=== PATIENT | male | born 1945 | race Caucasian/White ===

== ENCOUNTER 2017-08-05 08:56 | Inpatient (IN) | payer OTHER, MEDICARE ==
[2017-08-05] MEDS ORDERED: HYDROcodone/APAP 5-325MG 1 EACH TAB PO STA (09:44)
[2017-08-05] MEDS ORDERED: SODIUM CHLORIDE 0.9% 1,000 ML IV STA ×2 (09:44)
[2017-08-05] MEDS ORDERED: DIPH,PERTUS(ACELL)TETVAC-LF 0.5 ML VIAL IM ONE (09:44)
[2017-08-05] MEDS ORDERED: VANCOMYCIN IV PER PHARMACY 1 EACH MISC MISCELLANE PRN (09:46)
[2017-08-05] MEDS ORDERED: AMPICILLIN-SULBACTAM 3 GM in SODIUM CHLORIDE 0.9% 100 ML IVPB STA (09:49)
[2017-08-05] MEDS ORDERED: VANCOMYCIN 1,500 MG in SODIUM CHLORIDE 0.9% 250 ML IVPB STA (10:01)
[2017-08-05 10:26] LABS: Basophils % (A) 0 %; Eosinophils # (A) 0.1 k/uL (0-0.7); Eosinophils % (A) 1 %; HGB 12.8 gm/dL (13.0-17.5); Lymphocytes # (A) 0.6 k/uL (1.0-4.8); Lymphocytes % (A) 9 %; MCH 30.4 pg (25.0-35.0); MCHC 33.6 g/dL (31.0-37.0); MCV 90.4 fL (80.0-100.0); Mean Platelet Volume 7.4; Monocytes # (A) 0.4 k/uL (0-1.0); Monocytes % (A) 6 %; Neutrophils # (A) 5.8 k/uL (1.3-7.7); Neutrophils % (A) 83 %; Platelet Count 239 k/uL (150-450); RBC 4.21 m/uL (4.30-5.90); RDW 12.7 % (11.5-15.5)
--- NOTE | 2017-08-05 10:31 | ED ---
Animal Bite HPI - General Chief Complaint: Animal Bite Stated Complaint: CAT BITE RT ARM Time Seen by Provider: 08/05/17 09:38 Source: patient, RN notes reviewed, old records reviewed Mode of arrival: ambulatory Limitations: no limitations - History of Present Illness Initial Comments: This is a 71-year-old male presents emergency Department chief complaint of a cat scratch over Thursday evening. He reports that the cat scratches right hand and wrist. He reports that over the past few days had increased swelling. He initially told his family reports that he fell. They followed up with orthopedic yesterday and orthopedic started the Patient on azithromycin yesterday. Patient's family states that the swelling and pain and redness have gotten worse over the right hand and wrist today. He states that he is diabetic. - Related Data Home Medications Medication Instructions Recorded Confirmed Alendronate Sodium [Fosamax] 70 mg PO PORTILLO 11/19/15 11/24/15 Dextrose Chew [Glucose Chew Tab] 12 gm PO DAILY PRN 11/19/15 11/24/15 Donepezil [Aricept] 5 mg PO DAILY 11/19/15 11/24/15 Donepezil [Aricept] 10 mg PO DAILY 11/19/15 11/24/15 Fluticasone Nasal [place] [Flonase 2 sprays EA NOSTRIL DAILY PRN 11/19/15 11/24/15 Nasal [place]] Gabapentin [Neurontin] 300 mg PO TID 11/19/15 11/24/15 Insulin Aspart [NovoLOG Flexpen] 4 units SQ AC-TID 11/19/15 11/24/15 Insulin Aspart [NovoLOG Flexpen] See Protocol SQ PC-TID 11/19/15 11/24/15 Insulin Glargine,Hum.rec.anlog 20 units SQ QAM 11/19/15 11/24/15 [Lantus Solostar] Lisinopril-Hctz 10-12.5 mg 1 tab PO DAILY 11/19/15 11/24/15 [Zestoretic 10-12.5] Loratadine [Claritin] 10 mg PO DAILY PRN 11/19/15 11/24/15 Memantine HCl [Namenda] 5 mg PO BID 11/19/15 11/24/15 Simvastatin [Zocor] 20 mg PO HS 11/24/15 11/24/15 Previous Rx's Medication Instructions Recorded Omeprazole 20 mg PO BID #30 11/25/15 Allergies Allergy/AdvReac Type Severity Reaction Status Date / Time No Known Allergies Allergy Verified 08/05/17 09:21 Review of Systems ROS Statement: Those systems with pertinent positive or pertinent negative responses have been documented in the HPI. ROS Other: All systems not noted in ROS Statement are negative. Past Medical History Past Medical History: Dementia, Diabetes Mellitus, Hyperlipidemia, Hypertension Additional Past Medical History / Comment(s): Agent [place] exposure in [place] History of Any Multi-Drug Resistant Organisms: None Reported, Unobtainable Past Surgical History: Unable to Obtain Past Anesthesia/Blood Transfusion Reactions: No Reported Reaction Past Psychological History: Unable to Obtain Smoking Status: Former smoker Past Alcohol Use History: Occasional Past Drug Use History: None Reported General Exam - General Exam Comments Initial Comments: 71-year-old male. Alert and oriented. No significant distress. Limitations: no limitations General appearance: alert, in no apparent distress Head exam: Present: atraumatic, normocephalic, normal inspection Eye exam: Present: normal appearance, PERRL, EOMI. Absent: scleral icterus, conjunctival injection, periorbital swelling ENT exam: Present: normal exam, mucous membranes moist Neck exam: Present: normal inspection. Absent: tenderness, meningismus, lymphadenopathy Respiratory exam: Present: normal lung sounds bilaterally. Absent: respiratory distress, wheezes, rales, rhonchi, stridor Cardiovascular Exam: Present: regular rate, normal rhythm, normal heart sounds. Absent: systolic murmur, diastolic murmur, rubs, gallop, clicks GI/Abdominal exam: Present: soft, normal bowel sounds. Absent: distended, tenderness, guarding, rebound, rigid Extremities exam: Present: normal inspection, full ROM, normal capillary refill. Absent: tenderness, pedal edema, joint swelling, calf tenderness Back exam: Present: normal inspection Neurological exam: Present: alert, oriented X3, CN II-XII intact Psychiatric exam: Present: normal affect, normal mood Skin exam: Present: warm, dry, intact, normal color. Absent: rash Course Vital Signs 08/05/17 09:17 Temperature 97.8 F Pulse Rate 85 Respiratory 16 Rate Blood Pressure 149/63 O2 Sat by Pulse 97 Oximetry Medical Decision Making - Medical Decision Making 8-year-old male with history of diabetes presents with right arm and wrist and hand cellulitis after possibility of cat scratch versus bite. Started the Patient on Unasyn and vancomycin. Patient has extending cellulitis from the wrist to the proximal forearm. Patient's x-ray of the hand and wrist reviewed and show soft tissue swelling noted discharge changes. Patient's also started on insulin drip for the elevated blood sugar. Currently pending acetone and urinalysis. Patient admitted to Dr. Mora has not this time. - Lab Data Result diagrams: 08/05/17 10:00 08/05/17 10:00 Lab Results 08/05/17 08/05/17 08/05/17 Range/Units 10:00 10:00 10:00 WBC 7.0 (3.8-10.6) k/uL RBC 4.21 L (4.30-5.90) m/uL Hgb 12.8 L (13.0-17.5) gm/dL Hct 38.0 L (39.0-53.0) % MCV 90.4 (80.0-100.0) fL MCH 30.4 (25.0-35.0) pg MCHC 33.6 (31.0-37.0) g/dL RDW 12.7 (11.5-15.5) % Plt Count 239 (150-450) k/uL Neutrophils % 83 % Lymphocytes % 9 % Monocytes % 6 % Eosinophils % 1 % Basophils % 0 % Neutrophils # 5.8 (1.3-7.7) k/uL Lymphocytes # 0.6 L (1.0-4.8) k/uL Monocytes # 0.4 (0-1.0) k/uL Eosinophils # 0.1 (0-0.7) k/uL Basophils # 0.0 (0-0.2) k/uL Sodium 131 L (137-145) mmol/L Potassium 5.5 H (3.5-5.1) mmol/L Chloride 91 L (98-107) mmol/L Carbon Dioxide 26 (22-30) mmol/L Anion Gap 14 mmol/L BUN 22 H (9-20) mg/dL Creatinine 1.10 (0.66-1.25) mg/dL Est GFR (CKD-EPI)AfAm 78 (>60 ml/min/1.73 sqM) Est GFR (CKD-EPI)NonAf 68 (>60 ml/min/1.73 sqM) Glucose 452 H* (74-99) mg/dL Plasma Lactic Acid Clifford 1.3 (0.7-2.0) mmol/L Calcium 9.3 (8.4-10.2) mg/dL - Radiology Data Radiology results: report reviewed Wrist x-ray shows suggestion of mild soft tissue prominence which may be greater in the thumb. No acute osseous and around. No foreign bodies noted. No acute osseous normality, advanced and or changes in distal and phalangeal joint space. No foreign bodies noted in the hand noted. Disposition Clinical Impression: Cat bite, Right arm cellulitis, Hyperglycemia due to type 2 diabetes mellitus Disposition: ADMITTED IP TO THIS HOSP Condition: Stable Instructions: Animal Bite (ED) Is patient prescribed a controlled substance at d/c from ED?: No When asked, does pt state using other controlled substances?: No If prescribed controlled substance>3 days was MAPS reviewed?: No If opioid is for acute pain is fill amount 7 days or less?: No If Rx opioid, was Start Talking consent form obtained?: No Referrals: [facility],Clinic [Primary Care Provider] - 1-2 days Time of Disposition: 11:26
[2017-08-05 10:46] LABS: Calcium 9.3 mg/dL (8.4-10.2); Potassium 5.5 mmol/L (3.5-5.1)
--- NOTE | 2017-08-05 10:52 | XR ---
EXAMINATION TYPE: XR hand complete RT DATE OF EXAM: 08/05/2017 COMPARISON: NONE HISTORY: Pain I TECHNIQUE: Three-view right hand FINDINGS: There is some degenerative joint change in the distal interphalangeal joint spaces. This is especially noted at the index finger. Soft tissues appear normal. No radiopaque foreign bodies are evident. IMPRESSION: 1. No acute osseous abnormality. 2. Advanced degenerative changes at the distal interphalangeal joint spaces. 3. No radiopaque foreign bodies.
--- NOTE | 2017-08-05 11:13 | XR ---
EXAMINATION TYPE: XR wrist complete RT DATE OF EXAM: 08/05/2017 COMPARISON: NONE HISTORY: Pain A TECHNIQUE: 4 view right wrist FINDINGS: No acute fractures are evident. Some mild degenerative changes at the first carpal metacarp al junction. Soft tissues appear minimally prominent diffusely. IMPRESSION: 1. Suggestion of mild soft tissue prominence which may be greater at the thumb. 2. No acute osseous abnormality. 3. No radiopaque foreign bodies.
[2017-08-05] MEDS ORDERED: INSULIN REGULAR 100 UNIT in SODIUM CHLORIDE 0.9% 100 ML IV ONE (11:15)
[2017-08-05] MEDS ORDERED: IBUPROFEN 400 MG TAB PO PRN (11:28)
[2017-08-05] MEDS ORDERED: HYDROcodone/APAP 5-325MG 1 EACH TAB PO PRN (11:28)
[2017-08-05] MEDS ORDERED: MORPHINE SULFATE 2 MG/ML SYRINGE IV PRN (11:28)
[2017-08-05] MEDS ORDERED: NALOXONE 0.4 MG/ML 1 ML VIAL IV PRN (11:28)
[2017-08-05] MEDS ORDERED: ONDANSETRON 4 MG/2 ML VIAL IVP PRN (11:28)
[2017-08-05] MEDS ORDERED: ACETAMINOPHEN TAB 325 MG TAB PO PRN (11:28)
[2017-08-05] MEDS: SODIUM CHLORIDE 0.9% 1,000 ML IV SCH ×2 (12:00→21:14)
[2017-08-05 12:08] LABS: Appearance,Urine Clear (Clear); Bacteria,Urine Rare /hpf; Bilirubin,Urine Negative (Negative); Blood,Urine Small (Negative); Color,Urine Light Yellow; Glucose,Urine (UA) 4+ (Negative); Ketones,Urine 1+ (Negative); Leukocyte Esterase,Urine Negative (Negative); Nitrite,Urine Negative (Negative); Protein,Urine Negative (Negative); RBC,Urine 10 /hpf (0-5); Specific Gravity,Urine 1.021 (1.001-1.035); Squamous Epithelial Cell,Urine <1 /hpf (0-4); Urobilinogen,Urine <2.0 mg/dL (<2.0); WBC,Urine 1 /hpf (0-5)
[2017-08-05 12:14] LABS: Glucose,Whole Blood 357 mg/dL (75-99)
[2017-08-05 13:29] LABS: Glucose,Whole Blood 306 mg/dL (75-99)
--- NOTE | 2017-08-05 14:05 | P.HPIM ---
History of Present Illness 71-year-old pleasant gentleman with a history of possible thousand was dementia has phases of lucidity came in presently alert oriented 3 came in after a cat bite patient was seen in the orthopedic surgery clinic. Patient cat bite his left hand initially to start the patient has a fracture for, no fracture was evident and patient was given Augmentin only take 2 doses of Augmentin since his symptoms has worsened patient came to ER patient denied any fever chills patient redness and swelling has worsened there is no obvious abscess and clinical exam patient was started given Unasyn and vancomycin, vancomycin will be discontinued patient will be started back on Unasyn patient has a highly elevated blood sugars patient lives it to water large apparently takes his insulin on regular basis. Patient is found to highly elevated blood sugars with that acitretin negative and patient is not in diabetic ketoacidosis does have mild anion gap patient is presently on IV insulin which will be transitioned to subcutaneous insulin. Patient will be can you done IV fluids. If patient has symptomatically improvement probably can be discharged on Augmentin tomorrow or as patient may need orthopedic surgery evaluation if it gets worse or patient has an induration or abscess tomorrow. Review of Systems REVIEW OF SYSTEMS: CONSTITUTIONAL: No fever, no malaise, no fatigue. HEENT: No recent visual problems or hearing problems. Denied any sore throat. CARDIOVASCULAR: No chest pain, orthopnea, PND, no palpitations, no syncope. PULMONARY: No shortness of breath, no cough, no hemoptysis. GASTROINTESTINAL: No diarrhea, no nausea, no vomiting, no abdominal pain. Normoactive bowel sounds. NEUROLOGICAL: No headaches, no weakness, no numbness. HEMATOLOGICAL: Denies any bleeding or petechiae. GENITOURINARY: Denies any burning micturition, frequency, or urgency. MUSCULOSKELETAL/RHEUMATOLOGICAL: Denies any joint pain, swelling, or any muscle pain. ENDOCRINE: Denies any polyuria or polydipsia. The rest of the 14-point review of systems is negative. Past Medical History Past Medical History: Dementia, Diabetes Mellitus, GERD/Reflux, Hyperlipidemia, Hypertension Additional Past Medical History / Comment(s): Agent [place] exposure in [place], IDDM type II, DKA with metabolic encephalopathy, neuropathy bilateral feet, osteoporosis, sinus problems, arthritis bilateral hands/feet History of Any Multi-Drug Resistant Organisms: None Reported Past Surgical History: Appendectomy Additional Past Surgical History / Comment(s): Pt thinks he may have had an appendectomy, colonoscopy-normal Past Anesthesia/Blood Transfusion Reactions: No Reported Reaction Past Psychological History: No Psychological Hx Reported Additional Psychological History / Comment(s): [facility]. He has dementia. He is a [place] . He uses no assistive device. He no longer drives, family takes him to appts. He has a pet cat. Staff manages his medications. He has a glucometer. Smoking Status: Former smoker Past Alcohol Use History: Occasional Additional Past Alcohol Use History / Comment(s): Pt started smoking in 1964 and quit in 1974. Past Drug Use History: None Reported - Past Family History Father Family Medical History: No Reported History Additional Family Medical History / Comment(s): Father was healthy and lived into his 80s. Mother Family Medical History: Cancer Additional Family Medical History / Comment(s): Mother had some form of cancer ( family do not know kind) which she of in her 50s Medications and Allergies Home Medications Medication Instructions Recorded Confirmed Type Alendronate Sodium [Fosamax] 70 mg PO PORTILLO 11/19/15 11/24/15 History Dextrose Chew [Glucose Chew Tab] 12 gm PO DAILY PRN 11/19/15 11/24/15 History Donepezil [Aricept] 5 mg PO DAILY 11/19/15 11/24/15 History Donepezil [Aricept] 10 mg PO DAILY 11/19/15 11/24/15 History Fluticasone Nasal [place] [Flonase 2 sprays EA NOSTRIL DAILY PRN 11/19/15 History Nasal [place]] Gabapentin [Neurontin] 300 mg PO TID 11/19/15 11/24/15 History Insulin Aspart [NovoLOG Flexpen] 4 units SQ AC-TID 11/19/15 11/24/15 History Insulin Aspart [NovoLOG Flexpen] See Protocol SQ PC-TID 11/19/15 11/24/15 History Insulin Glargine,Hum.rec.anlog 20 units SQ QAM 11/19/15 11/24/15 History [Lantus Solostar] Lisinopril-Hctz 10-12.5 mg 1 tab PO DAILY 11/19/15 11/24/15 History [Zestoretic 10-12.5] Loratadine [Claritin] 10 mg PO DAILY PRN 11/19/15 11/24/15 History Memantine HCl [Namenda] 5 mg PO BID 11/19/15 11/24/15 History Simvastatin [Zocor] 20 mg PO HS 11/24/15 11/24/15 History Omeprazole 20 mg PO BID #30 11/25/15 11/24/15 Rx Allergies Allergy/AdvReac Type Severity Reaction Status Date / Time No Known Allergies Allergy Verified 08/05/17 12:08 Physical Exam Vitals: Vital Signs Temp Pulse Pulse Resp BP BP Pulse Ox 08/05/17 12:40 96.8 F L 75 18 157/65 99 08/05/17 12:25 98.4 F 73 18 134/62 99 08/05/17 11:29 71 18 142/65 99 08/05/17 09:17 97.8 F 85 16 149/63 97 Intake and Output 08/04/17 08/05/17 08/05/17 22:59 06:59 14:59 Intake Total 3.939 Balance 3.939 Intake: Intake, IV Titration 3.939 Amount Insulin Regular 100 unit 3.939 In Sodium Chloride 0.9% 100 ml @ 3 UNIT/HR 3.03 mls/hr IV .Q24H ONE Rx#: [id number] Other: Weight 79.379 kg PHYSICAL EXAMINATION: GENERAL: The patient is alert and oriented x3, not in any acute distress. Well developed, well nourished. HEENT: Pupils are round and equally reacting to light. EOMI. No scleral icterus. No conjunctival pallor. Normocephalic, atraumatic. No pharyngeal erythema. No thyromegaly. CARDIOVASCULAR: S1 and S2 present. No murmurs, rubs, or gallops. PULMONARY: Chest is clear to auscultation, no wheezing or crackles. ABDOMEN: Soft, nontender, nondistended, normoactive bowel sounds. No palpable organomegaly. MUSCULOSKELETAL: No joint swelling or deformity. EXTREMITIES: No cyanosis, clubbing, or pedal edema. NEUROLOGICAL: Gross neurological examination did not reveal any focal deficits. SKIN: Patient will left hand has significant swelling extending the whole hand and up to mid forearm and patient has 2 puncture patel consistent with animal bite Results CBC & Chem 7: 08/05/17 10:00 08/05/17 10:00 Labs: Abnormal Lab Results - Last 24 Hours (Table) 08/05/17 08/05/17 08/05/17 Range/Units 10:00 10:00 11:30 RBC 4.21 L (4.30-5.90) m/uL Hgb 12.8 L (13.0-17.5) gm/dL Hct 38.0 L (39.0-53.0) % Lymphocytes # 0.6 L (1.0-4.8) k/uL Sodium 131 L (137-145) mmol/L Potassium 5.5 H (3.5-5.1) mmol/L Chloride 91 L (98-107) mmol/L BUN 22 H (9-20) mg/dL Glucose 452 H* (74-99) mg/dL POC Glucose (mg/dL) (75-99) mg/dL Urine Glucose (UA) 4+ H (Negative) Urine Ketones 1+ H (Negative) Urine Blood Small H (Negative) Urine RBC 10 H (0-5) /hpf Urine Bacteria Rare H (None) /hpf 08/05/17 08/05/17 Range/Units 12:11 13:12 RBC (4.30-5.90) m/uL Hgb (13.0-17.5) gm/dL Hct (39.0-53.0) % Lymphocytes # (1.0-4.8) k/uL Sodium (137-145) mmol/L Potassium (3.5-5.1) mmol/L Chloride (98-107) mmol/L BUN (9-20) mg/dL Glucose (74-99) mg/dL POC Glucose (mg/dL) 357 H 306 H (75-99) mg/dL Urine Glucose (UA) (Negative) Urine Ketones (Negative) Urine Blood (Negative) Urine RBC (0-5) /hpf Urine Bacteria (None) /hpf Thrombosis Risk Factor Assmnt - Choose All That Apply Any of the Below Risk Factors Present?: Yes Other Risk Factors: Yes Each Risk Factor Represents 2 Points: Age 61-74 years Other congenital or acquired thrombophilia - If yes, enter type in comment: No Thrombosis Risk Factor Assessment Total Risk Factor Score: 2 Thrombosis Risk Factor Assessment Level: Low Risk Assessment and Plan Plan: -Left hand cellulitis failed outpatient therapy secondary to cat bite patient will be continued on Unasyn and vancomycin will be discontinued and monitor clinically awaiting blood cultures -Type 2 diabetes mellitus uncontrolled blood sugars believe on IV insulin until blood sugars come down to 250 after which patient will be transitioned to subcutaneous insulin along with the meal insulin and sliding scale. Patient is not in diabetic it is doses -Hypertension -Dementia appears to be dementia of falls and was type appears to be moderate -Gastroesophageal reflux disease -Hyperlipidemia Once his home medications are verified patient will be started and continued on appropriate home medications.
[2017-08-05 14:11] LABS: Glucose,Whole Blood 262 mg/dL (75-99)
[2017-08-05 15:13] LABS: Glucose,Whole Blood 135 mg/dL (75-99)
[2017-08-05 16:21] LABS: Glucose,Whole Blood 122 mg/dL (75-99)
[2017-08-05 17:15] LABS: Glucose,Whole Blood 152 mg/dL (75-99)
[2017-08-05] MEDS: metFORMIN 500 MG TAB PO SCH (18:32)
[2017-08-05] MEDS: AMPICILLIN-SULBACTAM 3 GM in SODIUM CHLORIDE 0.9% 100 ML IVPB SCH ×2 (18:33→23:47)
[2017-08-05] MEDS: INSULIN ASPART 100 UNIT/ML 1 ML 10 ML VIAL SQ SCH ×3 (18:33→21:13)
[2017-08-05] MEDS: INSULIN DETEMIR 100 UNIT/ML 10 ML VIAL SQ SCH (21:13)
[2017-08-05] MEDS: GABAPENTIN 300 MG CAP PO SCH (21:14)
[2017-08-05] MEDS: MEMANTINE 5 MG TAB PO SCH (21:14)
[2017-08-05] MEDS: ATORVASTATIN 10 MG TAB PO SCH (21:14)
[2017-08-05 21:19] LABS: Glucose,Whole Blood 264 mg/dL (75-99)
[2017-08-05] MEDS ORDERED: VANCOMYCIN 1,500 MG in SODIUM CHLORIDE 0.9% 250 ML IVPB SCH (23:00)
[2017-08-06] MEDS: SODIUM CHLORIDE 0.9% 1,000 ML IV SCH ×3 (06:22→22:09)
[2017-08-06] MEDS: AMPICILLIN-SULBACTAM 3 GM in SODIUM CHLORIDE 0.9% 100 ML IVPB SCH ×4 (06:22→23:26)
[2017-08-06 07:14] LABS: Glucose,Whole Blood 161 mg/dL (75-99)
[2017-08-06 07:57] LABS: Basophils % (A) 1 %; Eosinophils # (A) 0.1 k/uL (0-0.7); Eosinophils % (A) 1 %; HCT 35.8 % (39.0-53.0); HGB 12.1 gm/dL (13.0-17.5); Lymphocytes # (A) 0.9 k/uL (1.0-4.8); Lymphocytes % (A) 14 %; MCH 30.2 pg (25.0-35.0); MCHC 33.8 g/dL (31.0-37.0); MCV 89.4 fL (80.0-100.0); Mean Platelet Volume 7.3; Monocytes # (A) 0.6 k/uL (0-1.0); Monocytes % (A) 10 %; Neutrophils # (A) 4.7 k/uL (1.3-7.7); Neutrophils % (A) 73 %; Platelet Count 243 k/uL (150-450); RDW 12.7 % (11.5-15.5); WBC 6.5 k/uL (3.8-10.6)
[2017-08-06] MEDS: GABAPENTIN 300 MG CAP PO SCH ×3 (08:04→21:57)
[2017-08-06] MEDS: metFORMIN 500 MG TAB PO SCH ×2 (08:04→17:04)
[2017-08-06] MEDS: FLUTICASONE 50MCG/SPRAY NASAL 16GM EA NOSTRIL SCH (08:04)
[2017-08-06] MEDS: INSULIN ASPART 100 UNIT/ML 1 ML 10 ML VIAL SQ SCH ×7 (08:05→21:56)
[2017-08-06] MEDS: ASPIRIN 81 MG PO SCH (08:05)
[2017-08-06] MEDS: DONEPEZIL 10 MG TAB PO SCH (08:05)
[2017-08-06] MEDS: MEMANTINE 5 MG TAB PO SCH ×2 (08:05→21:58)
[2017-08-06 08:25] LABS: Anion Gap 12 mmol/L; Blood Urea Nitrogen 11 mg/dL (9-20); Calcium 8.8 mg/dL (8.4-10.2); Carbon Dioxide 27 mmol/L (22-30); Chloride 96 mmol/L (98-107); Glucose 148 mg/dL (74-99); Potassium 4.1 mmol/L (3.5-5.1); Sodium 135 mmol/L (137-145)
[2017-08-06] MEDS ORDERED: PANTOPRAZOLE 40 MG/10 ML VIAL IV SCH (09:00)
[2017-08-06] MEDS ORDERED: NON-FORMULARY DRUG (Omeprazole [Omeprazole] 20 MG) PO SCH (09:00)
[2017-08-06 11:45] LABS: Glucose,Whole Blood 182 mg/dL (75-99)
[2017-08-06 12:31] VITALS: BMI 25.1
[2017-08-06 17:44] LABS: Glucose,Whole Blood 87 mg/dL (75-99)
[2017-08-06 17:44] LABS: Glucose,Whole Blood 54 mg/dL (75-99)
[2017-08-06 19:05] LABS: Hemoglobin A1C 8.5 % (4.0-6.0)
[2017-08-06 20:42] LABS: Glucose,Whole Blood 242 mg/dL (75-99)
[2017-08-06] MEDS: INSULIN DETEMIR 100 UNIT/ML 10 ML VIAL SQ SCH (21:57)
[2017-08-06] MEDS: ATORVASTATIN 10 MG TAB PO SCH (22:48)
[2017-08-07 03:05] LABS: Glucose,Whole Blood 182 mg/dL (75-99)
[2017-08-07] MEDS: SODIUM CHLORIDE 0.9% 1,000 ML IV SCH ×3 (05:26→23:45)
[2017-08-07] MEDS: AMPICILLIN-SULBACTAM 3 GM in SODIUM CHLORIDE 0.9% 100 ML IVPB SCH ×4 (05:26→23:45)
--- NOTE | 2017-08-07 06:52 | CONS ---
CONSULTATION DATE OF SERVICE: 08/06/2017. REASON FOR CONSULTATION: Right hand and arm cat bite cellulitis. HISTORY OF PRESENT ILLNESS: The patient is a 71-year-old male who has been brought into the ER at [facility] 12/05/2017 with right hand, wrist, forearm swelling and redness after an apparent cat scratch, but the patient not specific. Denies having been bitten by the cat. It happened on Thursday and that is , subsequently developed swelling and redness of the right arm. Patient been complaining of some pain to the right arm, more of a dull aching, 3 to 4 out of 10 and no radiation with subsequently significant swelling and redness. The patient has been brought to the [facility] ER. On arrival to the ER, the patient did have a low-grade fever of 99. His white count was not elevated. The patient did have significant swelling and redness of the arm for which the patient has been started on Unasyn and admitted to the hospital. Infectious Disease was consulted for further recommendation regarding antibiotic therapy. Apparently the patient has been seen in the outpatient setting by Orthopedics and was started on oral Zithromax without any improvement. However, when asked specifically this information from the patient, he denied. Overall the patient is to be a very good historian. REVIEW OF SYSTEMS: CONSTITUTIONAL: Positive for weakness. No fever. EYES: No complaint. ENT: No complaint. RESPIRATORY: No complaint. CARDIOVASCULAR: No complaint. GENITOURINARY: No complaint. GASTROINTESTINAL: No complaint. MUSCULOSKELETAL: As per HPI. INTEGUMENTARY: As per HPI. PSYCHOLOGICAL: No complaint. ENDOCRINE: No complaint. NEUROLOGIC: No complaint. PAST MEDICAL HISTORY: Diabetes mellitus, gastroesophageal reflux disease. hypertension, hyperlipidemia, dementia, bilateral feet neuropathy, metabolic encephalopathy, osteoporosis. PAST SURGICAL HISTORY: Appendectomy, colonoscopy. SOCIAL HISTORY: The patient smoked for about 10 years from 1965 to 1974. The patient drinks. No drug use. FAMILY HISTORY: Father was healthy and lived to be in 80s . Mother history of cancer. ALLERGIES: No known drug allergies. MEDICATIONS: Medications include the patient is currently on Protonix, Zofran, Narcan, morphine sulfate, Glucophage, Levemir, Namenda NovoLog, Motrin, Neurontin, Flonase, Aricept, Lipitor, aspirin, Unasyn 3 grams q.6, [place] and Tylenol. PHYSICAL EXAMINATION: On examination, blood pressure is 159/79 with the pulse of 91, temperature 99.1. He is 98% on room air. General description is an elderly male lying in bed in no distress. No tachypnea or accessory muscle of respiration use. HEENT examination shows pallor. No scleral icterus. Oral mucous membrane is dry. No pharyngeal erythema or thrush. NECK: Trachea central. No thyromegaly. LUNGS: Unlabored breathing, clear to auscultation anteriorly. HEART: S1, S2. Regular rate and rhythm. ABDOMEN: Soft, no tenderness. No guarding or rigidity. EXTREMITIES: No edema of feet. Examination of right hand to be swollen and red, slightly tender to touch. No skin breakdown. No drainage. NEUROLOGICAL: Patient is awake, alert, oriented x2. Mood and affect normal. LABS: Hemoglobin is 12.1, white count 6.5 with a BUN of 11, creatinine 0.85. Blood culture obtained currently pending. DIAGNOSTIC IMPRESSION AND PLAN: Patient acute right forearm cat bite/scratch cellulitis failing outpatient Zithromax therapy. Culture likely from a gram-negative or for this episode of cellulitis. PLAN: 1. Recommend Unasyn 3 grams q.6 hours for at least another 24 to 48 hours in view of extensive cellulitis. 2. Alex the area of redness. 3. We will follow up on clinical condition and culture to further adjust medication if needed. Thank you for this consultation. Will follow this patient along with you. MMODL / IJN: [id number] /
[2017-08-07 07:17] LABS: Glucose,Whole Blood 89 mg/dL (75-99)
[2017-08-07] MEDS: INSULIN ASPART 100 UNIT/ML 1 ML 10 ML VIAL SQ SCH ×7 (07:33→22:18)
[2017-08-07] MEDS: ASPIRIN 81 MG PO SCH (07:45)
[2017-08-07] MEDS: DONEPEZIL 10 MG TAB PO SCH (08:10)
[2017-08-07] MEDS: PANTOPRAZOLE 40 MG TABLET PO SCH (08:10)
[2017-08-07] MEDS: metFORMIN 500 MG TAB PO SCH ×2 (08:10→17:37)
[2017-08-07] MEDS: FLUTICASONE 50MCG/SPRAY NASAL 16GM EA NOSTRIL SCH (08:10)
[2017-08-07] MEDS: MEMANTINE 5 MG TAB PO SCH ×2 (08:11→22:20)
[2017-08-07] MEDS: GABAPENTIN 300 MG CAP PO SCH ×3 (08:11→22:19)
[2017-08-07 09:48] LABS: Basophils % (A) 0 %; Eosinophils # (A) 0.1 k/uL (0-0.7); Eosinophils % (A) 1 %; HCT 38.1 % (39.0-53.0); HGB 13.1 gm/dL (13.0-17.5); Lymphocytes # (A) 0.8 k/uL (1.0-4.8); Lymphocytes % (A) 13 %; MCHC 34.4 g/dL (31.0-37.0); MCV 90.1 fL (80.0-100.0); Mean Platelet Volume 6.9; Monocytes # (A) 0.5 k/uL (0-1.0); Monocytes % (A) 8 %; Neutrophils # (A) 4.7 k/uL (1.3-7.7); Neutrophils % (A) 76 %; Platelet Count 268 k/uL (150-450); RBC 4.23 m/uL (4.30-5.90); RDW 12.8 % (11.5-15.5); WBC 6.2 k/uL (3.8-10.6)
[2017-08-07 09:58] LABS: Anion Gap 12 mmol/L; Blood Urea Nitrogen 10 mg/dL (9-20); Calcium 9.5 mg/dL (8.4-10.2); Carbon Dioxide 24 mmol/L (22-30); Chloride 99 mmol/L (98-107); Glucose 100 mg/dL (74-99); Potassium 4.5 mmol/L (3.5-5.1); Sodium 135 mmol/L (137-145)
--- NOTE | 2017-08-07 11:36 | P.CNOR ---
History of Present Illness - [facility] Consult date: 08/07/17 Consult reason: other History of present illness: Patient is a 71 year old male who was admitted to [facility] on 08/05/2017 with regards to pain, swelling, redness and cellulitis involving the right wrist. Patient was scratched/bitten by his cat last Thursday, he then developed current symptoms a few days after the incident. He was initially evaluated in the outpatient setting by Dr. Bowen, he was started on oral Augmentin on 08/04/2017. He then presented to hospital due to worsening symptoms. He was admitted under internal medicine with consults later placed for infectious disease and our orthopedic service. I was contacted about the patient yesterday afternoon and he was made NPO in case surgical intervention would be needed. He was evaluated at bedside this morning, he is resting comfortably. He notes pain over the first dorsal compartment with direct palpation. His range of motion with regard to fingers and wrist are intact, no worsening pain. He denies elbow or shoulder pain. He denies any active fever or chills. He denies any previous orthopedic surgery to the wrist or hand. Review of Systems Constitutional: Reports as per HPI Past Medical History Past Medical History: Dementia, Diabetes Mellitus, GERD/Reflux, Hyperlipidemia, Hypertension Additional Past Medical History / Comment(s): Agent S[place] exposure in [place], IDDM type II, DKA with metabolic encephalopathy, neuropathy bilateral feet, osteoporosis, sinus problems, arthritis bilateral hands/feet History of Any Multi-Drug Resistant Organisms: None Reported Past Surgical History: Appendectomy Additional Past Surgical History / Comment(s): Pt thinks he may have had an appendectomy, colonoscopy-normal Past Anesthesia/Blood Transfusion Reactions: No Reported Reaction Past Psychological History: No Psychological Hx Reported Additional Psychological History / Comment(s): Pt resides at [facility] assistive living. He has dementia. He is a [place] . He uses no assistive device. He no longer drives, family takes him to [employer]. He has a pet cat. Staff manages his medications. He has a glucometer. Smoking Status: Former smoker Past Alcohol Use History: Occasional Additional Past Alcohol Use History / Comment(s): Pt started smoking in 1964 and quit in 1974. Past Drug Use History: None Reported - Past Family History Father Family Medical History: No Reported History Additional Family Medical History / Comment(s): Father was healthy and lived into his 80s. Mother Family Medical History: Cancer Additional Family Medical History / Comment(s): Mother had some form of cancer ( family do not know kind) which she of in her 50s Medications and Allergies Home Medications Medication Instructions Recorded Confirmed Type Donepezil [Aricept] 10 mg PO DAILY 11/19/15 08/05/17 History Fluticasone Nasal [place] [Flonase 1 sprays EA NOSTRIL DAILY 11/19/15 08/05/17 History Nasal [place]] Gabapentin [Neurontin] 600 mg PO QAM 11/19/15 08/05/17 History Insulin Aspart [NovoLOG Flexpen] 6 units SQ AC-TID 11/19/15 08/05/17 History Insulin Aspart [NovoLOG Flexpen] See Protocol SQ PC-TID 11/19/15 08/05/17 History Insulin Glargine,Hum.rec.anlog 30 units SQ HS 11/19/15 08/05/17 History [Lantus Solostar] Lisinopril-Hctz 10-12.5 mg 1 tab PO DAILY 11/19/15 08/05/17 History [Zestoretic 10-12.5] Memantine HCl [Namenda] 5 mg PO BID 11/19/15 08/05/17 History Aspirin EC [Ecotrin Low Dose] 81 mg PO DAILY 08/05/17 08/05/17 History Gabapentin [Neurontin] 300 mg PO BID@1200,2100 08/05/17 08/05/17 History Omeprazole 20 mg PO DAILY 08/05/17 08/05/17 History Simvastatin [Zocor] 20 mg PO HS 08/05/17 08/05/17 History metFORMIN HCL ER [Glucophage Xr] 250 mg PO AC-BID 08/05/17 08/05/17 History Allergies Allergy/AdvReac Type Severity Reaction Status Date / Time No Known Allergies Allergy Verified 08/05/17 14:03 Physical Examination Right hand/wrist: Obvious erythema and swelling present over the first dorsal compartment with minor extension to extensor aspect of distal radius. Multiple scabs over the dorsal hand and wrist present, no active drainage visualized. [place] with palpation over the area of erythema and scab on first dorsal compartment, hard to appreciated localized area of fluctuance He is able to extend and flex all fingers and wrist, passive motions reproduces no pain along flexor side of hand or wrist Sensation to lite touch intact throughout extremity Radial pulse is 2+ Results - Labs Labs: Abnormal Lab Results - Last 24 Hours (Table) 08/06/17 08/06/17 08/06/17 Range/Units 07:20 11:43 17:24 RBC (4.30-5.90) m/uL Hct (39.0-53.0) % Lymphocytes # (1.0-4.8) k/uL Sodium (137-145) mmol/L Glucose (74-99) mg/dL POC Glucose (mg/dL) 182 H 54 L (75-99) mg/dL Hemoglobin A1c 8.5 H (4.0-6.0) % 08/06/17 08/07/17 08/07/17 Range/Units 20:36 03:02 09:23 RBC 4.23 L (4.30-5.90) m/uL Hct 38.1 L (39.0-53.0) % Lymphocytes # 0.8 L (1.0-4.8) k/uL Sodium (137-145) mmol/L Glucose (74-99) mg/dL POC Glucose (mg/dL) 242 H 182 H (75-99) mg/dL Hemoglobin A1c (4.0-6.0) % 08/07/17 Range/Units 09:23 RBC (4.30-5.90) m/uL Hct (39.0-53.0) % Lymphocytes # (1.0-4.8) k/uL Sodium 135 L (137-145) mmol/L Glucose 100 H (74-99) mg/dL POC Glucose (mg/dL) (75-99) mg/dL Hemoglobin A1c (4.0-6.0) % Microbiology - Last 24 Hours (Table) 08/06/17 16:09 Gram Stain - Preliminary Wrist - Right Wound Culture - Preliminary 08/06/17 16:09 Anaerobic Culture - Preliminary Wrist - Right 08/05/17 10:00 Blood Culture - Preliminary Blood No Growth after 24 hours H & H 08/05/17 08/06/17 08/07/17 Range/Units 10:00 07:20 09:23 Hgb 12.8 L 12.1 L 13.1 (13.0-17.5) gm/dL Hct 38.0 L 35.8 L 38.1 L (39.0-53.0) % Result Diagrams: 08/07/17 09:23 08/07/17 09:23 - Diagnostic results Wrist/Hand x-ray: report reviewed, image reviewed Assessment and Plan Plan: Imaging: AP and lateral views of hand and wrist were reviewed along with reports. No acute fractures or dislocations, no obvious foreign body Assessment: Right wrist cellulitis Right wrist abscess s/p cat bite/scratch Plan: Dr. Bowen was available this morning to examine patient and discuss treatment. We advised a incision and drainage procedure in the operating room this afternoon. Risk and benefits of procedure were discussed with patient. Obtain consent Continue NPO Pain control Medical and infectious disease recommendations Further recommendations to follow Time with Patient: Less than 30
[2017-08-07 12:18] LABS: Glucose,Whole Blood 104 mg/dL (75-99)
[2017-08-07] MEDS: LISINOPRIL 10 MG TAB PO SCH (13:52)
--- NOTE | 2017-08-07 14:46 | P.PN ---
Subjective Progress Note Date: 08/06/17 Progress Note being dictated for Dr. Norris. Interval history: This is a 71-year-old pleasant gentleman with a history of possible thousand was dementia has phases of lucidity came in presently alert oriented 3 came in after a cat bite patient was seen in the orthopedic surgery clinic. Patient cat bite his left hand initially to start the patient has a fracture for, no fracture was evident and patient was given Augmentin only take 2 doses of Augmentin since his symptoms has worsened patient came to ER patient denied any fever chills patient redness and swelling has worsened there is no obvious abscess and clinical exam patient was started given Unasyn and vancomycin, vancomycin will be discontinued patient will be started back on Unasyn patient has a highly elevated blood sugars patient lives it to water large apparently takes his insulin on regular basis. Patient is found to highly elevated blood sugars with that acitretin negative and patient is not in diabetic ketoacidosis does have mild anion gap patient is presently on IV insulin which will be transitioned to subcutaneous insulin. Patient will be can you done IV fluids. If patient has symptomatically improvement probably can be discharged on Augmentin tomorrow or as patient may need orthopedic surgery evaluation if it gets worse or patient has an induration or abscess tomorrow. 08/06/2017 maintained on IV antibiotics of Unasyn. Affected site improving slowly with possible abscess area on wrist. Afebrile, normal WBC. States pain improving. Denies chest pain, palpitations or shortness of breath. Objective - Vital Signs Vital signs: Vital Signs Temp 98.2 F 08/06/17 15:00 Pulse 82 08/06/17 15:00 Resp 20 08/06/17 15:00 BP 164/81 08/06/17 15:00 Pulse Ox 100 08/06/17 15:00 Intake & Output 08/06/17 08/06/17 08/07/17 06:59 18:59 06:59 Intake Total 400 480 Balance 400 480 Weight 79.379 kg Intake: Oral 400 480 Other: Voiding Method Toilet Toilet Urinal Urinal Incontinent # Voids 2 1 # Bowel Movements 0 - Exam GENERAL: The patient is alert and oriented x3, not in any acute distress. Well developed, well nourished. HEENT: Pupils are round and equally reacting to light. EOMI. No scleral icterus. No conjunctival pallor. Normocephalic, atraumatic. No pharyngeal erythema. No thyromegaly. CARDIOVASCULAR: S1 and S2 present. No murmurs, rubs, or gallops. PULMONARY: Chest is clear to auscultation, no wheezing or crackles. ABDOMEN: Soft, nontender, nondistended, normoactive bowel sounds. No palpable organomegaly. MUSCULOSKELETAL: No joint swelling or deformity. EXTREMITIES: No cyanosis, clubbing, or pedal edema. NEUROLOGICAL: Gross neurological examination did not reveal any focal deficits. SKIN: Patient will right hand/wrist with significant redness, swelling, tenderness, scab proximal to thumb on wrist; improving as initially had extended up the forearm. Able to flex and extend wrist, moves all 5 digits - Labs CBC & Chem 7: 08/07/17 09:23 08/07/17 09:23 Labs: Abnormal Lab Results - Last 24 Hours (Table) 08/06/17 08/06/17 08/06/17 Range/Units 07:07 07:20 07:20 RBC 4.00 L (4.30-5.90) m/uL Hgb 12.1 L (13.0-17.5) gm/dL Hct 35.8 L (39.0-53.0) % Lymphocytes # 0.9 L (1.0-4.8) k/uL Sodium 135 L (137-145) mmol/L Chloride 96 L (98-107) mmol/L Glucose 148 H (74-99) mg/dL POC Glucose (mg/dL) 161 H (75-99) mg/dL 08/06/17 08/06/17 08/06/17 Range/Units 11:43 17:24 20:36 RBC (4.30-5.90) m/uL Hgb (13.0-17.5) gm/dL Hct (39.0-53.0) % Lymphocytes # (1.0-4.8) k/uL Sodium (137-145) mmol/L Chloride (98-107) mmol/L Glucose (74-99) mg/dL POC Glucose (mg/dL) 182 H 54 L 242 H (75-99) mg/dL Microbiology - Last 24 Hours (Table) 08/05/17 10:00 Blood Culture - Preliminary Blood No Growth after 24 hours Assessment and Plan Assessment: -Left hand cellulitis failed outpatient therapy secondary to cat bite patient will be continued on Unasyn and vancomycin will be discontinued and monitor clinically awaiting blood cultures -Type 2 diabetes mellitus uncontrolled blood sugars believe on IV insulin until blood sugars come down to 250 after which patient will be transitioned to subcutaneous insulin along with the meal insulin and sliding scale. Patient is not in diabetic it is doses -Hypertension -Dementia appears to be dementia of falls and was type appears to be moderate -Gastroesophageal reflux disease -Hyperlipidemia Plan: Continue current medication regime ,monitoring and symptomatic treatment. Maintain IV antibiotics of Unasyn. Infectious disease and orthopedics consulted, as affected extremity and falls right hand, right wrist. Wound cultures ordered. The impression and plan of care has been dictated as directed. : I performed a history and examination of this patient, discussed the same with the dictator. I agree with the dictator's note ,documented as a scribe. Any additional findings or plans will be noted.
[2017-08-07] MEDS ORDERED: IV FLUID CONTINUATION 125 ML IV ONE (14:50)
--- NOTE | 2017-08-07 14:52 | P.PN ---
Subjective Progress Note Date: 08/07/17 Progress Note being dictated for Dr. Norris. Interval history: This is a 71-year-old pleasant gentleman with a history of possible thousand was dementia has phases of lucidity came in presently alert oriented 3 came in after a cat bite patient was seen in the orthopedic surgery clinic. Patient cat bite his left hand initially to start the patient has a fracture for, no fracture was evident and patient was given Augmentin only take 2 doses of Augmentin since his symptoms has worsened patient came to ER patient denied any fever chills patient redness and swelling has worsened there is no obvious abscess and clinical exam patient was started given Unasyn and vancomycin, vancomycin will be discontinued patient will be started back on Unasyn patient has a highly elevated blood sugars patient lives it to water large apparently takes his insulin on regular basis. Patient is found to highly elevated blood sugars with that acitretin negative and patient is not in diabetic ketoacidosis does have mild anion gap patient is presently on IV insulin which will be transitioned to subcutaneous insulin. Patient will be can you done IV fluids. If patient has symptomatically improvement probably can be discharged on Augmentin tomorrow or as patient may need orthopedic surgery evaluation if it gets worse or patient has an induration or abscess tomorrow. 08/06/2017 maintained on IV antibiotics of Unasyn. Affected site improving slowly with possible abscess area on wrist. Afebrile, normal WBC. States pain improving. Denies chest pain, palpitations or shortness of breath. 08/07/2017 maintained on IV antibiotics as per infectious disease. Evaluated by infectious disease and orthopedics with recommendations noted. Scheduled for I&D of wrist this afternoon. Objective - Vital Signs Vital signs: Vital Signs Temp 98.1 F 08/07/17 05:45 Pulse 73 08/07/17 13:50 Resp 20 08/07/17 05:45 BP 164/73 08/07/17 13:50 Pulse Ox 99 08/07/17 05:45 Intake & Output 08/06/17 08/07/17 08/07/17 18:59 06:59 18:59 Intake Total 480 500 Output Total 200 Balance 480 500 -200 Weight 79.379 kg Intake: Oral 480 500 Output: Urine 200 Other: Voiding Method Toilet Toilet Urinal Incontinent # Voids 1 2 1 # Bowel Movements 0 - Exam GENERAL: The patient is alert and oriented x3, not in any acute distress. Well developed, well nourished. HEENT: Pupils are round and equally reacting to light. EOMI. No scleral icterus. No conjunctival pallor. Normocephalic, atraumatic. No pharyngeal erythema. No thyromegaly. CARDIOVASCULAR: S1 and S2 present. No murmurs, rubs, or gallops. PULMONARY: Chest is clear to auscultation, no wheezing or crackles. ABDOMEN: Soft, nontender, nondistended, normoactive bowel sounds. No palpable organomegaly. MUSCULOSKELETAL: No joint swelling or deformity. EXTREMITIES: No cyanosis, clubbing, or pedal edema. NEUROLOGICAL: Gross neurological examination did not reveal any focal deficits. SKIN: right hand/wrist with significant redness, swelling, tenderness, scab proximal to thumb on wrist-no drainage; improving as initially had extended up the forearm. Able to flex and extend wrist, moves all 5 digits Microbiology 08/05/17 10:00 Blood Blood Culture - Preliminary No Growth after 48 hours 08/06/17 16:09 Wrist - Right Gram Stain - Preliminary 08/06/17 16:09 Wrist - Right Wound Culture - Preliminary 08/06/17 16:09 Wrist - Right Anaerobic Culture - Preliminary - Labs CBC & Chem 7: 08/07/17 09:23 08/07/17 09:23 Labs: Abnormal Lab Results - Last 24 Hours (Table) 08/06/17 08/06/17 08/06/17 Range/Units 07:20 17:24 20:36 RBC (4.30-5.90) m/uL Hct (39.0-53.0) % Lymphocytes # (1.0-4.8) k/uL Sodium (137-145) mmol/L Glucose (74-99) mg/dL POC Glucose (mg/dL) 54 L 242 H (75-99) mg/dL Hemoglobin A1c 8.5 H (4.0-6.0) % 08/07/17 08/07/17 08/07/17 Range/Units 03:02 09:23 09:23 RBC 4.23 L (4.30-5.90) m/uL Hct 38.1 L (39.0-53.0) % Lymphocytes # 0.8 L (1.0-4.8) k/uL Sodium 135 L (137-145) mmol/L Glucose 100 H (74-99) mg/dL POC Glucose (mg/dL) 182 H (75-99) mg/dL Hemoglobin A1c (4.0-6.0) % 08/07/17 Range/Units 12:11 RBC (4.30-5.90) m/uL Hct (39.0-53.0) % Lymphocytes # (1.0-4.8) k/uL Sodium (137-145) mmol/L Glucose (74-99) mg/dL POC Glucose (mg/dL) 104 H (75-99) mg/dL Hemoglobin A1c (4.0-6.0) % Microbiology - Last 24 Hours (Table) 08/05/17 10:00 Blood Culture - Preliminary Blood No Growth after 48 hours 08/06/17 16:09 Gram Stain - Preliminary Wrist - Right Wound Culture - Preliminary 08/06/17 16:09 Anaerobic Culture - Preliminary Wrist - Right Assessment and Plan Assessment: -Right hand cellulitis failed outpatient therapy secondary to cat bite patient will be continued on Unasyn and vancomycin will be discontinued and monitor clinically awaiting blood cultures -Type 2 diabetes mellitus -Hypertension -Dementia appears to be dementia of falls , appears to be moderate -Gastroesophageal reflux disease -Hyperlipidemia Plan: Continue current medication regime ,monitoring and symptomatic treatment. Maintain IV antibiotics of Unasyn. I&D this afternoon with orthopedics. Cultures pending The impression and plan of care has been dictated as directed. : I performed a history and examination of this patient, discussed the same with the dictator. I agree with the dictator's note ,documented as a scribe. Any additional findings or plans will be noted.
[2017-08-07 15:08] LABS: Glucose,Whole Blood 99 mg/dL (75-99)
[2017-08-07] MEDS ORDERED: MIDAZOLAM 2 MG/2 ML VIAL ONE (15:15)
[2017-08-07] MEDS ORDERED: PROPOFOL 10 MG/ML 20 ML VIAL IV ONE (15:15)
[2017-08-07] MEDS ORDERED: PHENYLEPHRINE-0.9% NACL SYG 1 MG/10 ML SYRINGE ONE (15:15)
[2017-08-07] MEDS ORDERED: LIDOCAINE 1% INJ 10MG/ML (20 ML MDV) ONE (15:15)
[2017-08-07] MEDS ORDERED: fentaNYL (PF) 50 MCG/ML 2 ML AMP ONE (15:15)
[2017-08-07] MEDS ORDERED: LIDOCAINE 2% (PF) 20 MG/ML 2 ML VIAL SQ ONE ×2 (15:20→15:35)
[2017-08-07] MEDS ORDERED: LACTATED RINGERS 1,000 ML IV ONE (15:35)
[2017-08-07] MEDS ORDERED: HYDROcodone/APAP 5-325MG 1 EACH TAB PO PRN ×2 (15:56)
[2017-08-07] MEDS ORDERED: ONDANSETRON 4 MG/2 ML VIAL IVP PRN (15:56)
[2017-08-07] MEDS ORDERED: HYDROmorphone 0.5 MG/0.5 ML SYRINGE IVP PRN ×3 (15:56)
--- NOTE | 2017-08-07 15:56 | P.OP ---
Date of Procedure: 08/07/17 Preoperative Diagnosis: Right wrist cellulitis Postoperative Diagnosis: Right wrist abscess with cellulitis Procedure(s) Performed: Incision with irrigation and debridement right wrist abscess Anesthesia: EMILY, local Surgeon: Edmar Bowen Estimated Blood Loss (ml): 5 Pathology: none sent Condition: stable Disposition: PACU Indications for Procedure: 71-year-old patient seen with right wrist cellulitis and possible abscess. I recommended incision with irrigation debridement. Patient was agreeable and consent was obtained. Operative Findings: see description of procedure Description of Procedure: Patient was taken to the operative suite. Patient underwent a general anesthetic by the department of anesthesia. The right upper extremity was prepped and draped in the normal sterile orthopedic fashion. An incision was now made over the area of the possible abscess. Incision measured approximately 4-5 cm. I am immediately encountered purulent material. Cultures were obtained. I irrigated the wound out copiously with normal saline. I performed an excisional debridement of some devitalized appearing tissue subcutaneously with a 15 blade. The tendons appeared to be unremarkable. The remaining tissue appeared healthy and viable. I again irrigated the wound out copiously with normal saline. I loosely approximated the incision with 3 simple interrupted nylon sutures. We applied sterile dressings followed by webril and Ron bandage. Patient was awakened, transferred to recovery stable condition.
[2017-08-07] MEDS: HYDROmorphone 1 MG/ML 1 ML SYRINGE IVP ONE ×2 (16:21→16:32)
[2017-08-07 16:34] LABS: Glucose,Whole Blood 80 mg/dL (75-99)
[2017-08-07 17:16] LABS: Glucose,Whole Blood 89 mg/dL (75-99)
[2017-08-07] MEDS: LACTATED RINGERS 1,000 ML IV SCH (17:44)
[2017-08-07 20:59] LABS: Glucose,Whole Blood 250 mg/dL (75-99)
[2017-08-07] MEDS: ATORVASTATIN 10 MG TAB PO SCH (22:18)
[2017-08-07] MEDS: INSULIN DETEMIR 100 UNIT/ML 10 ML VIAL SQ SCH (22:19)
--- NOTE | 2017-08-07 23:11 | PN ---
PROGRESS NOTE DATE OF SERVICE: 08/07/2017. REASON FOR FOLLOWUP: Right forearm cat bite cellulitis. INTERVAL HISTORY: The patient is currently afebrile. He is breathing comfortably. Denies having any chest pain or shortness of breath. No abdominal pain. Still complaining of pain to the right forearm area; site of swelling, redness, though no worsening. EXAMINATION: Blood pressure is 167/81 with a pulse of 74, temperature 98.5. He is 99% on room air. General description is an elderly male lying in bed in no distress. RESPIRATORY SYSTEM: Unlabored breathing. Clear to auscultation anteriorly. HEART: S1, S2. Regular rate and rhythm. ABDOMEN: Soft. No tenderness. Right forearm swelling and redness was mildly decreased. No drainage. LABS: White count of 6.2. He did have cultures obtained from the drainage area which are currently pending. DIAGNOSTIC IMPRESSION AND PLAN: Patient with right forearm cat bite cellulitis. The patient at this time to continue with Unasyn while waiting for the culture to finalize. Continue supportive care. MMODL / IJN: [id number] /
[2017-08-08] MEDS: LACTATED RINGERS 1,000 ML IV SCH ×2 (04:46→17:27)
[2017-08-08] MEDS: AMPICILLIN-SULBACTAM 3 GM in SODIUM CHLORIDE 0.9% 100 ML IVPB SCH ×4 (06:08→23:51)
[2017-08-08] MEDS: SODIUM CHLORIDE 0.9% 1,000 ML IV SCH ×3 (06:10→23:51)
[2017-08-08 07:04] LABS: Bartonella henselae Ab, IgG <1:64; Bartonella henselae Ab, IgM < 1:16
[2017-08-08 07:33] LABS: Glucose,Whole Blood 124 mg/dL (75-99)
[2017-08-08 08:13] LABS: Basophils % (A) 0 %; Eosinophils # (A) 0.1 k/uL (0-0.7); Eosinophils % (A) 1 %; HCT 35.4 % (39.0-53.0); HGB 12.5 gm/dL (13.0-17.5); Lymphocytes # (A) 0.8 k/uL (1.0-4.8); Lymphocytes % (A) 16 %; MCH 31.6 pg (25.0-35.0); MCHC 35.3 g/dL (31.0-37.0); MCV 89.6 fL (80.0-100.0); Mean Platelet Volume 7.1; Monocytes # (A) 0.4 k/uL (0-1.0); Monocytes % (A) 8 %; Neutrophils # (A) 3.7 k/uL (1.3-7.7); Neutrophils % (A) 71 %; Platelet Count 263 k/uL (150-450); RBC 3.95 m/uL (4.30-5.90); RDW 12.6 % (11.5-15.5); WBC 5.2 k/uL (3.8-10.6)
[2017-08-08 08:25] LABS: Anion Gap 11 mmol/L; Blood Urea Nitrogen 9 mg/dL (9-20); Carbon Dioxide 25 mmol/L (22-30); Chloride 99 mmol/L (98-107); Glucose 113 mg/dL (74-99); Potassium 4.6 mmol/L (3.5-5.1); Sodium 135 mmol/L (137-145)
[2017-08-08] MEDS: INSULIN ASPART 100 UNIT/ML 1 ML 10 ML VIAL SQ SCH ×7 (10:00→22:23)
[2017-08-08] MEDS: PANTOPRAZOLE 40 MG TABLET PO SCH (10:02)
[2017-08-08] MEDS: metFORMIN 500 MG TAB PO SCH ×2 (10:03→18:42)
[2017-08-08] MEDS: ASPIRIN 81 MG PO SCH (10:03)
[2017-08-08] MEDS: LISINOPRIL 10 MG TAB PO SCH (10:03)
[2017-08-08] MEDS: MEMANTINE 5 MG TAB PO SCH ×2 (10:03→22:24)
[2017-08-08] MEDS: GABAPENTIN 300 MG CAP PO SCH ×3 (10:03→22:23)
[2017-08-08] MEDS: DONEPEZIL 10 MG TAB PO SCH (10:03)
[2017-08-08] MEDS: FLUTICASONE 50MCG/SPRAY NASAL 16GM EA NOSTRIL SCH (10:03)
[2017-08-08 11:42] LABS: Glucose,Whole Blood 245 mg/dL (75-99)
--- NOTE | 2017-08-08 12:42 | P.PN ---
Progress Note - Text Progress Note Date: 08/08/17 Patient seen status post incision with irrigation debridement right wrist abscess. He reports he is doing well. He reports he is not having any significant pain. He denies any other current orthopedic complaints. Cultures are pending. The dressing is changed. His incision appears stable. There is some mild serosanguineous type drainage. There is some persistent erythema around the abscess site and it does appear to be slightly improved from yesterday at the time of surgery. He is able to move his fingers with no pain. His distal neurovascular exam is intact. Impression: Status post incision with irrigation debridement right wrist abscess Right wrist cellulitis Plan: Await cultures Continue with appropriate IV antibiotics as per medicine Medical management Daily dressing changes
[2017-08-08 17:04] LABS: Glucose,Whole Blood 36 mg/dL (75-99)
[2017-08-08 17:04] LABS: Glucose,Whole Blood 36 mg/dL (75-99)
[2017-08-08 17:27] LABS: Glucose,Whole Blood 51 mg/dL (75-99)
[2017-08-08 17:50] LABS: Glucose,Whole Blood 73 mg/dL (75-99)
[2017-08-08 21:09] LABS: Glucose,Whole Blood 227 mg/dL (75-99)
--- NOTE | 2017-08-08 21:54 | PN ---
PROGRESS NOTE DATE OF SERVICE: 08/08/2017. INTERVAL HISTORY: This 71-year-old gentleman who was admitted with right hand cellulitis and failed outpatient treatment, had a cat bite. Patient had incision and drainage by Dr. Bowen. The cultures are pending at this time. No chest pain. No palpitations. No fever. PHYSICAL EXAM: Alert and oriented times three. Pulse 68, blood pressure 153/68, respirations 16, temperature 97.8, pulse ox 100% on room air. HEENT is conjunctivae normal. Oral mucosa moist. NECK: Is no jugular venous distention. No carotid bruit. No lymph node enlargement. CARDIOVASCULAR: S1, S2 muffled. RESPIRATIONS: Breath sounds diminished in the bases. No rhonchi and no crackles. ABDOMEN: Soft, nontender. LEGS: Are no edema. No swelling. Examination of the right wrist status post incision and drainage. ASSESSMENT: 1. Right hand cellulitis and abscess with failed outpatient treatment, status post incision and drainage secondary to cat bite on broad-spectrum IV antibiotics. 2. Diabetes type 2. 3. Hypertension. 4. Dementia. 5. Gastroesophageal reflux disease. 6. Hyperlipidemia. RECOMMENDATIONS AND DISCUSSION: Recommend to continue current medications, management and symptomatic treatment. Continue broad-spectrum IV antibiotics. Otherwise, closely monitor with Orthopedic surgery and infectious Disease. Guarded prognosis because of multiple complex medical issues. Further recommendations to follow. MMODL / IJN: [id number] /
[2017-08-08] MEDS: ATORVASTATIN 10 MG TAB PO SCH (22:23)
[2017-08-08] MEDS: INSULIN DETEMIR 100 UNIT/ML 10 ML VIAL SQ SCH (22:24)
--- NOTE | 2017-08-08 23:15 | PN ---
PROGRESS NOTE DATE OF SERVICE: 08/08/2017. REASON FOR FOLLOWUP: Right arm cat bite cellulitis and abscess. INTERVAL HISTORY: The patient is afebrile. The patient did have drainage of the right forearm abscess by Ortho. The patient denies having any chest pain, shortness of breath or cough. No abdominal pain or any diarrhea. EXAMINATION: His vital signs are stable. General description is an elderly male lying in bed in no distress. Respiratory system: Unlabored breathing. Clear to auscultation anteriorly. Heart S1, S2. Regular rate and rhythm. Abdomen is soft, no tenderness. Right forearm wound is currently dressed up. No obvious drainage on the dressing. LABS: Wound cultures are currently pending. DIAGNOSTIC IMPRESSION AND PLAN: Patient with right forearm cat bite cellulitis with an abscess status post drainage. Culture is currently pending. Continue with Unasyn, adjusting it further based on the culture report and clinical response. Continue supportive care. MMODL / IJN: [id number] /
[2017-08-09] MEDS: AMPICILLIN-SULBACTAM 3 GM in SODIUM CHLORIDE 0.9% 100 ML IVPB SCH ×3 (05:40→17:42)
[2017-08-09] MEDS: LACTATED RINGERS 1,000 ML IV SCH ×2 (05:40→17:33)
[2017-08-09 07:13] LABS: Glucose,Whole Blood 62 mg/dL (75-99)
[2017-08-09 07:27] LABS: Glucose,Whole Blood 82 mg/dL (75-99)
[2017-08-09] MEDS: INSULIN ASPART 100 UNIT/ML 1 ML 10 ML VIAL SQ SCH ×7 (09:47→21:48)
[2017-08-09] MEDS: GABAPENTIN 300 MG CAP PO SCH ×3 (09:51→21:47)
[2017-08-09] MEDS: PANTOPRAZOLE 40 MG TABLET PO SCH (09:52)
[2017-08-09] MEDS: FLUTICASONE 50MCG/SPRAY NASAL 16GM EA NOSTRIL SCH (09:52)
[2017-08-09] MEDS: MEMANTINE 5 MG TAB PO SCH ×2 (09:52→21:47)
[2017-08-09] MEDS: LISINOPRIL 10 MG TAB PO SCH (09:52)
[2017-08-09] MEDS: metFORMIN 500 MG TAB PO SCH ×2 (09:52→17:41)
[2017-08-09] MEDS: ASPIRIN 81 MG PO SCH (09:52)
[2017-08-09] MEDS: DONEPEZIL 10 MG TAB PO SCH (09:52)
[2017-08-09] MEDS: SODIUM CHLORIDE 0.9% 1,000 ML IV SCH ×2 (09:55→17:42)
[2017-08-09 12:02] LABS: Glucose,Whole Blood 168 mg/dL (75-99)
[2017-08-09 15:54] VITALS: RESP 16
[2017-08-09 17:16] LABS: Glucose,Whole Blood 109 mg/dL (75-99)
[2017-08-09 21:20] LABS: Glucose,Whole Blood 195 mg/dL (75-99)
[2017-08-09] MEDS: ATORVASTATIN 10 MG TAB PO SCH (21:47)
[2017-08-09] MEDS: INSULIN DETEMIR 100 UNIT/ML 10 ML VIAL SQ SCH (21:47)
--- NOTE | 2017-08-09 22:34 | PN ---
PROGRESS NOTE DATE OF SERVICE: 08/09/2017. INTERVAL HISTORY: This 71-year-old gentleman who was admitted with right hand cellulitis and abscess with failure of outpatient treatment, had incision, drainage by orthopedic surgery. The cultures, the final cultures are pending at this time. Patient is on IV antibiotics. No chest pain. No palpitations. No fever. PHYSICAL EXAM: Alert and oriented times three. Pulse 73. Blood pressure 161/82, respirations 16, temperature 97.2, pulse ox 98% on room air. HEENT: Conjunctivae normal. NECK: No jugular venous distention. CARDIOVASCULAR: S1, S2 muffled. RESPIRATORY: Breath sounds diminished in the bases. A few scattered rhonchi and crackles. ABDOMEN: Soft, nontender. LEGS: No edema. No swelling. Right wrist status post incision and drainage. LABS: WBC 5.2, hemoglobin 12.5, Accu-Cheks are noted. ASSESSMENT: 1. Right hand cellulitis and abscess with failed outpatient treatment, status post incision and drainage secondary to cat bite on broad-spectrum IV antibiotics. 2. Diabetes type 2. 3. Hypertension. 4. Dementia. 5. Gastroesophageal reflux disease. 6. Hyperlipidemia. RECOMMENDATIONS AND DISCUSSION: Recommend to continue current medications, management and symptomatic treatment. Continue the broad-spectrum IV antibiotics. 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 Otherwise continue to monitor. Continue the antibiotics. Closely follow with infectious disease and orthopedic surgery. Guarded prognosis because of multiple complex medical issues. Further recommendations to follow. MMODL / IJN: [id number] /
[2017-08-09 22:59] VITALS: PULSE 74
[2017-08-10] MEDS: SODIUM CHLORIDE 0.9% 1,000 ML IV SCH ×2 (00:19→08:15)
[2017-08-10] MEDS: AMPICILLIN-SULBACTAM 3 GM in SODIUM CHLORIDE 0.9% 100 ML IVPB SCH ×3 (00:19→11:22)
--- NOTE | 2017-08-10 00:21 | PN ---
PROGRESS NOTE DATE OF SERVICE: 08/09/2017. REASON FOR FOLLOWUP: Right forearm cat bite abscess and cellulitis. INTERVAL HISTORY: The patient is afebrile. He is breathing comfortably. Denies any chest pain or shortness of breath or cough. Pain to the right forearm is currently controlled. No diarrhea. EXAMINATION: Blood pressure 159/84 with a pulse of 74. Temperature is 97.4. General description is an elderly male lying in bed in no distress. Respiratory system: Unlabored breathing. Clear to auscultation anteriorly. Heart S1, S2. Regular rate and rhythm. Abdomen soft. Right forearm is currently dressed up. No obvious drainage on the dressing. LABS: White count 5.2. Wound cultures currently pending. DIAGNOSTIC IMPRESSION AND PLAN: Patient with right forearm cat bite abscess and cellulitis. The patient at this time on Unasyn. If cultures remain negative plan to finish therapy with oral antibiotics in the form of Augmentin. Continue supportive care. MMODL / IJN: [id number] /
[2017-08-10 06:47] VITALS: BP 154/72; TEMP 97.2
[2017-08-10 07:57] LABS: Glucose,Whole Blood 75 mg/dL (75-99)
[2017-08-10] MEDS: INSULIN ASPART 100 UNIT/ML 1 ML 10 ML VIAL SQ SCH ×4 (08:11→12:43)
[2017-08-10] MEDS: FLUTICASONE 50MCG/SPRAY NASAL 16GM EA NOSTRIL SCH (08:14)
[2017-08-10] MEDS: DONEPEZIL 10 MG TAB PO SCH (08:15)
[2017-08-10] MEDS: PANTOPRAZOLE 40 MG TABLET PO SCH (08:15)
[2017-08-10] MEDS: ASPIRIN 81 MG PO SCH (08:15)
[2017-08-10] MEDS: metFORMIN 500 MG TAB PO SCH (08:15)
[2017-08-10] MEDS: GABAPENTIN 300 MG CAP PO SCH ×2 (08:16→11:22)
[2017-08-10] MEDS: MEMANTINE 5 MG TAB PO SCH (08:16)
[2017-08-10] MEDS: LISINOPRIL 10 MG TAB PO SCH (08:16)
[2017-08-10 12:08] LABS: Glucose,Whole Blood 219 mg/dL (75-99)
--- NOTE | 2017-08-10 14:20 | PN ---
PROGRESS NOTE DATE OF SERVICE: 08/10/2017 REASON FOR FOLLOWUP: Right forearm cat bite abscess and cellulitis. INTERVAL HISTORY: The patient is currently afebrile. He is breathing comfortably. Denies having any chest pain or shortness of breath. No cough. Right forearm pain and swelling has improved. PHYSICAL EXAMINATION: Blood pressure 154/72 with a pulse of 74, temperature 97.2, he is 99% on room air. General description is a elderly male, lying in bed in no distress. RESPIRATORY SYSTEM: Unlabored breathing, clear to auscultation anteriorly. HEART: S1, S2. Regular rate and rhythm. ABDOMEN: Soft, no tenderness. Right forearm redness has improved, no drainage. DIAGNOSTIC IMPRESSION/PLAN: Patient with a right forearm abscess and cellulitis, cat bite. Patient has shown overall clinical improvement. Plan to finish therapy with oral Augmentin 875 b.i.d. with a prescription sent to the pharmacy. Continue supportive care. MMODL / GERSONN: [id number] /
--- NOTE | 2017-08-10 15:19 | P.PN ---
Subjective Progress Note Date: 08/10/17 Principal diagnosis: s/p I&D right wrist Patient seen today resting in hospital bed, he appears comfortable. No increase in pain in the wrist. No fevers or chills at this time. Objective - Vital Signs Vital signs: Vital Signs Temp 97.2 F L 08/10/17 06:47 Pulse 74 08/10/17 06:47 Resp 16 08/10/17 06:47 BP 154/72 08/10/17 06:47 Pulse Ox 99 08/10/17 06:47 Intake & Output 08/09/17 08/10/17 08/10/17 18:59 06:59 18:59 Intake Total 2300 Output Total 1025 950 Balance 2300 -1025 -950 Intake: Intake, IV Titration 1100 Amount Ampicillin-Sulbactam 3 gm 100 In Sodium Chloride 0.9% 100 ml @ 100 mls/hr IVPB Q6HR [facility] Rx#:[id number] IV Fluid Continuation 125 1000 ml As IV .STK-MED ONE Rx #:[id number] Lactated Ringers 1,000 ml 0 @ 80 mls/hr IV .[id number] [facility] Rx#:[id number] Lactated Ringers 1,000 ml 0 As IV .STK-MED ONE Rx#: [id number] Oral 1200 Output: Urine 1025 950 Other: Voiding Method Toilet Toilet # Voids 1 1 1 # Bowel Movements 1 - Exam Right wrist,: Incision is clean, dry and intact. Very minimal serosanguineous drainage noted. Erythema has continued to improve. No areas of fluctuance appreciated. Sensory exam light touch is intact, radial pulses 2+. No pain with range of motion of the fingers or wrist. - Labs CBC & Chem 7: 08/08/17 07:34 08/08/17 07:34 Labs: Abnormal Lab Results - Last 24 Hours (Table) 08/09/17 08/09/17 08/10/17 Range/Units 17:14 21:15 12:05 POC Glucose (mg/dL) 109 H 195 H 219 H (75-99) mg/dL Microbiology - Last 24 Hours (Table) 08/05/17 10:00 Blood Culture - Preliminary Blood No Growth after 120 hours 08/07/17 15:43 Gram Stain - Final Wrist - Right Wound Culture - Final 08/07/17 15:43 Anaerobic Culture - Preliminary Wrist - Right Assessment and Plan Plan: Assessment: Postoperative day #3 status post I&D right wrist Plan: Orthopedic standpoint, patient remained stable. The wrist continues to improve. Wound care management was discussed the patient today at bedside Infectious disease recommendation for outpatient antibiotics Activity levels were discussed with patient regarding the right wrist Scheduled outpatient follow-up pending Time with Patient: Less than 30
--- NOTE | 2017-08-10 17:38 | DS ---
DISCHARGE SUMMARY DATE OF SERVICE: 08/10/2017 FINAL DIAGNOSES: 1. Right hand cellulitis and abscess with failed outpatient treatment, status post incision and drainage secondary to cat bite. 2. Diabetes mellitus, type 2. 3. Hypertension. 4. Dementia. 5. Gastroesophageal reflux disease. 6. Hyperlipidemia. DISCHARGE DISPOSITION: The patient will be discharged in stable condition with guarded prognosis. HISTORY OF PRESENT ILLNESS: This 71-year-old gentleman with a past medical history of multiple medical problems was admitted with right hand cellulitis and abscess secondary to cat bite. Patient was treated with IV antibiotics. Dr. Bowen saw the patient and performed incision and drainage. Dr. Estrada saw the patient from Infectious Disease. Patient improved significantly. On exam, vitals are stable. CARDIOVASCULAR SYSTEM: S1, S2 muffled. ABDOMEN: Soft. NERVOUS SYSTEM: No focal deficit. DISCHARGE ADVICE AND MEDICATIONS: 1. Discharge diet is cardiac. 2. Activity limited until followup.. 3. Follow up with Dr. Bhakta in 2 to 3 days. 4. Follow up with Infectious Disease as recommended. 5. Follow up with Orthopedic Surgery as recommended. 6. Augmentin 875 mg p.o. b.i.d. for 10 days. 7. Ecotrin 81 mg p.o. daily. 8. Aricept 10 mg p.o. daily. 9. Flonase 1 spray daily. 10.Neurontin 600 mg each morning. 11.Neurontin 300 mg p.o. b.i.d. 12.NovoLog scale as before. 13.FlexPen 6 units t.i.d. 14.Insulin Lantus 30 units subcutaneously at bedtime. 15.Lisinopril/hydrochlorothiazide 10/12.5 mg p.o. daily. 16.Namenda 5 mg p.o. b.i.d. 17.Glucophage XR 250 mg p.o. daily. 18.Omeprazole 20 mg p.o. daily. 19.Zocor 20 mg at bedtime. Once again, the patient will be discharged in stable condition with guarded prognosis. MMODL / IJN: [id number] /
== END 2017-08-10 17:16 | disposition home health service (06) | DRG 572 ==
LOC: EC 08:56 → 4MS4W 11:58
PROVIDERS: ADMIT Internal Medicine; ATTEND Internal Medicine
PROC: 0JBG0ZZ Excision of Right Lower Arm Subcutaneous Tissue and Fascia, Open Approach (ICD-10-PCS; principal; 2017-08-07 08:40)
DX: L03.113 Cellulitis of right upper limb (principal); E11.65 Type 2 diabetes mellitus with hyperglycemia; E78.5 Hyperlipidemia, unspecified; F03.90 Unspecified dementia, unspecified severity, without behavioral disturbance, psychotic disturbance, mood disturbance, and anxiety; I10 Essential (primary) hypertension; K21.9 Gastro-esophageal reflux disease without esophagitis; L02.413 Cutaneous abscess of right upper limb; M19.041 Primary osteoarthritis, right hand; M19.042 Primary osteoarthritis, left hand; M19.072 Primary osteoarthritis, left ankle and foot; M19.071 Primary osteoarthritis, right ankle and foot; M81.0 Age-related osteoporosis without current pathological fracture; S41.151A Open bite of right upper arm, initial encounter; W55.01XA Bitten by cat, initial encounter; Z79.4 Long term (current) use of insulin; Z79.83 Long term (current) use of bisphosphonates; Z79.899 Other long term (current) drug therapy; Z80.9 Family history of malignant neoplasm, unspecified; Z87.891 Personal history of nicotine dependence; E11.40 Type 2 diabetes mellitus with diabetic neuropathy, unspecified; Z79.1 Long term (current) use of non-steroidal anti-inflammatories (NSAID); Z79.891 Long term (current) use of opiate analgesic; Z79.51 Long term (current) use of inhaled steroids; Z57.5 Occupational exposure to toxic agents in other industries
CPT/HCPCS: 36415; 80048; 81001; 82009; 83036; 83605; 85025; 86611; 87040; 87070; 87075; 87205; 90471; 90715; 96365; 96367; 99284

== ENCOUNTER 2018-04-30 13:30 | Emergency (ER) | payer OTHER, MEDICARE ==
[2018-04-30 13:35] LABS: Glucose,Whole Blood 98 mg/dL (75-99)
--- NOTE | 2018-04-30 13:57 | ED ---
General Adult HPI - General Stated complaint: Diabetic Time Seen by Provider: 04/30/18 13:30 Source: RN notes reviewed - History of Present Illness Initial comments: This is a 72-year-old male who presents emergency Department with EMS for low blood sugar. Patient states he took his insulin went down to eat and according to the staff there he became unresponsive when EMS arrived he was at a blood sugar of 52. They gave him a half an amp of glucose and he came around and back to his baseline. Patient states he has no complaints. Patient states he had no complete prior to the episode. Patient denies any recent fever chills or cough per patient denies any headache patient denies numbness weakness. Patient denies any lightheadedness dizziness or near syncopal episode per patient denies any chest pain palpitations difficulty breathing shortness of breath per patient denies abdominal pain patient denies nausea vomiting diarrhea. - Related Data Home Medications Medication Instructions Recorded Confirmed Donepezil [Aricept] 10 mg PO DAILY 11/19/15 08/05/17 Fluticasone Nasal [place] [Flonase 1 sprays EA NOSTRIL DAILY 11/19/15 08/05/17 Nasal [place]] Gabapentin [Neurontin] 600 mg PO QAM 11/19/15 08/05/17 Insulin Aspart [NovoLOG Flexpen] 6 units SQ AC-TID 11/19/15 08/05/17 Insulin Aspart [NovoLOG Flexpen] See Protocol SQ PC-TID 11/19/15 08/05/17 Insulin Glargine,Hum.rec.anlog 30 units SQ HS 11/19/15 08/05/17 [Lantus Solostar] Lisinopril-Hctz 10-12.5 mg 1 tab PO DAILY 11/19/15 08/05/17 [Zestoretic 10-12.5] Memantine HCl [Namenda] 5 mg PO BID 11/19/15 08/05/17 Aspirin EC [Ecotrin Low Dose] 81 mg PO DAILY 08/05/17 08/05/17 Gabapentin [Neurontin] 300 mg PO BID@1200,2100 08/05/17 08/05/17 Omeprazole 20 mg PO DAILY 08/05/17 08/05/17 Simvastatin [Zocor] 20 mg PO HS 08/05/17 08/05/17 metFORMIN HCL ER [Glucophage Xr] 250 mg PO AC-BID 08/05/17 08/05/17 Previous Rx's Medication Instructions Recorded Amoxic-Pot Clav 875-125Mg 1 tab PO Q12HR #20 tablet 08/10/17 [Augmentin 875-125] Allergies Allergy/AdvReac Type Severity Reaction Status Date / Time No Known Allergies Allergy Verified 08/05/17 14:03 Review of Systems ROS Statement: Those systems with pertinent positive or pertinent negative responses have been documented in the HPI. ROS Other: All systems not noted in ROS Statement are negative. Past Medical History Past Medical History: Dementia, Diabetes Mellitus, GERD/Reflux, Hyperlipidemia, Hypertension Additional Past Medical History / Comment(s): Agent [place] exposure in [place], IDDM type II, DKA with metabolic encephalopathy, neuropathy bilateral feet, osteoporosis, sinus problems, arthritis bilateral hands/feet History of Any Multi-Drug Resistant Organisms: None Reported Past Surgical History: Appendectomy Additional Past Surgical History / Comment(s): Pt thinks he may have had an appendectomy, colonoscopy-normal Past Anesthesia/Blood Transfusion Reactions: No Reported Reaction Past Psychological History: No Psychological Hx Reported Additional Psychological History / Comment(s): Pt resides at [facility]. He has dementia. He is a [place] . He uses no assistive device. He no longer drives, family takes him to [employer]. He has a pet cat. Staff manages his medications. He has a glucometer. Smoking Status: Former smoker Past Alcohol Use History: Occasional Additional Past Alcohol Use History / Comment(s): Pt started smoking in 1964 and quit in 1974. Past Drug Use History: None Reported - Past Family History Father Family Medical History: No Reported History Additional Family Medical History / Comment(s): Father was healthy and lived i nto his 80s. Mother Family Medical History: Cancer Additional Family Medical History / Comment(s): Mother had some form of cancer (family do not know kind) which she of in her 50s General Exam - General Exam Comments Initial Comments: GENERAL: Patient is well-developed and well-nourished. Patient is nontoxic and well- hydrated and is in no acute distress. ENT: Neck is soft and supple. No significant lymphadenopathy is noted. Oropharynx is clear. Moist mucous membranes. Neck has full range of motion without eliciting any pain. EYES: The sclera were anicteric and conjunctiva were pink and moist. Extraocular movements were intact and pupils were equal round and reactive to light. Eyelids were unremarkable. PULMONARY: Unlabored respirations. Good breath sounds bilaterally. No audible rales rhonchi or wheezing was noted. CARDIOVASCULAR: There is a regular rate and rhythm without any murmurs gallops or rubs. ABDOMEN: Soft and nontender with normal bowel sounds. No palpable organomegaly was noted. There is no palpable pulsatile mass. SKIN: Skin is clear with no lesions or rashes and otherwise unremarkable. NEUROLOGIC: Patient is alert and oriented x3. Cranial nerves II through XII are grossly intact. Motor and sensory are also intact. Normal speech, volume and content. Symmetrical smile. MUSCULOSKELETAL: Normal extremities with adequate strength and full range of motion. LYMPHATICS: No significant lymphadenopathy is noted PSYCHIATRIC: Normal psychiatric evaluation. Course Vital Signs 04/30/18 13:41 Temperature 97.7 F Pulse Rate 64 Respiratory 18 Rate Blood Pressure 162/80 O2 Sat by Pulse 98 Oximetry Medical Decision Making - Medical Decision Making EKG shows sinus rhythm with occasional PVC at 70 bpm UT interval is 190 QRS is 96 QTC is 420 QTC is 453 per patient's EKG shows no ST segment elevation or depression or T wave abnormalities are noted. Patient ate in the emergency department and has no complaints. - Lab Data Result diagrams: 04/30/18 13:49 04/30/18 13:49 Lab Results 04/30/18 04/30/18 04/30/18 Range/Units 13:33 13:49 13:49 WBC 9.5 (3.8-10.6) k/uL RBC 4.32 (4.30-5.90) m/uL Hgb 13.2 (13.0-17.5) gm/dL Hct 39.2 (39.0-53.0) % MCV 90.7 (80.0-100.0) fL MCH 30.4 (25.0-35.0) pg MCHC 33.6 (31.0-37.0) g/dL RDW 12.8 (11.5-15.5) % Plt Count 248 (150-450) k/uL Neutrophils % 79 % Lymphocytes % 13 % Monocytes % 5 % Eosinophils % 2 % Basophils % 0 % Neutrophils # 7.6 (1.3-7.7) k/uL Lymphocytes # 1.2 (1.0-4.8) k/uL Monocytes # 0.4 (0-1.0) k/uL Eosinophils # 0.2 (0-0.7) k/uL Basophils # 0.0 (0-0.2) k/uL Sodium 134 L (137-145) mmol/L Potassium 4.0 (3.5-5.1) mmol/L Chloride 101 (98-107) mmol/L Carbon Dioxide 24 (22-30) mmol/L Anion Gap 9 mmol/L BUN 16 (9-20) mg/dL Creatinine 0.96 (0.66-1.25) mg/dL Est GFR (CKD-EPI)AfAm >90 (>60 ml/min/1.73 sqM) Est GFR (CKD-EPI)NonAf 80 (>60 ml/min/1.73 sqM) Glucose 76 (74-99) mg/dL POC Glucose (mg/dL) 98 (75-99) mg/dL POC Glu Retort Unloader ID Cara Salazar Calcium 9.3 (8.4-10.2) mg/dL Total Bilirubin 0.6 (0.2-1.3) mg/dL AST 23 (17-59) U/L ALT 27 (21-72) U/L Alkaline Phosphatase 49 (38-126) U/L Total Protein 6.9 (6.3-8.2) g/dL Albumin 4.1 (3.5-5.0) g/dL 04/30/18 Range/Units 14:36 WBC (3.8-10.6) k/uL RBC (4.30-5.90) m/uL Hgb (13.0-17.5) gm/dL Hct (39.0-53.0) % MCV (80.0-100.0) fL MCH (25.0-35.0) pg MCHC (31.0-37.0) g/dL RDW (11.5-15.5) % Plt Count (150-450) k/uL Neutrophils % % Lymphocytes % % Monocytes % % Eosinophils % % Basophils % % Neutrophils # (1.3-7.7) k/uL Lymphocytes # (1.0-4.8) k/uL Monocytes # (0-1.0) k/uL Eosinophils # (0-0.7) k/uL Basophils # (0-0.2) k/uL Sodium (137-145) mmol/L Potassium (3.5-5.1) mmol/L Chloride (98-107) mmol/L Carbon Dioxide (22-30) mmol/L Anion Gap mmol/L BUN (9-20) mg/dL Creatinine (0.66-1.25) mg/dL Est GFR (CKD-EPI)AfAm (>60 ml/min/1.73 sqM) Est GFR (CKD-EPI)NonAf (>60 ml/min/1.73 sqM) Glucose (74-99) mg/dL POC Glucose (mg/dL) 367 H (75-99) mg/dL POC Glu Retort Unloader ID LorenzoosmelLori [email or web address] Calcium (8.4-10.2) mg/dL Total Bilirubin (0.2-1.3) mg/dL AST (17-59) U/L ALT (21-72) U/L Alkaline Phosphatase (38-126) U/L Total Protein (6.3-8.2) g/dL Albumin (3.5-5.0) g/dL Disposition Clinical Impression: Hypoglycemia Disposition: HOME SELF-CARE Condition: Good Instructions (If sedation given, give patient instructions): Hypoglycemia in a Person with Diabetes (ED) Is patient prescribed a controlled substance at d/c from ED?: No Referrals: [facility],Clinic [Primary Care Provider] - 1-2 days Time of Disposition: 15:21
[2018-04-30 14:01] LABS: Basophils % (A) 0 %; Eosinophils # (A) 0.2 k/uL (0-0.7); Eosinophils % (A) 2 %; HCT 39.2 % (39.0-53.0); HGB 13.2 gm/dL (13.0-17.5); Lymphocytes # (A) 1.2 k/uL (1.0-4.8); Lymphocytes % (A) 13 %; MCH 30.4 pg (25.0-35.0); MCHC 33.6 g/dL (31.0-37.0); MCV 90.7 fL (80.0-100.0); Mean Platelet Volume 6.8; Monocytes # (A) 0.4 k/uL (0-1.0); Monocytes % (A) 5 %; Neutrophils # (A) 7.6 k/uL (1.3-7.7); Neutrophils % (A) 79 %; Platelet Count 248 k/uL (150-450); RBC 4.32 m/uL (4.30-5.90); RDW 12.8 % (11.5-15.5); WBC 9.5 k/uL (3.8-10.6)
[2018-04-30 14:10] LABS: ALT 27 U/L (21-72); AST 23 U/L (17-59); Albumin 4.1 g/dL (3.5-5.0); Alkaline Phosphatase 49 U/L (38-126); Anion Gap 9 mmol/L; Blood Urea Nitrogen 16 mg/dL (9-20); Calcium 9.3 mg/dL (8.4-10.2); Carbon Dioxide 24 mmol/L (22-30); Chloride 101 mmol/L (98-107); Glucose 76 mg/dL (74-99); Sodium 134 mmol/L (137-145); Total Bilirubin 0.6 mg/dL (0.2-1.3); Total Protein 6.9 g/dL (6.3-8.2)
[2018-04-30 14:38] LABS: Glucose,Whole Blood 367 mg/dL (75-99)
[2018-04-30 15:44] VITALS: BP 175/89; PULSE 79; RESP 16; TEMP 97.9
== END 2018-04-30 15:44 | disposition home or self-care (01) ==
LOC: EC 13:30
DX: E11.649 Type 2 diabetes mellitus with hypoglycemia without coma (principal); E11.40 Type 2 diabetes mellitus with diabetic neuropathy, unspecified; F03.90 Unspecified dementia, unspecified severity, without behavioral disturbance, psychotic disturbance, mood disturbance, and anxiety; K21.9 Gastro-esophageal reflux disease without esophagitis; E78.5 Hyperlipidemia, unspecified; I10 Essential (primary) hypertension; Z79.4 Long term (current) use of insulin; Z79.82 Long term (current) use of aspirin; Z79.899 Other long term (current) drug therapy; Z87.891 Personal history of nicotine dependence
CPT/HCPCS: 36415; 80053; 85025; 93005; 99284

== ENCOUNTER → 2018-10-04 | Outpatient (CLI) | payer MEDICARE ==
--- NOTE | 2018-10-05 08:54 | CT ---
EXAMINATION TYPE: CT angio head neck DATE OF EXAM: 10/04/2018 COMPARISON: None HISTORY: 72-year-old male Memory loss, mild cognitive impairment. TECHNIQUE: Contiguous axial scanning of the head and neck performed without and with IV Contrast, pat ient injected with 50 mL of Isovue 370. Coronal/sagittal MIP reconstructions performed. 3-D reconstru ctions generated on a dedicated independent workstation. CT DLP: 1416.2 mGycm Automated exposure control for dose reduction was used. FINDINGS: NONCONTRAST CT HEAD: There is mild to moderate generalized supratentorial volume loss with sulcal prominence. No hydroceph alus. No effacement of cerebral sulci or basal subarachnoid cisterns. No evidence for acute intracran ial hemorrhage, acute ischemic change, mass, mass effect, or midline shift. No extra-axial fluid kaya ection. Andrea-white matter differentiation is maintained. Atherosclerotic calcifications in the bilateral carotid siphons and V4 segment vertebral arteries. Rightward nasal septal deviation. Mild mucosal thickening left maxillary sinus. Mastoid air cells wel l pneumatized. Orbits and globes appear intact. CTA NECK: Mild biapical pleural-parenchymal scarring. Very direct takeoff of the left vertebral artery directly from the aortic arch. The vertebral arterie s appear codominant and are seen again throughout their course. Prominent atherosclerotic calcifications of the bilateral carotid siphons. The bilateral common carot id arteries are patent. On the right, there is luminal narrowing of the carotid bulb down to 2.2 mm with a calculated stenosi s of approximately 60% by NASCET criteria. On the left, there is luminal narrowing of the carotid bulb down to 2.1 mm with a calculated stenosis of approximately 55% by NASCET criteria. CTA HEAD: The distal aspect of the V4 segment right vertebral artery is not visualized. The vertebral artery ma y terminate as a PICA branch. Moderate atherosclerotic narrowing within the V4 segment left vertebral artery. There appears to be h igh-grade stenosis to subtotal occlusion of the proximal basilar artery. The remainder of the basilar artery is very diminutive. Patent bilateral posterior communicating arteries are demonstrated with opacification of the posterio r cerebral arteries. There is moderate to severe focal irregular atherosclerotic narrowing within the P3 segment right posterior cerebral artery. Mild to moderate atherosclerotic narrowing in the carotid siphons. Mild atherosclerotic narrowing of the M1 segment left anterior cerebral artery. Remainder of the anterior circulation is patent withou t aneurysmal change identified. IMPRESSION: HEAD: 1. MILD TO MODERATE GENERALIZED ATROPHY. NO ACUTE INTRACRANIAL ABNORMALITY SEEN. CTA NECK: 1. ATHEROSCLEROTIC CALCIFICATIONS AT THE BILATERAL CAROTID BIFURCATIONS WITH MODERATE, RIGHT GREATER THAN LEFT PROXIMAL ICA STENOSES (VESSEL NARROWING DOWN TO 2.1 MM) CALCULATED IN THE RANGE OF 55-60% B Y NASCET CRITERIA. 2. VERY DIRECT TAKEOFF OF THE LEFT VERTEBRAL ARTERY DIRECTLY FROM THE AORTIC ARCH. CTA HEAD: 1. DISTAL V4 SEGMENT RIGHT VERTEBRAL ARTERY IS NOT VISUALIZED AND MAY TERMINATE A PICA BRANCH. 2. MODERATE SEGMENTAL ATHEROSCLEROTIC NARROWING OF THE V4 SEGMENT LEFT VERTEBRAL ARTERY. 3. SUBTOTAL OCCLUSION PROXIMAL BASILAR ARTERY WITH THE REMAINDER OF THE BASILAR ARTERY BEING VERY DIM INUTIVE. THERE ARE PATENT BILATERAL POSTERIOR COMMUNICATING ARTERIES. 4. MODERATE TO SEVERE FOCAL IRREGULAR ATHEROSCLEROTIC NARROWING OF THE P3 SEGMENT RIGHT MERCHANDISE DIRECTOR. 5. MILD TO MODERATE ATHEROSCLEROTIC NARROWING IN THE BILATERAL CAROTID SIPHONS AND MILD NARROWING IN THE A1 SEGMENT LEFT COMPA.
== END | disposition home or self-care (01) ==
LOC: RADCTMAIN 16:55
PROVIDERS: ATTEND Psychiatry & Neurology Neurology
DX: G31.9 Degenerative disease of nervous system, unspecified (principal); I65.23 Occlusion and stenosis of bilateral carotid arteries; G31.84 Mild cognitive impairment of uncertain or unknown etiology; R41.3 Other amnesia; Z13.89 Encounter for screening for other disorder
CPT/HCPCS: 82565; 84520; 70496; 70498; 36415; Q9967

== ENCOUNTER 2020-02-08 10:47 | Inpatient (IN) | payer MEDICARE, OTHER ==
[2020-02-08] MEDS ORDERED: SODIUM CHLORIDE 0.9% 500 ML 500 ML IV STA (10:49)
--- NOTE | 2020-02-08 11:14 | ED ---
General Adult HPI - General Chief complaint: Weakness Stated complaint: weakness/fall Time Seen by Provider: 02/08/20 10:48 Source: patient, RN notes reviewed, old records reviewed Mode of arrival: ambulatory Limitations: no limitations - History of Present Illness Initial comments: 74-year-old male with syncopal episode. Patient has history of dementia, unable to give a fairly detailed history of the events. He states he had fallen unsure how long he was unconscious. He was found by staff at the home where he resides. Patient was easily arousable EMS was called for evaluation. Patient self has no complaints. He denies any chest pain or dyspnea. Denies cough or fever. No history of vomiting or diarrhea. Uncertain if he had fallen result ing in head trauma but the patient does not have any signs of trauma and does not report any pain complaints. - Related Data Home Medications Medication Instructions Recorded Confirmed Donepezil [Aricept] 10 mg PO DAILY 11/19/15 02/08/20 Gabapentin [Neurontin] 300 mg PO TID 11/19/15 02/08/20 Lisinopril-Hctz 10-12.5 mg 1 tab PO DAILY 11/19/15 02/08/20 [Zestoretic 10-12.5] Omeprazole 20 mg PO DAILY 08/05/17 02/08/20 Simvastatin [Zocor] 20 mg PO HS 08/05/17 02/08/20 Glucagon Emergency Kit 1 mg IM ONCE PRN 02/08/20 02/08/20 Insulin Aspart [Insulin Aspart 7 unit SQ AC-TID 02/08/20 02/08/20 Flexpen] Insulin Aspart [Insulin Aspart See Protocol SQ AC-TID 02/08/20 02/08/20 Flexpen] Insulin Glargine,Hum.rec.anlog 28 unit SQ DAILY 02/08/20 02/08/20 [Lantus Solostar] Memantine [Namenda] 5 mg PO BID 02/08/20 02/08/20 Tamsulosin HCl [Flomax] 0.4 mg PO DAILY 02/08/20 02/08/20 Allergies Allergy/AdvReac Type Severity Reaction Status Date / Time No Known Allergies Allergy Verified 02/08/20 11:55 Review of Systems ROS Statement: Those systems with pertinent positive or pertinent negative responses have been documented in the HPI. ROS Other: All systems not noted in ROS Statement are negative. Past Medical History Past Medical History: Dementia, Diabetes Mellitus, GERD/Reflux, Hyperlipidemia, Hypertension Additional Past Medical History / Comment(s): Agent [place] exposure in [place], IDDM type II, DKA with metabolic encephalopathy, neuropathy bilateral feet, osteoporosis, sinus problems, arthritis bilateral hands/feet History of Any Multi-Drug Resistant Organisms: None Reported Past Surgical History: Appendectomy Additional Past Surgical History / Comment(s): Pt thinks he may have had an appendectomy, colonoscopy-normal Past Anesthesia/Blood Transfusion Reactions: No Reported Reaction Past Psychological History: No Psychological Hx Reported Smoking Status: Former smoker Past Alcohol Use History: Occasional Past Drug Use History: None Reported - Past Family History Father Family Medical History: No Reported History Additional Family Medical History / Comment(s): Father was healthy and lived into his 80s. Mother Family Medical History: Cancer Additional Family Medical History / Comment(s): Mother had some form of cancer (family do not know kind) which she of in her 50s General Exam Limitations: no limitations General appearance: alert, in no apparent distress Head exam: Present: atraumatic, normocephalic Eye exam: Present: normal appearance, PERRL ENT exam: Present: mucous membranes dry Neck exam: Present: normal inspection. Absent: tenderness Respiratory exam: Present: normal lung sounds bilaterally. Absent: respiratory distress, wheezes Cardiovascular Exam: Present: regular rate, normal rhythm GI/Abdominal exam: Present: soft. Absent: distended, tenderness, guarding, rebound Extremities exam: Present: normal inspection, normal capillary refill. Absent: pedal edema Neurological exam: Present: alert, CN II-XII intact. Absent: motor sensory deficit Psychiatric exam: Present: normal affect, normal mood Skin exam: Present: warm, dry, intact. Absent: cyanosis, diaphoretic Course Vital Signs 02/08/20 02/08/20 02/08/20 10:49 10:57 12:00 Temperature 98.1 F Pulse Rate 69 61 Respiratory 18 18 Rate Blood Pressure 164/78 137/91 Blood Pressure [Sitting] Blood Pressure [Standing] Blood Pressure [Supine] O2 Sat by Pulse 100 99 Oximetry 02/08/20 12:15 Temperature Pulse Rate Respiratory Rate Blood Pressure Blood Pressure 124/100 [Sitting] Blood Pressure 107/90 [Standing] Blood Pressure 177/74 [Supine] O2 Sat by Pulse Oximetry - Reevaluation(s) Reevaluation #1: 02/08/20 14:29 Discussed case at length with the patient's son Elliot. He states that the dementia is baseline. He does have good supervision at the assisted living where he resides as well as his medications are administered by staff. EKG Findings - EKG Comments: EKG Findings:: EKG: Atrial fibrillation, left axis, right bundle branch block rate of 82, NJ interval 116, QRS duration 490, no ST segment elevation. Medical Decision Making - Medical Decision Making 74-year-old male with fall, syncope, some confusion. Head CT performed which is negative for intracranial hemorrhage or mass effect. Chest x-ray is concerning for possible bilateral infiltrate. CBC within normal limits. CMP negative with the exception of elevated blood glucose, no signs of diabetic ketoacidosis. Coronavirus testing is negative. The patient is resting comfortably in the emergency department. Vital signs remained stable. Patient is very unsteady on his feet, there is concern for recurrent fall. Will observe the patient overnight, will continue IV hydration and obtain an echo. Additionally there is a high suspicion for coronavirus, and PCR testing will be obtained. The patient will be kept in isolation precautions. Case discussed with Dr. Todd who will admit. - Lab Data Result diagrams: 02/08/20 10:56 02/08/20 10:56 Lab Results 02/08/20 02/08/20 02/08/20 Range/Units 10:56 10:56 10:56 WBC 4.2 (3.8-10.6) k/uL RBC 4.44 (4.30-5.90) m/uL Hgb 13.9 (13.0-17.5) gm/dL Hct 39.6 (39.0-53.0) % MCV 89.3 (80.0-100.0) fL MCH 31.4 (25.0-35.0) pg MCHC 35.1 (31.0-37.0) g/dL RDW 12.6 (11.5-15.5) % Plt Count 150 (150-450) k/uL MPV 8.7 Neutrophils % 80 % Lymphocytes % 10 % Monocytes % 7 % Eosinophils % 1 % Basophils % 1 % Neutrophils # 3.3 (1.3-7.7) k/uL Lymphocytes # 0.4 L (1.0-4.8) k/uL Monocytes # 0.3 (0-1.0) k/uL Eosinophils # 0.0 (0-0.7) k/uL Basophils # 0.1 (0-0.2) k/uL PT 10.5 (9.0-12.0) sec INR 1.0 (<1.2) APTT 26.7 (22.0-30.0) sec Sodium 131 L (137-145) mmol/L Potassium 4.4 (3.5-5.1) mmol/L Chloride 101 (98-107) mmol/L Carbon Dioxide 21 L (22-30) mmol/L Anion Gap 9 mmol/L BUN 29 H (9-20) mg/dL Creatinine 1.22 (0.66-1.25) mg/dL Est GFR (CKD-EPI)AfAm 68 (>60 ml/min/1.73 sqM) Est GFR (CKD-EPI)NonAf 59 (>60 ml/min/1.73 sqM) Glucose 290 H (74-99) mg/dL Calcium 8.3 L (8.4-10.2) mg/dL Magnesium 1.9 (1.6-2.3) mg/dL Total Bilirubin 0.8 (0.2-1.3) mg/dL AST 123 H (17-59) U/L ALT 42 (4-49) U/L Alkaline Phosphatase 64 (38-126) U/L Troponin I (0.000-0.034) ng/mL Total Protein 6.3 (6.3-8.2) g/dL Albumin 3.6 (3.5-5.0) g/dL Coronavirus (PCR) (Not Detectd) 02/08/20 02/08/20 Range/Units 10:56 13:12 WBC (3.8-10.6) k/uL RBC (4.30-5.90) m/uL Hgb (13.0-17.5) gm/dL Hct (39.0-53.0) % MCV (80.0-100.0) fL MCH (25.0-35.0) pg MCHC (31.0-37.0) g/dL RDW (11.5-15.5) % Plt Count (150-450) k/uL MPV Neutrophils % % Lymphocytes % % Monocytes % % Eosinophils % % Basophils % % Neutrophils # (1.3-7.7) k/uL Lymphocytes # (1.0-4.8) k/uL Monocytes # (0-1.0) k/uL Eosinophils # (0-0.7) k/uL Basophils # (0-0.2) k/uL PT (9.0-12.0) sec INR (<1.2) APTT (22.0-30.0) sec Sodium (137-145) mmol/L Potassium (3.5-5.1) mmol/L Chloride (98-107) mmol/L Carbon Dioxide (22-30) mmol/L Anion Gap mmol/L BUN (9-20) mg/dL Creatinine (0.66-1.25) mg/dL Est GFR (CKD-EPI)AfAm (>60 ml/min/1.73 sqM) Est GFR (CKD-EPI)NonAf (>60 ml/min/1.73 sqM) Glucose (74-99) mg/dL Calcium (8.4-10.2) mg/dL Magnesium (1.6-2.3) mg/dL Total Bilirubin (0.2-1.3) mg/dL AST (17-59) U/L ALT (4-49) U/L Alkaline Phosphatase (38-126) U/L Troponin I 0.020 (0.000-0.034) ng/mL Total Protein (6.3-8.2) g/dL Albumin (3.5-5.0) g/dL Coronavirus (PCR) Not Detected (Not Detectd) Disposition Clinical Impression: Dehydration, Syncope, Pneumonia Disposition: ADMITTED IP TO THIS [facility] Condition: Stable Is patient prescribed a controlled substance at d/c from ED?: No Referrals: Guero Todd MD [Primary Care Provider] - 1-2 days Decision to Admit Reason: Admit from EC Decision Date: 02/08/20 Decision Time: 14:42
[2020-02-08 11:17] LABS: Basophils # (A) 0.1 k/uL (0-0.2); Basophils % (A) 1 %; Eosinophils % (A) 1 %; HCT 39.6 % (39.0-53.0); HGB 13.9 gm/dL (13.0-17.5); Lymphocytes # (A) 0.4 k/uL (1.0-4.8); Lymphocytes % (A) 10 %; MCH 31.4 pg (25.0-35.0); MCHC 35.1 g/dL (31.0-37.0); MCV 89.3 fL (80.0-100.0); Mean Platelet Volume 8.7; Monocytes # (A) 0.3 k/uL (0-1.0); Monocytes % (A) 7 %; Neutrophils # (A) 3.3 k/uL (1.3-7.7); Neutrophils % (A) 80 %; Platelet Count 150 k/uL (150-450); RBC 4.44 m/uL (4.30-5.90); RDW 12.6 % (11.5-15.5); WBC 4.2 k/uL (3.8-10.6)
[2020-02-08 11:26] LABS: Albumin 3.6 g/dL (3.5-5.0); Calcium 8.3 mg/dL (8.4-10.2); Magnesium 1.9 mg/dL (1.6-2.3); Potassium 4.4 mmol/L (3.5-5.1); Total Bilirubin 0.8 mg/dL (0.2-1.3); Total Protein 6.3 g/dL (6.3-8.2)
--- NOTE | 2020-02-08 11:45 | XR ---
EXAMINATION TYPE: XR chest 2V DATE OF EXAM: 02/08/2020 COMPARISON: 11/24/15 HISTORY: Shortness of breath TECHNIQUE: Frontal and lateral views of the chest are obtained. FINDINGS: Scattered senescent parenchymal changes noted. Hyperinflation compatible with COPD. Vague scattered infiltrates seen bilaterally. Heart size is stable. Mediastinal structures are stable and grossly unremarkable. No evidence for hilar prominence. Degenerative changes dorsal spine. IMPRESSION: 1. Vague scattered infiltrates seen bilaterally.
--- NOTE | 2020-02-08 11:47 | CT ---
EXAMINATION TYPE: CT brain lissette page DATE OF EXAM: 02/08/2020 COMPARISON: 11/19/15 HISTORY: Syncope, fall CT DLP: 1566.[address] of the brain was performed. The ventricles, basal cisterns and sulci overlying the cerebral convexities demonstrate mild enlargem ent. There is no evidence for intracranial hemorrhage or sulcal effacement. There is decreased attenuatio n about the periventricular white matter and deep white matter of both cerebral hemispheres, compatib le with chronic small vessel ischemia. No mass effects are seen. If symptoms persist consider MRI. Osseous calvarium is intact. IMPRESSION: 1. Age related atrophic and chronic small vessel ischemic change without acute intracranial process seen at this time. CT Cervical Spine: Unenhanced CT of the cervical spine was performed with bone and soft tissue window settings submitted . Coronal and sagittal reconstruction is obtained. There is normal alignment and prevertebral soft tissues. No evidence for acute cervical fracture. Sc attered degenerative disc disease and spondylosis. Biapical scarring. IMPRESSION: 1. No evidence for acute fracture or subluxation of the cervical spine.
[2020-02-08 11:55] LABS: Partial Thromboplastin Time 26.7 sec (22.0-30.0); Prothrombin Time 10.5 sec (9.0-12.0)
[2020-02-08] MEDS ORDERED: NALOXONE 0.4 MG/ML 1 ML VIAL IV PRN (14:34)
[2020-02-08] MEDS ORDERED: ACETAMINOPHEN TAB 325 MG TAB PO PRN (14:34)
[2020-02-08] MEDS ORDERED: cefTRIAXone IN SWFI 1,000 MG/10 ML SYRINGE IVP STA (14:42)
[2020-02-08] MEDS ORDERED: AZITHROMYCIN 500 MG in SODIUM CHLORIDE 0.9% 250 ML IVPB STA (14:42)
[2020-02-08] MEDS: SODIUM CHLORIDE 0.9% 1,000 ML IV SCH (15:36)
[2020-02-08 16:40] LABS: Glucose,Whole Blood 273 mg/dL (75-99)
[2020-02-08] MEDS: GABAPENTIN 300 MG CAP PO SCH ×2 (17:08→21:28)
[2020-02-08] MEDS: INSULIN ASPART (NovoLOG) 100 UNIT/ML VIAL SQ SCH (17:09)
--- NOTE | 2020-02-08 19:02 | HP ---
HISTORY AND PHYSICAL This is a 74-year-old white male with a syncopal episode, history of dementia. He does not know how long he was unconscious or where he fell. No complaints. No cough. No fever. No vomiting or diarrhea or history of any head trauma. HOME MEDICATIONS: 1. Aricept 10 mg daily. 2. Neurontin 300 t.i.d. 3. Lisinopril HCTZ 11/27.5 one daily. 4. 20 daily. 5. Zocor 20 daily. 6. Regular insulin 7 units t.i.d. 7. Lantus 28 units at night. 8. Namenda 5 mg b.i.d., Flomax 0.4 mg daily. ALLERGIES: NEGATIVE. REVIEW OF SYSTEMS: Fourteen-point review of systems otherwise negative. PAST MEDICAL HISTORY: Dementia, diabetes mellitus, GERD, dyslipidemia, hypertension, metabolic encephalopathy due to DKA, Agent [place] exposure in [place], neuropathy, bilateral feet, osteoporosis, osteoarthritis. SURGERIES: Appendectomy, recent colonoscopy normal. SOCIAL HISTORY: Former smoker. No alcohol. No drugs. FAMILY HISTORY: Negative in his dad. Mother had cancer. PHYSICAL EXAMINATION: VITAL SIGNS: Temperature 98.1, pulse 61-69, respiratory rate 16-18, blood pressure 130s to 160s over 70s to 90s. CARDIOVASCULAR: S1, S2. LUNGS: Transmitted upper airway sounds. GI: Soft, nontender. CONSTITUTIONAL: He is weak, fatigued. HEAD: Normocephalic, atraumatic. diaphoretic. PSYCH: Fair mood and affect. Blood pressure was 120s to 170s over 70s to 100s. EKG shows atrial fibrillation, heart rate 16. He had a fall, syncope, some confusion, possible concussion. Head CT negative for any mass or bleeding. Chest x-ray shows bilateral infiltrate, possibly pneumonia, possibly He has insulin-dependent diabetes mellitus. Fast-acting rapid coronavirus test was negative. We are going to do another coronavirus PCR. Treat for pneumonia possibly do a CT scan of his lungs. He has a high suspicion for coronavirus. PCR testing is done. Rehydrate due to elevated BUN and creatinine with prerenal renal insufficiency secondary to dehydration with hyponatremia, hypochloremia. Prognosis extremely guarded. Start antibiotics. Rehydrate overnight. MMODL / IJN: [id number] /
[2020-02-08 20:09] LABS: Glucose,Whole Blood 291 mg/dL (75-99)
[2020-02-08] MEDS: MEMANTINE 5 MG TAB PO SCH (21:28)
[2020-02-09] MEDS: SODIUM CHLORIDE 0.9% 1,000 ML IV SCH ×2 (06:22→17:56)
[2020-02-09] MEDS: GABAPENTIN 300 MG CAP PO SCH ×3 (08:46→21:36)
[2020-02-09] MEDS: INSULIN DETEMIR (LEVEMIR) 100 UNIT/ML SYR SQ SCH (08:46)
[2020-02-09] MEDS: MEMANTINE 5 MG TAB PO SCH ×2 (08:46→21:36)
[2020-02-09] MEDS: DONEPEZIL 10 MG TAB PO SCH (08:46)
[2020-02-09] MEDS: LISINOPRIL-HCTZ 10-12.5 MG 1 EACH TAB PO SCH (08:46)
[2020-02-09] MEDS: INSULIN ASPART (NovoLOG) 100 UNIT/ML VIAL SQ SCH ×6 (08:47→21:36)
[2020-02-09] MEDS: AZITHROMYCIN 500 MG TAB PO SCH (12:26)
--- NOTE | 2020-02-09 13:44 | P.CNPUL ---
History of Present Illness Consult date: 02/09/20 Reason for consult: dyspnea, cough, pneumonia Chief complaint: Shortness of breath cough History of present illness: is a 74-year-old male with advanced history of dementia and Alzheimer's disease, unfortunately not much data can be obtained but he has been complaining of shortness of breath, patient came into the hospital due to fall and unconsciousness, his past medical history significant for hypertension hyp ertensive cardiovascular disease dyslipidemia, diabetes mellitus, on arrival patient noted to be afebrile with stable oxygen saturation of 100% hemodynamically stable, covert testing is negative, labs are significant for mild hyponatremia and acute kidney injury, , chest x-ray very subtle bilateral infiltrate are present Ammann patient is currently being treated with Rocephin and continuation of his home medications, his covid 19 test is negative Review of Systems All systems: negative Past Medical History Past Medical History: CVA/TIA, Dementia, Diabetes Mellitus, GERD/Reflux, Hyperlipidemia, Hypertension Additional Past Medical History / Comment(s): Agent [place] exposure in [place], IDDM type II, DKA with metabolic encephalopathy, neuropathy bilateral feet, osteoporosis, sinus problems, arthritis bilateral hands/feet. History of Any Multi-Drug Resistant Organisms: None Reported Past Surgical History: Appendectomy Additional Past Surgical History / Comment(s): Pt thinks he may have had an appendectomy, colonoscopy-normal Past Anesthesia/Blood Transfusion Reactions: No Reported Reaction Past Psychological History: No Psychological Hx Reported Additional Psychological History / Comment(s): Pt resides at [facility]. He has dementia. He is a [place] . He uses no assistive device. He no longer drives, family takes him to [employer]. He has a pet cat. Staff manages his medications. He has a glucometer. Smoking Status: Former smoker Past Alcohol Use History: Occasional Additional Past Alcohol Use History / Comment(s): Pt started smoking in 1964 and quit in 1974. Past Drug Use History: None Reported - Past Family History Father Family Medical History: No Reported History Additional Family Medical History / Comment(s): Father was healthy and lived into his 80s. Mother Family Medical History: Cancer Additional Family Medical History / Comment(s): Mother had some form of cancer (family do not know kind) which she of in her 50s Medications and Allergies Home Medications Medication Instructions Recorded Confirmed Type Donepezil [Aricept] 10 mg PO DAILY 11/19/15 02/08/20 History Gabapentin [Neurontin] 300 mg PO TID 11/19/15 02/08/20 History Lisinopril-Hctz 10-12.5 mg 1 tab PO DAILY 11/19/15 02/08/20 History [Zestoretic 10-12.5] Omeprazole 20 mg PO DAILY 08/05/17 02/08/20 History Simvastatin [Zocor] 20 mg PO HS 08/05/17 02/08/20 History Glucagon Emergency Kit 1 mg IM ONCE PRN 02/08/20 02/08/20 History Insulin Aspart [Insulin Aspart 7 unit SQ AC-TID 02/08/20 02/08/20 History Flexpen] Insulin Aspart [Insulin Aspart See Protocol SQ AC-TID 02/08/20 02/08/20 History Flexpen] Insulin Glargine,Hum.rec.anlog 28 unit SQ DAILY 02/08/20 02/08/20 History [Lantus Solostar] Memantine [Namenda] 5 mg PO BID 02/08/20 02/08/20 History Tamsulosin HCl [Flomax] 0.4 mg PO DAILY 02/08/20 02/08/20 History Allergies Allergy/AdvReac Type Severity Reaction Status Date / Time No Known Allergies Allergy Verified 02/08/20 11:55 Physical Exam Vitals: Vital Signs Temp Pulse Resp BP Pulse Ox 02/09/20 10:00 99.0 F 89 16 152/70 95 02/09/20 05:47 98.0 F 77 17 136/78 98 02/09/20 02:00 98.2 F 60 18 150/63 97 02/08/20 21:59 98.0 F 85 18 157/87 96 02/08/20 20:00 85 18 02/08/20 17:36 97.6 F 90 20 123/83 98 02/08/20 17:32 97 F L 67 15 124/79 96 02/08/20 15:56 98.2 F 74 19 176/78 96 Intake and Output 02/08/20 02/09/20 02/09/20 22:59 06:59 14:59 Intake Total 900 Balance 900 Intake: Intake, IV Titration 900 Amount Sodium Chloride 0.9% 1, 900 000 ml @ 75 mls/hr IV . [id number] [facility] Rx#:[id number] Other: Voiding Method Urinal Diaper # Voids 1 2 - Constitutional General appearance: average body habitus, cooperative, disheveled - EENT Eyes: fundus normal Ears: right: bulging - Neck Carotids: bilateral: upstroke normal Thyroid: bilateral: normal size - Respiratory Respiratory: bilateral: CTA - Cardiovascular Heart sounds: normal: S1, S2 - Gastrointestinal General gastrointestinal: normal bowel sounds - Neurologic Neurologic: CNII-XII intact - Musculoskeletal Musculoskeletal: generalized weakness, strength equal bilaterally Results - Laboratory Findings CBC and BMP: 02/08/20 10:56 02/08/20 10:56 PT/INR, D-dimer PT 10.5 sec (9.0-12.0) 02/08/20 10:56 INR 1.0 (<1.2) 02/08/20 10:56 Abnormal lab findings: Abnormal Labs 02/08/20 02/08/20 02/08/20 10:56 10:56 16:38 Lymphocytes # 0.4 L Sodium 131 L Carbon Dioxide 21 L BUN 29 H Glucose 290 H POC Glucose (mg/dL) 273 H Calcium 8.3 L AST 123 H 02/08/20 20:08 Lymphocytes # Sodium Carbon Dioxide BUN Glucose POC Glucose (mg/dL) 291 H Calcium AST - Diagnostic Findings Chest x-ray: report reviewed, image reviewed Assessment and Plan Assessment: Bilateral pneumonia Status post fall due to unclear etiology likely due to dehydration and electrolyte imbalance and generalized weakness Diabetes mellitus Hyponatremia Acute kidney injury Hypertension and hypertensive cardiovascular disease Plan: Agree with gentle rehydration, continue antibiotics, follow clinical course closely Time with Patient: Greater than 30
[2020-02-09] MEDS ORDERED: VANCOMYCIN IV PER PHARMACY 1 EACH MISC MISCELLANE PRN (16:08)
[2020-02-09] MEDS: VANCOMYCIN 1,500 MG in SODIUM CHLORIDE 0.9% 250 ML IVPB SCH (16:33)
--- NOTE | 2020-02-09 17:43 | ECHOF ---
Referral Reason:syncope MEASUREMENTS -------- HEIGHT: 177.8 cm WEIGHT: 81.6 kg BP: 136/78 IVSd: 1.0 cm (0.6 - 1.1) LVIDd: 4.1 cm (3.9 - 5.3) LVPWd: 1.2 cm (0.6 - 1.1) IVSs: 1.9 cm LVIDs: 1.8 cm LVPWs: 1.9 cm LAESV Index (A-L): 19.87 ml/m Ao Diam: 2.7 cm (2.0 - 3.7) AV Cusp: 2.0 cm (1.5 - 2.6) LA Diam: 3.5 cm (2.7 - 3.8) MV EXCURSION: 19.436 mm (> 18.000) MV EF SLOPE: 110 mm/s (70 - 150) EPSS: 0.7 cm MV E Lukas: 0.74 m/s MV DecT: 145 ms MV A Lukas: 0.81 m/s MV E/A Ratio: 0.91 RAP: 5.00 mmHg RVSP: 11.16 mmHg FINDINGS -------- This was a technically adequate study. The left ventricular size is normal. There is borderline concentric left ventricular hypertrophy. Overall left ventricular systolic function is normal with, an EF between 55 - 60 %. The right ventricle is normal in size. The left atrial size is normal. Normal LA size by volume 22+/-6 ml/m2. The right atrial size is normal. Unable to visualize the septum. The aortic valve is trileaflet and appears structurally normal. The mitral valve is normal. Mild mitral regurgitation is present. The tricuspid valve appears structurally normal. Trace tricuspid regurgitation present. Right kayce tricular systolic pressure is normal at < 35 mmHg. There is no pulmonic regurgitation present. The aortic root size is normal. IVC Not well visulized. Echo free space indicative of a pericardial fat pad. CONCLUSIONS -------- 1. The left ventricular size is normal. 2. There is borderline concentric left ventricular hypertrophy. 3. Overall left ventricular systolic function is normal with, an EF between 55 - 60 %. 4. Mild mitral regurgitation is present. 5. Trace tricuspid regurgitation present. 6. Echo free space indicative of a pericardial fat pad. DRESSING ROOM ATTENDANT: Vilma Wagner [facility]
[2020-02-09] MEDS: atenoloL 25 MG TAB PO SCH (18:57)
--- NOTE | 2020-02-09 19:11 | CT ---
EXAM: CT Chest Without Intravenous Contrast CLINICAL HISTORY: ITS.REASON CT Reason: cap TECHNIQUE: Axial computed tomography images of the chest without intravenous contrast. CTDI is 10.1 mGy and DLP is 365.2 mGy-cm. This CT exam was performed using one or more of the following dose reduction techniques: automated exposure control, adjustment of the mA and/or kV according to patient size, and/or use of iterative reconstruction technique. COMPARISON: CT chest on 11/19/2015 FINDINGS: Lungs: Patchy, peripherally predominant ground-glass opacities and densities throughout the lungs, concerning for an infectious/inflammatory process such as Covid 19 infection. Mild scarring at the lung apices. Pleural space: Unremarkable. No pneumothorax. No significant effusion. Heart: Unremarkable. No cardiomegaly. No significant pericardial effusion. Mediastinum: Small hiatal hernia. Bones/joints: Degenerative changes of the spine with stable chronic compression deformities in the mid and lower thoracic spine. No dislocation. Soft tissues: Minimal bilateral gynecomastia. Vasculature: Unremarkable. No thoracic aortic aneurysm. Lymph nodes: Unremarkable. No enlarged lymph nodes. Kidneys and ureters: Nonspecific perinephric fat stranding partially visualized. IMPRESSION: Patchy, peripherally predominant ground-glass opacities and densities throughout the lungs, concerning for an infectious/inflammatory process such as Covid 19 infection.
--- NOTE | 2020-02-09 23:05 | P.CONS ---
History of Present Illness - Reason for Consult Consult date: 02/09/20 bacteremia ?pneumonia Requesting physician: Guero Todd - Chief Complaint fall x 1 day - History of Present Illness Patient is a 74-year-old male presenting to the ER with chief complaints of 4 fall and he was not sure if he was unconscious of not patient was found by staff at home where he resides EMS was called and and the patient was brought into the hospital on arrival to the ER the patient has been afebrile patient was satting 100% on room air patient did have a normal white count but did have mild lymphopenia slightly elevated BUN and creatinine was normal AST mildly elevated patient did have a chest x-ray vague scattered infiltrate seen bilaterally, patient has been admitted to the hospital placed on Rocephin and Zithromax patient also have blood cultures drawn which are coming positive with gram-positive cocci that has prompted infectious disease consultation, patient currently do not have any open sores and denies having any joint swelling no nausea no vomiting no abdominal pain or diarrhea. Review of Systems Positive point has been mentioned in HPI rest of the systems are negative. Past Medical History Past Medical History: CVA/TIA, Dementia, Diabetes Mellitus, GERD/Reflux, Hyperlipidemia, Hypertension Additional Past Medical History / Comment(s): Agent [place] exposure in [place], IDDM type II, DKA with metabolic encephalopathy, neuropathy bilateral feet, osteoporosis, sinus problems, arthritis bilateral hands/feet. History of Any Multi-Drug Resistant Organisms: None Reported Past Surgical History: Appendectomy Additional Past Surgical History / Comment(s): Pt thinks he may have had an appendectomy, colonoscopy-normal Past Anesthesia/Blood Transfusion Reactions: No Reported Reaction Past Psychological History: No Psychological Hx Reported Additional Psychological History / Comment(s): Pt resides at [facility] assistive living. He has dementia. He is a [place] . He uses no assistive device. He no longer drives, family takes him to [employer]. He has a pet cat. Staff manages his medications. He has a glucometer. Smoking Status: Former smoker Past Alcohol Use History: Occasional Additional Past Alcohol Use History / Comment(s): Pt started smoking in 1964 and quit in 1974. Past Drug Use History: None Reported - Past Family History Father Family Medical History: No Reported History Additional Family Medical History / Comment(s): Father was healthy and lived into his 80s. Mother Family Medical History: Cancer Additional Family Medical History / Comment(s): Mother had some form of cancer (family do not know kind) which she of in her 50s Medications and Allergies Home Medications Medication Instructions Recorded Confirmed Type Donepezil [Aricept] 10 mg PO DAILY 11/19/15 02/08/20 History Gabapentin [Neurontin] 300 mg PO TID 11/19/15 02/08/20 History Lisinopril-Hctz 10-12.5 mg 1 tab PO DAILY 11/19/15 02/08/20 History [Zestoretic 10-12.5] Omeprazole 20 mg PO DAILY 08/05/17 02/08/20 History Simvastatin [Zocor] 20 mg PO HS 08/05/17 02/08/20 History Glucagon Emergency Kit 1 mg IM ONCE PRN 02/08/20 02/08/20 History Insulin Aspart [Insulin Aspart 7 unit SQ AC-TID 02/08/20 02/08/20 History Flexpen] Insulin Aspart [Insulin Aspart See Protocol SQ AC-TID 02/08/20 02/08/20 History Flexpen] Insulin Glargine,Hum.rec.anlog 28 unit SQ DAILY 02/08/20 02/08/20 History [Lantus Solostar] Memantine [Namenda] 5 mg PO BID 02/08/20 02/08/20 History Tamsulosin HCl [Flomax] 0.4 mg PO DAILY 02/08/20 02/08/20 History Allergies Allergy/AdvReac Type Severity Reaction Status Date / Time No Known Allergies Allergy Verified 02/08/20 11:55 Physical Exam Vitals: Vital Signs Temp Pulse Resp BP Pulse Ox 02/09/20 14:00 98.4 F 89 18 146/72 96 02/09/20 10:00 99.0 F 89 16 152/70 95 02/09/20 05:47 98.0 F 77 17 136/78 98 02/09/20 02:00 98.2 F 60 18 150/63 97 02/08/20 21:59 98.0 F 85 18 157/87 96 02/08/20 20:00 85 18 02/08/20 17:36 97.6 F 90 20 123/83 98 02/08/20 17:32 97 F L 67 15 124/79 96 Intake and Output 02/09/20 02/09/20 02/09/20 06:59 14:59 22:59 Intake Total 900 Balance 900 Intake: Intake, IV Titration 900 Amount Sodium Chloride 0.9% 1, 900 000 ml @ 75 mls/hr IV . [id number] [facility] Rx#:[id number] Other: # Voids 2 GENERAL DESCRIPTION: Elderly male lying in bed, no distress. No tachypnea or accessory muscle of respiration use. HEENT: Shows Pallor , no scleral icterus. Oral mucous membrane is dry. NECK: Trachea central, no thyromegaly. LUNGS: Unlabored breathing. Clear to auscultation anteriorly. No wheeze or crackle. HEART: S1, S2, regular rate and rhythm. ABDOMEN: Soft, no tenderness , guarding or rigidity EXTREMITIES: No edema of feet. SKIN: No rash, no masses palpable. NEUROLOGICAL: The patient is awake, alert, oriented x3, mood and affect normal. Results CBC & Chem 7: 02/08/20 10:56 02/08/20 10:56 Labs: Abnormal Lab Results - Last 24 Hours (Table) 02/08/20 02/08/20 Range/Units 16:38 20:08 POC Glucose (mg/dL) 273 H 291 H (75-99) mg/dL Microbiology - Last 24 Hours (Table) 02/08/20 15:15 Blood Culture Gram Stain - Preliminary Blood 02/08/20 15:15 Blood Culture - Final Blood Assessment and Plan Assessment: patient has been brought to the hospital after apparently the patient did have a fall and concern for possible syncopal episode in this patient did not have any fever or presentation the hospital did have a normal white count chest x-ray with some infiltrate in this patient who did have a negative Covid test and currently with no other obvious focus of infection with concern for possible skin contamination as for as positive blood cultures are concerned, however will need to wait for the final ID of this pathogen to make a final determination (1) Bacteremia Current Visit: Yes Status: Acute Code(s): R78.81 - BACTEREMIA SNOMED Code(s): 9114871 (2) Pneumonia Current Visit: Yes Status: Acute Code(s): J18.9 - PNEUMONIA, UNSPECIFIED ORGANISM SNOMED Code(s): 246841054 Plan: 1-blood cultures will be repeated to document clearance of his bacteremia 2-vancomycin pharmacy to dose her with a target trough of 15 while watching her kidney function and Vanco trough closely. While waiting for the ID of this path oggarrett 3-we will order CRP procalcitonin with a.m. lab, and may need to repeat his Covid testing if there is evidence of significant groundglass opacity on his chest CT 4-droplet isolation respiratory support We will follow on clinical condition and cultures to further adjust medication if needed Thank you for this consultation we will follow the patient along with you Time with Patient: Greater than 30
[2020-02-10] MEDS: DEXAMETHASONE SOD PHOSPHATE 10 MG/ML 1 ML VIAL IV SCH ×2 (00:05→07:45)
[2020-02-10 02:35] LABS: Appearance,Urine Cloudy (Clear); Bacteria,Urine Rare /hpf; Bilirubin,Urine Negative (Negative); Blood,Urine Moderate (Negative); Color,Urine Yellow; Glucose,Urine (UA) Negative (Negative); Ketones,Urine Negative (Negative); Leukocyte Esterase,Urine Negative (Negative); Mucus,Urine Rare /hpf; Nitrite,Urine Negative (Negative); PH, Urine 5.5 (5.0-8.0); Protein,Urine 2+ (Negative); RBC,Urine 1 /hpf (0-5); Specific Gravity,Urine 1.022 (1.001-1.035); Squamous Epithelial Cell,Urine <1 /hpf (0-4); Urobilinogen,Urine <2.0 mg/dL (<2.0); WBC,Urine 1 /hpf (0-5)
[2020-02-10 06:39] LABS: Basophils % (A) 0 %; Eosinophils % (A) 1 %; HCT 41.7 % (39.0-53.0); HGB 13.9 gm/dL (13.0-17.5); Lymphocytes # (A) 0.3 k/uL (1.0-4.8); Lymphocytes % (A) 9 %; MCH 30.1 pg (25.0-35.0); MCHC 33.4 g/dL (31.0-37.0); Mean Platelet Volume 8.6; Monocytes # (A) 0.1 k/uL (0-1.0); Monocytes % (A) 3 %; Neutrophils # (A) 2.4 k/uL (1.3-7.7); Neutrophils % (A) 84 %; Platelet Count 154 k/uL (150-450); RBC 4.63 m/uL (4.30-5.90); RDW 13.2 % (11.5-15.5); WBC 2.9 k/uL (3.8-10.6)
[2020-02-10] MEDS: INSULIN ASPART (NovoLOG) 100 UNIT/ML VIAL SQ SCH ×7 (07:25→20:56)
[2020-02-10] MEDS: SODIUM CHLORIDE 0.9% 1,000 ML IV SCH ×2 (07:44→16:46)
[2020-02-10] MEDS: INSULIN DETEMIR (LEVEMIR) 100 UNIT/ML SYR SQ SCH (07:45)
[2020-02-10] MEDS: DONEPEZIL 10 MG TAB PO SCH (07:46)
[2020-02-10] MEDS: GABAPENTIN 300 MG CAP PO SCH ×3 (07:46→20:54)
[2020-02-10] MEDS: ASCORBIC ACID 500 MG TAB PO SCH (07:46)
[2020-02-10] MEDS: MEMANTINE 5 MG TAB PO SCH ×2 (07:47→20:55)
[2020-02-10] MEDS: ENOXAPARIN 40 MG/0.4 ML SYRINGE SQ SCH (07:47)
[2020-02-10] MEDS: LISINOPRIL-HCTZ 10-12.5 MG 1 EACH TAB PO SCH (07:47)
[2020-02-10] MEDS: ZINC SULFATE 220 MG CAP PO SCH (07:47)
[2020-02-10] MEDS: AZITHROMYCIN 500 MG TAB PO SCH (07:47)
[2020-02-10] MEDS: VANCOMYCIN 1,500 MG in SODIUM CHLORIDE 0.9% 250 ML IVPB SCH (07:47)
[2020-02-10] MEDS: atenoloL 25 MG TAB PO SCH ×2 (07:59→20:55)
[2020-02-10 11:00] LABS: African American GFR (CKD) 76.8 (60.0-200.0); Albumin 3.9 g/dL (3.80-4.90); Albumin/Globulin Ratio 1.86 (1.60-3.17); Anion Gap 8.9 mmol/L (4.00-12.00); BUN/Creat Ratio 17.27 Ratio (12.00-20.00); C Reactive Protein 5.2 mg/dL (0.0-0.8); Calcium 8.2 mg/dL (8.7-10.3); Carbon Dioxide 25.1 mmol/L (21.6-31.8); Globulin 2.1 g/dL (1.6-3.3); Non-African American GFR(CKD) 66.2 (60.0-200.0); Potassium 4.3 mmol/L (3.5-5.5); Total Bilirubin 0.4 mg/dL (0.3-1.2)
--- NOTE | 2020-02-10 13:14 | P.CRDCN ---
History of Present Illness History of present illness: HISTORY OF PRESENTING ILLNESS This is a pleasant 74-year-old male past medical history significant for dementia, hypertension, hyperlipidemia, diabetes mellitus, BPH, GERD, neuropathy. Patient initially presented on 02/08/2020 secondary to being found on the floor and questionable syncopal episode. Patient is demented which per ER note appears to be his baseline per discussion with his son. A CT head was performed which showed no intracranial hemorrhage or mass effect. Chest x-ray was performed which showed bilateral infiltrates and although coronavirus was negative, there is a high suspicion and is being treated as coronavirus. Patient currently states he feels fine and denies any chest pain, pressure, shortness of breath. He believes he came secondary to his sugars being up and down at times. However currently believes that he is in an apartment and unable to give a reliable history of recent events. Echocardiogram was performed yesterday which showed normal ejection fraction 55-60%, mild mitral regurgitation without other significant valvular disease. EKG on admission was read out as atrial fibrillation however there are clearly P waves with PACs, right bundle branch block and Q waves inferiorly. Telemetry reviewed with frequent PACs, sinus rhythm and no evidence of atrial fibrillation. He was mildly tachycardic 02/09/2020 98 at approximate 6 PM with heart rates in the 100-110 range however appears sinus. Patient was started on atenolol 25 mg twice a day DIAGNOSTICS EKG reveals sinus rhythm, frequent PACs, right bundle branch block, Q waves inferiorly, nonspecific ST-T wave abnormalities. Chest CT: Patchy peripherally predominant groundglass opacities and densities throughout the lungs concerning for an infectious processes such as Covid 19 inf ection Laboratory reviewed, white blood cell 2.9, hemoglobin 13.9, platelets 154, d- dimer 2.96, creatinine 1.1, AST 122, ALT 60, LDH 494, CRP 5.3, pro-calcitonin 0.34, troponin 0.02. Current cardiac medications include atenolol 25 mg twice a day, Lovenox 40 mg subcu daily, lisinopril/hydrochlorothiazide 10/12.5 mg daily. REVIEW OF SYSTEMS At the time of my exam, although patient is a poor historian: CONSTITUTIONAL: Denies fever or chills. CARDIOVASCULAR: Denies chest pain, shortness of breath, orthopnea, PND or palpitations. RESPIRATORY: Denies cough. GASTROINTESTINAL: Denies abdominal pain, diarrhea, constipation, nausea or vomiting. MUSCULOSKELETAL: Denies myalgias. NEUROLOGIC: Denies numbness, tingling or weakness. ENDOCRINE: Denies fatigue, weight change, polydipsia or polyurina. GENITOURINARY: Denies burning, hematuria or urgency with micturation. HEMATOLOGIC: Denies history of anemia or bleeding. PHYSICAL EXAMINATION Blood pressure 145/75 heart rate 68 afebrile and maintaining oxygen saturation on room air. CONSTITUTIONAL: No apparent distress, pleasantly confused. HEENT: Head is normocephalic. Pupils are equal, round. Sclerae anicteric. Mucous membranes of the mouth are moist. No JVD. No carotid bruit. CHEST EXAMINATION: Bilateral rhonchi HEART EXAMINATION: Regular rate and irregular rhythm. S1, S2 heard. No murmurs, gallops or rub. ABDOMEN: Soft, nontender. Positive bowel sounds. EXTREMITIES: 2+ peripheral pulses, no lower extremity edema and no calf tenderne ss. NEUROLOGIC EXAMINATION: Patient is awake, pleasantly demented. ASSESSMENT 1. Sinus rhythm, sinus tachycardia with frequent PACs. Initial EKG read out as atrial fibrillation however clear P waves and no evidence of atrial fibrillation on telemetry. 2. Pneumonia with clinical concern of Covid 19 infection despite negative testing 3. Essential hypertension 4. Dementia 5. Abnormal EKG with right bundle branch block, Q waves inferiorly PLAN Echocardiogram reviewed with normal ejection fraction 55-60%, mild mitral regurgitation. EKG and telemetry showed frequent PACs however appears to be sinus rhythm and sinus tachycardia. Suspect sinus tachycardia is secondary to pneumonia. Patient was placed on atenolol 25 mg twice a day however would not necessarily treat for sinus tachycardia. No evidence of A. fib. Continue with supportive care, treatment of suspected Covid 19 infection. No further workup from a cardiology standpoint. Thank you for this consult. Past Medical History Past Medical History: CVA/TIA, Dementia, Diabetes Mellitus, GERD/Reflux, Hyperlipidemia, Hypertension Additional Past Medical History / Comment(s): Agent [place] exposure in [place], IDDM type II, DKA with metabolic encephalopathy, neuropathy bilateral feet, osteoporosis, sinus problems, arthritis bilateral hands/feet. History of Any Multi-Drug Resistant Organisms: None Reported Past Surgical History: Appendectomy Additional Past Surgical History / Comment(s): Pt thinks he may have had an appendectomy, colonoscopy-normal Past Anesthesia/Blood Transfusion Reactions: No Reported Reaction Past Psychological History: No Psychological Hx Reported Additional Psychological History / Comment(s): Pt resides at [facility] assistive living. He has dementia. He is a [place] . He uses no assistive device. He no longer drives, family takes him to appts. He has a pet cat. Staff manages his medications. He has a glucometer. Smoking Status: Former smoker Past Alcohol Use History: Occasional Additional Past Alcohol Use History / Comment(s): Pt started smoking in 1964 and quit in 1974. Past Drug Use History: None Reported - Past Family History Father Family Medical History: No Reported History Additional Family Medical History / Comment(s): Father was healthy and lived into his 80s. Mother Family Medical History: Cancer Additional Family Medical History / Comment(s): Mother had some form of cancer (family do not know kind) which she of in her 50s Medications and Allergies Home Medications Medication Instructions Recorded Confirmed Type Donepezil [Aricept] 10 mg PO DAILY 11/19/15 02/08/20 History Gabapentin [Neurontin] 300 mg PO TID 11/19/15 02/08/20 History Lisinopril-Hctz 10-12.5 mg 1 tab PO DAILY 11/19/15 02/08/20 History [Zestoretic 10-12.5] Omeprazole 20 mg PO DAILY 08/05/17 02/08/20 History Simvastatin [Zocor] 20 mg PO HS 08/05/17 02/08/20 History Glucagon Emergency Kit 1 mg IM ONCE PRN 02/08/20 02/08/20 History Insulin Aspart [Insulin Aspart 7 unit SQ AC-TID 02/08/20 02/08/20 History Flexpen] Insulin Aspart [Insulin Aspart See Protocol SQ AC-TID 02/08/20 02/08/20 History Flexpen] Insulin Glargine,Hum.rec.anlog 28 unit SQ DAILY 02/08/20 02/08/20 History [Lantus Solostar] Memantine [Namenda] 5 mg PO BID 02/08/20 02/08/20 History Tamsulosin HCl [Flomax] 0.4 mg PO DAILY 02/08/20 02/08/20 History Allergies Allergy/AdvReac Type Severity Reaction Status Date / Time No Known Allergies Allergy Verified 02/08/20 11:55 Physical Exam Vitals: Vital Signs Temp Pulse Resp BP Pulse Ox 02/10/20 07:30 6 L 16 02/10/20 06:02 98.5 F 68 17 145/75 95 02/10/20 02:00 98.8 F 51 L 17 145/69 98 02/09/20 22:44 98.2 F 50 L 17 134/61 96 02/09/20 20:00 50 L 17 02/09/20 18:58 100.1 F H 80 16 185/72 96 02/09/20 14:00 98.4 F 89 18 146/72 96 Intake and Output 02/09/20 02/10/20 02/10/20 22:59 06:59 14:59 Intake Total 600 200 Output Total 475 Balance 125 200 Intake: Intake, IV Titration 600 Amount Sodium Chloride 0.9% 1, 600 000 ml @ 75 mls/hr IV . [id number] [facility] Rx#:[id number] Oral 200 Output: Urine 475 Other: Voiding Method Urinal Urinal Diaper Diaper # Voids 6 2 # Bowel Movements 2 Results 02/10/20 06:14 02/10/20 06:14 Cardiac Enzymes 02/10/20 Range/Units 06:14 AST 122 H (14-35) U/L Lactate Dehydrogenase 494 H (120-246) U/L CBC 02/10/20 Range/Units 06:14 WBC 2.9 L (3.8-10.6) k/uL RBC 4.63 (4.30-5.90) m/uL Hgb 13.9 (13.0-17.5) gm/dL Hct 41.7 (39.0-53.0) % Plt Count 154 (150-450) k/uL Comprehensive Metabolic Panel 02/10/20 Range/Units 06:14 Sodium 136 (135-145) mmol/L Potassium 4.3 (3.5-5.5) mmol/L Chloride 102 (96-109) mmol/L Carbon Dioxide 25.1 (21.6-31.8) mmol/L BUN 19.0 (9.0-27.0) mg/dL Creatinine 1.1 (0.6-1.5) mg/dL Glucose 71 (70-110) mg/dL Calcium 8.2 L (8.7-10.3) mg/dL AST 122 H (14-35) U/L ALT 60 H (10-49) U/L Alkaline Phosphatase 68 (41-126) U/L Total Protein 6.0 L (6.2-8.2) g/dL Albumin 3.90 (3.80-4.90) g/dL Current Medications Generic Name Dose Route Start Last Admin Trade Name Freq PRN Reason Stop Dose Admin Acetaminophen 650 mg 02/08/20 14:34 02/09/20 18:57 Acetaminophen Tab 325 Mg Tab PO 650 mg Q6HR PRN Administration Mild Pain or Fever > 100.5 Ascorbic Acid 1,000 mg 02/10/20 09:00 02/10/20 07:46 Ascorbic Acid 500 Mg Tab PO 1,000 mg DAILY RJ Administration Atenolol 25 mg 02/09/20 21:00 02/10/20 07:59 Atenolol 25 Mg Tab PO 25 mg BID RJ Administration Azithromycin 500 mg 02/09/20 11:30 02/10/20 07:47 Azithromycin 500 Mg Tab PO 500 mg DAILY RJ Administration Dexamethasone Sodium Phosphate 6 mg 02/09/20 23:15 02/10/20 07:45 Dexamethasone Sod Phosphate 10 Mg/Ml 1 Ml Vial IV 6 mg DAILY RJ Administration Donepezil HCl 10 mg 02/09/20 09:00 02/10/20 07:46 Donepezil 10 Mg Tab PO 10 mg DAILY RJ Administration Enoxaparin Sodium 40 mg 02/10/20 09:00 02/10/20 07:47 Enoxaparin 40 Mg/0.4 Ml Syringe SQ 40 mg DAILY RJ Administration Gabapentin 300 mg 02/08/20 16:00 02/10/20 07:46 Gabapentin 300 Mg Cap PO 300 mg TID RJ Administration Lisinopril/HCTZ 1 each 02/09/20 09:00 02/10/20 07:47 Lisinopril-Hctz 10-12.5 Mg 1 Each Tab PO 1 each DAILY RJ Administration Sodium Chloride 1,000 mls @ 75 mls/hr 02/08/20 14:45 02/10/20 07:44 Saline 0.9% IV 75 mls/hr .[id number] RJ Administration Insulin Aspart 7 unit 02/08/20 17:30 02/10/20 07:25 Insulin Aspart (Novolog) 100 Unit/Ml Vial SQ Not Given AC-TID [facility] Insulin Aspart 0 unit 02/09/20 12:30 02/10/20 07:25 Insulin Aspart (Novolog) 100 Unit/Ml Vial SQ Not Given ACHS [facility] Protocol Insulin Detemir 28 unit 02/09/20 07:00 02/10/20 07:45 Insulin Detemir (Levemir) 100 Unit/Ml Syr SQ 28 unit DAILY@0700 RJ Administration Memantine 5 mg 02/08/20 21:00 02/10/20 07:47 Memantine 5 Mg Tab PO 5 mg BID RJ Administration Naloxone HCl 0.2 mg 02/08/20 14:34 Naloxone 0.4 Mg/Ml 1 Ml Vial IV Q2M PRN Opioid Reversal Zinc Sulfate 220 mg 02/10/20 09:00 02/10/20 07:47 Zinc Sulfate 220 Mg Cap PO 220 mg DAILY RJ Administration Intake and Output 02/09/20 02/10/20 02/10/20 22:59 06:59 14:59 Intake Total 600 200 Output Total 475 Balance 125 200 Intake: Intake, IV Titration 600 Amount Sodium Chloride 0.9% 1, 600 000 ml @ 75 mls/hr IV . [id number] [facility] Rx#:[id number] Oral 200 Output: Urine 475 Other: Voiding Method Urinal Urinal Diaper Diaper # Voids 6 2 # Bowel Movements 2 02/10/20 06:14 02/10/20 06:14
--- NOTE | 2020-02-10 22:32 | PN ---
PROGRESS NOTE DATE OF SERVICE: 02/10/2020 REASON FOR FOLLOWUP: Covid 19 pneumonia. INTERVAL HISTORY: Patient is currently afebrile. Patient is breathing comfortably. The patient denies having any chest pain or shortness of breath. Occasional cough. No nausea. No vomiting. No abdominal pain. No diarrhea. PHYSICAL EXAMINATION: Blood pressure 146/77, pulse of 63. Temperature 97.9. He is 92% on room air. General description is an elderly male in the bed in no distress. Respiratory system: Unlabored breathing with decreased breath sounds in the base, with no wheeze. Heart S1, S2. Regular rate and rhythm. ABDOMEN: Soft, no tenderness. LABS: Hemoglobin 13, white count 2.9. D-dimer is 2.96. Procalcitonin is also slightly elevated. DIAGNOSTIC IMPRESSION AND PLAN: Patient admitted to the hospital with weakness and syncopal episode in this patient who does have features of COVID-19 infection, especially with a CT finding even though PCR was negative. Patient is not hypoxic and no need for supplemental oxygen. Continue with the Decadron, Lovenox, zinc and Zithromax and monitor clinical course closely. MMODL / IJN: [id number] /
[2020-02-11] MEDS: INSULIN DETEMIR (LEVEMIR) 100 UNIT/ML SYR SQ SCH (09:07)
[2020-02-11] MEDS: ENOXAPARIN 40 MG/0.4 ML SYRINGE SQ SCH (09:07)
[2020-02-11] MEDS: DEXAMETHASONE SOD PHOSPHATE 10 MG/ML 1 ML VIAL IV SCH (09:07)
[2020-02-11] MEDS: ASCORBIC ACID 500 MG TAB PO SCH (09:08)
[2020-02-11] MEDS: GABAPENTIN 300 MG CAP PO SCH (09:08)
[2020-02-11] MEDS: AZITHROMYCIN 500 MG TAB PO SCH (09:08)
[2020-02-11] MEDS: ZINC SULFATE 220 MG CAP PO SCH (09:08)
[2020-02-11] MEDS: DONEPEZIL 10 MG TAB PO SCH (09:08)
[2020-02-11] MEDS: MEMANTINE 5 MG TAB PO SCH (09:08)
[2020-02-11] MEDS: atenoloL 25 MG TAB PO SCH (09:08)
[2020-02-11] MEDS: LISINOPRIL-HCTZ 10-12.5 MG 1 EACH TAB PO SCH (09:08)
[2020-02-11 09:15] LABS: African American GFR (CKD) 86.2 (60.0-200.0); Non-African American GFR(CKD) 74.3 (60.0-200.0)
--- NOTE | 2020-02-11 10:26 | P.DS ---
Providers Date of admission: 02/08/20 14:34 Attending physician: Guero Todd Consults: 02/08/20 18:04 Consult Physician Routine Consulting Provider: Kojo Adame Consult Reason/Comments: cap Do you want consulting provider notified?: Yes 02/08/20 18:05 Consult Physician Routine Consulting Provider: Marie Estrada Consult Reason/Comments: cap Do you want consulting provider notified?: Yes 02/09/20 18:50 Consult Physician Routine Consulting Provider: Donaldo Dobbins Consult Reason/Comments: tachycardia Do you want consulting provider notified?: Yes Primary care physician: [facility] Course: 74-year-old the female was admitted for pneumonia patient has bilateral infiltrate patient was believed to have either atypical pneumonia or viral pneumonia, there was a high possibility of covid 19, although PCR came back negative considering oral picture patient was treated like Covid patient had an elevated d-dimer PE was ruled out patient was on azithromycin. Patient does have advanced Alzheimer's and patient has an INR because of that and patient is quite a bit confused at this time. Patient is on Decadron. considering that the patient has diabetes, advanced Alzheimer's and no hypoxia I'm not discharging him on Decadron at this time. Patient blood sugars are bit elevated and expected to go higher for next couple days because of Decadron. Patient is imminently stable not hypoxic will be discharged today patient was tachycardic when he came in probably because of dehydration with elevated creatinine up to 1.2 that improved with IV fluids and the patient was started on atenolol 25 twice a day and patient is presently bradycardic because of that. Patient will be switched to atenolol 25 daily. Because of hypernatremia on admission are discontinue diuretics and patient will be discharged on lisinopril along with atenolol as mentioned above. Patient lives at a facility patient will be discharged to that facility PHYSICAL EXAMINATION: GENERAL: The patient is alert and oriented x1 which is his baseline, not in any acute distress. Well developed, well nourished. HEENT: Pupils are round and equally reacting to light. EOMI. No scleral icterus. No conjunctival pallor. Normocephalic, atraumatic. No pharyngeal erythema. No thyromegaly. CARDIOVASCULAR: S1 and S2 present. No murmurs, rubs, or gallops. PULMONARY: Chest is clear to auscultation, no wheezing or crackles. ABDOMEN: Soft, nontender, nondistended, normoactive bowel sounds. No palpable organomegaly. MUSCULOSKELETAL: No joint swelling or deformity. EXTREMITIES: No cyanosis, clubbing, or pedal edema. NEUROLOGICAL: Gross neurological examination did not reveal any focal deficits. SKIN: No rashes. Note: Because of COVID 19 isolation, some of the history and physical exam findings are indirect and obtained from nursing staff, and other physician examinations to avoid unnecessary contact with the patient. -Atypical pneumonia: Continue with azithromycin. Covid 19 cannot be ruled out. -Acute renal failure secondary to diuretics which improved -Type 2 diabetes mellitus uncontrolled elevated blood sugars secondary to steroids -Hyponatremia secondary to diuretics -Hypertension -Alzheimer's dementia Patient Condition at Discharge: Stable Plan - Discharge Summary Discharge Rx Participant: No New Discharge Prescriptions: New Zinc Sulfate [Orazinc] 220 mg PO DAILY #20 cap Azithromycin [Zithromax] 500 mg PO DAILY #5 tab Lisinopril [Prinivil] 10 mg PO DAILY #30 tab Atenolol [Tenormin] 25 mg PO DAILY #30 tab Continue Gabapentin [Neurontin] 300 mg PO TID Donepezil [Aricept] 10 mg PO DAILY Omeprazole 20 mg PO DAILY Simvastatin [Zocor] 20 mg PO HS Insulin Glargine,Hum.rec.anlog [Lantus Solostar] 28 unit SQ DAILY Glucagon Emergency Kit 1 mg IM ONCE PRN PRN Reason: Hypoglycemia Insulin Aspart [Insulin Aspart Flexpen] See Protocol SQ AC-TID Insulin Aspart [Insulin Aspart Flexpen] 7 unit SQ AC-TID Memantine [Namenda] 5 mg PO BID Tamsulosin HCl [Flomax] 0.4 mg PO DAILY Discontinued Lisinopril-Hctz 10-12.5 mg [Zestoretic 10-12.5] 1 tab PO DAILY Discharge Medication List Donepezil [Aricept] 10 mg PO DAILY 11/19/15 [History] Gabapentin [Neurontin] 300 mg PO TID 11/19/15 [History] Omeprazole 20 mg PO DAILY 08/05/17 [History] Simvastatin [Zocor] 20 mg PO HS 08/05/17 [History] Glucagon Emergency Kit 1 mg IM ONCE PRN 02/08/20 [History] Insulin Aspart [Insulin Aspart Flexpen] 7 unit SQ AC-TID 02/08/20 [History] Insulin Aspart [Insulin Aspart Flexpen] See Protocol SQ AC-TID 02/08/20 [History] Insulin Glargine,Hum.rec.anlog [Lantus Solostar] 28 unit SQ DAILY 02/08/20 [History] Memantine [Namenda] 5 mg PO BID 02/08/20 [History] Tamsulosin HCl [Flomax] 0.4 mg PO DAILY 02/08/20 [History] Atenolol [Tenormin] 25 mg PO DAILY #30 tab 02/11/20 [Rx] Azithromycin [Zithromax] 500 mg PO DAILY #5 tab 02/11/20 [Rx] Lisinopril [Prinivil] 10 mg PO DAILY #30 tab 02/11/20 [Rx] Zinc Sulfate [Orazinc] 220 mg PO DAILY #20 cap 02/11/20 [Rx] Follow up Appointment(s)/Referral(s): Guero Todd MD [Primary Care Provider] - 1 Week (office closed at time of discharge. Please call to make appointment ) Kojo Adame MD [STAFF PHYSICIAN] - 4 Weeks (Office closed at time of discharge. Please call to make an appointment.) Patient Instructions/Handouts: Viral Pneumonia (DC) Activity/Diet/Wound Care/Special Instructions: Transitions Home Care has been referred and can be contacted at Discharge Disposition: OTHER INSTITUTION NOT DEFINED
[2020-02-11 10:54] VITALS: BP 189/65; PULSE 82; RESP 20; TEMP 97.9
[2020-02-11] MEDS: INSULIN ASPART (NovoLOG) 100 UNIT/ML VIAL SQ SCH ×4 (12:07→12:45)
--- NOTE | 2020-02-11 17:35 | PN ---
PROGRESS NOTE DATE OF SERVICE: 02/11/2020 REASON FOR FOLLOWUP: Pneumonia. INTERVAL HISTORY: Patient is seen on rounds early this afternoon. The patient has been afebrile. He is breathing comfortably currently on room air. Denies any chest pain, cough, abdominal pain or diarrhea. PHYSICAL EXAMINATION: Blood pressure 109/62 with a pulse of 82. Temperature is 97.9. He is 97% on room air. General description is an elderly male lying in bed in no distress. Respiratory system: Unlabored breathing. Clear to auscultation anteriorly. Heart S1, S2. Regular rate and rhythm. Abdomen soft, no tenderness. LABS: Creatinine is normal. DIAGNOSTIC PATIENT: 1. Patient with positive blood culture. Staph epi, likely contaminant, off vancomycin. Sputum culture negative. 2. Patient with pneumonia with concern for possible Covid, on Dexamethasone, Lovenox, will be going home on a short course of oral Zithromax. Per admitting, continue supportive care. MMODL / IJN: [id number] /
[2020-02-12 09:25] LABS: Glucose,Whole Blood 259 mg/dL (75-99)
[2020-02-12 09:25] LABS: Glucose,Whole Blood 98 mg/dL (75-99)
[2020-02-12 09:25] LABS: Glucose,Whole Blood 273 mg/dL (75-99)
[2020-02-12 09:42] LABS: Glucose,Whole Blood 86 mg/dL (75-99)
[2020-02-12 09:42] LABS: Glucose,Whole Blood 279 mg/dL (75-99)
[2020-02-12 09:42] LABS: Glucose,Whole Blood 94 mg/dL (75-99)
[2020-02-12 09:42] LABS: Glucose,Whole Blood 92 mg/dL (75-99)
[2020-02-12 09:42] LABS: Glucose,Whole Blood 292 mg/dL (75-99)
[2020-02-12 09:42] LABS: Glucose,Whole Blood 307 mg/dL (75-99)
[2020-02-12 09:43] LABS: Glucose,Whole Blood 292 mg/dL (75-99)
[2020-02-12 15:35] LABS: Glucose,Whole Blood 220 mg/dL (75-99)
== END 2020-02-11 14:04 | disposition home health service (06) | DRG 177 ==
LOC: EC 10:47 → 4SSUR 14:34
PROVIDERS: ADMIT Family Medicine; ATTEND Family Medicine
DX: U07.1 COVID-19 (principal); J12.89 Other viral pneumonia; E87.0 Hyperosmolality and hypernatremia; N17.9 Acute kidney failure, unspecified; E87.1 Hypo-osmolality and hyponatremia; E11.40 Type 2 diabetes mellitus with diabetic neuropathy, unspecified; F02.80 Dementia in other diseases classified elsewhere, unspecified severity, without behavioral disturbance, psychotic disturbance, mood disturbance, and anxiety; G30.9 Alzheimer's disease, unspecified; I11.9 Hypertensive heart disease without heart failure; E78.5 Hyperlipidemia, unspecified; I48.91 Unspecified atrial fibrillation; Z79.4 Long term (current) use of insulin; E86.0 Dehydration; E11.65 Type 2 diabetes mellitus with hyperglycemia; T38.0X5A Adverse effect of glucocorticoids and synthetic analogues, initial encounter; I45.10 Unspecified right bundle-branch block; M19.041 Primary osteoarthritis, right hand; M19.042 Primary osteoarthritis, left hand; M19.072 Primary osteoarthritis, left ankle and foot; M19.071 Primary osteoarthritis, right ankle and foot; M81.0 Age-related osteoporosis without current pathological fracture; N40.0 Benign prostatic hyperplasia without lower urinary tract symptoms; K21.9 Gastro-esophageal reflux disease without esophagitis; R55 Syncope and collapse; R29.6 Repeated falls; E87.8 Other disorders of electrolyte and fluid balance, not elsewhere classified; I34.0 Nonrheumatic mitral (valve) insufficiency; Z79.899 Other long term (current) drug therapy; Z87.891 Personal history of nicotine dependence; Z86.73 Personal history of transient ischemic attack (TIA), and cerebral infarction without residual deficits; Z57.4 Occupational exposure to toxic agents in agriculture; Z90.49 Acquired absence of other specified parts of digestive tract; Z98.890 Other specified postprocedural states; Z87.19 Personal history of other diseases of the digestive system; Z80.9 Family history of malignant neoplasm, unspecified; W19.XXXA Unspecified fall, initial encounter
CPT/HCPCS: 36415; 70450; 71046; 71250; 72125; 80053; 81001; 82565; 83615; 83735; 84145; 84484; 85025; 85379; 85610; 85730; 86140; 87040; 87077; 87186; 87324; 87635; 93005; 93306; 96361; 96374; 99285

== ENCOUNTER 2020-02-11 16:20 | Inpatient (IN) | payer OTHER, MEDICARE ==
[2020-02-11] MEDS ORDERED: NALOXONE 0.4 MG/ML 1 ML VIAL IV PRN (16:49)
--- NOTE | 2020-02-11 16:54 | ED ---
General Adult HPI - General Chief complaint: Shortness of Breath Stated complaint: Pneumonia,Confusion Time Seen by Provider: 02/11/20 16:24 Source: patient, family Mode of arrival: wheelchair Limitations: no limitations - History of Present Illness Initial comments: Dictation was produced using [employer] dictation software. please excuse any grammatical, word or spelling errors. This patient was cared for during a federal and state declared state of emergency secondary to Covid 19 Chief Complaint: 74-year-old male recently admitted to the hospital for dementia, altered mental status presents to the emergency Department for readmission to the hospital. History of Present Illness: This 74-year-old male he was just admitted to the hospital. He's been admitted for approximately 3 days. Patient presents emergency Department with son. He was admitted for chlamydia acquired pneumonia tachycardia and altered mental status. Patient had a uncomplicated hospital course. He was discharge accidentally to the wrong facility. He needed facility that had 24-hour care. Dr. Linares called patient's son and told him to bring the patient back to the emergency department for readmission until better disposition could be arranged. The ROS documented in this emergency department record has been reviewed and confirmed by me. Those systems with pertinent positive or negative responses have been documented in the HPI. All other systems are other negative and/or noncontributory. PHYSICAL EXAM: General Impression: Alert and oriented x3/4, not in acute distress HEENT: Normocephalic atraumatic, extra-ocular movements intact, pupils equal and reactive to light bilaterally, mucous membranes moist. Cardiovascular: Heart regular rate and rhythm Chest: Able to complete full sentences, no retractions, no tachypnea Abdomen: abdomen soft, non-tender, non-distended, no organomegaly Musculoskeletal: Pulses present and equal in all extremities, no peripheral edema Motor: no focal deficits noted Neurological: CN II-XII grossly intact, no focal motor or sensory deficits noted Skin: Intact with no visualized rashes Psych: Normal affect and mood ED course: 74-year-old male instructed by hospitalist to bring patient back to the emergency department for readmission to arrange for more appropriate disposition. As upon arrival are within acceptable limits. Case is discussed with Dr. Linares who had no further recommendations. He did not want any testing to be performed for patient to be given any steroids. He request the p atient be readmitted to the hospital. Patient has no complaints at this time. Physical examination is benign. - Related Data Home Medications Medication Instructions Recorded Confirmed Donepezil [Aricept] 10 mg PO DAILY 11/19/15 02/08/20 Gabapentin [Neurontin] 300 mg PO TID 11/19/15 02/08/20 Omeprazole 20 mg PO DAILY 08/05/17 02/08/20 Simvastatin [Zocor] 20 mg PO HS 08/05/17 02/08/20 Glucagon Emergency Kit 1 mg IM ONCE PRN 02/08/20 02/08/20 Insulin Aspart [Insulin Aspart 7 unit SQ AC-TID 02/08/20 02/08/20 Flexpen] Insulin Aspart [Insulin Aspart See Protocol SQ AC-TID 02/08/20 02/08/20 Flexpen] Insulin Glargine,Hum.rec.anlog 28 unit SQ DAILY 02/08/20 02/08/20 [Lantus Solostar] Memantine [Namenda] 5 mg PO BID 02/08/20 02/08/20 Tamsulosin HCl [Flomax] 0.4 mg PO DAILY 02/08/20 02/08/20 Previous Rx's Medication Instructions Recorded Atenolol [Tenormin] 25 mg PO DAILY #30 tab 02/11/20 Azithromycin [Zithromax] 500 mg PO DAILY #5 tab 02/11/20 Lisinopril [Prinivil] 10 mg PO DAILY #30 tab 02/11/20 Zinc Sulfate [Orazinc] 220 mg PO DAILY #20 cap 02/11/20 Allergies Allergy/AdvReac Type Severity Reaction Status Date / Time No Known Allergies Allergy Verified 02/11/20 16:33 Review of Systems ROS Statement: Those systems with pertinent positive or pertinent negative responses have been documented in the HPI. ROS Other: All systems not noted in ROS Statement are negative. Past Medical History Past Medical History: CVA/TIA, Dementia, Diabetes Mellitus, GERD/Reflux, Hyperlipidemia, Hypertension Additional Past Medical History / Comment(s): Agent [place] exposure in [place], IDDM type II, DKA with metabolic encephalopathy, neuropathy bilateral feet, osteoporosis, sinus problems, arthritis bilateral hands/feet. History of Any Multi-Drug Resistant Organisms: None Reported Past Surgical History: Appendectomy Additional Past Surgical History / Comment(s): Pt thinks he may have had an appendectomy, colonoscopy-normal Past Anesthesia/Blood Transfusion Reactions: No Reported Reaction Past Psychological History: No Psychological Hx Reported Smoking Status: Former smoker Past Alcohol Use History: Occasional Past Drug Use History: None Reported - Past Family History Father Family Medical History: No Reported History Additional Family Medical History / Comment(s): Father was healthy and lived into his 80s. Mother Family Medical History: Cancer Additional Family Medical History / Comment(s): Mother had some form of cancer (family do not know kind) which she of in her 50s General Exam Limitations: no limitations Course Vital Signs 02/11/20 16:30 Temperature 100.8 F H Pulse Rate 94 Respiratory 22 Rate Blood Pressure 147/84 O2 Sat by Pulse 93 L Oximetry Disposition Clinical Impression: Altered mental status Disposition: ADMITTED IP TO THIS HOSP Condition: Fair Referrals: Guero Todd MD [Primary Care Provider] - 1-2 days Decision Time: 16:54
[2020-02-11] MEDS ORDERED: NON FORMULARY DRUG (Glucagon Emergency Kit 1 MG Kit) IM PRN (18:21)
[2020-02-11] MEDS: GABAPENTIN 300 MG CAP PO SCH (22:29)
[2020-02-11] MEDS: MEMANTINE 5 MG TAB PO SCH (22:29)
[2020-02-11] MEDS: INSULIN ASPART (NovoLOG) 100 UNIT/ML VIAL SQ SCH (22:44)
[2020-02-12] MEDS ORDERED: INSULIN ASPART (NovoLOG) 100 UNIT/ML VIAL SQ SCH ×2 (07:30→22:21)
[2020-02-12] MEDS: INSULIN DETEMIR (LEVEMIR) 100 UNIT/ML SYR SQ SCH (08:37)
[2020-02-12] MEDS: INSULIN ASPART (NovoLOG) 100 UNIT/ML VIAL SQ SCH ×7 (08:38→22:43)
[2020-02-12] MEDS: AZITHROMYCIN 500 MG TAB PO SCH (08:38)
[2020-02-12] MEDS: GABAPENTIN 300 MG CAP PO SCH ×3 (08:38→22:46)
[2020-02-12] MEDS: ZINC SULFATE 220 MG CAP PO SCH (08:38)
[2020-02-12] MEDS: atenoloL 25 MG TAB PO SCH (08:39)
[2020-02-12] MEDS: MEMANTINE 5 MG TAB PO SCH ×2 (08:39→22:46)
[2020-02-12] MEDS: DONEPEZIL 10 MG TAB PO SCH (08:39)
[2020-02-12] MEDS: lisinopriL 10 MG TAB PO SCH (08:39)
[2020-02-12] MEDS: TAMSULOSIN 0.4 MG CAP.ER.24H PO SCH (08:39)
[2020-02-12 09:41] LABS: Glucose,Whole Blood 172 mg/dL (75-99)
[2020-02-12 09:41] LABS: Glucose,Whole Blood 220 mg/dL (75-99)
[2020-02-12 11:40] LABS: Glucose,Whole Blood 145 mg/dL (75-99)
[2020-02-12] MEDS ORDERED: QUEtiapine 25 MG TAB PO PRN (11:45)
--- NOTE | 2020-02-12 12:59 | P.HPIM ---
History of Present Illness Patient is a pleasant 74-year-old the beta known history of present was dementia was discharged yesterday from the hospital. Patient was admitted for atypical pneumonia, cold 19 was negative patient was not hypoxic. Patient was bit confused but yesterday my understanding was patient has 24 7 care at the assisted living facility. Patient was discharged yesterday because of that reason patient's son took him there and patient was still confused and quite a bit weak because of which he did not believe patient can now stabilized himself because of that he called the nursing staff after which are each O2 the patient and we admitted the patient for placement purposes. She is still alert oriented 1 not agitated. Review of Systems All other review of systems is negative unable to often much of review of systems because of his clinical condition. Past Medical History Past Medical History: CVA/TIA, Dementia, Diabetes Mellitus, GERD/Reflux, Hyperlipidemia, Hypertension Additional Past Medical History / Comment(s): Agent [place] exposure in [place], IDDM type II, DKA with metabolic encephalopathy, neuropathy bilateral feet, osteoporosis, sinus problems, arthritis bilateral hands/feet. History of Any Multi-Drug Resistant Organisms: None Reported Past Surgical History: Appendectomy Additional Past Surgical History / Comment(s): Pt thinks he may have had an appendectomy, colonoscopy-normal Past Anesthesia/Blood Transfusion Reactions: No Reported Reaction Past Psychological History: No Psychological Hx Reported Additional Psychological History / Comment(s): Pt resides at [facility] assistive living. He has dementia. He is a [place] . He uses no assistive device. He no longer drives, family takes him to appts. He has a pet cat. Staff manages his medications. He has a glucometer. Smoking Status: Former smoker Past Alcohol Use History: Occasional Additional Past Alcohol Use History / Comment(s): Pt started smoking in 1964 and quit in 1974. Past Drug Use History: None Reported - Past Family History Father Family Medical History: No Reported History Additional Family Medical History / Comment(s): Father was healthy and lived into his 80s. Mother Family Medical History: Cancer Additional Family Medical History / Comment(s): Mother had some form of cancer (family do not know kind) which she of in her 50s Medications and Allergies Home Medications Medication Instructions Recorded Confirmed Type Donepezil [Aricept] 10 mg PO DAILY 11/19/15 02/11/20 History Gabapentin [Neurontin] 300 mg PO TID 11/19/15 02/11/20 History Omeprazole 20 mg PO DAILY 08/05/17 02/11/20 History Simvastatin [Zocor] 20 mg PO HS 08/05/17 02/11/20 History Glucagon Emergency Kit 1 mg IM ONCE PRN 02/08/20 02/11/20 History Insulin Aspart [Insulin Aspart 7 unit SQ AC-TID 02/08/20 02/11/20 History Flexpen] Insulin Aspart [Insulin Aspart See Protocol SQ AC-TID 02/08/20 02/11/20 History Flexpen] Insulin Glargine,Hum.rec.anlog 28 unit SQ DAILY 02/08/20 02/11/20 History [Lantus Solostar] Memantine [Namenda] 5 mg PO BID 02/08/20 02/11/20 History Tamsulosin HCl [Flomax] 0.4 mg PO DAILY 02/08/20 02/11/20 History Atenolol [Tenormin] 25 mg PO DAILY #30 tab 02/11/20 02/11/20 Rx Azithromycin [Zithromax] 500 mg PO DAILY #5 tab 02/11/20 02/11/20 Rx Lisinopril [Prinivil] 10 mg PO DAILY #30 tab 02/11/20 02/11/20 Rx Zinc Sulfate [Orazinc] 220 mg PO DAILY #20 cap 02/11/20 02/11/20 Rx Allergies Allergy/AdvReac Type Severity Reaction Status Date / Time No Known Allergies Allergy Verified 02/11/20 17:16 Physical Exam Vitals: Vital Signs Temp Pulse Pulse Resp BP BP Pulse Ox 02/12/20 10:00 98.2 F 81 20 180/73 95 02/12/20 08:00 81 20 02/12/20 05:30 99.5 F 90 181/84 92 L 02/12/20 03:40 98.2 F 02/12/20 02:26 100.4 F H 85 157/67 95 02/11/20 21:34 99.1 F 88 161/87 93 L 02/11/20 20:00 20 02/11/20 18:00 98.4 F 59 L 20 175/81 96 02/11/20 16:56 18 02/11/20 16:30 100.8 F H 94 22 147/84 93 L Intake and Output 02/11/20 02/12/20 02/12/20 22:59 06:59 14:59 Intake Total 150 Balance 150 Intake: Oral 150 Other: Voiding Method Urinal Urinal Diaper # Voids 1 Weight 86.183 kg PHYSICAL EXAMINATION: GENERAL: The patient is alert and oriented x1 which is his baseline, not in any acute distress. Well developed, well nourished. HEENT: Pupils are round and equally reacting to light. EOMI. No scleral icterus. No conjunctival pallor. Normocephalic, atraumatic. No pharyngeal erythema. No thyromegaly. CARDIOVASCULAR: S1 and S2 present. No murmurs, rubs, or gallops. PULMONARY: Chest is clear to auscultation, no wheezing or crackles. ABDOMEN: Soft, nontender, nondistended, normoactive bowel sounds. No palpable organomegaly. MUSCULOSKELETAL: No joint swelling or deformity. EXTREMITIES: No cyanosis, clubbing, or pedal edema. NEUROLOGICAL: Gross neurological examination did not reveal any focal deficits. SKIN: No rashes. Results Labs: Abnormal Lab Results - Last 24 Hours (Table) 02/11/20 02/12/20 02/12/20 Range/Units 22:41 06:43 11:37 POC Glucose (mg/dL) 220 H 172 H 145 H (75-99) mg/dL Thrombosis Risk Factor Assmnt - Choose All That Apply Any of the Below Risk Factors Present?: Yes Each Factor Represents 1 point: Obesity (BMI >25) Other Risk Factors: Yes Each Risk Factor Represents 2 Points: Age 61-74 years Thrombosis Risk Factor Assessment Total Risk Factor Score: 3 Thrombosis Risk Factor Assessment Level: Moderate Risk Assessment and Plan Plan: -Confusion, altered mental status secondary to advancing dementia patient can get more confused when he is hospitalized will treat with the either have to as needed Haldol or Seroquel as needed. Patient will need placement may need to 24 7 care because of his advancing dementia. Physical and Pap patient that we will be consulted -Atypical pneumonia: Continue with azithromycin. Covid 19 cannot be ruled out. -Acute renal failure secondary to diuretics which improved -Type 2 diabetes mellitus uncontrolled elevated blood sugars secondary to steroids -Hypertension -Alzheimer's dementia
[2020-02-12 17:14] LABS: Glucose,Whole Blood 126 mg/dL (75-99)
[2020-02-12 22:06] LABS: Glucose,Whole Blood 56 mg/dL (75-99)
[2020-02-12 22:42] LABS: Glucose,Whole Blood 103 mg/dL (75-99)
[2020-02-12] MEDS: SODIUM CHLORIDE 0.9% 1,000 ML IV SCH (22:43)
[2020-02-13] MEDS: SODIUM CHLORIDE 0.9% 1,000 ML IV SCH ×2 (02:23→08:04)
[2020-02-13 02:33] LABS: Glucose,Whole Blood 120 mg/dL (75-99)
[2020-02-13] MEDS ORDERED: ACETAMINOPHEN TAB 325 MG TAB PO PRN (03:49)
[2020-02-13 06:26] LABS: HCT 41.4 % (39.0-53.0); HGB 14.4 gm/dL (13.0-17.5); MCH 30.7 pg (25.0-35.0); MCHC 34.9 g/dL (31.0-37.0); MCV 88.1 fL (80.0-100.0); Mean Platelet Volume 8.4; Platelet Count 206 k/uL (150-450); RBC 4.69 m/uL (4.30-5.90); RDW 12.6 % (11.5-15.5); WBC 6.8 k/uL (3.8-10.6)
[2020-02-13 06:54] LABS: Glucose,Whole Blood 90 mg/dL (75-99)
--- NOTE | 2020-02-13 07:05 | XR ---
EXAMINATION TYPE: XR chest 2V DATE OF EXAM: 02/13/2020 COMPARISON: Chest CT 4 days ago. Chest x-ray 5 days ago. HISTORY: Fever. TECHNIQUE: Frontal and lateral views of the chest are obtained. FINDINGS: Background chronic parenchymal changes with persistent multifocal increased opacities grea test in the periphery of the mid to lower lungs. No pleural effusion or pneumothorax. The cardiac si lhouette size remains within normal limits. The osseous structures are intact. IMPRESSION: Bilateral mid to lower lung multifocal acute infiltrates consistent with covid 19 infect ion progression. Findings worsened from most recent x-ray and CT.
[2020-02-13] MEDS: INSULIN DETEMIR (LEVEMIR) 100 UNIT/ML SYR SQ SCH (07:11)
[2020-02-13] MEDS: INSULIN ASPART (NovoLOG) 100 UNIT/ML VIAL SQ SCH ×7 (07:11→22:12)
[2020-02-13] MEDS: TAMSULOSIN 0.4 MG CAP.ER.24H PO SCH (08:03)
[2020-02-13] MEDS: atenoloL 25 MG TAB PO SCH (08:03)
[2020-02-13] MEDS: AZITHROMYCIN 500 MG TAB PO SCH (08:03)
[2020-02-13] MEDS: lisinopriL 10 MG TAB PO SCH (08:03)
[2020-02-13] MEDS: DONEPEZIL 10 MG TAB PO SCH (08:03)
[2020-02-13] MEDS: GABAPENTIN 300 MG CAP PO SCH ×3 (08:03→21:44)
[2020-02-13] MEDS: ENOXAPARIN 40 MG/0.4 ML SYRINGE SQ SCH (08:03)
[2020-02-13] MEDS: MEMANTINE 5 MG TAB PO SCH ×2 (08:03→21:44)
[2020-02-13] MEDS: ZINC SULFATE 220 MG CAP PO SCH (08:03)
[2020-02-13 09:50] LABS: African American GFR (CKD) 62.7 (60.0-200.0); Anion Gap 9.5 mmol/L (4.00-12.00); BUN/Creat Ratio 20.77 Ratio (12.00-20.00); Calcium 8.1 mg/dL (8.7-10.3); Carbon Dioxide 23.5 mmol/L (21.6-31.8); Non-African American GFR(CKD) 54.1 (60.0-200.0); Potassium 3.5 mmol/L (3.5-5.5)
[2020-02-13] MEDS: dexAMETHasone 2 MG TAB PO SCH (09:56)
--- NOTE | 2020-02-13 10:57 | P.PN ---
Subjective 74-year-old the beta known history of present was dementia was discharged yesterday from the hospital. Patient was admitted for atypical pneumonia, cold 19 was negative patient was not hypoxic. Patient was bit confused but yesterday my understanding was patient has 24 7 care at the assisted living facility. Patient was discharged yesterday because of that reason patient's son took him there and patient was still confused and quite a bit weak because of which he did not believe patient can now stabilized himself because of that he called the nursing staff after which are each O2 the patient and we admitted the patient for placement purposes. She is still alert oriented 1 not agitated. 02/13/2020 Patient started having fevers last night high-grade fevers. Because of which I repeated the chest x-ray which is showing worsening infiltrate, UA and blood cultures were obtained as well. Chest x-ray imaging is highly suspicious for Covid 19 because of which repeat PCR testing will be obtained it was negative in the past. Patient will be started on Decadron, infectious disease was consulted. Review of systems: Unable to obtain due to his clinical condition All inpatient medications were reviewed and appropriate changes in these medications as dictated in the interval history and assessment and plan. Objective - Vital Signs Vital signs: Vital Signs Temp 98.9 F 02/13/20 09:27 Pulse 61 02/13/20 09:27 Resp 22 02/13/20 09:27 BP 137/71 02/13/20 09:27 Pulse Ox 95 02/13/20 09:27 Intake & Output 02/12/20 02/13/20 02/13/20 18:59 06:59 18:59 Other: Voiding Method Urinal Diaper Diaper Diaper # Voids 4 1 # Bowel Movements 1 - Exam PHYSICAL EXAMINATION: GENERAL: The patient is alert and oriented x1 which is his baseline, not in any acute distress. Well developed, well nourished. HEENT: Pupils are round and equally reacting to light. EOMI. No scleral icterus. No conjunctival pallor. Normocephalic, atraumatic. No pharyngeal erythema. No thyromegaly. CARDIOVASCULAR: S1 and S2 present. No murmurs, rubs, or gallops. PULMONARY: Chest is clear to auscultation, no wheezing or crackles. ABDOMEN: Soft, nontender, nondistended, normoactive bowel sounds. No palpable organomegaly. MUSCULOSKELETAL: No joint swelling or deformity. EXTREMITIES: No cyanosis, clubbing, or pedal edema. NEUROLOGICAL: Gross neurological examination did not reveal any focal deficits. SKIN: No rashes. - Labs CBC & Chem 7: 02/13/20 06:11 02/13/20 06:11 Labs: Abnormal Lab Results - Last 24 Hours (Table) 02/12/20 02/12/20 02/12/20 Range/Units 11:37 16:44 22:04 Est GFR (CKD-EPI)NonAf (60.0-200.0) BUN/Creatinine Ratio (12.00-20.00) Ratio POC Glucose (mg/dL) 145 H 126 H 56 L (75-99) mg/dL Calcium (8.7-10.3) mg/dL 02/12/20 02/13/20 02/13/20 Range/Units 22:40 02:31 06:11 Est GFR (CKD-EPI)NonAf 54.1 L (60.0-200.0) BUN/Creatinine Ratio 20.77 H (12.00-20.00) Ratio POC Glucose (mg/dL) 103 H 120 H (75-99) mg/dL Calcium 8.1 L (8.7-10.3) mg/dL Assessment and Plan Plan: -Fever: Workup as mentioned above possibility of Covid 19 pneumonia. For now as there is no evidence of coronavirus will treat him for come in today quite pneumonia with the above-mentioned antibiotics that is Rocephin and azithro mycin. Infectious disease was consulted -Confusion, altered mental status secondary to advancing dementia patient can get more confused when he is hospitalized will treat with the either have to as needed Haldol or Seroquel as needed. Patient will need placement may need to 24 7 care because of his advancing dementia. Physical and Pap patient that we will be consulted -Acute renal failure secondary to diuretics which improved -Type 2 diabetes mellitus uncontrolled blood sugars were low and down the steroids as patient is being started on Decadron now for possible Covid 19 patient may need higher dose of insulin -Hypertension -Alzheimer's dementia
[2020-02-13 11:30] LABS: Glucose,Whole Blood 274 mg/dL (75-99)
[2020-02-13 15:59] LABS: Appearance,Urine Clear (Clear); Bilirubin,Urine Negative (Negative); Blood,Urine Trace (Negative); Color,Urine Yellow; Glucose,Urine (UA) 4+ (Negative); Ketones,Urine Negative (Negative); Leukocyte Esterase,Urine Negative (Negative); Mucus,Urine Few /hpf; Nitrite,Urine Negative (Negative); Protein,Urine 2+ (Negative); RBC,Urine <1 /hpf (0-5); Specific Gravity,Urine 1.028 (1.001-1.035); Squamous Epithelial Cell,Urine <1 /hpf (0-4); Urobilinogen,Urine <2.0 mg/dL (<2.0); WBC,Urine 5 /hpf (0-5)
[2020-02-13 16:54] LABS: Glucose,Whole Blood 412 mg/dL (75-99)
[2020-02-13 20:25] LABS: Glucose,Whole Blood 344 mg/dL (75-99)
[2020-02-13] MEDS ORDERED: REMDESIVIR 200 MG in SODIUM CHLORIDE 0.9% 250 ML IVPB ONE (21:24)
[2020-02-13 21:58] LABS: Glucose,Whole Blood 287 mg/dL (75-99)
--- NOTE | 2020-02-14 00:23 | CONS ---
CONSULTATION DATE OF SERVICE: 02/13/2020. REASON FOR CONSULTATION: Fever. HISTORY OF PRESENT ILLNESS: The patient is a 74 -year-old, male recently admitted to this hospital for a fever with concern for COVID-19 pneumonia. Patient with subsequent discharge to be readmitted within 24 hours because of mental status changes and unable to get care that he needs. The patient, on presentation to the hospital, did have a fever of 100.2. Did spike a fever of 101.5 therefore asking for this infectious disease consultation. Patient was saturating 93/94 percent on room air. The patient denies having any chest pain. He did have a congested cough an doderate intensity but not bringing any sputum. Denies any nausea. No abdominal pain no diarrhea on : Patient has been pain 1 in the chart. The patient also have a chest x-ray which did shows evidence of interstitial infiltrate with progression compared to last exam. REVIEW OF SYSTEMS: Positive points have been mentioned in HPI. Complete review could not be obtained because of underlying mental illness and dementia. PAST MEDICAL HISTORY: CVA TIA, dementia, diabetes mellitus, GERD, hyperlipidemia, hypertension. PAST SURGICAL HISTORY: Appendectomy. SOCIAL HISTORY: Remote history of smoking. Occasionally drinks. No drug use. FAMILY HISTORY: Mother with history of cancer of unknown type. ALLERGIES: No known drug allergies. MEDICATIONS: The patient is currently on: Tylenol, Tenormin, Zithromax, Dexamethasone, Lovenox, Neurontin, NovoLog, Levemir, Zestril, Namenda, Narcan Theragran, Flomax and zinc. PHYSICAL EXAMINATION: Blood pressure 160/73 with a pulse of 59, temperature 97.5. He is 93% on room air. General description is an elderly male lying in bed in no distress. No tachypnea or accessory muscle of respiration use. HEENT: Examination shows no pallor or scleral icterus. Oral mucous membranes dry. Neck: Trachea is in the midline. Lungs unlabored breathing, decreased intensity in BS no wheeze heart S1, S2. Regular rate. ABDOMEN: Soft. No tenderness. No guarding, no no rigidity. EXTREMITIES are feet examination no rash possible. Neurological: The patient is awake, alert, oriented, oriented times one. LABS: Urine is negative. White count was normal. Creatinine is 1.3 chronic. He has a positive chest x-ray with progression of his interstitial disease. DIAGNOSTIC IMPRESSION AND PLAN: Patient hospital with a fever. This patient did have a progression of the pneumonia on the chest x-ray now with evidence of hypoxemia with has been 93/94 percent on room air. High risk of progression into full-blown respiratory failure and the patient to qualify for numbness with the bases of the clinical findings and hypoxemia plan. 1. We will start the patient on Rocephin 1 g IV daptomycin mg daily for 5 days. 2. Patient will continue with; vanc. 3. Doppler consultation respiratory support. 4. We will follow on clinical condition and further adjust medication if needed thank you for this consultation. Will follow this patient along with you. MMODL / IJN: [id number] /
[2020-02-14] MEDS: SODIUM CHLORIDE 0.9% 1,000 ML IV SCH ×2 (05:53→17:09)
[2020-02-14 06:39] LABS: HCT 38.9 % (39.0-53.0); HGB 13.5 gm/dL (13.0-17.5); MCH 31.3 pg (25.0-35.0); MCHC 34.6 g/dL (31.0-37.0); MCV 90.5 fL (80.0-100.0); Mean Platelet Volume 8.8; Platelet Count 198 k/uL (150-450); RDW 12.5 % (11.5-15.5); WBC 6.3 k/uL (3.8-10.6)
[2020-02-14 07:14] LABS: Glucose,Whole Blood 326 mg/dL (75-99)
[2020-02-14] MEDS: INSULIN DETEMIR (LEVEMIR) 100 UNIT/ML SYR SQ SCH (07:25)
[2020-02-14] MEDS: INSULIN ASPART (NovoLOG) 100 UNIT/ML VIAL SQ SCH ×7 (07:25→21:42)
[2020-02-14] MEDS: MEMANTINE 5 MG TAB PO SCH ×2 (07:26→21:37)
[2020-02-14] MEDS: dexAMETHasone 2 MG TAB PO SCH (07:26)
[2020-02-14] MEDS: lisinopriL 5 MG TAB PO SCH (07:26)
[2020-02-14] MEDS: atenoloL 25 MG TAB PO SCH (07:26)
[2020-02-14] MEDS: TAMSULOSIN 0.4 MG CAP.ER.24H PO SCH (07:26)
[2020-02-14] MEDS: ZINC SULFATE 220 MG CAP PO SCH (07:26)
[2020-02-14] MEDS: DONEPEZIL 10 MG TAB PO SCH (07:26)
[2020-02-14] MEDS: GABAPENTIN 300 MG CAP PO SCH ×3 (07:26→21:37)
[2020-02-14] MEDS: AZITHROMYCIN 500 MG TAB PO SCH (07:26)
[2020-02-14] MEDS: ENOXAPARIN 40 MG/0.4 ML SYRINGE SQ SCH (07:27)
[2020-02-14 11:40] LABS: Glucose,Whole Blood 309 mg/dL (75-99)
[2020-02-14] MEDS ORDERED: HYDROcodone/APAP 5-325MG 1 EACH TAB PO PRN (14:11)
[2020-02-14 15:20] LABS: ALT 44 U/L (4-49); AST 45 U/L (17-59); African American GFR (CKD) >90 (>60 ml/min/1.73 sqM); Albumin 2.8 g/dL (3.5-5.0); Alkaline Phosphatase 76 U/L (38-126); Anion Gap 6 mmol/L; Blood Urea Nitrogen 29 mg/dL (9-20); C Reactive Protein 57.9 mg/L (<10.0); Calcium 8.4 mg/dL (8.4-10.2); Carbon Dioxide 21 mmol/L (22-30); Chloride 106 mmol/L (98-107); Globulin 2.9 g/dL; Glucose 325 mg/dL (74-99); LDH 1221 U/L (313-618); Non-African American GFR(CKD) 86 (>60 ml/min/1.73 sqM); Potassium 4.5 mmol/L (3.5-5.1); Sodium 133 mmol/L (137-145); Total Bilirubin 0.5 mg/dL (0.2-1.3); Total Protein 5.7 g/dL (6.3-8.2)
--- NOTE | 2020-02-14 15:50 | PN ---
PROGRESS NOTE I am covering for Dr. Todd. DATE OF SERVICE: 02/14/2020 This 74-year-old gentleman who was admitted with acute bilateral pneumonia, possibly COVID pneumonia, and extensive shortness of breath was being treated with empiric antibiotics and steroids also. The patient was also started on remdesivir. Infectious Disease is following the patient closely. The patient is being closely monitor. The patient's blood sugars are also elevated at this time. Past medical reviewed. REVIEW OF SYSTEMS: CARDIOVASCULAR SYSTEM: No angina, palpitations. RESPIRATORY SYSTEM: As mentioned earlier. GI: As mentioned earlier. : No dysuria or retention. NERVOUS SYSTEM: No numbness, weakness. CURRENT MEDICATIONS: Reviewed and include Tylenol, [place], Xanax, Tenormin, Zithromax, vitamin D3, Lovenox, Neurontin, NovoLog scale, Levemir. Doses are reviewed. PHYSICAL EXAMINATION: Patient is alert, oriented x3. Pulse is 61. Blood pressure 163/79, respiration 20, temperature 97.6, pulse ox 94% on room air. HEENT: Conjunctivae normal. Oral mucosa moist. NECK: No jugular venous distention. No carotid bruit. CARDIOVASCULAR SYSTEM: S1, S2 muffled. NAUSEA RESPIRATORY SYSTEM: Breath sounds diminished at the bases. Bilateral scattered rhonchi and crackles. ABDOMEN: Soft. NERVOUS SYSTEM: No focal deficit. LABS: CBC within normal limits. UA noted. COVID RT PCR Shira system is positive. ASSESSMENT: 1. Bilateral extensive pneumonia with COVID interstitial pneumonia with fever. 2. Change in mental status and confusion, possibly related to sepsis related to COVID pneumonia and acute infection. 3. Diabetes mellitus, type 2, uncontrolled with hyperglycemia. 4. History of cerebrovascular accident, transient ischemic attack. 5. History of dementia. 6. History of gastroesophageal reflux disease. 7. Hypertension. 8. Hyperlipidemia. 9. History of Agent [place] exposure. 10.History of diabetic ketoacidosis. 11.History of appendectomy. RECOMMENDATIONS AND DISCUSSION: In this 74-year-old gentleman who presented with multiple medical issues, we will monitor the patient closely, continue to monitor, continue with remdesivir, continue with empiric antibiotics. Continue with steroids. Monitor the blood sugars closely. If the blood sugars are consistently elevated, I would strongly recommend IV insulin drip because of history of DKA and other multiple complex medical issues. Otherwise, prognosis is guarded because of the multiple complex medical issues. Dr. Todd will follow. MMODL / IJN: [id number] /
[2020-02-14 17:06] LABS: Glucose,Whole Blood 206 mg/dL (75-99)
[2020-02-14] MEDS: CHOLECALCIFEROL 1,000 UNIT TAB PO SCH (17:09)
[2020-02-14 20:45] LABS: Glucose,Whole Blood 90 mg/dL (75-99)
[2020-02-14] MEDS: REMDESIVIR 100 MG in SODIUM CHLORIDE 0.9% 250 ML IVPB SCH (21:37)
--- NOTE | 2020-02-14 22:50 | PN ---
PROGRESS NOTE DATE OF SERVICE: 02/14/2020 REASON FOR FOLLOWUP: COVID-19 pneumonia. INTERVAL HISTORY: The patient is currently afebrile. Overall fever pattern has improved. The patient is currently saturating between 90% and 93% on room air. The patient denies having any chest pain. Did have a cough. No sputum. No abdominal pain or diarrhea. PHYSICAL EXAMINATION: Blood pressure 145/82 with a pulse of 53. Temperature is 97.7. He is 93% on room air. General description is an elderly male lying in bed in no distress. RESPIRATORY SYSTEM: Unlabored breathing with decreased intensity of breath sounds. No wheeze. HEART: S1, S2. Regular rate and rhythm. ABDOMEN: Soft. No tenderness. LABS: BUN of 29, creatinine 0.87. DIAGNOSTIC IMPRESSION AND PLAN: Patient with acute COVID-19 pneumonia in this patient currently covered with remdesivir, dexamethasone, Lovenox; to continue along with respiratory support and monitor clinical course closely. MMODL / IJN: [id number] /
[2020-02-15 06:07] LABS: Basophils % (A) 0 %; Eosinophils % (A) 0 %; HCT 38.9 % (39.0-53.0); HGB 13.4 gm/dL (13.0-17.5); Lymphocytes # (A) 0.6 k/uL (1.0-4.8); Lymphocytes % (A) 8 %; MCH 30.6 pg (25.0-35.0); MCHC 34.5 g/dL (31.0-37.0); MCV 88.8 fL (80.0-100.0); Mean Platelet Volume 8.6; Monocytes # (A) 0.4 k/uL (0-1.0); Monocytes % (A) 5 %; Neutrophils # (A) 6.2 k/uL (1.3-7.7); Neutrophils % (A) 84 %; Platelet Count 245 k/uL (150-450); RBC 4.39 m/uL (4.30-5.90); RDW 12.6 % (11.5-15.5); WBC 7.4 k/uL (3.8-10.6)
[2020-02-15 07:09] LABS: Glucose,Whole Blood 70 mg/dL (75-99)
[2020-02-15] MEDS: INSULIN ASPART (NovoLOG) 100 UNIT/ML VIAL SQ SCH ×7 (09:33→21:05)
[2020-02-15 09:53] LABS: African American GFR (CKD) 97.9 (60.0-200.0); Anion Gap 11.2 mmol/L (4.00-12.00); BUN/Creat Ratio 27.78 Ratio (12.00-20.00); Calcium 8.1 mg/dL (8.7-10.3); Carbon Dioxide 19.8 mmol/L (21.6-31.8); Non-African American GFR(CKD) 84.4 (60.0-200.0); Potassium 3.7 mmol/L (3.5-5.5)
[2020-02-15] MEDS: INSULIN DETEMIR (LEVEMIR) 100 UNIT/ML SYR SQ SCH (09:54)
[2020-02-15] MEDS: lisinopriL 5 MG TAB PO SCH (09:54)
[2020-02-15] MEDS: dexAMETHasone 2 MG TAB PO SCH (09:54)
[2020-02-15] MEDS: GABAPENTIN 300 MG CAP PO SCH ×3 (09:54→21:09)
[2020-02-15] MEDS: TAMSULOSIN 0.4 MG CAP.ER.24H PO SCH (09:55)
[2020-02-15] MEDS: MEMANTINE 5 MG TAB PO SCH ×2 (09:55→21:08)
[2020-02-15] MEDS: CHOLECALCIFEROL 1,000 UNIT TAB PO SCH (09:55)
[2020-02-15] MEDS: ZINC SULFATE 220 MG CAP PO SCH (09:55)
[2020-02-15] MEDS: ENOXAPARIN 40 MG/0.4 ML SYRINGE SQ SCH (09:55)
[2020-02-15] MEDS: atenoloL 25 MG TAB PO SCH (09:55)
[2020-02-15] MEDS: DONEPEZIL 10 MG TAB PO SCH (09:55)
[2020-02-15] MEDS: PANTOPRAZOLE 40 MG TABLET PO SCH (09:55)
[2020-02-15] MEDS: AZITHROMYCIN 500 MG TAB PO SCH (09:55)
[2020-02-15] MEDS: SODIUM CHLORIDE 0.9% 1,000 ML IV SCH ×2 (09:56→21:17)
[2020-02-15 10:12] LABS: Glucose,Whole Blood 237 mg/dL (75-99)
[2020-02-15 11:43] LABS: Glucose,Whole Blood 216 mg/dL (75-99)
--- NOTE | 2020-02-15 15:15 | PN ---
PROGRESS NOTE This is a 74-year-old white male with COVID pneumonia. He still has generalized weakness, fatigue. He is eating and drinking fairly well. He is 94% to 92% on room air. O2 is 90 to 97. Temperature 97, blood pressure 130s to 180s over 60s to 70s. CARDIOVASCULAR: S1, S2. GI: creased bowel sounds. Lungs show decreased breath sounds x4. Scattered rhonchi. HEMATOLOGY: Negative Homans. ASSESSMENT: 1. Insulin-dependent diabetes mellitus. 2. COVID-19 pneumonia. He is currently on remdesivir, dexamethasone, Lovenox. Continue to rehydrate. PT/OT. Check for C difficile colitis. Prognosis guarded, but patient appears to be improved. Mental status appears to be improving with rehydration and medications as mentioned above. 3. History of dementia. 4. Prior cerebrovascular accident. 5. Gastroesophageal reflux disease. 6. Hypertension. 7. Dyslipidemia. 8. Agent [place] exposure. Continue with his current medications. Please see further orders. Sugars are running in the mid 100s, as patient is doing well at this time. Continue current treatment. MMODL / IJN: [id number] /
[2020-02-15 17:09] LABS: Glucose,Whole Blood 44 mg/dL (75-99)
[2020-02-15 17:09] LABS: Glucose,Whole Blood 57 mg/dL (75-99)
[2020-02-15 17:25] LABS: Glucose,Whole Blood 63 mg/dL (75-99)
[2020-02-15 17:42] LABS: Glucose,Whole Blood 96 mg/dL (75-99)
[2020-02-15 20:19] LABS: Glucose,Whole Blood 107 mg/dL (75-99)
[2020-02-15] MEDS: REMDESIVIR 100 MG in SODIUM CHLORIDE 0.9% 250 ML IVPB SCH (21:08)
--- NOTE | 2020-02-15 23:22 | PN ---
PROGRESS NOTE DATE OF SERVICE: 02/15/2020 REASON FOR FOLLOWUP: COVID-19 pneumonia. INTERVAL HISTORY: Patient is currently afebrile. The patient is breathing comfortably. He is more awake and alert. Denies having any chest pain or shortness of breath. Occasional cough. No abdominal pain or diarrhea. PHYSICAL EXAMINATION: Blood pressure is 165/74 with a pulse of 52, temperature 97.9. He is 93% on room air. General description: The patient is an elderly male lying in bed in no distress. Respiratory system: Unlabored breathing, decreased breath sounds in the base, with no wheeze. Heart S1, S2. Regular rate and rhythm. Abdomen soft. No tenderness. LABS: Hemoglobin is 13.2, white count 7.4, BUN of 25, creatinine 0.9. Blood culture has been negative. IMPRESSION/PLAN: Patient with acute COVID-19 pneumonia in this patient who has significant overall clinical improvement. He is currently on Remdesivir, Dexamethasone and Lanoxin to continue and monitor clinical course closely. Continue supportive care. MMODL / IJN: [id number] /
[2020-02-16 06:33] LABS: Basophils % (A) 0 %; Eosinophils % (A) 0 %; HCT 40.5 % (39.0-53.0); Lymphocytes # (A) 0.8 k/uL (1.0-4.8); Lymphocytes % (A) 11 %; MCH 30.9 pg (25.0-35.0); MCHC 34.7 g/dL (31.0-37.0); MCV 89.1 fL (80.0-100.0); Mean Platelet Volume 8.6; Monocytes # (A) 0.4 k/uL (0-1.0); Monocytes % (A) 5 %; Neutrophils # (A) 5.9 k/uL (1.3-7.7); Neutrophils % (A) 82 %; Platelet Count 276 k/uL (150-450); RBC 4.55 m/uL (4.30-5.90); RDW 12.7 % (11.5-15.5); WBC 7.2 k/uL (3.8-10.6)
[2020-02-16 06:48] LABS: Glucose,Whole Blood 110 mg/dL (75-99)
[2020-02-16] MEDS: INSULIN ASPART (NovoLOG) 100 UNIT/ML VIAL SQ SCH ×7 (08:34→21:11)
[2020-02-16] MEDS: TAMSULOSIN 0.4 MG CAP.ER.24H PO SCH (08:43)
[2020-02-16] MEDS: ENOXAPARIN 40 MG/0.4 ML SYRINGE SQ SCH (08:43)
[2020-02-16] MEDS: GABAPENTIN 300 MG CAP PO SCH ×3 (08:43→21:26)
[2020-02-16] MEDS: DONEPEZIL 10 MG TAB PO SCH (08:43)
[2020-02-16] MEDS: ZINC SULFATE 220 MG CAP PO SCH (08:43)
[2020-02-16] MEDS: atenoloL 25 MG TAB PO SCH (08:43)
[2020-02-16] MEDS: lisinopriL 5 MG TAB PO SCH (08:44)
[2020-02-16] MEDS: AZITHROMYCIN 500 MG TAB PO SCH (08:44)
[2020-02-16] MEDS: INSULIN DETEMIR (LEVEMIR) 100 UNIT/ML SYR SQ SCH (08:44)
[2020-02-16] MEDS: MEMANTINE 5 MG TAB PO SCH ×2 (08:44→20:49)
[2020-02-16] MEDS: dexAMETHasone 2 MG TAB PO SCH (08:44)
[2020-02-16] MEDS: PANTOPRAZOLE 40 MG TABLET PO SCH (08:44)
[2020-02-16] MEDS: CHOLECALCIFEROL 1,000 UNIT TAB PO SCH (08:44)
[2020-02-16] MEDS: SODIUM CHLORIDE 0.9% 1,000 ML IV SCH (08:47)
--- NOTE | 2020-02-16 10:04 | PN ---
PROGRESS NOTE A 74-year-old, on day of 3 of remdesivir out of day 5. Acute COVID pneumonia. He is slowly improving. He is on remdesivir, dexamethasone, zinc. His breathing is slowly improving. His mental status is slowly improving. He does have some diarrhea apparently. Blood pressure is 160s over 70s, pulse is 50s, temp 97, and O2 is 93 on room air. Lungs are scattered rhonchi and wheeze x4. Cardiovascular S1, S2. GI soft. Extremities: Edema. Hemoglobin 13.2, white count 7.4, BUN is 25, creatinine 0.9. Blood cultures negative. ASSESSMENT: 1. COVID-19 pneumonia. 2. Acute hypoxemic respiratory distress. Continue with remdesivir, dexamethasone, Lanoxin. Continue supportive care. Prognosis is guarded. The patient is slowly improving. MMPHOEBEL / GERSONN: [id number] /
[2020-02-16 10:51] LABS: African American GFR (CKD) 97.9 (60.0-200.0); Anion Gap 9.8 mmol/L (4.00-12.00); BUN/Creat Ratio 22.22 Ratio (12.00-20.00); Calcium 8.2 mg/dL (8.7-10.3); Carbon Dioxide 23.2 mmol/L (21.6-31.8); Non-African American GFR(CKD) 84.4 (60.0-200.0); Potassium 3.7 mmol/L (3.5-5.5)
[2020-02-16 11:29] VITALS: BMI 28.0
[2020-02-16 11:40] LABS: Glucose,Whole Blood 125 mg/dL (75-99)
[2020-02-16 16:55] LABS: Glucose,Whole Blood 64 mg/dL (75-99)
[2020-02-16 17:33] LABS: Glucose,Whole Blood 103 mg/dL (75-99)
[2020-02-16] MEDS: REMDESIVIR 100 MG in SODIUM CHLORIDE 0.9% 250 ML IVPB SCH (20:49)
[2020-02-16 20:55] LABS: Glucose,Whole Blood 124 mg/dL (75-99)
--- NOTE | 2020-02-16 22:31 | PN ---
PROGRESS NOTE DATE OF SERVICE: 02/16/2020 REASON FOR FOLLOWUP: COVID-19 pneumonia. INTERVAL HISTORY: The patient is currently afebrile. The patient is breathing comfortably, currently on room air. Denies having any chest pain, shortness of breath. Occasional cough. No abdominal pain or diarrhea. PHYSICAL EXAMINATION: Blood pressure 142/72 with a pulse of 62, temperature 97.5. He is 94% on room air. General description is an elderly male lying in bed in no distress. RESPIRATORY SYSTEM: Unlabored breathing with decreased intensity of breath sounds. No wheeze. HEART: S1, S2. Regular rate and rhythm. ABDOMEN: Soft. No tenderness. LABS: No new labs have been obtained today. DIAGNOSTIC IMPRESSION AND PLAN: Patient with acute COVID-19 pneumonia in this patient who seems to have shown overall clinical improvement. He is currently covered with remdesivir, dexamethasone, Lovenox and zinc; to continue while monitoring his clinical course closely. Continue supportive care. MMODL / IJN: [id number] /
[2020-02-17] MEDS: SODIUM CHLORIDE 0.9% 1,000 ML IV SCH ×2 (00:27→12:58)
[2020-02-17 06:42] LABS: Basophils # (A) 0.1 k/uL (0-0.2); Basophils % (A) 1 %; Eosinophils % (A) 1 %; HGB 14.1 gm/dL (13.0-17.5); Lymphocytes # (A) 0.8 k/uL (1.0-4.8); Lymphocytes % (A) 13 %; MCHC 34.4 g/dL (31.0-37.0); MCV 90.1 fL (80.0-100.0); Mean Platelet Volume 8.3; Monocytes # (A) 0.3 k/uL (0-1.0); Monocytes % (A) 4 %; Neutrophils % (A) 79 %; Platelet Count 287 k/uL (150-450); RBC 4.55 m/uL (4.30-5.90); RDW 12.7 % (11.5-15.5); WBC 6.3 k/uL (3.8-10.6)
[2020-02-17] MEDS: INSULIN ASPART (NovoLOG) 100 UNIT/ML VIAL SQ SCH ×7 (07:24→20:53)
[2020-02-17 07:25] LABS: Glucose,Whole Blood 102 mg/dL (75-99)
[2020-02-17] MEDS: ZINC SULFATE 220 MG CAP PO SCH (08:28)
[2020-02-17] MEDS: ENOXAPARIN 40 MG/0.4 ML SYRINGE SQ SCH (08:28)
[2020-02-17] MEDS: INSULIN DETEMIR (LEVEMIR) 100 UNIT/ML SYR SQ SCH (08:28)
[2020-02-17] MEDS: dexAMETHasone 2 MG TAB PO SCH (08:28)
[2020-02-17] MEDS: TAMSULOSIN 0.4 MG CAP.ER.24H PO SCH (08:29)
[2020-02-17] MEDS: CHOLECALCIFEROL 1,000 UNIT TAB PO SCH (08:29)
[2020-02-17] MEDS: atenoloL 25 MG TAB PO SCH ×2 (08:29→08:32)
[2020-02-17] MEDS: lisinopriL 5 MG TAB PO SCH (08:30)
[2020-02-17] MEDS: AZITHROMYCIN 500 MG TAB PO SCH (08:30)
[2020-02-17] MEDS: PANTOPRAZOLE 40 MG TABLET PO SCH (08:30)
[2020-02-17] MEDS: MEMANTINE 5 MG TAB PO SCH ×2 (08:31→20:53)
[2020-02-17] MEDS: DONEPEZIL 10 MG TAB PO SCH (08:31)
[2020-02-17] MEDS: GABAPENTIN 300 MG CAP PO SCH ×3 (08:31→20:53)
[2020-02-17 09:38] LABS: African American GFR (CKD) 97.9 (60.0-200.0); Albumin 3.3 g/dL (3.80-4.90); Albumin/Globulin Ratio 1.5 (1.60-3.17); Anion Gap 8.3 mmol/L (4.00-12.00); Calcium 8.2 mg/dL (8.7-10.3); Carbon Dioxide 23.7 mmol/L (21.6-31.8); Globulin 2.2 g/dL (1.6-3.3); Non-African American GFR(CKD) 84.4 (60.0-200.0); Potassium 3.8 mmol/L (3.5-5.5); Total Bilirubin 0.7 mg/dL (0.3-1.2); Total Protein 5.5 g/dL (6.2-8.2)
[2020-02-17 12:12] LABS: Glucose,Whole Blood 108 mg/dL (75-99)
--- NOTE | 2020-02-17 12:39 | PN ---
PROGRESS NOTE Patient is on Remdesivir day 4 for Covid pneumonia. He is breathing comfortably. He is feeling a little bit stronger. He is extremely weak though. No abdominal pain, diarrhea has improved. He is 94% on room air. Blood pressure 140s over 70s, pulse 60s. He has given appropriate answers. Respiratory mild wheeze, otherwise decreased breath sounds. Heart S1, S2. Abdomen is soft. ASSESSMENT: Covid 19 improvement. Continue with Remdesivir, Dexamethasone, Lovenox, zinc. Continue to monitor. PT/OT involved and possibly a rehab placement for him versus going home. We will continue with current treatments until 5 days Remdesivir done. Continue to ambulate him and see how he does. MMODL / IJN: [id number] /
--- NOTE | 2020-02-17 17:15 | PN ---
PROGRESS NOTE DATE OF SERVICE: 02/17/2020 REASON FOR FOLLOWUP: COVID-19 pneumonia. INTERVAL HISTORY: The patient is currently afebrile. Patient is breathing comfortably. The patient denies having any chest pain or shortness of breath. Occasional cough. No abdominal pain. No diarrhea. PHYSICAL EXAMINATION: Blood pressure 187/80 with a pulse of 69, temperature 98.3, he is 94% on room air. General description is an elderly male up in the chair in no distress. Respiratory system: Unlabored breathing, decreased intensity of breath sounds, no wheeze. Heart S1, S2. Regular rate and rhythm. Abdomen is soft, no tenderness. LABS: Hemoglobin 14.8, white count 6.3, BUN of 18, creatinine 0.9. IMPRESSION/PLAN: Patient with acute COVID-19 pneumonia with clinical response to remdesivir and dexamethasone and Lovenox. To continue along with respiratory support and monitor clinical course closely. MMODL / IJN: [id number] /
[2020-02-17 17:33] LABS: Glucose,Whole Blood 141 mg/dL (75-99)
[2020-02-17 20:31] LABS: Glucose,Whole Blood 92 mg/dL (75-99)
[2020-02-17] MEDS: REMDESIVIR 100 MG in SODIUM CHLORIDE 0.9% 250 ML IVPB SCH (20:53)
[2020-02-18] MEDS: SODIUM CHLORIDE 0.9% 1,000 ML IV SCH ×2 (04:13→16:22)
[2020-02-18 06:58] LABS: Glucose,Whole Blood 110 mg/dL (75-99)
[2020-02-18] MEDS: INSULIN ASPART (NovoLOG) 100 UNIT/ML VIAL SQ SCH ×7 (07:12→21:31)
[2020-02-18] MEDS: INSULIN DETEMIR (LEVEMIR) 100 UNIT/ML SYR SQ SCH (07:50)
[2020-02-18] MEDS: ENOXAPARIN 40 MG/0.4 ML SYRINGE SQ SCH (07:51)
[2020-02-18] MEDS: TAMSULOSIN 0.4 MG CAP.ER.24H PO SCH (07:51)
[2020-02-18] MEDS: lisinopriL 5 MG TAB PO SCH (07:51)
[2020-02-18] MEDS: dexAMETHasone 2 MG TAB PO SCH (07:52)
[2020-02-18] MEDS: CHOLECALCIFEROL 1,000 UNIT TAB PO SCH (07:52)
[2020-02-18] MEDS: PANTOPRAZOLE 40 MG TABLET PO SCH (07:52)
[2020-02-18] MEDS: AZITHROMYCIN 500 MG TAB PO SCH (07:52)
[2020-02-18] MEDS: ZINC SULFATE 220 MG CAP PO SCH (07:53)
[2020-02-18] MEDS: MEMANTINE 5 MG TAB PO SCH ×2 (07:53→21:30)
[2020-02-18] MEDS: DONEPEZIL 10 MG TAB PO SCH (07:53)
[2020-02-18] MEDS: GABAPENTIN 300 MG CAP PO SCH ×3 (07:53→21:30)
[2020-02-18] MEDS: atenoloL 25 MG TAB PO SCH (07:53)
[2020-02-18] MEDS ORDERED: RX INFO: IV CONTRAST WAS GIVEN 1 EACH MISC MISCELLANE PRN (10:04)
--- NOTE | 2020-02-18 10:37 | PN ---
PROGRESS NOTE 74-year-old white male with Covid 19 pneumonia. No abdominal pain. No diarrhea. He had no chest pain, shortness of breath. His confusion is still persistent, possibly delirium secondary to COVID pneumonia. Blood pressure is still high at 180s over 80, pulse 60s, temp 98.3, O2 94% on room air. He is on day five of Remdesivir. Lungs are fairly clear. Cardiovascular S1, S2. HEMATOLOGY: Negative Homans. Hemoglobin 14.8, white count 6.3, BUN 18, creatinine 0.9. ASSESSMENT: 1. Covid 19 pneumonia, atypical response for Remdesivir, dexamethasone, Lovenox, possibly discharged back to [facility] soon if insurance approves it for physical therapy. 2. Delirium secondary to Covid pneumonia. We will rule out other sources including electrolyte abnormalities. Please see further orders. MMODL / IJN: [id number] /
[2020-02-18 11:29] LABS: Glucose,Whole Blood 309 mg/dL (75-99)
--- NOTE | 2020-02-18 14:03 | CT ---
EXAMINATION TYPE: CT chest wo con DATE OF EXAM: 02/18/2020 COMPARISON: Chest CT February 09, 2020 HISTORY: SOB, Positive COVID. CT DLP: 380.1 mGycm. Automated Exposure Control for Dose Reduction was Utilized. TECHNIQUE: CT scan of the thorax is performed without IV contrast. FINDINGS: LUNGS: Multifocal bilateral peripheral opacities are redemonstrated. Worsening findings noted from pr ior CT with areas of organizing consolidation now present. Findings worse in the lower lungs with inc reased upper lung involvement. No pleural effusion or pneumothorax seen bilaterally. MEDIASTINUM: Lack of IV contrast is noted to limit evaluation for mediastinal and especially hilar ad enopathy. There are no definitive greater than 1 cm hilar or mediastinal lymph nodes. No cardiomega ly or pericardial effusion is seen. Moderate to severe three-vessel coronary artery calcification OTHER: Underlying scoliosis. Few calcifications scattered throughout the spleen IMPRESSION: Worsening bilateral multifocal acute groundglass opacities and organizing consolidation c onsistent with covid 19 infection progression.
[2020-02-18 16:18] LABS: Glucose,Whole Blood 189 mg/dL (75-99)
[2020-02-18] MEDS: CLOTRIMAZOLE/BETAMETH 1-0.05% CREAM 45 GM TUBE TOPICAL SCH ×2 (16:22→21:31)
[2020-02-18 20:09] LABS: Glucose,Whole Blood 109 mg/dL (75-99)
--- NOTE | 2020-02-18 23:20 | PN ---
PROGRESS NOTE DATE OF SERVICE: 02/18/2020 REASON FOR FOLLOWUP: COVID-19 pneumonia. INTERVAL HISTORY: Patient is currently afebrile. The patient is currently breathing comfortably. The patient denies having any chest pain. No shortness of breath or cough. No nausea or abdominal pain. No diarrhea and wants to go home. PHYSICAL EXAMINATION: Blood pressure 142/70 with a pulse of 61, temperature 97.6. He is 93% on room air. The patient is an elderly male lying in bed in no distress. Respiratory system: Unlabored breathing, decreased intensity of breath sounds. No wheeze. Heart S1, S2. Regular rate and rhythm. Abdomen soft, no tenderness. LABS: No new labs have been obtained today. DIAGNOSTIC IMPRESSION/PLAN: Patient with acute COVID-19 pneumonia in this patient who has completed his 5-day course of Remdesivir. Patient is currently covered with Dexamethasone, Lanoxin and zinc to continue along with respiratory support. Monitor clinical course closely. MMODL / IJN: [id number] /
[2020-02-19] MEDS: SODIUM CHLORIDE 0.9% 1,000 ML IV SCH ×2 (05:15→22:06)
[2020-02-19 06:08] LABS: Basophils # (A) 0.1 k/uL (0-0.2); Basophils % (A) 1 %; Eosinophils % (A) 1 %; HCT 39.8 % (39.0-53.0); HGB 13.5 gm/dL (13.0-17.5); Lymphocytes # (A) 1.1 k/uL (1.0-4.8); Lymphocytes % (A) 13 %; MCH 30.3 pg (25.0-35.0); MCHC 33.9 g/dL (31.0-37.0); MCV 89.5 fL (80.0-100.0); Monocytes # (A) 0.4 k/uL (0-1.0); Monocytes % (A) 5 %; Neutrophils # (A) 6.5 k/uL (1.3-7.7); Neutrophils % (A) 79 %; Platelet Count 308 k/uL (150-450); RBC 4.45 m/uL (4.30-5.90); RDW 12.7 % (11.5-15.5); WBC 8.3 k/uL (3.8-10.6)
[2020-02-19 07:16] LABS: Glucose,Whole Blood 102 mg/dL (75-99)
[2020-02-19] MEDS: INSULIN DETEMIR (LEVEMIR) 100 UNIT/ML SYR SQ SCH (07:50)
[2020-02-19] MEDS: ENOXAPARIN 40 MG/0.4 ML SYRINGE SQ SCH (07:50)
[2020-02-19] MEDS: INSULIN ASPART (NovoLOG) 100 UNIT/ML VIAL SQ SCH ×7 (07:50→21:20)
[2020-02-19] MEDS: DONEPEZIL 10 MG TAB PO SCH (07:51)
[2020-02-19] MEDS: TAMSULOSIN 0.4 MG CAP.ER.24H PO SCH (07:51)
[2020-02-19] MEDS: ZINC SULFATE 220 MG CAP PO SCH (07:51)
[2020-02-19] MEDS: AZITHROMYCIN 500 MG TAB PO SCH (07:51)
[2020-02-19] MEDS: atenoloL 25 MG TAB PO SCH (07:51)
[2020-02-19] MEDS: lisinopriL 5 MG TAB PO SCH (07:52)
[2020-02-19] MEDS: MEMANTINE 5 MG TAB PO SCH ×2 (07:52→21:20)
[2020-02-19] MEDS: dexAMETHasone 2 MG TAB PO SCH (07:52)
[2020-02-19] MEDS: GABAPENTIN 300 MG CAP PO SCH ×3 (07:52→21:20)
[2020-02-19] MEDS: CLOTRIMAZOLE/BETAMETH 1-0.05% CREAM 45 GM TUBE TOPICAL SCH ×2 (07:53→21:29)
[2020-02-19] MEDS: PANTOPRAZOLE 40 MG TABLET PO SCH (07:53)
[2020-02-19] MEDS: CHOLECALCIFEROL 1,000 UNIT TAB PO SCH (07:53)
[2020-02-19 10:04] LABS: African American GFR (CKD) 86.2 (60.0-200.0); Albumin 3.1 g/dL (3.80-4.90); Albumin/Globulin Ratio 1.41 (1.60-3.17); Anion Gap 7.7 mmol/L (4.00-12.00); Calcium 8.3 mg/dL (8.7-10.3); Carbon Dioxide 23.3 mmol/L (21.6-31.8); Globulin 2.2 g/dL (1.6-3.3); Non-African American GFR(CKD) 74.3 (60.0-200.0); Potassium 3.9 mmol/L (3.5-5.5); Total Bilirubin 0.7 mg/dL (0.3-1.2); Total Protein 5.3 g/dL (6.2-8.2)
[2020-02-19 11:41] LABS: Glucose,Whole Blood 261 mg/dL (75-99)
--- NOTE | 2020-02-19 12:29 | PN ---
PROGRESS NOTE A 74-year-old white male who remains hypoxic in the low 90s on 2 L. He has worsening bilateral ground-glass opacities and consolidation due to COVID-[address] Carters was consulted as well as Dr. Adame for pulmonology. He finished his 5 day course for remdesivir. He is on dexamethasone, Lanoxin and zinc. Blood pressure 142/70, temp 97.6, he is 93 on room air. Heart S1, S2. Abdomen is soft, nontender. EXTREMITIES: No cyanosis, clubbing, edema. He has some delirium secondary to COVID-19 pneumonia. Awaiting consult from repossessor, Dr. Adame. He remains on current treatments including zinc, Flomax, Seroquel, Protonix, Narcan, Namenda, Lovenox, Aricept. May start him on broad-spectrum antibiotics anyway for secondary bacterial infection possibly. Otherwise appears to be fairly stable at this time. MMODL / IJN: [id number] /
--- NOTE | 2020-02-19 15:33 | P.CNPUL ---
History of Present Illness Consult date: 02/18/20 Reason for consult: dyspnea, cough, hypoxemia, pneumonia Chief complaint: Shortness of breath History of present illness: Patient is a pleasant 74-year-old demented male data predominantly haven't been obtained from the chart, patient was recently discharged from the hospital after atypical pneumonia was clinically doing well, patient is readmitted for placement issues, oriented 1, chest x-ray shows bilateral interstitial infiltrate, computed tomography scan of the chest continue show that with groundglass attenuation consistent with covert 19 pneumonia, however is being treated accordingly with IV REMdesivir currently on Decadron Review of Systems ROS unobtainable: due to mental status All systems: negative Past Medical History Past Medical History: CVA/TIA, Dementia, Diabetes Mellitus, GERD/Reflux, Hy perlipidemia, Hypertension Additional Past Medical History / Comment(s): Agent [place] exposure in [place], IDDM type II, DKA with metabolic encephalopathy, neuropathy bilateral feet, osteoporosis, sinus problems, arthritis bilateral hands/feet. History of Any Multi-Drug Resistant Organisms: None Reported Past Surgical History: Appendectomy Additional Past Surgical History / Comment(s): Pt thinks he may have had an appendectomy, colonoscopy-normal Past Anesthesia/Blood Transfusion Reactions: No Reported Reaction Past Psychological History: No Psychological Hx Reported Additional Psychological History / Comment(s): Pt resides at [facility] assistive living. He has dementia. He is a [place] . He uses no assistive device. He no longer drives, family takes him to appts. He has a pet cat. Staff manages his medications. He has a glucometer. Smoking Status: Former smoker Past Alcohol Use History: Occasional Additional Past Alcohol Use History / Comment(s): Pt started smoking in 1964 and quit in 1974. Past Drug Use History: None Reported - Past Family History Father Family Medical History: No Reported History Additional Family Medical History / Comment(s): Father was healthy and lived into his 80s. Mother Family Medical History: Cancer Additional Family Medical History / Comment(s): Mother had some form of cancer (family do not know kind) which she of in her 50s Medications and Allergies Home Medications Medication Instructions Recorded Confirmed Type Donepezil [Aricept] 10 mg PO DAILY 11/19/15 02/11/20 History Gabapentin [Neurontin] 300 mg PO TID 11/19/15 02/11/20 History Omeprazole 20 mg PO DAILY 08/05/17 02/11/20 History Simvastatin [Zocor] 20 mg PO HS 08/05/17 02/11/20 History Glucagon Emergency Kit 1 mg IM ONCE PRN 02/08/20 02/11/20 History Insulin Aspart [Insulin Aspart 7 unit SQ AC-TID 02/08/20 02/11/20 History Flexpen] Insulin Aspart [Insulin Aspart See Protocol SQ AC-TID 02/08/20 02/11/20 History Flexpen] Insulin Glargine,Hum.rec.anlog 28 unit SQ DAILY 02/08/20 02/11/20 History [Lantus Solostar] Memantine [Namenda] 5 mg PO BID 02/08/20 02/11/20 History Tamsulosin HCl [Flomax] 0.4 mg PO DAILY 02/08/20 02/11/20 History Atenolol [Tenormin] 25 mg PO DAILY #30 tab 02/11/20 02/11/20 Rx Azithromycin [Zithromax] 500 mg PO DAILY #5 tab 02/11/20 02/11/20 Rx Lisinopril [Prinivil] 10 mg PO DAILY #30 tab 02/11/20 02/11/20 Rx Zinc Sulfate [Orazinc] 220 mg PO DAILY #20 cap 02/11/20 02/11/20 Rx Allergies Allergy/AdvReac Type Severity Reaction Status Date / Time No Known Allergies Allergy Verified 02/11/20 17:16 Physical Exam Vitals: Vital Signs Temp Pulse Resp BP BP Pulse Ox 02/18/20 10:00 97.4 F L 71 18 125/68 93 L 02/18/20 07:00 97.5 F L 59 L 16 160/85 91 L 02/18/20 06:00 98 F 55 L 20 143/72 92 L 02/18/20 01:53 98 F 58 L 20 161/66 91 L 02/17/20 22:00 97.6 F 56 L 20 138/61 93 L 02/17/20 17:10 97.5 F L 60 16 125/71 92 L Intake and Output 02/17/20 02/18/20 02/18/20 22:59 06:59 14:59 Intake Total 100 100 Output Total 500 Balance -400 100 Intake: Oral 100 100 Output: Urine 500 Other: Voiding Method Incontinent # Voids 1 3 # Bowel Movements 1 - Constitutional General appearance: disheveled, mild distress - EENT Eyes: PERRLA Ears: bilateral: normal - Neck Carotids: bilateral: upstroke normal, upstroke delayed, upstroke diminished, upstroke bounding, bruit absent, bruit present - Respiratory Respiratory: bilateral: diminished - Cardiovascular Heart sounds: normal: S1, S2 - Gastrointestinal General gastrointestinal: hyperactive bowel sounds, soft - Neurologic Neurologic: CNII-XII intact Results - Laboratory Findings CBC and BMP: 02/19/20 05:27 02/19/20 05:27 PT/INR, D-dimer D-Dimer 2.54 mg/L FEU (<0.60) H 02/14/20 14:42 Abnormal lab findings: Abnormal Labs 02/11/20 02/12/20 02/12/20 22:41 06:43 11:37 Hct Lymphocytes # D-Dimer Sodium Carbon Dioxide BUN Est GFR (CKD-EPI)NonAf BUN/Creatinine Ratio Glucose POC Glucose (mg/dL) 220 H 172 H 145 H Calcium AST Lactate Dehydrogenase C-Reactive Protein Total Protein Albumin Albumin/Globulin Ratio Urine Protein Urine Glucose (UA) Urine Blood Urine Mucus Coronavirus (PCR) 02/12/20 02/12/20 02/12/20 16:44 22:04 22:40 Hct Lymphocytes # D-Dimer Sodium Carbon Dioxide BUN Est GFR (CKD-EPI)NonAf BUN/Creatinine Ratio Glucose POC Glucose (mg/dL) 126 H 56 L 103 H Calcium AST Lactate Dehydrogenase C-Reactive Protein Total Protein Albumin Albumin/Globulin Ratio Urine Protein Urine Glucose (UA) Urine Blood Urine Mucus Coronavirus (PCR) 02/13/20 02/13/20 02/13/20 02:31 06:11 09:30 Hct Lymphocytes # D-Dimer Sodium Carbon Dioxide BUN Est GFR (CKD-EPI)NonAf 54.1 L BUN/Creatinine Ratio 20.77 H Glucose POC Glucose (mg/dL) 120 H Calcium 8.1 L AST Lactate Dehydrogenase C-Reactive Protein Total Protein Albumin Albumin/Globulin Ratio Urine Protein Urine Glucose (UA) Urine Blood Urine Mucus Coronavirus (PCR) Detected A 02/13/20 02/13/20 02/13/20 11:28 15:35 16:51 Hct Lymphocytes # D-Dimer Sodium Carbon Dioxide BUN Est GFR (CKD-EPI)NonAf BUN/Creatinine Ratio Glucose POC Glucose (mg/dL) 274 H 412 H Calcium AST Lactate Dehydrogenase C-Reactive Protein Total Protein Albumin Albumin/Globulin Ratio Urine Protein 2+ H Urine Glucose (UA) 4+ H Urine Blood Trace H Urine Mucus Few H Coronavirus (PCR) 02/13/20 02/13/20 02/14/20 20:24 21:57 06:00 Hct 38.9 L Lymphocytes # D-Dimer Sodium Carbon Dioxide BUN Est GFR (CKD-EPI)NonAf BUN/Creatinine Ratio Glucose POC Glucose (mg/dL) 344 H 287 H Calcium AST Lactate Dehydrogenase C-Reactive Protein Total Protein Albumin Albumin/Globulin Ratio Urine Protein Urine Glucose (UA) Urine Blood Urine Mucus Coronavirus (PCR) 02/14/20 02/14/20 02/14/20 07:11 11:36 14:42 Hct Lymphocytes # D-Dimer 2.54 H Sodium Carbon Dioxide BUN Est GFR (CKD-EPI)NonAf BUN/Creatinine Ratio Glucose POC Glucose (mg/dL) 326 H 309 H Calcium AST Lactate Dehydrogenase C-Reactive Protein Total Protein Albumin Albumin/Globulin Ratio Urine Protein Urine Glucose (UA) Urine Blood Urine Mucus Coronavirus (PCR) 02/14/20 02/14/20 02/15/20 14:42 16:57 05:35 Hct 38.9 L Lymphocytes # 0.6 L D-Dimer Sodium 133 L Carbon Dioxide 21 L BUN 29 H Est GFR (CKD-EPI)NonAf BUN/Creatinine Ratio Glucose 325 H POC Glucose (mg/dL) 206 H Calcium AST Lactate Dehydrogenase 1221 H C-Reactive Protein 57.9 H Total Protein 5.7 L Albumin 2.8 L Albumin/Globulin Ratio Urine Protein Urine Glucose (UA) Urine Blood Urine Mucus Coronavirus (PCR) 02/15/20 02/15/20 02/15/20 05:35 07:08 10:10 Hct Lymphocytes # D-Dimer Sodium Carbon Dioxide 19.8 L BUN Est GFR (CKD-EPI)NonAf BUN/Creatinine Ratio 27.78 H Glucose 56 L POC Glucose (mg/dL) 70 L 237 H Calcium 8.1 L AST Lactate Dehydrogenase C-Reactive Protein Total Protein Albumin Albumin/Globulin Ratio Urine Protein Urine Glucose (UA) Urine Blood Urine Mucus Coronavirus (PCR) 02/15/20 02/15/20 02/15/20 11:40 17:06 17:07 Hct Lymphocytes # D-Dimer Sodium Carbon Dioxide BUN Est GFR (CKD-EPI)NonAf BUN/Creatinine Ratio Glucose POC Glucose (mg/dL) 216 H 44 L 57 L Calcium AST Lactate Dehydrogenase C-Reactive Protein Total Protein Albumin Albumin/Globulin Ratio Urine Protein Urine Glucose (UA) Urine Blood Urine Mucus Coronavirus (PCR) 02/15/20 02/15/20 02/16/20 17:22 20:17 05:57 Hct Lymphocytes # 0.8 L D-Dimer Sodium Carbon Dioxide BUN Est GFR (CKD-EPI)NonAf BUN/Creatinine Ratio Glucose POC Glucose (mg/dL) 63 L 107 H Calcium AST Lactate Dehydrogenase C-Reactive Protein Total Protein Albumin Albumin/Globulin Ratio Urine Protein Urine Glucose (UA) Urine Blood Urine Mucus Coronavirus (PCR) 02/16/20 02/16/20 02/16/20 05:57 06:45 11:39 Hct Lymphocytes # D-Dimer Sodium Carbon Dioxide BUN Est GFR (CKD-EPI)NonAf BUN/Creatinine Ratio 22.22 H Glucose POC Glucose (mg/dL) 110 H 125 H Calcium 8.2 L AST Lactate Dehydrogenase C-Reactive Protein Total Protein Albumin Albumin/Globulin Ratio Urine Protein Urine Glucose (UA) Urine Blood Urine Mucus Coronavirus (PCR) 02/16/20 02/16/20 02/16/20 16:52 17:31 20:39 Hct Lymphocytes # D-Dimer Sodium Carbon Dioxide BUN Est GFR (CKD-EPI)NonAf BUN/Creatinine Ratio Glucose POC Glucose (mg/dL) 64 L 103 H 124 H Calcium AST Lactate Dehydrogenase C-Reactive Protein Total Protein Albumin Albumin/Globulin Ratio Urine Protein Urine Glucose (UA) Urine Blood Urine Mucus Coronavirus (PCR) 02/17/20 02/17/20 02/17/20 06:09 06:09 07:23 Hct Lymphocytes # 0.8 L D-Dimer Sodium Carbon Dioxide BUN Est GFR (CKD-EPI)NonAf BUN/Creatinine Ratio Glucose 112 H POC Glucose (mg/dL) 102 H Calcium 8.2 L AST 38 H Lactate Dehydrogenase C-Reactive Protein Total Protein 5.5 L Albumin 3.30 L Albumin/Globulin Ratio 1.50 L Urine Protein Urine Glucose (UA) Urine Blood Urine Mucus Coronavirus (PCR) 02/17/20 02/17/20 02/18/20 12:11 17:31 06:57 Hct Lymphocytes # D-Dimer Sodium Carbon Dioxide BUN Est GFR (CKD-EPI)NonAf BUN/Creatinine Ratio Glucose POC Glucose (mg/dL) 108 H 141 H 110 H Calcium AST Lactate Dehydrogenase C-Reactive Protein Total Protein Albumin Albumin/Globulin Ratio Urine Protein Urine Glucose (UA) Urine Blood Urine Mucus Coronavirus (PCR) 02/18/20 11:27 Hct Lymphocytes # D-Dimer Sodium Carbon Dioxide BUN Est GFR (CKD-EPI)NonAf BUN/Creatinine Ratio Glucose POC Glucose (mg/dL) 309 H Calcium AST Lactate Dehydrogenase C-Reactive Protein Total Protein Albumin Albumin/Globulin Ratio Urine Protein Urine Glucose (UA) Urine Blood Urine Mucus Coronavirus (PCR) - Diagnostic Findings Chest x-ray: report reviewed, image reviewed CT scan - chest: report reviewed, image reviewed Assessment and Plan Assessment: Covid19 pneumonia Acute hypoxic respiratory failure Advanced dementia Alzheimer's disease Dyslipidemia Hypertension hypertensive cardiovascular disease Plan: Continue Decadron Supplemental oxygen Anticoagulants Deep breathing exercise incentive spirometry Prone positioning as possible Further recommendations pending plan of care as per clinical response of the patient Time with Patient: Greater than 30
--- NOTE | 2020-02-19 15:36 | P.PN ---
Subjective Progress Note Date: 02/19/20 Principal diagnosis: Covid19 pneumonia Acute hypoxic respiratory failure Advanced dementia Alzheimer's disease Dyslipidemia Hypertension hypertensive cardiovascular disease 02/19/2020, patient seen eval reexamined during the rounds remains confused, oxygen saturation is 95% room air, Patient is a pleasant 74-year-old demented male data predominantly haven't been obtained from the chart, patient was recently discharged from the hospital after atypical pneumonia was clinically doing well, patient is readmitted for placement issues, oriented 1, chest x-ray shows bilateral interstitial infiltrate, computed tomography scan of the chest continue show that with groundglass attenuation consistent with covert 19 pneumonia, however is being treated accordingly with IV REMdesivir currently on Decadron Objective - Vital Signs Vital signs: Vital Signs Temp 97.9 F 02/19/20 14:00 Pulse 61 02/19/20 14:00 Resp 18 02/19/20 14:00 BP 100/62 02/19/20 14:00 Pulse Ox 95 02/19/20 14:00 Intake & Output 02/18/20 02/19/20 02/19/20 18:59 06:59 18:59 Intake Total 750 540 Output Total 1 Balance 749 540 Intake: Intake, IV Titration 750 Amount Sodium Chloride 0.9% 1, 750 000 ml @ 75 mls/hr IV . [id number] RJ Rx#:[id number] Oral 540 Output: Stool 1 Other: # Voids 2 2 - Exam - Constitutional General appearance: disheveled, mild distress - EENT Eyes: PERRLA Ears: bilateral: normal - Neck Carotids: bilateral: upstroke normal, upstroke delayed, upstroke diminished, upstroke bounding, bruit absent, bruit present - Respiratory Respiratory: bilateral: diminished - Cardiovascular Heart sounds: normal: S1, S2 - Gastrointestinal General gastrointestinal: hyperactive bowel sounds, soft - Neurologic Neurologic: CNII-XII intact - Labs CBC & Chem 7: 02/19/20 05:27 02/19/20 05:27 Labs: Abnormal Lab Results - Last 24 Hours (Table) 02/18/20 02/18/20 02/18/20 Range/Units 10:20 16:17 20:08 BUN/Creatinine Ratio (12.00-20.00) Ratio POC Glucose (mg/dL) 189 H 109 H (75-99) mg/dL Hemoglobin A1c 9.7 H (4.0-6.0) % Calcium (8.7-10.3) mg/dL Total Protein (6.2-8.2) g/dL Albumin (3.80-4.90) g/dL Albumin/Globulin Ratio (1.60-3.17) g/dL 02/19/20 02/19/20 02/19/20 Range/Units 05:27 07:15 11:39 BUN/Creatinine Ratio 22.00 H (12.00-20.00) Ratio POC Glucose (mg/dL) 102 H 261 H (75-99) mg/dL Hemoglobin A1c (4.0-6.0) % Calcium 8.3 L (8.7-10.3) mg/dL Total Protein 5.3 L (6.2-8.2) g/dL Albumin 3.10 L (3.80-4.90) g/dL Albumin/Globulin Ratio 1.41 L (1.60-3.17) g/dL Microbiology - Last 24 Hours (Table) 02/13/20 06:11 Blood Culture - Final Blood No Growth after 144 hours Assessment and Plan Assessment: Covid19 pneumonia Acute hypoxic respiratory failure Advanced dementia Alzheimer's disease Dyslipidemia Hypertension hypertensive cardiovascular disease Plan: Continue Decadron Supplemental oxygen Anticoagulants Deep breathing exercise incentive spirometry Prone positioning as possible Further recommendations pending plan of care as per clinical response of the patient Time with Patient: Greater than 30
[2020-02-19 16:27] LABS: Glucose,Whole Blood 360 mg/dL (75-99)
[2020-02-19 20:51] LABS: Glucose,Whole Blood 238 mg/dL (75-99)
[2020-02-19] MEDS: ALPRAZolam 0.25 MG TAB PO PRN (21:29)
--- NOTE | 2020-02-19 22:35 | PN ---
PROGRESS NOTE DATE OF SERVICE: 02/19/2020 REASON FOR FOLLOWUP: COVID-19 pneumonia. INTERVAL HISTORY: The patient is currently afebrile. The patient is breathing comfortably. Currently waiting for placement. Denies having any chest pain or shortness of breath or cough. No abdominal pain. No diarrhea. PHYSICAL EXAMINATION: Blood pressure 122/67 with a pulse of 54, temperature 98.1. He is 94% on room air. General description: The patient is an elderly male lying in bed in no distress. Respiratory system: Unlabored breathing, clear to auscultation anteriorly. Heart S1, S2. Regular rate and rhythm. ABDOMEN: Soft, no tenderness. LABS: Hemoglobin 17.5, white count 8.3, creatinine 1.0, procalcitonin 0.04. DIAGNOSTIC IMPRESSION AND PLAN: Patient with acute COVID-19 pneumonia in this patient who has completed his Remdesivir therapy. Currently on dexamethasone, Lovenox and zinc to continue along with respiratory support. Monitor clinical course closely. MMODL / IJN: [id number] /
[2020-02-20 06:43] LABS: Basophils % (A) 1 %; Eosinophils % (A) 0 %; HCT 39.3 % (39.0-53.0); HGB 13.4 gm/dL (13.0-17.5); Lymphocytes # (A) 1.1 k/uL (1.0-4.8); Lymphocytes % (A) 13 %; MCH 31.1 pg (25.0-35.0); MCV 91.5 fL (80.0-100.0); Mean Platelet Volume 8.4; Monocytes # (A) 0.4 k/uL (0-1.0); Monocytes % (A) 5 %; Neutrophils # (A) 6.9 k/uL (1.3-7.7); Neutrophils % (A) 80 %; Platelet Count 292 k/uL (150-450); RBC 4.29 m/uL (4.30-5.90); WBC 8.7 k/uL (3.8-10.6)
[2020-02-20 07:09] LABS: Glucose,Whole Blood 217 mg/dL (75-99)
[2020-02-20] MEDS: INSULIN ASPART (NovoLOG) 100 UNIT/ML VIAL SQ SCH ×7 (08:09→20:34)
[2020-02-20] MEDS: INSULIN DETEMIR (LEVEMIR) 100 UNIT/ML SYR SQ SCH (08:10)
[2020-02-20] MEDS: lisinopriL 5 MG TAB PO SCH (08:11)
[2020-02-20] MEDS: TAMSULOSIN 0.4 MG CAP.ER.24H PO SCH (08:11)
[2020-02-20] MEDS: MEMANTINE 5 MG TAB PO SCH ×2 (08:11→20:33)
[2020-02-20] MEDS: ENOXAPARIN 40 MG/0.4 ML SYRINGE SQ SCH (08:11)
[2020-02-20] MEDS: CHOLECALCIFEROL 1,000 UNIT TAB PO SCH (08:11)
[2020-02-20] MEDS: DONEPEZIL 10 MG TAB PO SCH (08:11)
[2020-02-20] MEDS: ZINC SULFATE 220 MG CAP PO SCH (08:11)
[2020-02-20] MEDS: dexAMETHasone 2 MG TAB PO SCH (08:11)
[2020-02-20] MEDS: PANTOPRAZOLE 40 MG TABLET PO SCH (08:11)
[2020-02-20] MEDS: CLOTRIMAZOLE/BETAMETH 1-0.05% CREAM 45 GM TUBE TOPICAL SCH ×2 (08:12→20:35)
[2020-02-20] MEDS: SODIUM CHLORIDE 0.9% 1,000 ML IV SCH ×2 (08:12→20:35)
[2020-02-20] MEDS: GABAPENTIN 300 MG CAP PO SCH ×3 (08:12→20:33)
[2020-02-20 10:07] LABS: African American GFR (CKD) 69.1 (60.0-200.0); Albumin 3.1 g/dL (3.80-4.90); Albumin/Globulin Ratio 1.41 (1.60-3.17); BUN/Creat Ratio 21.67 Ratio (12.00-20.00); Calcium 8.3 mg/dL (8.7-10.3); Globulin 2.2 g/dL (1.6-3.3); Non-African American GFR(CKD) 59.6 (60.0-200.0); Potassium 4.7 mmol/L (3.5-5.5); Total Bilirubin 0.6 mg/dL (0.3-1.2); Total Protein 5.3 g/dL (6.2-8.2)
[2020-02-20 11:10] LABS: Glucose,Whole Blood 302 mg/dL (75-99)
[2020-02-20] MEDS: ALPRAZolam 0.25 MG TAB PO PRN (11:39)
--- NOTE | 2020-02-20 13:07 | PN ---
PROGRESS NOTE DATE OF SERVICE: 02/20/2020 REASON FOR FOLLOWUP: COVID-19 pneumonia. INTERVAL HISTORY: The patient is currently afebrile. The patient is breathing comfortably, currently on room air. Denies having any chest pain or cough. No abdominal pain. No diarrhea. PHYSICAL EXAMINATION: Blood pressure 131/72 with a pulse of 62, temperature 97.3. He is 96% on room air. General description is an elderly male lying in bed in no distress. RESPIRATORY SYSTEM: Unlabored breathing, clear to auscultation anteriorly. HEART: S1, S2. Regular rate and rhythm. ABDOMEN: Soft, no tenderness. LABS: Hemoglobin 13.4, white count 8.7, BUN of 26, creatinine 1.2. DIAGNOSTIC IMPRESSION AND PLAN: Patient with acute COVID-19 pneumonia adequately treated has completed his remdesivir therapy, currently on Decadron, Lovenox. With patient being on room air, those can be discontinued on discharge. Continue supportive care. MMODL / IJN: [id number] /
--- NOTE | 2020-02-20 16:21 | P.PN ---
Subjective Progress Note Date: 02/20/20 Principal diagnosis: Covid19 pneumonia Acute hypoxic respiratory failure Advanced dementia Alzheimer's disease Dyslipidemia Hypertension hypertensive cardiovascular disease 02/20/2020, patient seen eval reexamined breathing comfortably denies any chest pain, remains confused, patient remains on the usual therapy for covert 19 pneumonia tolerating well 02/19/2020, patient seen eval reexamined during the rounds remains confused, oxygen saturation is 95% room air, Patient is a pleasant 74-year-old demented male data predominantly haven't been obtained from the chart, patient was recently discharged from the hospital after atypical pneumonia was clinically doing well, patient is readmitted for placement issues, oriented 1, chest x-ray shows bilateral interstitial inf iltrate, computed tomography scan of the chest continue show that with groundglass attenuation consistent with covert 19 pneumonia, however is being treated accordingly with IV REMdesivir currently on Decadron Objective - Vital Signs Vital signs: Vital Signs Temp 97.3 F L 02/20/20 13:44 Pulse 64 02/20/20 13:44 Resp 20 02/20/20 13:44 BP 137/68 02/20/20 13:44 Pulse Ox 94 L 02/20/20 13:44 Intake & Output 02/19/20 02/20/20 02/20/20 18:59 06:59 18:59 Other: Voiding Method Incontinent # Voids 3 4 2 # Bowel Movements 2 - Exam - Constitutional General appearance: disheveled, mild distress - EENT Eyes: PERRLA Ears: bilateral: normal - Neck Carotids: bilateral: upstroke normal, upstroke delayed, upstroke diminished, upstroke bounding, bruit absent, bruit present - Respiratory Respiratory: bilateral: diminished - Cardiovascular Heart sounds: normal: S1, S2 - Gastrointestinal General gastrointestinal: hyperactive bowel sounds, soft - Neurologic Neurologic: CNII-XII intact - Labs CBC & Chem 7: 02/20/20 05:28 02/20/20 05:28 Labs: Abnormal Lab Results - Last 24 Hours (Table) 02/19/20 02/19/20 02/20/20 Range/Units 16:26 20:49 05:28 RBC 4.29 L (4.30-5.90) m/uL Sodium (135-145) mmol/L Est GFR (CKD-EPI)NonAf (60.0-200.0) BUN/Creatinine Ratio (12.00-20.00) Ratio Glucose (70-110) mg/dL POC Glucose (mg/dL) 360 H 238 H (75-99) mg/dL Calcium (8.7-10.3) mg/dL Total Protein (6.2-8.2) g/dL Albumin (3.80-4.90) g/dL Albumin/Globulin Ratio (1.60-3.17) g/dL 02/20/20 02/20/20 02/20/20 Range/Units 05:28 07:07 11:09 RBC (4.30-5.90) m/uL Sodium 134 L (135-145) mmol/L Est GFR (CKD-EPI)NonAf 59.6 L (60.0-200.0) BUN/Creatinine Ratio 21.67 H (12.00-20.00) Ratio Glucose 204 H (70-110) mg/dL POC Glucose (mg/dL) 217 H 302 H (75-99) mg/dL Calcium 8.3 L (8.7-10.3) mg/dL Total Protein 5.3 L (6.2-8.2) g/dL Albumin 3.10 L (3.80-4.90) g/dL Albumin/Globulin Ratio 1.41 L (1.60-3.17) g/dL Assessment and Plan Assessment: Covid19 pneumonia Acute hypoxic respiratory failure Advanced dementia Alzheimer's disease Dyslipidemia Hypertension hypertensive cardiovascular disease Plan: Continue Decadron Supplemental oxygen Anticoagulants Deep breathing exercise incentive spirometry Prone positioning as possible Further recommendations pending plan of care as per clinical response of the patient Time with Patient: Greater than 30
[2020-02-20 16:45] LABS: Glucose,Whole Blood 323 mg/dL (75-99)
[2020-02-20 20:24] LABS: Glucose,Whole Blood 290 mg/dL (75-99)
--- NOTE | 2020-02-20 22:02 | PN ---
PROGRESS NOTE 74-year-old white male with Covid 19 pneumonia, delirium secondary to encephalopathy. He is going to be admitted for rehab over to [facility] tomorrow. He does have protein calorie malnutrition, diabetes mellitus, hyponatremia secondary to dehydration, some delirium. His oxygen levels are 97 on room air, temp 97.4 to 98, respiratory 20-29, pulse 67, blood pressure 130s over 60s-70s. CARDIOVASCULAR: S1, S2. Lungs clear. GI soft. Neurologic alert orient x3. ASSESSMENT: 1. Covid 19 pneumonia. 2. Covid encephalopathy. 3. Insulin-dependent diabetes mellitus. Continue current treatments. Possibly discharged over to [facility] in the morning. MMODL / IJN: [id number] /
[2020-02-21 05:30] VITALS: PULSE 66
[2020-02-21 07:08] LABS: Glucose,Whole Blood 155 mg/dL (75-99)
[2020-02-21] MEDS: INSULIN ASPART (NovoLOG) 100 UNIT/ML VIAL SQ SCH ×6 (07:53→17:25)
[2020-02-21] MEDS: INSULIN DETEMIR (LEVEMIR) 100 UNIT/ML SYR SQ SCH (08:07)
[2020-02-21] MEDS: ENOXAPARIN 40 MG/0.4 ML SYRINGE SQ SCH (08:07)
[2020-02-21] MEDS: DONEPEZIL 10 MG TAB PO SCH (08:08)
[2020-02-21] MEDS: GABAPENTIN 300 MG CAP PO SCH ×2 (08:08→15:56)
[2020-02-21] MEDS: CLOTRIMAZOLE/BETAMETH 1-0.05% CREAM 45 GM TUBE TOPICAL SCH (08:08)
[2020-02-21] MEDS: TAMSULOSIN 0.4 MG CAP.ER.24H PO SCH (08:08)
[2020-02-21] MEDS: MEMANTINE 5 MG TAB PO SCH (08:08)
[2020-02-21] MEDS: dexAMETHasone 2 MG TAB PO SCH (08:08)
[2020-02-21] MEDS: PANTOPRAZOLE 40 MG TABLET PO SCH (08:08)
[2020-02-21] MEDS: ZINC SULFATE 220 MG CAP PO SCH (08:08)
[2020-02-21] MEDS: CHOLECALCIFEROL 1,000 UNIT TAB PO SCH (08:08)
[2020-02-21] MEDS: lisinopriL 5 MG TAB PO SCH (08:08)
[2020-02-21] MEDS: atenoloL 25 MG TAB PO SCH (08:08)
[2020-02-21] MEDS: SODIUM CHLORIDE 0.9% 1,000 ML IV SCH (08:13)
[2020-02-21 10:17] VITALS: RESP 20
--- NOTE | 2020-02-21 11:50 | P.PN ---
Subjective Progress Note Date: 02/21/20 Principal diagnosis: Covid19 pneumonia Acute hypoxic respiratory failure Advanced dementia Alzheimer's disease Dyslipidemia Hypertension hypertensive cardiovascular disease 02/21/2020, patient seen eval examined awake and alert on 4 L oxygen denies any chest pain is still short of breath, bilateral infiltrate on the computed tomography scan has been very demonstrated, patient being treated for covert 19 pneumonia and covert encephalopathy, patient will be transferred to [facility] on [address], in the past patient has completed IV and usual therapy for covert 19 pneumonia 02/20/2020, patient seen eval reexamined breathing comfortably denies any chest pain, remains confused, patient remains on the usual therapy for covert 19 pneumonia tolerating well 02/19/2020, patient seen eval reexamined during the rounds remains confused, oxygen saturation is 95% room air, Patient is a pleasant 74-year-old demented male data predominantly haven't been obtained from the chart, patient was recently discharged from the hospital after atypical pneumonia was clinically doing well, patient is readmitted for placement issues, oriented 1, chest x-ray shows bilateral interstitial infi ltrate, computed tomography scan of the chest continue show that with groundglass attenuation consistent with covert 19 pneumonia, however is being treated accordingly with IV REMdesivir currently on Decadron Objective - Vital Signs Vital signs: Vital Signs Temp 98.8 F 02/21/20 10:00 Pulse 66 02/21/20 10:00 Resp 20 02/21/20 10:00 BP 131/69 02/21/20 10:00 Pulse Ox 98 02/21/20 10:00 Intake & Output 02/20/20 02/21/20 02/21/20 18:59 06:59 18:59 Intake Total 480 Output Total 950 Balance -470 Weight 86.183 kg Intake: Oral 480 Output: Urine 950 Other: Voiding Method Diaper Diaper # Voids 1 1 - Exam - Constitutional General appearance: disheveled, mild distress - EENT Eyes: PERRLA Ears: bilateral: normal - Neck Carotids: bilateral: upstroke normal, upstroke delayed, upstroke diminished, upstroke bounding, bruit absent, bruit present - Respiratory Respiratory: bilateral: diminished - Cardiovascular Heart sounds: normal: S1, S2 - Gastrointestinal General gastrointestinal: hyperactive bowel sounds, soft - Neurologic Neurologic: CNII-XII intact - Labs CBC & Chem 7: 02/20/20 05:28 02/20/20 05:28 Labs: Abnormal Lab Results - Last 24 Hours (Table) 02/20/20 02/20/20 02/21/20 Range/Units 16:38 20:22 07:06 POC Glucose (mg/dL) 323 H 290 H 155 H (75-99) mg/dL Assessment and Plan Assessment: Covid19 pneumonia Metabolic encephalopathy with contribution significant from Covid 19 pneumonia Acute hypoxic respiratory failure Advanced dementia Alzheimer's disease Dyslipidemia Hypertension hypertensive cardiovascular disease Plan: Agree with transfer to ECF Continue Decadron to finish 10 day of therapy Supplemental oxygen Anticoagulants Deep breathing exercise incentive spirometry Prone positioning as possible Further recommendations pending plan of care as per clinical response of the patient Time with Patient: Greater than 30
[2020-02-21 11:52] LABS: Glucose,Whole Blood 290 mg/dL (75-99)
--- NOTE | 2020-02-21 13:03 | DS ---
DISCHARGE SUMMARY DISCHARGE MEDICINES: 1. Hexadrol 6 mg p.o. daily for another 7 days. 2. Levemir 20 units subcu daily. 3. Lotrisone cream topically b.i.d. to scrotum. 4. Lovenox 40 mg subcu daily for 2 more weeks. 5. [place] 5/325 every 6 hours p.r.n. for pain. 6. Protonix 40 mg daily. 7. Seroquel 25 at bedtime for agitation. 8. Tylenol 650 q.6 hours p.r.n. for fever. 9. Vitamin D3 1000 international units daily. 10.Xanax 0.25 mg p.o. t.i.d. p.r.n. for anxiety. 11.Zestril 5 mg daily. 12.Gabapentin 300 mg t.i.d. 13.Aricept 10 mg daily. 14.Zocor 20 mg daily. 15.Glucagon emergency kit daily. 16.Insulin 70 units a.c. t.i.d. plus protocol. 17.Namenda 5 mg b.i.d. 18.Flomax 0.4 mg daily. 19.Orazinc 220 mg p.o. daily for 20 days. 20.Tenormin 25 mg daily. CONDITION: Stable. PROGNOSIS: Guarded. DIET: Will be diabetic diet Admitted for physical therapy for generalized weakness secondary to COVID, encephalopathy secondary to COVID. COVID Encephalopathy. COVID pneumonia. Bacteremia. Dehydration. Insulin-dependent diabetes mellitus. Chronic neuropathy. Dementia. Dyslipidemia. Benign prostatic hypertrophy. The patient was admitted with COVID pneumonia, COVID encephalopathy was treated with 5 days of remdesivir, Orazinc, steroids, and breathing treatments. Patient slowly improved. Sugars were under better control. His mental status improved slowly over time. were given for agitation as he became very agitated and disoriented at times. The patient greatly improved, but is generally weak, needs physical therapy to get moving better. He can get up and walk with a walker with assistance, but he needs more help for physical therapy for couple weeks. Follow up with Dr. Guero Todd at [facility] on the [address]. MMODL / IJN: [id number] /
[2020-02-21 15:35] VITALS: BP 123/69; TEMP 97.4
--- NOTE | 2020-02-21 16:21 | PN ---
PROGRESS NOTE DATE OF SERVICE: 02/21/2020 REASON FOR FOLLOWUP: COVID-19 pneumonia. INTERVAL HISTORY: The patient was seen on rounds earlier this afternoon. The patient has been feeling better, breathing comfortably. Denies having any chest pain or cough. No nausea, no vomiting, no abdominal pain or diarrhea. Currently on room air. PHYSICAL EXAMINATION: Blood pressure 131/69, pulse of 63, temperature 98.8, 98% on room air. General description is an elderly male up in the bed in no distress. RESPIRATORY SYSTEM: Unlabored breathing with decreased breath sounds at the base. HEART: S1, S2 irregular. ABDOMEN: Soft. No tenderness. LABS: No new labs have been obtained today. DIAGNOSTIC IMPRESSION AND PLAN: Patient with acute COVID-19 pneumonia that has been adequately treated. Patient has completed his treatment, both with remdesivir and steroids. Supportive care and careful monitoring of clinical condition as outpatient. Continue with supportive care. MMODL / IJN: [id number] /
[2020-02-21] MEDS: ALPRAZolam 0.25 MG TAB PO PRN (16:22)
--- NOTE | 2020-02-21 17:06 | CDI ---
Documentation Clarification Form Date: 02/21/2020 04:44:58 PM From: Jessica Kirkland RN, CCDS Admit Date: 02/11/2020 04:49:00 PM Patient Name: Alfa Ortiz Visit Number: [id number] Discharge Date: ATTENTION: The Clinical Documentation Specialists (CDI) and [facility] Coding Staff appreciate your assistance in clarifying documentation. Please respond to the clarification below the line at the bottom and electronically sign. The CDI & [facility] Coding staff will review the response and follow-up if needed. Please note: Queries are made part of the Legal Health Record. If you have any questions, please contact the author of this message via ITS. Dr. Guero Todd Protein calorie malnutrition has been documented in the discharge summary and further specificity is requested for the degree of malnutrition. History/Risk Factors: Diabetes mellitus, Covid 19, Pneumonia, Alzheimer's Dementia, Hypertension, Clinical Indicators: 74-year old male present to ED on 02/10 shortness of breath, altered mental status. H/P on02/20 has protein calorie malnutrition. Nutrition assessment 02/15 nutrition intake is fair at 25-50 % 02/12 Labs: Calcium 8.1 Current BMI: 28/1 Insufficient energy intake: Yes, per nutrition assessment Treatment: Dietary Consult: Yes Supplements: Glucerna Once Daily Increased PO intake from 50%-75 % Monitor PO/supplement intake In your professional opinion, can you please clarify if these findings signify one of the following conditions? Mild Protein-Calorie Malnutrition Moderate Protein-Calorie Malnutrition Severe Protein-Calorie Malnutrition Malnutrition, unspecified Malnutrition following GI surgery Other condition, please specify Unable to determine (Last Revision: August 2018) MTDD
[2020-02-21 17:18] LABS: Glucose,Whole Blood 257 mg/dL (75-99)
--- NOTE | 2020-02-25 11:34 | PN ---
PROGRESS NOTE ADDENDUM: Please add his mild protein calorie malnutrition. MMPHOEBEL / GERSONN: [id number] /
== END 2020-02-21 22:33 | DRG 177 ==
LOC: EC 16:20 → 4SSUR 16:49
PROVIDERS: ADMIT Family Medicine; ATTEND Family Medicine
PROC: XW033E5 Introduction of Remdesivir Anti-infective into Peripheral Vein, Percutaneous Approach, New Technology Group 5 (ICD-10-PCS; principal; 2020-02-13)
DX: U07.1 COVID-19 (principal); G93.41 Metabolic encephalopathy; J96.01 Acute respiratory failure with hypoxia; J12.82 Pneumonia due to coronavirus disease 2019; E44.1 Mild protein-calorie malnutrition; R78.81 Bacteremia; N17.9 Acute kidney failure, unspecified; E87.1 Hypo-osmolality and hyponatremia; E11.40 Type 2 diabetes mellitus with diabetic neuropathy, unspecified; G30.9 Alzheimer's disease, unspecified; F02.80 Dementia in other diseases classified elsewhere, unspecified severity, without behavioral disturbance, psychotic disturbance, mood disturbance, and anxiety; I11.9 Hypertensive heart disease without heart failure; E11.65 Type 2 diabetes mellitus with hyperglycemia; Z79.4 Long term (current) use of insulin; Z68.28 Body mass index [BMI] 28.0-28.9, adult; E86.0 Dehydration; T38.0X5A Adverse effect of glucocorticoids and synthetic analogues, initial encounter; E78.5 Hyperlipidemia, unspecified; K21.9 Gastro-esophageal reflux disease without esophagitis; M81.0 Age-related osteoporosis without current pathological fracture; G62.9 Polyneuropathy, unspecified; M19.041 Primary osteoarthritis, right hand; M19.042 Primary osteoarthritis, left hand; M19.072 Primary osteoarthritis, left ankle and foot; M19.071 Primary osteoarthritis, right ankle and foot; N40.1 Benign prostatic hyperplasia with lower urinary tract symptoms; N39.498 Other specified urinary incontinence; T50.2X5A Adverse effect of carbonic-anhydrase inhibitors, benzothiadiazides and other diuretics, initial encounter; Z79.899 Other long term (current) drug therapy; Z71.3 Dietary counseling and surveillance; Z87.891 Personal history of nicotine dependence; Z77.098 Contact with and (suspected) exposure to other hazardous, chiefly nonmedicinal, chemicals; Z86.73 Personal history of transient ischemic attack (TIA), and cerebral infarction without residual deficits; Z90.49 Acquired absence of other specified parts of digestive tract; Z87.19 Personal history of other diseases of the digestive system; Z98.890 Other specified postprocedural states; Z80.9 Family history of malignant neoplasm, unspecified
CPT/HCPCS: 71046; 71250; 80048; 80053; 81001; 83036; 83615; 83880; 84145; 85025; 85027; 85379; 86140; 87040; 87324; 99285

== ENCOUNTER 2020-06-03 19:22 | Inpatient (IN) | payer MEDICARE ==
[2020-06-03 19:40] LABS: Glucose,Whole Blood >600 mg/dL (75-99)
[2020-06-03 19:56] LABS: Basophils # (A) 0.1 k/uL (0-0.2); Basophils % (A) 0 %; Eosinophils % (A) 0 %; HCT 45.6 % (39.0-53.0); HGB 14.2 gm/dL (13.0-17.5); Lymphocytes # (A) 0.6 k/uL (1.0-4.8); Lymphocytes % (A) 4 %; MCH 30.6 pg (25.0-35.0); MCHC 31.1 g/dL (31.0-37.0); MCV 98.3 fL (80.0-100.0); Mean Platelet Volume 8.2; Monocytes # (A) 0.4 k/uL (0-1.0); Monocytes % (A) 3 %; Neutrophils # (A) 12.8 k/uL (1.3-7.7); Neutrophils % (A) 92 %; Platelet Count 249 k/uL (150-450); RBC 4.64 m/uL (4.30-5.90); RDW 12.9 % (11.5-15.5); WBC 13.9 k/uL (3.8-10.6)
[2020-06-03] MEDS ORDERED: SODIUM CHLORIDE 0.9% 1,000 ML IV ONE ×2 (20:02→20:29)
[2020-06-03 20:09] LABS: Appearance,Urine Clear (Clear); Bilirubin,Urine Negative (Negative); Blood,Urine Negative (Negative); Color,Urine Colorless; Glucose,Urine (UA) 4+ (Negative); Leukocyte Esterase,Urine Negative (Negative); Nitrite,Urine Negative (Negative); Protein,Urine Negative (Negative); Specific Gravity,Urine 1.018 (1.001-1.035); Urobilinogen,Urine <2.0 mg/dL (<2.0)
[2020-06-03 20:09] LABS: Albumin 4.7 g/dL (3.5-5.0); Calcium 10.3 mg/dL (8.4-10.2); Magnesium 2.5 mg/dL (1.6-2.3); Potassium 5.4 mmol/L (3.5-5.1); Total Bilirubin 0.8 mg/dL (0.2-1.3); Total Protein 7.4 g/dL (6.3-8.2)
[2020-06-03 20:15] LABS: Prothrombin Time 10.3 sec (9.0-12.0)
[2020-06-03 20:27] LABS: Ketones,Urine 3+ (Negative)
[2020-06-03 20:29] LABS: Partial Thromboplastin Time 20.2 sec (22.0-30.0)
[2020-06-03] MEDS: INSULIN REGULAR 100 UNIT in SODIUM CHLORIDE 0.9% 100 ML IV SCH (20:42)
--- NOTE | 2020-06-03 21:24 | XR ---
EXAMINATION TYPE: XR chest 2V DATE OF EXAM: 06/03/2020 COMPARISON: 02/13/2020 HISTORY: Cough and pain TECHNIQUE: 2 views FINDINGS: Heart and mediastinum are normal. Lungs are clear. Diaphragm is normal. Bony thorax is inta ct. IMPRESSION: No active cardiopulmonary disease. There is clearing of the interstitial infiltrates and atelectasis in both lungs compared to old exam.
[2020-06-03 21:57] LABS: Glucose,Whole Blood 481 mg/dL (75-99)
[2020-06-03] MEDS ORDERED: HEPARIN SODIUM 1,000 UN/ML (10ML VL) IV PRN (21:58)
[2020-06-03] MEDS ORDERED: HEPARIN SODIUM 1,000 UN/ML (10ML VL) IV ONE (21:58)
--- NOTE | 2020-06-03 22:29 | ED ---
Weakness HPI - General Chief complaint: Weakness Stated complaint: Diabetic issues Time Seen by Provider: 06/03/20 19:25 Source: patient, EMS Mode of arrival: EMS Limitations: no limitations - History of Present Illness Initial comments: 74-year-old male with past medical history of CVA, dementia, diabetes who presents to the emergency department for hyperglycemia. Patient report that he lives independently at [facility] however the staff does check on him 3 times a day. They administer his medications and check his blood glucose. It was reported that the patient glucose was high. He was complaining of some generalized weakness. He states he has been taking his insulin as directed. Denies any recent illnesses. No nausea, vomiting or diarrhea. Denies any chest pain or shortness of breath. No recent fevers or chills. Denies any abdominal pain. No previous history of cardiac disease per the patient. No other alleviating, precipitating or modifying factors - Related Data Home Medications Medication Instructions Recorded Confirmed Donepezil [Aricept] 10 mg PO DAILY 11/19/15 06/12/20 Gabapentin [Neurontin] 300 mg PO TID 11/19/15 06/12/20 Simvastatin [Zocor] 40 mg PO HS 08/05/17 06/12/20 Glucagon Emergency Kit 1 mg IM ONCE PRN 02/08/20 06/12/20 Insulin Aspart [Insulin Aspart 7 unit SQ AC-TID 02/08/20 06/12/20 Flexpen] Memantine [Namenda] 5 mg PO BID 02/08/20 06/12/20 Tamsulosin HCl [Flomax] 0.4 mg PO DAILY 02/08/20 06/12/20 Insulin Glargine [Lantus] 28 unit SQ DAILY 06/03/20 06/12/20 Omeprazole 20 mg PO DAILY 06/03/20 06/12/20 Propranolol [Inderal] 20 mg PO BID 06/03/20 06/12/20 traZODone HCL [Desyrel] 50 mg PO HS 06/03/20 06/12/20 Previous Rx's Medication Instructions Recorded Zinc Sulfate [Orazinc] 220 mg PO DAILY #20 cap 02/11/20 ALPRAZolam [Xanax] 0.25 mg PO TID PRN tab 02/21/20 Acetaminophen Tab [Tylenol] 650 mg PO Q6HR PRN tab 02/21/20 Cholecalciferol [Vitamin D3 (25 1,000 unit PO DAILY tab 02/21/20 Mcg = 1000 Iu)] Aspirin 81 mg PO DAILY #30 chew 06/08/20 Folic Acid 1 mg PO DAILY #30 tab 06/08/20 lisinopriL [Zestril] 10 mg PO DAILY #30 tab 06/08/20 Allergies Allergy/AdvReac Type Severity Reaction Status Date / Time No Known Allergies Allergy Verified 06/12/20 16:14 Review of Systems ROS Statement: Those systems with pertinent positive or pertinent negative responses have been documented in the HPI. ROS Other: All systems not noted in ROS Statement are negative. Past Medical History Past Medical History: CVA/TIA, Dementia, Diabetes Mellitus, GERD/Reflux, Hyperlipidemia, Hypertension Additional Past Medical History / Comment(s): Agent [place] exposure in [place], IDDM type II, DKA with metabolic encephalopathy, neuropathy bilateral feet, osteoporosis, sinus problems, arthritis bilateral hands/feet. History of Any Multi-Drug Resistant Organisms: None Reported Past Surgical History: Appendectomy Additional Past Surgical History / Comment(s): Pt thinks he may have had an appendectomy, colonoscopy-normal Past Anesthesia/Blood Transfusion Reactions: No Reported Reaction Past Psychological History: No Psychological Hx Reported Smoking Status: Former smoker Past Alcohol Use History: Occasional Past Drug Use History: None Reported - Past Family History Father Family Medical History: No Reported History Additional Family Medical History / Comment(s): Father was healthy and lived into his 80s. Mother Family Medical History: Cancer Additional Family Medical History / Comment(s): Mother had some form of cancer (family do not know kind) which she of in her 50s General Exam Limitations: altered mental status (poor historian) General appearance: alert, in no apparent distress Head exam: Present: atraumatic, normocephalic, normal inspection Eye exam: Present: normal appearance, PERRL, EOMI. Absent: scleral icterus, conjunctival injection, periorbital swelling ENT exam: Present: normal exam, mucous membranes moist Neck exam: Present: normal inspection. Absent: tenderness, meningismus, lympha denopathy Respiratory exam: Present: normal lung sounds bilaterally. Absent: respiratory distress, wheezes, rales, rhonchi, stridor Cardiovascular Exam: Present: regular rate, normal rhythm, normal heart sounds. Absent: systolic murmur, diastolic murmur, rubs, gallop, clicks GI/Abdominal exam: Present: soft, normal bowel sounds. Absent: distended, tenderness, guarding, rebound, rigid Extremities exam: Present: normal inspection, full ROM, normal capillary refill. Absent: tenderness, pedal edema, joint swelling, calf tenderness Back exam: Present: normal inspection Neurological exam: Present: alert, oriented X3, CN II-XII intact Psychiatric exam: Present: normal affect, normal mood Skin exam: Present: warm, dry, intact, normal color. Absent: rash Course Vital Signs 06/03/20 06/03/20 06/03/20 19:24 20:34 23:50 Temperature 97.7 F 98.0 F Pulse Rate 94 85 96 Respiratory 18 18 16 Rate Blood Pressure 178/76 162/66 114/51 O2 Sat by Pulse 97 98 96 Oximetry 06/04/20 06/04/20 06/04/20 02:00 03:30 06:58 Temperature 97.9 F Pulse Rate 80 72 Respiratory 18 16 Rate Blood Pressure 111/52 118/67 O2 Sat by Pulse 97 96 98 Oximetry 06/04/20 06/04/20 06/04/20 07:20 09:08 11:01 Temperature 97.5 F L Pulse Rate 68 80 Respiratory 18 18 Rate Blood Pressure 114/58 119/64 127/59 O2 Sat by Pulse 100 98 Oximetry 06/04/20 06/04/20 06/04/20 12:39 14:16 16:00 Temperature Pulse Rate 70 68 72 Respiratory 18 18 18 Rate Blood Pressure 136/62 135/66 129/65 O2 Sat by Pulse 96 99 99 Oximetry EKG Findings - EKG Comments: EKG Findings:: EKG demonstrates a sinus rhythm with a ventricular rate of 96.. Hold to 20. QRS 1:30. QTC of 475. Right bundle branch block. Left anterior fascicular block. EKG is compared to previous and has similar morphology Medical Decision Making - Medical Decision Making Upon arrival patient is placed into room 8. History and physical exam was performed. Accu-Chek is performed and it does read high. IV is established and the patient was given a 2 L bolus of normal saline. She does smell of acetone. Laboratory studies were conducted and reviewed. The pulse the count 13.9. Sodium 1:30. Potassium 5.4. Creatinine 1.7 which is elevated from baseline. Glucose is 733. Lactic acid 2.9. Troponin elevated at 0.464. Acetone is positive. 3+ ketones in the urine. Covid is detected. Patient previously had Covid back in January. Due to the CO2 of 10 and anion gap of 24 the patient was placed on an insulin drip at 12 units per hour. Repeat glucose check demonstrates a glucose of 481. Because of this the patient is scheduled at 6 units per hour. 12-lead EKG demonstrates no acute ST segment elevation. Patient denies any contraindications to anticoagulant coagulations therefore started on a heparin drip. CT of the patient's chest demonstrates clearing of the interstitial infiltrates and atelectasis previously seen. This is discussed the patient and he does agree to the treatment plan. Patient is admitted to Dr. Zafar. Q1 accuchecks ordered. Patient remained in stable condition awaiting a bed on the floor - Lab Data Result diagrams: 06/06/20 08:35 06/06/20 08:35 Lab Results 06/03/20 06/03/20 06/03/20 Range/Units 19:29 19:43 19:43 WBC 13.9 H (3.8-10.6) k/uL RBC 4.64 (4.30-5.90) m/uL Hgb 14.2 (13.0-17.5) gm/dL Hct 45.6 (39.0-53.0) % MCV 98.3 (80.0-100.0) fL MCH 30.6 (25.0-35.0) pg MCHC 31.1 (31.0-37.0) g/dL RDW 12.9 (11.5-15.5) % Plt Count 249 (150-450) k/uL MPV 8.2 Neutrophils % 92 % Lymphocytes % 4 % Monocytes % 3 % Eosinophils % 0 % Basophils % 0 % Neutrophils # 12.8 H (1.3-7.7) k/uL Lymphocytes # 0.6 L (1.0-4.8) k/uL Monocytes # 0.4 (0-1.0) k/uL Eosinophils # 0.0 (0-0.7) k/uL Basophils # 0.1 (0-0.2) k/uL PT 10.3 (9.0-12.0) sec INR 1.0 (<1.2) APTT 20.2 L (22.0-30.0) sec Sodium (137-145) mmol/L Potassium (3.5-5.1) mmol/L Chloride (98-107) mmol/L Carbon Dioxide (22-30) mmol/L Anion Gap mmol/L BUN (9-20) mg/dL Creatinine (0.66-1.25) mg/dL Est GFR (CKD-EPI)AfAm (>60 ml/min/1.73 sqM) Est GFR (CKD-EPI)NonAf (>60 ml/min/1.73 sqM) Glucose (74-99) mg/dL POC Glucose (mg/dL) >600 H (75-99) mg/dL POC Glu Commercial Project Manager ID Shantelle Brown Lactic Ac Sepsis Rflx Plasma Lactic Acid Clifford (0.7-2.0) mmol/L Calcium (8.4-10.2) mg/dL Magnesium (1.6-2.3) mg/dL Total Bilirubin (0.2-1.3) mg/dL AST (17-59) U/L ALT (4-49) U/L Alkaline Phosphatase (38-126) U/L Creatine Kinase (55-170) U/L Troponin I (0.000-0.034) ng/mL Total Protein (6.3-8.2) g/dL Albumin (3.5-5.0) g/dL TSH (0.465-4.680) mIU/L Urine Color Urine Appearance (Clear) Urine pH (5.0-8.0) Ur Specific [place] (1.001-1.035) Urine Protein (Negative) Urine Glucose (UA) (Negative) Urine Ketones (Negative) Urine Blood (Negative) Urine Nitrite (Negative) Urine Bilirubin (Negative) Urine Urobilinogen (<2.0) mg/dL Ur Leukocyte Esterase (Negative) Acetone, Qual (Negative) Coronavirus (PCR) (Not Detectd) 06/03/20 06/03/20 06/03/20 Range/Units 19:43 19:43 19:43 WBC (3.8-10.6) k/uL RBC (4.30-5.90) m/uL Hgb (13.0-17.5) gm/dL Hct (39.0-53.0) % MCV (80.0-100.0) fL MCH (25.0-35.0) pg MCHC (31.0-37.0) g/dL RDW (11.5-15.5) % Plt Count (150-450) k/uL MPV Neutrophils % % Lymphocytes % % Monocytes % % Eosinophils % % Basophils % % Neutrophils # (1.3-7.7) k/uL Lymphocytes # (1.0-4.8) k/uL Monocytes # (0-1.0) k/uL Eosinophils # (0-0.7) k/uL Basophils # (0-0.2) k/uL PT (9.0-12.0) sec INR (<1.2) APTT (22.0-30.0) sec Sodium 130 L (137-145) mmol/L Potassium 5.4 H (3.5-5.1) mmol/L Chloride 96 L (98-107) mmol/L Carbon Dioxide 10 L (22-30) mmol/L Anion Gap 24 mmol/L BUN 34 H (9-20) mg/dL Creatinine 1.76 H (0.66-1.25) mg/dL Est GFR (CKD-EPI)AfAm 44 (>60 ml/min/1.73 sqM) Est GFR (CKD-EPI)NonAf 38 (>60 ml/min/1.73 sqM) Glucose 733 H* (74-99) mg/dL POC Glucose (mg/dL) (75-99) mg/dL POC Glu Commercial Project Manager ID Lactic Ac Sepsis Rflx Plasma Lactic Acid Clifford 2.9 H* (0.7-2.0) mmol/L Calcium 10.3 H (8.4-10.2) mg/dL Magnesium 2.5 H (1.6-2.3) mg/dL Total Bilirubin 0.8 (0.2-1.3) mg/dL AST 29 (17-59) U/L ALT 22 (4-49) U/L Alkaline Phosphatase 140 H (38-126) U/L Creatine Kinase 106 (55-170) U/L Troponin I 0.464 H* (0.000-0.034) ng/mL Total Protein 7.4 (6.3-8.2) g/dL Albumin 4.7 (3.5-5.0) g/dL TSH 1.440 (0.465-4.680) mIU/L Urine Color Urine Appearance (Clear) Urine pH (5.0-8.0) Ur Specific [place] (1.001-1.035) Urine Protein (Negative) Urine Glucose (UA) (Negative) Urine Ketones (Negative) Urine Blood (Negative) Urine Nitrite (Negative) Urine Bilirubin (Negative) Urine Urobilinogen (<2.0) mg/dL Ur Leukocyte Esterase (Negative) Acetone, Qual (Negative) Coronavirus (PCR) (Not Detectd) 06/03/20 06/03/20 06/03/20 Range/Units 19:48 19:48 19:55 WBC (3.8-10.6) k/uL RBC (4.30-5.90) m/uL Hgb (13.0-17.5) gm/dL Hct (39.0-53.0) % MCV (80.0-100.0) fL MCH (25.0-35.0) pg MCHC (31.0-37.0) g/dL RDW (11.5-15.5) % Plt Count (150-450) k/uL MPV Neutrophils % % Lymphocytes % % Monocytes % % Eosinophils % % Basophils % % Neutrophils # (1.3-7.7) k/uL Lymphocytes # (1.0-4.8) k/uL Monocytes # (0-1.0) k/uL Eosinophils # (0-0.7) k/uL Basophils # (0-0.2) k/uL PT (9.0-12.0) sec INR (<1.2) APTT (22.0-30.0) sec Sodium (137-145) mmol/L Potassium (3.5-5.1) mmol/L Chloride (98-107) mmol/L Carbon Dioxide (22-30) mmol/L Anion Gap mmol/L BUN (9-20) mg/dL Creatinine (0.66-1.25) mg/dL Est GFR (CKD-EPI)AfAm (>60 ml/min/1.73 sqM) Est GFR (CKD-EPI)NonAf (>60 ml/min/1.73 sqM) Glucose (74-99) mg/dL POC Glucose (mg/dL) (75-99) mg/dL POC Glu Commercial Project Manager ID Lactic Ac Sepsis Rflx Plasma Lactic Acid Clifford (0.7-2.0) mmol/L Calcium (8.4-10.2) mg/dL Magnesium (1.6-2.3) mg/dL Total Bilirubin (0.2-1.3) mg/dL AST (17-59) U/L ALT (4-49) U/L Alkaline Phosphatase (38-126) U/L Creatine Kinase (55-170) U/L Troponin I (0.000-0.034) ng/mL Total Protein (6.3-8.2) g/dL Albumin (3.5-5.0) g/dL TSH (0.465-4.680) mIU/L Urine Color Colorless Urine Appearance Clear (Clear) Urine pH 5.0 (5.0-8.0) Ur Specific [place] 1.018 (1.001-1.035) Urine Protein Negative (Negative) Urine Glucose (UA) 4+ H (Negative) Urine Ketones 3+ H (Negative) Urine Blood Negative (Negative) Urine Nitrite Negative (Negative) Urine Bilirubin Negative (Negative) Urine Urobilinogen <2.0 (<2.0) mg/dL Ur Leukocyte Esterase Negative (Negative) Acetone, Qual Positive (Negative) Coronavirus (PCR) Detected A (Not Detectd) 06/03/20 06/03/20 Range/Units 20:25 21:45 WBC (3.8-10.6) k/uL RBC (4.30-5.90) m/uL Hgb (13.0-17.5) gm/dL Hct (39.0-53.0) % MCV (80.0-100.0) fL MCH (25.0-35.0) pg MCHC (31.0-37.0) g/dL RDW (11.5-15.5) % Plt Count (150-450) k/uL MPV Neutrophils % % Lymphocytes % % Monocytes % % Eosinophils % % Basophils % % Neutrophils # (1.3-7.7) k/uL Lymphocytes # (1.0-4.8) k/uL Monocytes # (0-1.0) k/uL Eosinophils # (0-0.7) k/uL Basophils # (0-0.2) k/uL PT (9.0-12.0) sec INR (<1.2) APTT (22.0-30.0) sec Sodium (137-145) mmol/L Potassium (3.5-5.1) mmol/L Chloride (98-107) mmol/L Carbon Dioxide (22-30) mmol/L Anion Gap mmol/L BUN (9-20) mg/dL Creatinine (0.66-1.25) mg/dL Est GFR (CKD-EPI)AfAm (>60 ml/min/1.73 sqM) Est GFR (CKD-EPI)NonAf (>60 ml/min/1.73 sqM) Glucose (74-99) mg/dL POC Glucose (mg/dL) 481 H (75-99) mg/dL POC Glu Commercial Project Manager ID Shantelle Brown Lactic Ac Sepsis Rflx Y Plasma Lactic Acid Clifford (0.7-2.0) mmol/L Calcium (8.4-10.2) mg/dL Magnesium (1.6-2.3) mg/dL Total Bilirubin (0.2-1.3) mg/dL AST (17-59) U/L ALT (4-49) U/L Alkaline Phosphatase (38-126) U/L Creatine Kinase (55-170) U/L Troponin I (0.000-0.034) ng/mL Total Protein (6.3-8.2) g/dL Albumin (3.5-5.0) g/dL TSH (0.465-4.680) mIU/L Urine Color Urine Appearance (Clear) Urine pH (5.0-8.0) Ur Specific [place] (1.001-1.035) Urine Protein (Negative) Urine Glucose (UA) (Negative) Urine Ketones (Negative) Urine Blood (Negative) Urine Nitrite (Negative) Urine Bilirubin (Negative) Urine Urobilinogen (<2.0) mg/dL Ur Leukocyte Esterase (Negative) Acetone, Qual (Negative) Coronavirus (PCR) (Not Detectd) Critical Care Time Critical Care Time: Yes Critical Care Time: 38 mins due to management of iinsulin gtt and heparin gtt Disposition Clinical Impression: DKA (diabetic ketoacidoses), COVID-19, SRINATH (acute kidney injury), NSTEMI (non- ST elevated myocardial infarction) Disposition: ADMITTED IP TO THIS HOSP Condition: Serious Is patient prescribed a controlled substance at d/c from ED?: No Decision to Admit Reason: Admit from EC Decision Date: 06/03/20 Decision Time: 22:31
[2020-06-03] MEDS ORDERED: NALOXONE 0.4 MG/ML 1 ML VIAL IV PRN (22:31)
[2020-06-03] MEDS: HEPARIN SOD,PORK IN 0.45% NACL 25,000 UNIT in 0.45% NACL 1 250ML.BAG IV SCH (22:46)
[2020-06-03 23:02] LABS: Glucose,Whole Blood 420 mg/dL (75-99)
[2020-06-03 23:54] LABS: Glucose,Whole Blood 348 mg/dL (75-99)
[2020-06-04] MEDS: traZODone HCL 50 MG TAB PO SCH ×2 (00:10→20:40)
[2020-06-04 00:44] LABS: Glucose,Whole Blood 284 mg/dL (75-99)
[2020-06-04] MEDS ORDERED: ASPIRIN 325 MG TAB PO STA (00:51)
[2020-06-04 01:09] LABS: Phosphorus 3.4 mg/dL (2.5-4.5); Potassium 4.5 mmol/L (3.5-5.1)
[2020-06-04 02:13] LABS: Glucose,Whole Blood 263 mg/dL (75-99)
[2020-06-04 04:12] LABS: Glucose,Whole Blood 243 mg/dL (75-99)
[2020-06-04] MEDS: INSULIN REGULAR 100 UNIT in SODIUM CHLORIDE 0.9% 100 ML IV SCH ×3 (04:23→20:15)
[2020-06-04 04:55] LABS: Glucose,Whole Blood 187 mg/dL (75-99)
[2020-06-04 05:25] LABS: Calcium 9.4 mg/dL (8.4-10.2); Phosphorus 3.7 mg/dL (2.5-4.5)
[2020-06-04 06:11] LABS: Glucose,Whole Blood 160 mg/dL (75-99)
[2020-06-04 06:27] LABS: Basophils # (A) 0.1 k/uL (0-0.2); Basophils % (A) 1 %; Eosinophils # (A) 0.2 k/uL (0-0.7); Eosinophils % (A) 2 %; HCT 35.6 % (39.0-53.0); HGB 12.6 gm/dL (13.0-17.5); Lymphocytes # (A) 2.1 k/uL (1.0-4.8); Lymphocytes % (A) 20 %; MCH 32.1 pg (25.0-35.0); MCHC 35.3 g/dL (31.0-37.0); Mean Platelet Volume 8.4; Monocytes # (A) 0.8 k/uL (0-1.0); Monocytes % (A) 7 %; Neutrophils # (A) 7.3 k/uL (1.3-7.7); Neutrophils % (A) 69 %; Platelet Count 222 k/uL (150-450); RBC 3.91 m/uL (4.30-5.90); RDW 12.3 % (11.5-15.5); WBC 10.5 k/uL (3.8-10.6)
[2020-06-04 07:05] LABS: Glucose,Whole Blood 128 mg/dL (75-99)
[2020-06-04 08:17] LABS: Glucose,Whole Blood 140 mg/dL (75-99)
[2020-06-04] MEDS: CHOLECALCIFEROL 25 MCG (1000 IU) TABLET PO SCH (08:25)
[2020-06-04] MEDS: PROPRANOLOL 20 MG TAB PO SCH ×3 (08:26→20:41)
[2020-06-04] MEDS: PANTOPRAZOLE 40 MG TABLET PO SCH (08:26)
[2020-06-04] MEDS: DONEPEZIL 10 MG TAB PO SCH (08:27)
[2020-06-04] MEDS ORDERED: MEMANTINE 10 MG TAB PO SCH (09:00)
[2020-06-04 09:01] LABS: Glucose,Whole Blood 146 mg/dL (75-99)
[2020-06-04 09:08] LABS: Glucose,Whole Blood 152 mg/dL (75-99)
[2020-06-04] MEDS: D5-0.45% NACL WITH KCL 20MEQ/L 1,000 ML IV SCH ×3 (09:09→22:35)
[2020-06-04 09:49] LABS: Glucose,Whole Blood 187 mg/dL (75-99)
[2020-06-04] MEDS: HEPARIN SOD,PORK IN 0.45% NACL 25,000 UNIT in 0.45% NACL 1 250ML.BAG IV SCH ×2 (10:05→20:15)
--- NOTE | 2020-06-04 11:00 | ECHOF ---
Referral Reason:elevated troponins MEASUREMENTS -------- HEIGHT: 180.3 cm WEIGHT: 127.0 kg BP: 114/58 RVIDd: 2.2 cm (< 3.3) IVSd: 1.3 cm (0.6 - 1.1) LVIDd: 3.6 cm (3.9 - 5.3) LVPWd: 1.3 cm (0.6 - 1.1) IVSs: 1.8 cm LVIDs: 1.7 cm LVPWs: 1.5 cm LAESV Index (A-L): 15.51 ml/m Ao Diam: 3.2 cm (2.0 - 3.7) AV Cusp: 1.6 cm (1.5 - 2.6) LA Diam: 3.7 cm (2.7 - 3.8) MV EXCURSION: 15.618 mm (> 18.000) MV EF SLOPE: 61 mm/s (70 - 150) EPSS: 0.6 cm MV E Lukas: 0.78 m/s MV DecT: 198 ms MV A Lukas: 0.69 m/s MV E/A Ratio: 1.13 RAP: 5.00 mmHg RVSP: 32.14 mmHg FINDINGS -------- This was a technically good study. The left ventricular size is normal. There is mild concentric left ventricular hypertrophy. Overa ll left ventricular systolic function is normal with, an EF between 55 - 60 %. Normal LAP Grade 1 D iastolic Dysfunction. The right ventricle is normal in size. The left atrial size is normal. Normal LA size by volume 22+/-6 ml/m2. The right atrial size is normal. Aortic valve is trileaflet and is mildly thickened. The mitral valve is normal. Mild mitral annular calcification present. There is trace mitral regu rgitation. The tricuspid valve appears structurally normal. Mild tricuspid regurgitation present. Right vent ricular systolic pressure is normal at < 35 mmHg. There is no pulmonic regurgitation present. The aortic root size is normal. Normal inferior vena cava with normal inspiratory collapse consistent with estimated right atrial pre ssure of 5 mmHg. There is no pericardial effusion. CONCLUSIONS -------- 1. The left ventricular size is normal. 2. There is mild concentric left ventricular hypertrophy. 3. Overall left ventricular systolic function is normal with, an EF between 55 - 60 %. 4. Normal LAP Grade 1 Diastolic Dysfunction. 5. Aortic valve is trileaflet and is mildly thickened. 6. Mild mitral annular calcification present. 7. There is trace mitral regurgitation. 8. Mild tricuspid regurgitation present. 9. There is no pericardial effusion. SOLAR SALES ASSESSOR: Vilma Wagner RDCS
[2020-06-04 11:04] LABS: Glucose,Whole Blood 246 mg/dL (75-99)
--- NOTE | 2020-06-04 11:46 | P.CRDCN ---
History of Present Illness Consult date: 06/04/20 History of present illness: HISTORY OF PRESENT ILLNESS: This is a 74-year-old male with a past medical history significant for hypertension, hyperlipidemia, GERD, and diabetes mellitus. Patient does not follow with a accounts payable bookkeeper, however he was evaluated by Dr. Dobbins during a previous hospitalization in January 2020. We have been asked to see the patient in consultation for elevated troponins. Patient examined at the bedside in the emergency room by Dr. Dobbins. Patient resides at [facility]. He states he was out for a walk when he began to feel short of breath. He reports he was nausea and sweating. He denied any chest pain or pressure. Denied fever or chills. The patient is currently resting comfortably on a stretcher in the ER. His vital signs are stable. EKG reveals sinus mechanism with 1st degree AV block with no signs of acute ischemia. Right bundle branch block. Left anterior fascicular block. Chest xray no active cardiopulmonary disease. Laboratory data: WBC 10.5. Hemoglobin 12.6. Platelet count 222. Sodium 133. Potassium 4.0. BUN 34. Creatinine 1.43. Lactic acid 2.3. Repeat 0.8. Troponin 0.464. 0.601. 0.569. Current home cardiac medications include simvastatin 40 mg daily, propanolol 20mg twice a day, and lisinopril-hydrochlorothiazide 10-12.5 daily Echocardiogram completed reveals ejection fraction 55-60%, trace mitral regurgitation, and mild tricuspid regurgitation REVIEW OF SYSTEMS: Thorough review of systems not completed secondary to limited evaluation/examin ation due to Covid19 PHYSICAL EXAM: VITAL SIGNS: Reviewed. GENERAL: Well-developed in no acute distress. HEENT: Head is normocephalic. Pupils are equal, round. Sclerae anicteric. Mucous membranes of the mouth are moist. Neck supple. No JVD or thyromegaly LUNGS: Respirations even and unlabored. Lungs diminished bilaterally. HEART: Regular rate and rhythm. S1 and S2 heard. ABDOMEN: Soft. Nondistended. Nontender. EXTREMITIES: Normal range of motion. No clubbing or cyanosis. Peripheral pulses intact. No lower extremity edema NEUROLOGIC: Awake and alert. Oriented x 3. ASSESSMENT: Shortness of breath Covid 19 DKA Abnormal troponins, possible NSTEMI Hypertension Hyperlipidemia Diabetes mellitus GERD Acute kidney injury, creatinine 1.7 on admission, improving PLAN: 2D echo obtained and reviewed Continue IV heparin Add aspirin 81 mg daily Resume home dose of beta nohemi: propranolol 20mg BID Continue atorvastatin. Obtain lipid panel. Continue to hold NICANOR due to SRINATH. Monitor kidney function Further recommendations pending patient course Nurse practitioner note has been reviewed by physician. Signing provider agrees with the documented findings, assessment, and plan of care. Past Medical History Past Medical History: CVA/TIA, Dementia, Diabetes Mellitus, GERD/Reflux, Hyperlipidemia, Hypertension Additional Past Medical History / Comment(s): Agent [place] exposure in [place], IDDM type II, DKA with metabolic encephalopathy, neuropathy bilateral feet, osteoporosis, sinus problems, arthritis bilateral hands/feet. History of Any Multi-Drug Resistant Organisms: None Reported Past Surgical History: Appendectomy Additional Past Surgical History / Comment(s): Pt thinks he may have had an appendectomy, colonoscopy-normal Past Anesthesia/Blood Transfusion Reactions: No Reported Reaction Past Psychological History: No Psychological Hx Reported Smoking Status: Former smoker Past Alcohol Use History: Occasional Past Drug Use History: None Reported - Past Family History Father Family Medical History: No Reported History Additional Family Medical History / Comment(s): Father was healthy and lived into his 80s. Mother Family Medical History: Cancer Additional Family Medical History / Comment(s): Mother had some form of cancer (family do not know kind) which she of in her 50s Medications and Allergies Home Medications Medication Instructions Recorded Confirmed Type Donepezil [Aricept] 10 mg PO DAILY 11/19/15 06/03/20 History Gabapentin [Neurontin] 300 mg PO TID 11/19/15 06/03/20 History Simvastatin [Zocor] 40 mg PO HS 08/05/17 06/03/20 History Glucagon Emergency Kit 1 mg IM ONCE PRN 02/08/20 06/03/20 History Insulin Aspart [Insulin Aspart 7 unit SQ AC-TID 02/08/20 06/03/20 History Flexpen] Memantine [Namenda] 5 mg PO BID 02/08/20 06/03/20 History Tamsulosin HCl [Flomax] 0.4 mg PO DAILY 02/08/20 06/03/20 History Zinc Sulfate [Orazinc] 220 mg PO DAILY #20 cap 02/11/20 06/03/20 Rx ALPRAZolam [Xanax] 0.25 mg PO TID PRN tab 02/21/20 06/03/20 Rx Acetaminophen Tab [Tylenol] 650 mg PO Q6HR PRN tab 02/21/20 06/03/20 Rx Cholecalciferol [Vitamin D3 (25 1,000 unit PO DAILY tab 02/21/20 06/03/20 Rx Mcg = 1000 Iu)] Insulin Glargine [Lantus] 28 unit SQ DAILY 06/03/20 06/03/20 History Lisinopril-Hctz 10-12.5 mg 1 tab PO DAILY 06/03/20 06/03/20 History [Zestoretic 10-12.5] Omeprazole 20 mg PO DAILY 06/03/20 06/03/20 History Propranolol [Inderal] 20 mg PO BID 06/03/20 06/03/20 History traZODone HCL [Desyrel] 50 mg PO HS 06/03/20 06/03/20 History Allergies Allergy/AdvReac Type Severity Reaction Status Date / Time No Known Allergies Allergy Verified 06/03/20 22:05 Physical Exam Vitals: Vital Signs Temp Pulse Resp BP Pulse Ox 06/04/20 11:01 80 18 127/59 98 06/04/20 09:08 119/64 06/04/20 07:20 97.5 F L 68 18 114/58 100 06/04/20 06:58 97.9 F 72 16 118/67 98 06/04/20 03:30 80 18 111/52 96 06/04/20 02:00 97 06/03/20 23:50 98.0 F 96 16 114/51 96 06/03/20 20:34 85 18 162/66 98 06/03/20 19:24 97.7 F 94 18 178/76 97 Intake and Output 06/03/20 06/04/20 06/04/20 22:59 06:59 14:59 Intake Total 24.801 199.020 50.716 Balance 24.801 199.020 50.716 Intake: Intake, IV Titration 24.801 199.020 50.716 Amount Heparin Sod,Pork in 0.45% 174.887 49.533 NaCl 25,000 unit In 0.45 % NaCl 1 250ml.bag @ 18 UNITS/KG/HR 22.861 mls/hr IV .[id number] [facility] Rx#: [id number] Insulin Regular 100 unit 24.801 24.133 1.183 In Sodium Chloride 0.9% 100 ml @ 0.1 UNITS/KG/HR 12.828 mls/hr IV .Q7H53M [facility] Rx#:[id number] Other: Weight 127.006 kg Results 06/04/20 05:22 06/04/20 04:26 Cardiac Enzymes 06/03/20 06/03/20 06/03/20 Range/Units 19:43 19:43 23:43 AST 29 (17-59) U/L Troponin I 0.464 H* 0.601 H* (0.000-0.034) ng/mL 06/04/20 Range/Units 04:26 AST (17-59) U/L Troponin I 0.569 H* (0.000-0.034) ng/mL Coagulation 06/03/20 06/04/20 Range/Units 19:43 04:26 PT 10.3 (9.0-12.0) sec APTT 20.2 L >200.0 H* (22.0-30.0) sec CBC 06/03/20 06/04/20 Range/Units 19:43 05:22 WBC 13.9 H 10.5 (3.8-10.6) k/uL RBC 4.64 3.91 L (4.30-5.90) m/uL Hgb 14.2 12.6 L (13.0-17.5) gm/dL Hct 45.6 35.6 L (39.0-53.0) % Plt Count 249 222 (150-450) k/uL Comprehensive Metabolic Panel 06/03/20 06/03/20 06/04/20 Range/Units 19:43 23:43 04:26 Sodium 130 L 132 L 133 L (137-145) mmol/L Potassium 5.4 H 4.5 4.0 (3.5-5.1) mmol/L Chloride 96 L 102 104 (98-107) mmol/L Carbon Dioxide 10 L 15 L 19 L (22-30) mmol/L BUN 34 H 32 H 34 H (9-20) mg/dL Creatinine 1.76 H 1.44 H 1.43 H (0.66-1.25) mg/dL Glucose 733 H* 365 H 209 H (74-99) mg/dL Calcium 10.3 H 9.4 (8.4-10.2) mg/dL AST 29 (17-59) U/L ALT 22 (4-49) U/L Alkaline Phosphatase 140 H (38-126) U/L Total Protein 7.4 (6.3-8.2) g/dL Albumin 4.7 (3.5-5.0) g/dL Current Medications Generic Name Dose Route Start Last Admin Trade Name Freq PRN Reason Stop Dose Admin Acetaminophen 650 mg 06/03/20 22:33 Acetaminophen Tab 325 Mg Tab PO Q6HR PRN Fever and/ or Pain Alprazolam 0.25 mg 06/03/20 22:33 Alprazolam 0.25 Mg Tab PO TID PRN Anxiety Aspirin 81 mg 06/05/20 09:00 Aspirin 81 Mg PO DAILY RJ Atorvastatin Calcium 20 mg 06/04/20 21:00 Atorvastatin 20 Mg Tab PO HS RJ Cholecalciferol 25 mcg 06/04/20 09:00 06/04/20 08:25 Cholecalciferol 25 Mcg (1000 Iu) Tablet PO 25 mcg DAILY RJ Administration Donepezil HCl 10 mg 06/04/20 09:00 06/04/20 08:27 Donepezil 10 Mg Tab PO 10 mg DAILY RJ Administration Heparin Sodium (Porcine) 0 unit 06/03/20 21:58 Heparin Sodium 1,000 Un/Ml (10ml Vl) IV PER PROTOCOL PRN Low PTT Protocol Insulin Human Regular 100 unit 101 mls @ 12.828 mls/hr 06/03/20 20:30 06/04/20 08:07 / Sodium Chloride IV 0 units/kg/hr .Q7H53M RJ 0.5 mls/hr Titration Protocol 0.1 UNITS/KG/HR Heparin Sodium/Sodium Chloride 250 mls @ 22.861 mls/hr 06/03/20 22:00 06/04/20 10:05 25,000 unit/ Sodium Chloride IV 15 units/kg/hr .[id number] RJ 19.051 mls/hr Administration Protocol 18 UNITS/KG/HR Potassium Chloride/Dextrose/Sod Cl 1,000 mls @ 150 mls/hr 06/04/20 09:00 06/04/20 09:09 D5%-1/2ns-Kcl 20 Meq/L Iv Solution IV 150 mls/hr .Q6H40M RJ Administration Memantine 5 mg 06/04/20 09:00 06/04/20 08:26 Memantine 10 Mg Tab PO 5 mg BID RJ Administration Naloxone HCl 0.2 mg 06/03/20 22:31 Naloxone 0.4 Mg/Ml 1 Ml Vial IV Q2M PRN Opioid Reversal Pantoprazole Sodium 40 mg 06/04/20 09:00 06/04/20 08:26 Pantoprazole 40 Mg Tablet PO 40 mg DAILY RJ Administration Propranolol HCl 20 mg 06/04/20 09:00 06/04/20 10:00 Propranolol 20 Mg Tab PO Not Given BID RJ Trazodone HCl 50 mg 06/03/20 22:45 06/04/20 00:10 Trazodone Hcl 50 Mg Tab PO 50 mg HS RJ Administration Intake and Output 06/03/20 06/04/20 06/04/20 22:59 06:59 14:59 Intake Total 24.801 199.020 50.716 Balance 24.801 199.020 50.716 Intake: Intake, IV Titration 24.801 199.020 50.716 Amount Heparin Sod,Pork in 0.45% 174.887 49.533 NaCl 25,000 unit In 0.45 % NaCl 1 250ml.bag @ 18 UNITS/KG/HR 22.861 mls/hr IV .[id number] [facility] Rx#: [id number] Insulin Regular 100 unit 24.801 24.133 1.183 In Sodium Chloride 0.9% 100 ml @ 0.1 UNITS/KG/HR 12.828 mls/hr IV .Q7H53M [facility] Rx#:[id number] Other: Weight 127.006 kg 06/04/20 05:22 06/04/20 04:26
[2020-06-04 12:32] LABS: Glucose,Whole Blood 376 mg/dL (75-99)
[2020-06-04 12:55] LABS: Cholesterol 150 mg/dL (<200); HDL Cholesterol 46 mg/dL (40-60); LDL Cholesterol,Calculated 97 mg/dL (0-99); Triglycerides 33 mg/dL (<150)
[2020-06-04 14:20] LABS: Glucose,Whole Blood 401 mg/dL (75-99)
[2020-06-04 15:44] LABS: Glucose,Whole Blood 375 mg/dL (75-99)
[2020-06-04 16:52] LABS: Glucose,Whole Blood 351 mg/dL (75-99)
[2020-06-04 17:51] LABS: Glucose,Whole Blood 408 mg/dL (75-99)
[2020-06-04 18:43] LABS: Glucose,Whole Blood 378 mg/dL (75-99)
[2020-06-04 19:54] LABS: Glucose,Whole Blood 346 mg/dL (75-99)
--- NOTE | 2020-06-04 20:20 | HP ---
HISTORY AND PHYSICAL This is a 74-year-old white male with history of CVA, dementia and diabetes who presented to the ER with hyperglycemia. He came in with severe elevated sugar and worsening confusion, mainly weakness and confusion, he says is why he came in, to get his home medicines of insulin. He says his medicines have been an on target. He takes Aricept 10 mg daily, Neurontin 300 t.i.d. for neuropathy, Zocor 40 at bedtime, insulin FlexPen 7 units before meals t.i.d., Namenda 5 b.i.d., tamsulosin 0.4 daily, Lantus 28 units daily, lisinopril/hydrochlorothiazide 10/12.5 one daily, omeprazole 20 daily, Inderal 20 b.i.d., Desyrel 50 at bedtime. ALLERGIES: NO KNOWN DRUG ALLERGIES. REVIEW OF SYSTEMS: Fourteen-point review of systems negative except for mentioned in HPI. PAST MEDICAL HISTORY: CVA, TIA, dementia, diabetes mellitus, GERD, dyslipidemia, hypertension, Agent [place] exposure in [place], DKA with metabolic encephalopathy, neuropathy of the feet, osteoporosis, sinus problems, arthritis, bilateral hands and feet. SURGICAL HISTORY: Appendectomy. SOCIAL HISTORY: Former smoker. No alcohol. No drugs. FAMILY HISTORY: Father was healthy, lived in his 80s. Mother with cancer. PHYSICAL EXAMINATION: VITAL SIGNS: Temperature 97 to 98, pulse 85 to 94, respiratory rate 16 to 18, blood pressure 114 to 178 over 50s to 70s. Oxygen saturation 97% on room air. CARDIOVASCULAR: S1, S2. LUNGS: Transmitted upper airway sounds. GI: Soft, non-tender. HEMATOLOGY: Negative Homans. PSYCH: Fair mood and affect. He looks sleepy, lethargic, like in a daze, but he is giving appropriate answers. He is sitting up eating. Labs were reviewed. Acetone positive. COVID detected, but he had COVID back in January. CO2 is 10. He is started on an insulin drip. EKG: No ST elevation. CT scan of the chest shows interstitial infiltrates. We are going to admit the patient, treat him for DKA, rehydrate him. Neurology consult for confusion. Hyponatremia, hyperkalemia secondary to DKA. Prerenal renal insufficiency secondary to dehydration from DKA. Elevated troponin, unclear etiology. Lactic acidosis. COVID positive. Acute kidney injury. COVID-19, non-STEMI. Cardiology is consulted. We will get Neurology and Pulmonology. Prognosis guarded. MMODL / IJN: [id number] /
[2020-06-04] MEDS: ATORVASTATIN 20 MG TAB PO SCH (20:40)
[2020-06-04] MEDS: MEMANTINE 5 MG TAB PO SCH (20:40)
[2020-06-04] MEDS: ACETAMINOPHEN TAB 325 MG TAB PO PRN (20:41)
[2020-06-04 20:43] LABS: Glucose,Whole Blood 247 mg/dL (75-99)
[2020-06-04 22:09] LABS: Glucose,Whole Blood 140 mg/dL (75-99)
[2020-06-04 22:58] LABS: Glucose,Whole Blood 77 mg/dL (75-99)
[2020-06-04 23:32] LABS: Glucose,Whole Blood 82 mg/dL (75-99)
[2020-06-05 00:08] LABS: Glucose,Whole Blood 86 mg/dL (75-99)
[2020-06-05 00:14] LABS: Potassium 3.9 mmol/L (3.5-5.1)
[2020-06-05 00:25] LABS: Calcium 9.2 mg/dL (8.4-10.2); Phosphorus 2.9 mg/dL (2.5-4.5)
[2020-06-05] MEDS: D5-0.45% NACL WITH KCL 20MEQ/L 1,000 ML IV SCH ×2 (00:40→10:45)
[2020-06-05 00:43] LABS: Glucose,Whole Blood 83 mg/dL (75-99)
[2020-06-05 02:18] LABS: Glucose,Whole Blood 164 mg/dL (75-99)
[2020-06-05 05:29] LABS: Basophils # (A) 0.1 k/uL (0-0.2); Basophils % (A) 1 %; Eosinophils # (A) 0.2 k/uL (0-0.7); Eosinophils % (A) 3 %; HCT 36.5 % (39.0-53.0); HGB 12.7 gm/dL (13.0-17.5); Lymphocytes # (A) 1.5 k/uL (1.0-4.8); Lymphocytes % (A) 23 %; MCH 32.2 pg (25.0-35.0); MCHC 34.9 g/dL (31.0-37.0); MCV 92.3 fL (80.0-100.0); Mean Platelet Volume 8.1; Monocytes # (A) 0.4 k/uL (0-1.0); Monocytes % (A) 6 %; Neutrophils # (A) 4.4 k/uL (1.3-7.7); Neutrophils % (A) 66 %; Platelet Count 207 k/uL (150-450); RBC 3.95 m/uL (4.30-5.90); RDW 12.3 % (11.5-15.5); WBC 6.7 k/uL (3.8-10.6)
[2020-06-05 06:03] LABS: Calcium 8.8 mg/dL (8.4-10.2); Phosphorus 2.7 mg/dL (2.5-4.5); Potassium 5.1 mmol/L (3.5-5.1)
[2020-06-05 06:19] LABS: Glucose,Whole Blood 456 mg/dL (75-99)
[2020-06-05] MEDS: INSULIN ASPART (NovoLOG) 100 UNIT/ML VIAL SQ SCH ×4 (07:03→21:39)
[2020-06-05] MEDS: ASPIRIN 81 MG PO SCH (08:49)
[2020-06-05] MEDS: CHOLECALCIFEROL 25 MCG (1000 IU) TABLET PO SCH (08:49)
[2020-06-05] MEDS: DONEPEZIL 10 MG TAB PO SCH (08:49)
[2020-06-05] MEDS: MEMANTINE 5 MG TAB PO SCH ×2 (08:49→21:39)
[2020-06-05] MEDS: PANTOPRAZOLE 40 MG TABLET PO SCH (08:49)
[2020-06-05] MEDS: HEPARIN SOD,PORK IN 0.45% NACL 25,000 UNIT in 0.45% NACL 1 250ML.BAG IV SCH ×2 (08:50→09:58)
[2020-06-05] MEDS: PROPRANOLOL 20 MG TAB PO SCH ×2 (09:58→21:39)
[2020-06-05] MEDS: lisinopriL 10 MG TAB PO SCH (10:01)
[2020-06-05 10:15] LABS: Albumin 3.9 g/dL (3.5-5.0); Calcium 9.4 mg/dL (8.4-10.2); Potassium 4.4 mmol/L (3.5-5.1); Total Bilirubin 0.5 mg/dL (0.2-1.3); Total Protein 6.6 g/dL (6.3-8.2)
[2020-06-05 10:54] VITALS: BMI 25.1
[2020-06-05 12:27] LABS: Glucose,Whole Blood 264 mg/dL (75-99)
--- NOTE | 2020-06-05 12:57 | P.PN ---
Subjective Progress Note Date: 06/05/20 HISTORY OF PRESENT ILLNESS: 06/04/2020 This is a 74-year-old male with a past medical history significant for hypertension, hyperlipidemia, GERD, and diabetes mellitus. 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 Dobbins during a previous hospitalization in January 2020. We have been asked to see the patient in consultation for elevated troponins. Patient examined at the bedside in the emergency room by Dr. Dobbins. Patient resides at [facility]. He states he was out for a walk when he began to feel short of breath. He reports he was n ausea and sweating. He denied any chest pain or pressure. Denied fever or chills. The patient is currently resting comfortably on a stretcher in the ER. His vital signs are stable. EKG reveals sinus mechanism with 1st degree AV block with no signs of acute ischemia. Right bundle branch block. Left anterior fascicular block. Chest xray no active cardiopulmonary disease. Laboratory data: WBC 10.5. Hemoglobin 12.6. Platelet count 222. Sodium 133. Potassium 4.0. BUN 34. Creatinine 1.43. Lactic acid 2.3. Repeat 0.8. Troponin 0.464. 0.601. 0.569. Current home cardiac medications include simvastatin 40 mg daily, propanolol 20mg twice a day, and lisinopril-hydrochlorothiazide 10-12.5 daily Echocardiogram completed reveals ejection fraction 55-60%, trace mitral regurgitation, and mild tricuspid regurgitation 06/05/2020 Patient examined this morning at the bedside by Dr. Dobbins. Patient is a/o x 1 this morning. He has pulled out 3 IVs per nursing. He continues to attempt to get out of the bed. Patient does report feeling confused and says "all these changes keep happening around here". He denies chest pain or pressure. He denies shortness of breath. Patient's acute kidney injury has resolved. Creatinine 1.0 today. Blood pressure is running on the higher side with the sy stolics in the 160s. PHYSICAL EXAM: VITAL SIGNS: Reviewed. GENERAL: Well-developed in no acute distress. HEENT: Head is normocephalic. Pupils are equal, round. Sclerae anicteric. Mucous membranes of the mouth are moist. Neck supple. No JVD or thyromegaly LUNGS: Respirations even and unlabored. Lungs diminished bilaterally. HEART: Regular rate and rhythm. S1 and S2 heard. EXTREMITIES: Normal range of motion. No clubbing or cyanosis. Peripheral pulses intact. No lower extremity edema ASSESSMENT: Shortness of breath Covid 19 DKA Abnormal troponins, possible NSTEMI Hypertension Hyperlipidemia Diabetes mellitus GERD Acute kidney injury, creatinine 1.7 on admission, resolved PLAN: Continue IV heparin for another 24 hours Continue aspirin, propranolol, and atorvastatin Resume home dose of lisinopril now that acute kidney injury has resolved Monitor blood pressure Further recommendations pending patient course Nurse practitioner note has been reviewed by physician. Signing provider agrees with the documented findings, assessment, and plan of care. Objective - Vital Signs Vital signs: Vital Signs Temp 97.9 F 06/05/20 12:22 Pulse 69 06/05/20 12:22 Resp 18 06/05/20 12:22 BP 172/79 06/05/20 12:22 Pulse Ox 100 06/05/20 12:22 Intake & Output 06/04/20 06/05/20 06/05/20 18:59 06:59 18:59 Intake Total 176.830 643.319 65.141 Output Total 440 550 Balance 176.830 203.319 -484.859 Weight 79.5 kg 79.5 kg Intake: Intake, IV Titration 176.830 103.319 65.141 Amount Heparin Sod,Pork in 0.45% 154.631 79.761 65.141 NaCl 25,000 unit In 0.45 % NaCl 1 250ml.bag @ 18 UNITS/KG/HR 22.861 mls/hr IV .[id number] [facility] Rx#: [id number] Insulin Regular 100 unit 22.199 23.558 In Sodium Chloride 0.9% 100 ml @ 0.1 UNITS/KG/HR 12.828 mls/hr IV .Q7H53M [facility] Rx#:[id number] Oral 540 Output: Urine 440 550 Other: Voiding Method Toilet Toilet Urinal Urinal # Voids 1 2 - Labs CBC & Chem 7: 06/05/20 04:29 06/05/20 09:12 Labs: Abnormal Lab Results - Last 24 Hours (Table) 06/04/20 06/04/20 06/04/20 Range/Units 14:06 14:28 15:39 RBC (4.30-5.90) m/uL Hgb (13.0-17.5) gm/dL Hct (39.0-53.0) % APTT >200.0 H* (22.0-30.0) sec Sodium (137-145) mmol/L Carbon Dioxide (22-30) mmol/L BUN (9-20) mg/dL Glucose (74-99) mg/dL POC Glucose (mg/dL) 401 H 375 H (75-99) mg/dL 06/04/20 06/04/20 06/04/20 Range/Units 16:41 17:46 18:41 RBC (4.30-5.90) m/uL Hgb (13.0-17.5) gm/dL Hct (39.0-53.0) % APTT (22.0-30.0) sec Sodium (137-145) mmol/L Carbon Dioxide (22-30) mmol/L BUN (9-20) mg/dL Glucose (74-99) mg/dL POC Glucose (mg/dL) 351 H 408 H 378 H (75-99) mg/dL 06/04/20 06/04/20 06/04/20 Range/Units 19:52 20:41 22:00 RBC (4.30-5.90) m/uL Hgb (13.0-17.5) gm/dL Hct (39.0-53.0) % APTT (22.0-30.0) sec Sodium (137-145) mmol/L Carbon Dioxide (22-30) mmol/L BUN (9-20) mg/dL Glucose (74-99) mg/dL POC Glucose (mg/dL) 346 H 247 H 140 H (75-99) mg/dL 06/04/20 06/04/20 06/05/20 Range/Units 23:45 23:45 02:07 RBC (4.30-5.90) m/uL Hgb (13.0-17.5) gm/dL Hct (39.0-53.0) % APTT 193.9 H* (22.0-30.0) sec Sodium 134 L (137-145) mmol/L Carbon Dioxide (22-30) mmol/L BUN 21 H (9-20) mg/dL Glucose (74-99) mg/dL POC Glucose (mg/dL) 164 H (75-99) mg/dL 06/05/20 06/05/20 06/05/20 Range/Units 04:29 04:29 06:18 RBC 3.95 L (4.30-5.90) m/uL Hgb 12.7 L (13.0-17.5) gm/dL Hct 36.5 L (39.0-53.0) % APTT (22.0-30.0) sec Sodium 130 L (137-145) mmol/L Carbon Dioxide 21 L (22-30) mmol/L BUN (9-20) mg/dL Glucose 339 H (74-99) mg/dL POC Glucose (mg/dL) 456 H (75-99) mg/dL 06/05/20 06/05/20 06/05/20 Range/Units 09:12 09:12 12:26 RBC (4.30-5.90) m/uL Hgb (13.0-17.5) gm/dL Hct (39.0-53.0) % APTT 47.8 H (22.0-30.0) sec Sodium 135 L (137-145) mmol/L Carbon Dioxide 17 L (22-30) mmol/L BUN (9-20) mg/dL Glucose 340 H (74-99) mg/dL POC Glucose (mg/dL) 264 H (75-99) mg/dL
[2020-06-05 13:09] LABS: C Reactive Protein 1.2 mg/dL (<1.0)
--- NOTE | 2020-06-05 14:08 | PN ---
PROGRESS NOTE This 74-year-old white male remains on heparin drip. Remains on his Aricept. Neurology is going to see him for confusion today. His sugars are much improved. Hemoglobin 12.7. Sodium is 135, potassium 4.4. Sugars are 300s to 400s. CARDIOVASCULAR: S1, S2. LUNGS: Clear. GI: Soft. HEMATOLOGY: Negative Homans. Echocardiogram was reviewed. Cardiology await for their recommendations. He has COVID- 19 history, shortness of breath, but that for 3 months, DKA, improving, abnormal troponins, possible STEMI, dyslipidemia, hypertension, memory loss, diabetes mellitus, GERD. They are going to do an echo. Continue IV heparin, aspirin, beta blockers, atorvastatin. Prognosis guarded. MMODL / IJN: [id number] /
[2020-06-05 14:41] LABS: Hemoglobin A1C 9.9 % (4.0-6.0)
[2020-06-05 17:33] LABS: Glucose,Whole Blood 386 mg/dL (75-99)
[2020-06-05 20:16] LABS: Glucose,Whole Blood 244 mg/dL (75-99)
[2020-06-05] MEDS: traZODone HCL 50 MG TAB PO SCH (21:39)
[2020-06-05] MEDS: ATORVASTATIN 20 MG TAB PO SCH (21:39)
[2020-06-05] MEDS: ALPRAZolam 0.25 MG TAB PO PRN (21:39)
[2020-06-05] MEDS: INSULIN DETEMIR (LEVEMIR) 100 UNIT/ML SYR SQ SCH (21:40)
[2020-06-06 06:17] LABS: Glucose,Whole Blood 135 mg/dL (75-99)
[2020-06-06] MEDS: INSULIN ASPART (NovoLOG) 100 UNIT/ML VIAL SQ SCH ×4 (06:48→20:38)
[2020-06-06] MEDS: HEPARIN SOD,PORK IN 0.45% NACL 25,000 UNIT in 0.45% NACL 1 250ML.BAG IV SCH (07:34)
[2020-06-06] MEDS: lisinopriL 10 MG TAB PO SCH (08:12)
[2020-06-06] MEDS: ASPIRIN 81 MG PO SCH (08:12)
[2020-06-06] MEDS: MEMANTINE 5 MG TAB PO SCH ×2 (08:12→20:37)
[2020-06-06] MEDS: DONEPEZIL 10 MG TAB PO SCH (08:12)
[2020-06-06] MEDS: CHOLECALCIFEROL 25 MCG (1000 IU) TABLET PO SCH (08:12)
[2020-06-06] MEDS: PROPRANOLOL 20 MG TAB PO SCH ×2 (08:12→20:37)
[2020-06-06] MEDS: PANTOPRAZOLE 40 MG TABLET PO SCH (08:12)
[2020-06-06] MEDS: D5-0.45% NACL WITH KCL 20MEQ/L 1,000 ML IV SCH ×2 (08:16→22:24)
--- NOTE | 2020-06-06 09:18 | P.CNNES ---
History of Present Illness Consult date: 06/06/20 Requesting physician: Guero Todd Reason for Consult: Memory loss History of Present Illness: Patient is a 74-year-old male came to the hospital by ambulance on 06/03/2020 at 7:22 PM for altered mental status. Patient does not know details why he came to the hospital, and asks me to check with his son who knows details about him. As per EMS flow sheet, patient has been feeling not well, very tired and weak. Patient was alert and oriented 2. Patient was alert to person and place but very poor historian and did not know the year. Production Inspector on the scene stated that patient was acting appropriately just very tired. Patient was found to have hyperglycemia and hypertension. Patient had rapid shallow respirations and was cool and clammy. Patient's blood sugars has been running between 150 and 500 for at least 2 weeks. Patient had many muffins and snacks by his TV table and stated that he has been eating those to keep his sugars up. Stroke scale was negative. Patient's blood pressure at the scene was 212/92, pulse rate 97, respiration 28, saturation 98%. Neurology was consulted for confusion. Vital signs on arrival blood pressure 178/76, pulse 74, temperature 97.7. 2-D echo showed normal left-ventricular size. Mild concentric LVH. EF is between 55-60%. Aortic valve is trileaflet and is mildly thickened. Mild mitral annular calcification. EKG shows sinus rhythm with first-degree AV block. Possible left atrial enlargement. Right bundle branch block. Left anterior fascicular block. Chest x-ray showed no active cardiopulmonary disease. There is clearing of the interstitial infiltrates and atelectasis in both lungs compared to old exam. Patient's blood test shows WBC 13.9, hemoglobin 14.2, platelets 249. PT/PTT normal. Sodium 130 potassium 5.4, BUN 34, creatinine 1.76. Glucose 733 lactic acid 2.9, troponins are mildly elevated 0.464 TSH is normal. UA is negative, nava virus PCR positive. Acetone is positive. according to the nursing report, patient overnight was very confused, restless, pulling IV lines 3, the night was rough, was very confused but today he is better. Patient states that he has memory problems going on for 2 years, but requested for me to talk to his son Red. Patient states that he lives in a [facility] facility, was not sure that he lives by himself, states "I believe". He has 2 children, son who lives close by but daughter lives in [place]. He is for quite a while. Patient has history of diabetes for last 30-40 years since he was in weight numb. He has smoked 1 pack per day since he was teenager, quit 4-5 years ago. Never been a heavy drinker, drinks patti occasionally. Review of Systems patient denies any fever or chills. He denies any headache, no visual problems. No chest pain, no abdominal pain. Denies nausea vomiting diarrhea. He gets occasional headaches but no headache at this time. He has arthritis. Denies double vision, loss of vision. Denies pain in the ears, otalgia. He has numbness of the hands. Past Medical History Past Medical History: CVA/TIA, Dementia, Diabetes Mellitus, GERD/Reflux, Hyperlipidemia, Hypertension Additional Past Medical History / Comment(s): Agent [place] exposure in [place], IDDM type II, DKA with metabolic encephalopathy, neuropathy bilateral feet, osteoporosis, sinus problems, arthritis bilateral hands/feet. History of Any Multi-Drug Resistant Organisms: None Reported Past Surgical History: Appendectomy Additional Past Surgical History / Comment(s): Pt thinks he may have had an appe ndectomy, colonoscopy-normal Past Anesthesia/Blood Transfusion Reactions: No Reported Reaction Past Psychological History: No Psychological Hx Reported Additional Psychological History / Comment(s): Pt resides at [facility]. He has dementia. He is a [place] . He uses no assistive device. He no longer drives, family takes him to [employer]. He has a pet cat. Staff manages his medications. He has a glucometer. Smoking Status: Former smoker Past Alcohol Use History: Occasional Additional Past Alcohol Use History / Comment(s): Pt started smoking in 1964 and quit in 1974. Past Drug Use History: None Reported - Past Family History Father Family Medical History: No Reported History Additional Family Medical History / Comment(s): Father was healthy and lived into his 80s. Mother Family Medical History: Cancer Additional Family Medical History / Comment(s): Mother had some form of cancer (family do not know kind) which she of in her 50s Medications and Allergies Home Medications Medication Instructions Recorded Confirmed Type Donepezil [Aricept] 10 mg PO DAILY 11/19/15 06/03/20 History Gabapentin [Neurontin] 300 mg PO TID 11/19/15 06/03/20 History Simvastatin [Zocor] 40 mg PO HS 08/05/17 06/03/20 History Glucagon Emergency Kit 1 mg IM ONCE PRN 02/08/20 06/03/20 History Insulin Aspart [Insulin Aspart 7 unit SQ AC-TID 02/08/20 06/03/20 History Flexpen] Memantine [Namenda] 5 mg PO BID 02/08/20 06/03/20 History Tamsulosin HCl [Flomax] 0.4 mg PO DAILY 02/08/20 06/03/20 History Zinc Sulfate [Orazinc] 220 mg PO DAILY #20 cap 02/11/20 06/03/20 Rx ALPRAZolam [Xanax] 0.25 mg PO TID PRN tab 02/21/20 06/03/20 Rx Acetaminophen Tab [Tylenol] 650 mg PO Q6HR PRN tab 02/21/20 06/03/20 Rx Cholecalciferol [Vitamin D3 (25 1,000 unit PO DAILY tab 02/21/20 06/03/20 Rx Mcg = 1000 Iu)] Insulin Glargine [Lantus] 28 unit SQ DAILY 06/03/20 06/03/20 History Lisinopril-Hctz 10-12.5 mg 1 tab PO DAILY 06/03/20 06/03/20 History [Zestoretic 10-12.5] Omeprazole 20 mg PO DAILY 06/03/20 06/03/20 History Propranolol [Inderal] 20 mg PO BID 06/03/20 06/03/20 History traZODone HCL [Desyrel] 50 mg PO HS 06/03/20 06/03/20 History Allergies Allergy/AdvReac Type Severity Reaction Status Date / Time No Known Allergies Allergy Verified 06/03/20 22:05 Physical Examination - Vital Signs Vital Signs: Vital Signs Temp Pulse Resp BP Pulse Ox 06/06/20 08:10 97.7 F 66 18 135/67 98 06/06/20 04:00 97.9 F 70 18 144/67 97 06/06/20 02:00 69 18 06/06/20 00:00 97.8 F 69 18 180/79 97 06/05/20 20:00 98.0 F 71 18 165/73 98 06/05/20 16:03 97.8 F 70 16 163/71 97 06/05/20 13:17 69 18 06/05/20 12:22 97.9 F 69 18 172/79 100 Intake and Output 06/05/20 06/06/20 06/06/20 22:59 06:59 14:59 Intake Total 240 Balance 240 Intake: Oral 240 Other: Voiding Method Toilet Toilet Urinal Urinal # Voids 3 2 Weight 81.5 kg Patient is an elderly male, very pleasant, in no acute distress. Patient is alert awake. He knows it is [facility] and that he is in the hospital but does not know the name of the hospital. He states it is May and the year is 2021. He knows name of the current president. He is not sure if it is winter or spring season, but knows that May is in the spring season. Speech and language functions are normal. Attention, concentration and fund of knowledge is slightly limited. On cranial examination, pupils are round and reacting to light, visual walter are full on confrontation, extraocular muscles are intact with no nystagmus. Face is symmetric, tongue protrudes to the midline. Palatal elevation and sensation normal, hearing is normal to conversation, slightly decreased for f fermin rubbing and shoulder shrug normal, facial sensation normal. Shoulder shrug normal. On muscle strength testing, there is no pronator drift and the strength is normal in arms and legs distally and proximally. Deep tendon reflexes are symmetric, 2 at the biceps, 1 brachioradialis, trace at the knees and ankles and plantars are withdrawal bilaterally. Sensory to touch is equal with no neglect. Cerebellar function showed no ataxia for [id number] testing. No dysdiadochokinesia. Tone and bulk of muscles normal. Gait deferred. On general examination, there is no carotid bruit or murmur, S1-S2 audible. Abdomen is soft nontender. Chest is clear. Peripheral pulses are present. No edema. Results - Laboratory Findings CBC and BMP: 06/06/20 08:35 06/06/20 08:35 Abnormal Lab Findings: Abnormal Labs 06/03/20 06/03/20 06/03/20 19:29 19:43 19:43 WBC 13.9 H RBC Hgb Hct Neutrophils # 12.8 H Lymphocytes # 0.6 L APTT 20.2 L Sodium Potassium Chloride Carbon Dioxide BUN Creatinine Glucose POC Glucose (mg/dL) >600 H Hemoglobin A1c Plasma Lactic Acid Clifford Calcium Magnesium Alkaline Phosphatase Troponin I C-Reactive Protein Urine Glucose (UA) Urine Ketones Coronavirus (PCR) 06/03/20 06/03/20 06/03/20 19:43 19:43 19:43 WBC RBC Hgb Hct Neutrophils # Lymphocytes # APTT Sodium 130 L Potassium 5.4 H Chloride 96 L Carbon Dioxide 10 L BUN 34 H Creatinine 1.76 H Glucose 733 H* POC Glucose (mg/dL) Hemoglobin A1c Plasma Lactic Acid Clifford 2.9 H* Calcium 10.3 H Magnesium 2.5 H Alkaline Phosphatase 140 H Troponin I 0.464 H* C-Reactive Protein Urine Glucose (UA) Urine Ketones Coronavirus (PCR) 06/03/20 06/03/20 06/03/20 19:48 19:55 21:45 WBC RBC Hgb Hct Neutrophils # Lymphocytes # APTT Sodium Potassium Chloride Carbon Dioxide BUN Creatinine Glucose POC Glucose (mg/dL) 481 H Hemoglobin A1c Plasma Lactic Acid Clifford Calcium Magnesium Alkaline Phosphatase Troponin I C-Reactive Protein Urine Glucose (UA) 4+ H Urine Ketones 3+ H Coronavirus (PCR) Detected A 06/03/20 06/03/20 06/03/20 22:51 23:43 23:43 WBC RBC Hgb Hct Neutrophils # Lymphocytes # APTT Sodium 132 L Potassium Chloride Carbon Dioxide 15 L BUN 32 H Creatinine 1.44 H Glucose 365 H POC Glucose (mg/dL) 420 H Hemoglobin A1c Plasma Lactic Acid Clifford 2.3 H* Calcium Magnesium Alkaline Phosphatase Troponin I C-Reactive Protein Urine Glucose (UA) Urine Ketones Coronavirus (PCR) 06/03/20 06/03/20 06/04/20 23:43 23:43 00:43 WBC RBC Hgb Hct Neutrophils # Lymphocytes # APTT Sodium Potassium Chloride Carbon Dioxide BUN Creatinine Glucose POC Glucose (mg/dL) 348 H 284 H Hemoglobin A1c Plasma Lactic Acid Clifford Calcium Magnesium Alkaline Phosphatase Troponin I 0.601 H* C-Reactive Protein Urine Glucose (UA) Urine Ketones Coronavirus (PCR) 06/04/20 06/04/20 06/04/20 02:11 03:46 04:26 WBC RBC Hgb Hct Neutrophils # Lymphocytes # APTT Sodium 133 L Potassium Chloride Carbon Dioxide 19 L BUN 34 H Creatinine 1.43 H Glucose 209 H POC Glucose (mg/dL) 263 H 243 H Hemoglobin A1c Plasma Lactic Acid Clifford Calcium Magnesium Alkaline Phosphatase Troponin I C-Reactive Protein Urine Glucose (UA) Urine Ketones Coronavirus (PCR) 06/04/20 06/04/20 06/04/20 04:26 04:26 04:53 WBC RBC Hgb Hct Neutrophils # Lymphocytes # APTT >200.0 H* Sodium Potassium Chloride Carbon Dioxide BUN Creatinine Glucose POC Glucose (mg/dL) 187 H Hemoglobin A1c Plasma Lactic Acid Clifford Calcium Magnesium Alkaline Phosphatase Troponin I 0.569 H* C-Reactive Protein Urine Glucose (UA) Urine Ketones Coronavirus (PCR) 06/04/20 06/04/20 06/04/20 05:22 06:00 06:53 WBC RBC 3.91 L Hgb 12.6 L Hct 35.6 L Neutrophils # Lymphocytes # APTT Sodium Potassium Chloride Carbon Dioxide BUN Creatinine Glucose POC Glucose (mg/dL) 160 H 128 H Hemoglobin A1c Plasma Lactic Acid Clifford Calcium Magnesium Alkaline Phosphatase Troponin I C-Reactive Protein Urine Glucose (UA) Urine Ketones Coronavirus (PCR) 06/04/20 06/04/20 06/04/20 07:57 08:29 09:02 WBC RBC Hgb Hct Neutrophils # Lymphocytes # APTT Sodium Potassium Chloride Carbon Dioxide BUN Creatinine Glucose POC Glucose (mg/dL) 140 H 146 H 152 H Hemoglobin A1c Plasma Lactic Acid Clifford Calcium Magnesium Alkaline Phosphatase Troponin I C-Reactive Protein Urine Glucose (UA) Urine Ketones Coronavirus (PCR) 06/04/20 06/04/20 06/04/20 09:46 11:00 12:26 WBC RBC Hgb Hct Neutrophils # Lymphocytes # APTT Sodium Potassium Chloride Carbon Dioxide BUN Creatinine Glucose POC Glucose (mg/dL) 187 H 246 H 376 H Hemoglobin A1c Plasma Lactic Acid Clifford Calcium Magnesium Alkaline Phosphatase Troponin I C-Reactive Protein Urine Glucose (UA) Urine Ketones Coronavirus (PCR) 06/04/20 06/04/20 06/04/20 14:06 14:28 15:39 WBC RBC Hgb Hct Neutrophils # Lymphocytes # APTT >200.0 H* Sodium Potassium Chloride Carbon Dioxide BUN Creatinine Glucose POC Glucose (mg/dL) 401 H 375 H Hemoglobin A1c Plasma Lactic Acid Clifford Calcium Magnesium Alkaline Phosphatase Troponin I C-Reactive Protein Urine Glucose (UA) Urine Ketones Coronavirus (PCR) 06/04/20 06/04/20 06/04/20 16:41 17:46 18:41 WBC RBC Hgb Hct Neutrophils # Lymphocytes # APTT Sodium Potassium Chloride Carbon Dioxide BUN Creatinine Glucose POC Glucose (mg/dL) 351 H 408 H 378 H Hemoglobin A1c Plasma Lactic Acid Clifford Calcium Magnesium Alkaline Phosphatase Troponin I C-Reactive Protein Urine Glucose (UA) Urine Ketones Coronavirus (PCR) 06/04/20 06/04/20 06/04/20 19:52 20:41 22:00 WBC RBC Hgb Hct Neutrophils # Lymphocytes # APTT Sodium Potassium Chloride Carbon Dioxide BUN Creatinine Glucose POC Glucose (mg/dL) 346 H 247 H 140 H Hemoglobin A1c Plasma Lactic Acid Clifford Calcium Magnesium Alkaline Phosphatase Troponin I C-Reactive Protein Urine Glucose (UA) Urine Ketones Coronavirus (PCR) 06/04/20 06/04/20 06/05/20 23:45 23:45 02:07 WBC RBC Hgb Hct Neutrophils # Lymphocytes # APTT 193.9 H* Sodium 134 L Potassium Chloride Carbon Dioxide BUN 21 H Creatinine Glucose POC Glucose (mg/dL) 164 H Hemoglobin A1c Plasma Lactic Acid Clifford Calcium Magnesium Alkaline Phosphatase Troponin I C-Reactive Protein Urine Glucose (UA) Urine Ketones Coronavirus (PCR) 06/05/20 06/05/20 06/05/20 04:29 04:29 04:29 WBC RBC 3.95 L Hgb 12.7 L Hct 36.5 L Neutrophils # Lymphocytes # APTT Sodium 130 L Potassium Chloride Carbon Dioxide 21 L BUN Creatinine Glucose 339 H POC Glucose (mg/dL) Hemoglobin A1c 9.9 H Plasma Lactic Acid Clifford Calcium Magnesium Alkaline Phosphatase Troponin I C-Reactive Protein Urine Glucose (UA) Urine Ketones Coronavirus (PCR) 06/05/20 06/05/20 06/05/20 04:29 06:18 09:12 WBC RBC Hgb Hct Neutrophils # Lymphocytes # APTT Sodium 135 L Potassium Chloride Carbon Dioxide 17 L BUN Creatinine Glucose 340 H POC Glucose (mg/dL) 456 H Hemoglobin A1c Plasma Lactic Acid Clifford Calcium Magnesium Alkaline Phosphatase Troponin I C-Reactive Protein 1.2 H Urine Glucose (UA) Urine Ketones Coronavirus (PCR) 06/05/20 06/05/20 06/05/20 09:12 12:26 17:32 WBC RBC Hgb Hct Neutrophils # Lymphocytes # APTT 47.8 H Sodium Potassium Chloride Carbon Dioxide BUN Creatinine Glucose POC Glucose (mg/dL) 264 H 386 H Hemoglobin A1c Plasma Lactic Acid Clifford Calcium Magnesium Alkaline Phosphatase Troponin I C-Reactive Protein Urine Glucose (UA) Urine Ketones Coronavirus (PCR) 06/05/20 06/06/20 20:15 06:16 WBC RBC Hgb Hct Neutrophils # Lymphocytes # APTT Sodium Potassium Chloride Carbon Dioxide BUN Creatinine Glucose POC Glucose (mg/dL) 244 H 135 H Hemoglobin A1c Plasma Lactic Acid Clifford Calcium Magnesium Alkaline Phosphatase Troponin I C-Reactive Protein Urine Glucose (UA) Urine Ketones Coronavirus (PCR) Assessment and Plan Assessment: * Altered mental status, likely due to delirium, probably due to metabolic encephalopathy. Reasons are multifactorial as as mentioned below. Patient also has some degree of cognitive impairment for which she is already on Aricept 10 mg and Namenda 5 mg twice a day. * Diabetic ketoacidosis, * Mild renal insufficiency, * Non-STEMI * Electrolyte imbalance including hyponatremia, hyperkalemia, * Acute Covid-19 infection Plan: * Treatment of underlying medical/metabolic conditions as per IM and cardiology * Patient's mental status has already improved since his blood sugars have come under control, has been rehydrated, and the renal functions improved. * Patient's RPR negative in the past. We will check B12, folate. TSH is normal 1.44. * We will try to contact patient's son for more details. * We'll follow. Addendum 12:23 PM I spoke to patient's on on phone. He states that he called the ambulance because patient's blood sugar was elevated, he was slightly confused, pale and weak. He agrees that patient lives in assisted living facility [facility] where he gets 3 meals provided and a person from a company comes and checks on his blood sugar and gives insulin 4 times a day, as he is type I diabetic. He tells me that patient does have diagnosis of dementia diagnosed 6-7 years ago for which he is on medications, follows up with a neurologist locally in [place]. He also informed that patient was diagnosed with Covid-19 around [facility] last year for which she was in the hospital for 10 days, discharged on 02/23/2020. After he was discharged, it took almost 7 days for him to get situated because of his underlying dementia. He prefers patient to be transferred to this facility earlier the better so this confusion for him does not re-occur. However, he does want patient to be treated medically for transfer. Neurologically clear for discharge.
[2020-06-06 10:04] LABS: Basophils % (A) 1 %; Eosinophils # (A) 0.1 k/uL (0-0.7); Eosinophils % (A) 2 %; HCT 38.3 % (39.0-53.0); HGB 13.4 gm/dL (13.0-17.5); Lymphocytes # (A) 1.1 k/uL (1.0-4.8); Lymphocytes % (A) 23 %; MCH 31.6 pg (25.0-35.0); MCHC 34.8 g/dL (31.0-37.0); MCV 90.7 fL (80.0-100.0); Monocytes # (A) 0.4 k/uL (0-1.0); Monocytes % (A) 7 %; Neutrophils # (A) 3.2 k/uL (1.3-7.7); Neutrophils % (A) 65 %; Platelet Count 222 k/uL (150-450); RBC 4.23 m/uL (4.30-5.90); RDW 12.1 % (11.5-15.5); WBC 4.9 k/uL (3.8-10.6)
[2020-06-06 10:32] LABS: Albumin 3.6 g/dL (3.5-5.0); Calcium 9.4 mg/dL (8.4-10.2); Total Bilirubin 0.5 mg/dL (0.2-1.3); Total Protein 6.1 g/dL (6.3-8.2)
--- NOTE | 2020-06-06 10:35 | P.PN ---
Subjective HISTORY OF PRESENT ILLNESS: 06/04/2020 This is a 74-year-old male with a past medical history significant for hypertension, hyperlipidemia, GERD, and diabetes mellitus. Patient does not follow with a hospice physician, however he was evaluated by Dr. Dobbins during a previous hospitalization in January 2020. We have been asked to see the patient in consultation for elevated troponins. [facility]. Patient resides at [facility]. He states he was out for a walk when he began to feel short of breath. He reports he was nausea and sweating. He denied any chest pain or pressure. Denied fever or chills. The patient is currently resting comfortably on a stretcher in the ER. His vital signs are stable. EKG reveals sinus mechanism with 1st degree AV block with no signs of acute ischemia. Right bundle branch block. Left anterior fascicular block. Chest xray no active cardiopulmonary disease. Laboratory data: WBC 10.5. Hemoglobin 12.6. Platelet count 222. Sodium 133. Potassium 4.0. BUN 34. Creatinine 1.43. Lactic acid 2.3. Repeat 0.8. Troponin 0.464. 0.601. 0.569. Current home cardiac medications include simvastatin 40 mg daily, propanolol 20mg twice a day, and lisinopril-hydrochlorothiazide 10-12.5 daily Echocardiogram completed reveals ejection fraction 55-60%, trace mitral regurgitation, and mild tricuspid regurgitation 06/05/2020 Patient examined this morning at the bedside by Dr. Dobbins. Patient is a/o x 1 this morning. He has pulled out 3 IVs per nursing. He continues to attempt to get out of the bed. Patient does report feeling confused and says "all these changes keep happening around here". He denies chest pain or pressure. He denies shortness of breath. Patient's acute kidney injury has resolved. Creatinine 1.0 today. Blood pressure is running on the higher side with the systolics in the 160s. 06/06 Patient seen and examined. Remains somewhat confused however states he feels better than yesterday. No chest pain pressure or SOB. Echo shows EF 55-60%. Patient has 1:1 sitter for confusion, previously pulling out IV's. BP's elevated yesterday however improved today, back on home Lisinopril. PHYSICAL EXAM: VITAL SIGNS: Reviewed. GENERAL: Well-developed in no acute distress. HEENT: Head is normocephalic. Pupils are equal, round. Sclerae anicteric. Mucous membranes of the mouth are moist. Neck supple. No JVD or thyromegaly LUNGS: Respirations even and unlabored. Lungs diminished bilaterally. HEART: Regular rate and rhythm. S1 and S2 heard. EXTREMITIES: Normal range of motion. No clubbing or cyanosis. Peripheral pulses intact. No lower extremity edema ASSESSMENT: Shortness of breath Covid 19 DKA NSTEMI, type 2 from DKA, COVID 19 Hypertension Hyperlipidemia Diabetes mellitus GERD Acute kidney injury, creatinine 1.7 on admission, resolved PLAN: Patient has recieved IV heparin for 48hrs and we will stop. Continue aspirin, propranolol, and atorvastatin Continue home dose of lisinopril now that acute kidney injury has resolved, BP's improved today. Echo with normal EF 55-60% and suspect Type 2 NSTEMI from DKA, COVID 19 i nfection. No further recommendations from a cardiology standpoint. Please call with any questions. Objective - Vital Signs Vital signs: Vital Signs Temp 97.7 F 06/06/20 08:10 Pulse 66 06/06/20 08:10 Resp 18 06/06/20 08:10 BP 135/67 06/06/20 08:10 Pulse Ox 98 06/06/20 08:10 Intake & Output 06/05/20 06/06/20 06/06/20 18:59 06:59 18:59 Intake Total 545.141 360 Output Total 550 Balance -4.859 360 Weight 79.5 kg 81.5 kg Intake: Intake, IV Titration 65.141 Amount Heparin Sod,Pork in 0.45% 65.141 NaCl 25,000 unit In 0.45 % NaCl 1 250ml.bag @ 18 UNITS/KG/HR 22.861 mls/hr IV .[id number] RJ Rx#: [id number] Oral 480 360 Output: Urine 550 Other: Voiding Method Toilet Toilet Toilet Urinal Urinal Urinal # Voids 3 2 - Labs CBC & Chem 7: 06/06/20 08:35 06/05/20 09:12 Labs: Abnormal Lab Results - Last 24 Hours (Table) 06/05/20 06/05/2021 Range/Units 04:29 04:29 09:12 RBC (4.30-5.90) m/uL Hct (39.0-53.0) % Sodium 135 L (137-145) mmol/L Carbon Dioxide 17 L (22-30) mmol/L Glucose 340 H (74-99) mg/dL POC Glucose (mg/dL) (75-99) mg/dL Hemoglobin A1c 9.9 H (4.0-6.0) % C-Reactive Protein 1.2 H (<1.0) mg/dL 06/05/20 06/05/20 06/05/20 Range/Units 12:26 17:32 20:15 RBC (4.30-5.90) m/uL Hct (39.0-53.0) % Sodium (137-145) mmol/L Carbon Dioxide (22-30) mmol/L Glucose (74-99) mg/dL POC Glucose (mg/dL) 264 H 386 H 244 H (75-99) mg/dL Hemoglobin A1c (4.0-6.0) % C-Reactive Protein (<1.0) mg/dL 06/06/20 06/06/20 Range/Units 06:16 08:35 RBC 4.23 L (4.30-5.90) m/uL Hct 38.3 L (39.0-53.0) % Sodium (137-145) mmol/L Carbon Dioxide (22-30) mmol/L Glucose (74-99) mg/dL POC Glucose (mg/dL) 135 H (75-99) mg/dL Hemoglobin A1c (4.0-6.0) % C-Reactive Protein (<1.0) mg/dL
[2020-06-06 11:47] LABS: Glucose,Whole Blood 214 mg/dL (75-99)
[2020-06-06] MEDS ORDERED: CYANOCOBALAMIN 1,000 MCG/ML 1 ML VIAL IM ONE (15:18)
[2020-06-06] MEDS: HEPARIN SODIUM,PORCINE/PF 5,000 UNIT/0.5 ML SYRINGE SQ SCH ×2 (16:00→23:10)
[2020-06-06 16:49] LABS: Glucose,Whole Blood 172 mg/dL (75-99)
[2020-06-06 20:00] LABS: Glucose,Whole Blood 294 mg/dL (75-99)
[2020-06-06] MEDS: ATORVASTATIN 20 MG TAB PO SCH (20:37)
[2020-06-06] MEDS: traZODone HCL 50 MG TAB PO SCH (20:37)
[2020-06-06] MEDS: INSULIN DETEMIR (LEVEMIR) 100 UNIT/ML SYR SQ SCH (20:37)
[2020-06-06 21:34] LABS: Folate, Serum 8.9 ng/mL
[2020-06-07 01:53] LABS: Glucose,Whole Blood 163 mg/dL (75-99)
[2020-06-07 06:05] LABS: Glucose,Whole Blood 83 mg/dL (75-99)
[2020-06-07] MEDS: INSULIN ASPART (NovoLOG) 100 UNIT/ML VIAL SQ SCH ×4 (06:21→20:12)
[2020-06-07] MEDS: ASPIRIN 81 MG PO SCH (09:34)
[2020-06-07] MEDS: PANTOPRAZOLE 40 MG TABLET PO SCH (09:35)
[2020-06-07] MEDS: PROPRANOLOL 20 MG TAB PO SCH ×2 (09:35→20:13)
[2020-06-07] MEDS: lisinopriL 10 MG TAB PO SCH (09:35)
[2020-06-07] MEDS: MEMANTINE 5 MG TAB PO SCH ×2 (09:35→20:13)
[2020-06-07] MEDS: DONEPEZIL 10 MG TAB PO SCH (09:35)
[2020-06-07] MEDS: CHOLECALCIFEROL 25 MCG (1000 IU) TABLET PO SCH (09:36)
[2020-06-07] MEDS: HEPARIN SODIUM,PORCINE/PF 5,000 UNIT/0.5 ML SYRINGE SQ SCH ×3 (09:36→23:30)
[2020-06-07 11:43] LABS: Glucose,Whole Blood 189 mg/dL (75-99)
--- NOTE | 2020-06-07 11:57 | PN ---
PROGRESS NOTE DATE OF SERVICE: 06/06/2020 A 74-year-old white male with DKA, delirium secondary to hyperglycemia and possible infection. The patient's sugars under much better control now. Neurology saw him for delirium and had no recommendations to change his medicines. He is feeling better. Cardiology saw him for non STEMI. He remains on heparin drip. Awaiting further recommendations. CARDIOVASCULAR: S1, S2. LUNGS: Clear. GI: Soft. PSYCH: He is giving appropriate answers. ASSESSMENT: 1. Non ST elevation myocardial infarction. 2. Diabetic ketoacidosis. 3. Possible dehydration and infection. Prognosis guarded, but he is improving. He is sitting up in bed, giving appropriate answers. MMODL / IJN: [id number] /
[2020-06-07] MEDS: FOLIC ACID 1 MG TAB PO SCH (13:46)
[2020-06-07 17:32] LABS: Glucose,Whole Blood 248 mg/dL (75-99)
[2020-06-07 19:59] LABS: Glucose,Whole Blood 196 mg/dL (75-99)
[2020-06-07] MEDS: INSULIN DETEMIR (LEVEMIR) 100 UNIT/ML SYR SQ SCH (20:12)
[2020-06-07] MEDS: ACETAMINOPHEN TAB 325 MG TAB PO PRN (20:12)
[2020-06-07] MEDS: traZODone HCL 50 MG TAB PO SCH (20:13)
[2020-06-07] MEDS: ALPRAZolam 0.25 MG TAB PO PRN (20:13)
[2020-06-07] MEDS: ATORVASTATIN 20 MG TAB PO SCH (20:13)
[2020-06-07] MEDS: D5-0.45% NACL WITH KCL 20MEQ/L 1,000 ML IV SCH (23:30)
--- NOTE | 2020-06-07 23:41 | P.PN ---
Subjective Progress Note Date: 06/07/20 Principal diagnosis: Acute DKA Elevated troponin level Delirium Patient is a 74-year-old male with a known history of hypertension, hyperlipidemia, GERD, diabetes type 2 and dementia presents to ER due to hypoglycemia. Patient lives independently at [facility] however staff does check on him 3 times a day. Patient is also having generalized weakness. No nausea vomiting or diarrhea. No chest pain or shortness breath. No prior history of cardiac disease. Patient was found to have acute diabetic ketoacidosis And elevated troponin level. Patient does have history of COVID-19 infection. Tested + on 06/03/20 Patient became delirious and neurology was consulted. Bedside sitter is in place. 2D echocardiogram showed ejection fraction 55 to 60%. 06/07/2020 Patient denied any complaints of chest pain or shortness of breath. No nausea vomiting or abdominal pain. Somewhat confused. Currently with constant observer. Blood pressure is is elevated with 164/74 and pulse 65. Patient is being: Hypertensive medications which are being titrated. Patient was found to have elevated troponin level and was started on heparin drip. Heparin drip has been discontinued yesterday Laboratory data reviewed and blood sugar is in 200s. And patient was started on subcu heparin. Currently oxygen saturation at 99% on room air. Objective - Vital Signs Vital signs: Vital Signs Temp 98.1 F 06/07/20 19:45 Pulse 65 06/07/20 19:45 Resp 16 06/07/20 20:00 BP 130/86 06/07/20 21:26 Pulse Ox 99 06/07/20 19:45 Intake & Output 06/07/20 06/07/20 06/08/20 06:59 18:59 06:59 Intake Total 720 Balance 720 Weight 83 kg Intake: Oral 720 Other: Voiding Method Toilet Toilet Urinal Urinal # Voids 1 3 - Exam PHYSICAL EXAMINATION: Patient is lying in the bed comfortably, no acute distress, awake alert and oriented.. HEENT: Normocephalic. Neck is supple. Pupils reactive. Nostrils clear. Oral cavity is moist. Ears reveal no drainage. Neck reveals no JVD, carotid bruits, or thyromegaly. CHEST EXAMINATION: Trachea is central. Symmetrical expansion. Lung walter clear to auscultation and percussion. CARDIAC: Normal S1, S2 with no gallops. No murmurs ABDOMEN: Soft. Bowel sounds normal. No organomegaly. No abdominal bruits. Extremities: reveal no edema. No clubbing or cyanosis Neurologically awake, alert, oriented x2-3 with well-coordinated movements. No focal deficits noted Skin: No rash or skin lesions. Psychiatric: Coperative. Nonsuicidal Musculoskeletal: No joint swelling or deformity. Normal range of motion. - Labs CBC & Chem 7: 06/06/20 08:35 06/06/20 08:35 Labs: Abnormal Lab Results - Last 24 Hours (Table) 06/07/20 06/07/20 06/07/20 Range/Units 01:51 11:39 17:11 POC Glucose (mg/dL) 163 H 189 H 248 H (75-99) mg/dL 06/07/20 Range/Units 19:56 POC Glucose (mg/dL) 196 H (75-99) mg/dL Assessment and Plan Assessment: Acute diabetic ketoacidosis resolved now. Patient is currently subcu insulin titrate dose as needed. Altered mental status likely due to delirium. Possible metabolic encephalopathy multifactorial Elevated troponin level possible non-ST elevated CA likely due to COVID-19 infection and DKA Acute COVID-19 infection diagnosed on 06/03/2020. Initially diagnosed around [place] time. Hypovolemic hyponatremia Mild acute kidney injury Dehydration volume depletion DVT prophylaxis Heparin subcu Plan: Patient will be continued insulin regimen with Levemir and insulin sliding scale. Continue with lisinopril and monitor blood pressure closely and Norvasc will be added if continues to be elevated. Patient was continued on heparin drip but currently discontinued after 48 hours. Continue with aspirin and statins and appropriate. Continue with constant observer and monitor mental status closely. Anticipate discharge once clinically improves. Follow-up closely. Time with Patient: Greater than 30
[2020-06-08 06:13] LABS: Glucose,Whole Blood 153 mg/dL (75-99)
[2020-06-08] MEDS: INSULIN ASPART (NovoLOG) 100 UNIT/ML VIAL SQ SCH ×2 (06:14→12:34)
[2020-06-08] MEDS: ASPIRIN 81 MG PO SCH (08:59)
[2020-06-08] MEDS: HEPARIN SODIUM,PORCINE/PF 5,000 UNIT/0.5 ML SYRINGE SQ SCH (08:59)
[2020-06-08] MEDS: PROPRANOLOL 20 MG TAB PO SCH (08:59)
[2020-06-08] MEDS: DONEPEZIL 10 MG TAB PO SCH (08:59)
[2020-06-08] MEDS: CHOLECALCIFEROL 25 MCG (1000 IU) TABLET PO SCH (08:59)
[2020-06-08] MEDS: lisinopriL 10 MG TAB PO SCH (08:59)
[2020-06-08] MEDS: FOLIC ACID 1 MG TAB PO SCH (08:59)
[2020-06-08] MEDS: PANTOPRAZOLE 40 MG TABLET PO SCH (09:01)
[2020-06-08] MEDS: MEMANTINE 5 MG TAB PO SCH (09:01)
--- NOTE | 2020-06-08 09:22 | P.PN ---
Subjective Progress Note Date: 06/07/20 Patient was seen for a follow-up. Patient is reclining comfortably in the bed. Patient is more alert and awake. His mentation is much better. The sitter is present, and patient is much more calm. No further agitation, confusion. Offers no complaints. Objective - Vital Signs Vital signs: Vital Signs Temp 98.1 F 06/07/20 19:45 Pulse 65 06/07/20 19:45 Resp 16 06/07/20 20:00 BP 130/86 06/07/20 21:26 Pulse Ox 99 06/07/20 19:45 Intake & Output 06/07/20 06/07/20 06/08/20 06:59 18:59 06:59 Intake Total 720 Balance 720 Weight 83 kg Intake: Oral 720 Other: Voiding Method Toilet Toilet Urinal Urinal # Voids 1 3 - Exam Patient is alert and awake, much more normal affect. Normal mentation and processing time. Patient denies headache. Patient states it is May and the year is 2021. I reoriented him about the year. Patient states she is in [facility]. No pronator drift. The strength appears normal. Cranial nerves normal. - Labs CBC & Chem 7: 06/06/20 08:35 06/06/20 08:35 Labs: Abnormal Lab Results - Last 24 Hours (Table) 06/07/20 06/07/20 06/07/20 Range/Units 01:51 11:39 17:11 POC Glucose (mg/dL) 163 H 189 H 248 H (75-99) mg/dL 06/07/20 Range/Units 19:56 POC Glucose (mg/dL) 196 H (75-99) mg/dL Assessment and Plan Assessment: * Altered mental status, likely due to delirium, seems to have resolved. Reasons are multifactorial as as mentioned below. * Mild cognitive impairment versus mild dementia, for which patient is already on Aricept 10 mg and Namenda 5 mg twice a day. * Diabetic ketoacidosis, * Mild renal insufficiency, * Non-STEMI * Electrolyte imbalance including hyponatremia, hyperkalemia, * Acute Covid-19 infection Plan: * Patient's mentation has much improved. * Treatment of underlying medical/metabolic conditions as per IM and cardiology * Patient's blood sugars have come under control, has been rehydrated, and the renal functions has returned back to normal. * Patient's RPR negative in the past. B12 784, folate 8.9. TSH is normal 1.44. We will start folic acid. * Neurologically clear. We will sign off.
[2020-06-08 09:42] VITALS: RESP 20
[2020-06-08 11:44] VITALS: BP 155/78; PULSE 63; TEMP 98
[2020-06-08 12:15] LABS: Glucose,Whole Blood 254 mg/dL (75-99)
--- NOTE | 2020-06-26 10:16 | P.DS ---
Providers Date of admission: 06/03/20 22:31 Expected date of discharge: 06/08/20 Attending physician: Guero Todd Consults: 06/04/20 18:12 Consult Physician Routine Consulting Provider: Connie Owen Consult Reason/Comments: memory loss Do you want consulting provider notified?: Yes Primary care physician: [facility] Course: Discharge diagnosis Acute diabetic ketoacidosis resolved now. Patient is currently subcu insulin titrate dose as needed. Altered mental status likely due to delirium. Possible metabolic encephalopathy multifactorial Elevated troponin level possible non-ST elevated AL likely due to COVID-19 infection and DKA Acute COVID-19 infection diagnosed on 06/03/2020. Initially diagnosed around [place] time. Hypovolemic hyponatremia Mild acute kidney injury Dehydration volume depletion DVT prophylaxis Heparin subcu Hospital course Patient is a 74-year-old male with a known history of hypertension, hyperlipidemia, GERD, diabetes type 2 and dementia presents to ER due to hypoglycemia. Patient lives independently at [facility] however staff does check on him 3 times a day. Patient is also having generalized weakness. No nausea vomiting or diarrhea. No chest pain or shortness breath. No prior history of cardiac disease. Patient was found to have acute diabetic ketoacidosis And elevated troponin level. Patient does have history of COVID-19 infection. Tested + on 06/03/20 Patient became delirious and neurology was consulted. Bedside sitter is in place. 2D echocardiogram showed ejection fraction 55 to 60%. 06/07/2020 Patient denied any complaints of chest pain or shortness of breath. No nausea vomiting or abdominal pain. Somewhat confused. Currently with constant observer. Blood pressure is is elevated with 164/74 and pulse 65. Patient is being: Hypertensive medications which are being titrated. Patient was found to have elevated troponin level and was started on heparin drip. Heparin drip has been discontinued yesterday Laboratory data reviewed and blood sugar is in 200s. And patient was started on subcu heparin. Currently oxygen saturation at 99% on room air. 06/08/2020 Patient is currently resting in the bed comfortable. Awake alert oriented. Mentation is much improved. DKA has resolved and patient was started on blood pressure medications. Heparin drip has been discontinued. Patient was seen by cardiology and recommends no acute distress at this time. Blood sugars are better controlled. Patient will be continued on aspirin and lisinopril. Hydrochlorothiazide has been discontinued. Patient is being discharged home today. Cleared from neurology standpoint as well. Follow with primary care physician X3. To 5 days. PHYSICAL EXAMINATION: Patient is lying in the bed comfortably, no acute distress, awake alert and oriented.. HEENT: Normocephalic. Neck is supple. Pupils reactive. Nostrils clear. Oral cavity is moist. Ears reveal no drainage. Neck reveals no JVD, carotid bruits, or thyromegaly. CHEST EXAMINATION: Trachea is central. Symmetrical expansion. Lung walter clear to auscultation and percussion. CARDIAC: Normal S1, S2 with no gallops. No murmurs ABDOMEN: Soft. Bowel sounds normal. No organomegaly. No abdominal bruits. Extremities: reveal no edema. No clubbing or cyanosis Neurologically awake, alert, oriented x2-3 with well-coordinated movements. No focal deficits noted Skin: No rash or skin lesions. Psychiatric: Coperative. Nonsuicidal Musculoskeletal: No joint swelling or deformity. Normal range of motion. Discharge vitals reviewed. Patient Condition at Discharge: Serious Plan - Discharge Summary Discharge Rx Participant: No New Discharge Prescriptions: New Aspirin 81 mg PO DAILY #30 chew Folic Acid 1 mg PO DAILY #30 tab lisinopriL [Zestril] 10 mg PO DAILY #30 tab Continue Gabapentin [Neurontin] 300 mg PO TID Donepezil [Aricept] 10 mg PO DAILY Simvastatin [Zocor] 40 mg PO HS Glucagon Emergency Kit 1 mg IM ONCE PRN PRN Reason: Hypoglycemia Insulin Aspart [Insulin Aspart Flexpen] 7 unit SQ AC-TID Memantine [Namenda] 5 mg PO BID Tamsulosin HCl [Flomax] 0.4 mg PO DAILY Zinc Sulfate [Orazinc] 220 mg PO DAILY #20 cap Acetaminophen Tab [Tylenol] 650 mg PO Q6HR PRN tab PRN Reason: Fever And/ Or Pain Cholecalciferol [Vitamin D3 (25 Mcg = 1000 Iu)] 1,000 unit PO DAILY tab ALPRAZolam [Xanax] 0.25 mg PO TID PRN tab PRN Reason: Anxiety traZODone HCL [Desyrel] 50 mg PO HS Propranolol [Inderal] 20 mg PO BID Insulin Glargine [Lantus] 28 unit SQ DAILY Omeprazole 20 mg PO DAILY Discontinued Lisinopril-Hctz 10-12.5 mg [Zestoretic 10-12.5] 1 tab PO DAILY Discharge Medication List Donepezil [Aricept] 10 mg PO DAILY 11/19/15 [History] Gabapentin [Neurontin] 300 mg PO TID 11/19/15 [History] Simvastatin [Zocor] 40 mg PO HS 08/05/17 [History] Glucagon Emergency Kit 1 mg IM ONCE PRN 02/08/20 [History] Insulin Aspart [Insulin Aspart Flexpen] 7 unit SQ AC-TID 02/08/20 [History] Memantine [Namenda] 5 mg PO BID 02/08/20 [History] Tamsulosin HCl [Flomax] 0.4 mg PO DAILY 02/08/20 [History] Zinc Sulfate [Orazinc] 220 mg PO DAILY #20 cap 02/11/20 [Rx] ALPRAZolam [Xanax] 0.25 mg PO TID PRN tab 02/21/20 [Rx] Acetaminophen Tab [Tylenol] 650 mg PO Q6HR PRN tab 02/21/20 [Rx] Cholecalciferol [Vitamin D3 (25 Mcg = 1000 Iu)] 1,000 unit PO DAILY tab 02/21/20 [Rx] Insulin Glargine [Lantus] 28 unit SQ DAILY 06/03/20 [History] Omeprazole 20 mg PO DAILY 06/03/20 [History] Propranolol [Inderal] 20 mg PO BID 06/03/20 [History] traZODone HCL [Desyrel] 50 mg PO HS 06/03/20 [History] Aspirin 81 mg PO DAILY #30 chew 06/08/20 [Rx] Folic Acid 1 mg PO DAILY #30 tab 06/08/20 [Rx] lisinopriL [Zestril] 10 mg PO DAILY #30 tab 06/08/20 [Rx] Follow up Appointment(s)/Referral(s): Guero Todd MD [Primary Care Provider] - 06/13/20 ([facility] APPOINTMENT, OFFICE WILL CALL YOU THURSDAY) Patient Instructions/Handouts: Coronavirus Disease 2019 (COVID-19), Diabetic Ketoacidosis (DC) Discharge Disposition: HOME WITH HOME HEALTH SERVICES
== END 2020-06-08 15:15 | disposition home health service (06) | DRG 637 ==
LOC: EC 19:22 → 3SCARD 22:31 → 1SOBS 06-04 19:04 → 3SCARD 06-05 02:10
PROVIDERS: ADMIT Family Medicine; ATTEND Family Medicine
DX: E11.10 Type 2 diabetes mellitus with ketoacidosis without coma (principal); U07.1 COVID-19; G93.41 Metabolic encephalopathy; I21.A1 Myocardial infarction type 2; E87.1 Hypo-osmolality and hyponatremia; I45.2 Bifascicular block; J98.11 Atelectasis; N17.9 Acute kidney failure, unspecified; E87.2 Acidosis; E78.5 Hyperlipidemia, unspecified; E86.0 Dehydration; E86.1 Hypovolemia; E87.5 Hyperkalemia; F03.90 Unspecified dementia, unspecified severity, without behavioral disturbance, psychotic disturbance, mood disturbance, and anxiety; Z87.891 Personal history of nicotine dependence; E11.42 Type 2 diabetes mellitus with diabetic polyneuropathy; Z79.4 Long term (current) use of insulin; I10 Essential (primary) hypertension; I25.2 Old myocardial infarction; I44.0 Atrioventricular block, first degree; K21.9 Gastro-esophageal reflux disease without esophagitis; M19.041 Primary osteoarthritis, right hand; M19.042 Primary osteoarthritis, left hand; M81.0 Age-related osteoporosis without current pathological fracture; M19.072 Primary osteoarthritis, left ankle and foot; M19.071 Primary osteoarthritis, right ankle and foot; Z57.4 Occupational exposure to toxic agents in agriculture; I08.1 Rheumatic disorders of both mitral and tricuspid valves; Z86.16 Personal history of COVID-19; Z60.2 Problems related to living alone; Z79.82 Long term (current) use of aspirin; Z79.899 Other long term (current) drug therapy; Z80.9 Family history of malignant neoplasm, unspecified; Z86.73 Personal history of transient ischemic attack (TIA), and cerebral infarction without residual deficits
CPT/HCPCS: 36415; 71046; 80048; 80051; 80053; 80061; 81003; 82009; 82550; 82565; 82607; 82746; 82947; 83036; 83605; 83615; 83735; 84100; 84443; 84484; 84520; 85025; 85610; 85730; 86140; 87635; 93005; 93306; 96361; 96374; 99285

== ENCOUNTER 2020-06-12 15:35 | Emergency (ER) | payer MEDICARE ==
[2020-06-12 15:56] VITALS: RESP 18; TEMP 98.2
--- NOTE | 2020-06-12 16:13 | ED ---
General Adult HPI - General Chief complaint: Recheck/Abnormal Lab/Rx Stated complaint: Weakness Time Seen by Provider: 06/12/20 15:40 Source: EMS Mode of arrival: EMS Limitations: no limitations - History of Present Illness Initial comments: Dictation was produced using [employer] dictation software. please excuse any grammatical, word or spelling errors. This patient was cared for during a federal and state declared state of emergency secondary to Covid 19 Chief Complaint: 74-year-old male presents after fall History of Present Illness: Patient is a 74-year-old male who is brought in by EMS. Patient currently resides at a care home facility. He was out and about on his usual daily walk when he states that he tried to turn right and his foot got trapped causing him to lose his balance. Patient noted there was grasped He made a point to fall onto the grass where there is a softer surface to land on. She denies any loss of consciousness. He denies any pain currently. He caught himself. He got up and told the care home staff and as soon as he told them he must call he was brought to the emergency department. Patient does not understand why he is here today. He has no complaints. Patient denies any heart problems. States that part of the reason why tripped is because is a first time he tried on his new tennis shoes. The ROS documented in this emergency department record has been reviewed and confirmed by me. Those systems with pertinent positive or negative responses have been documented in the HPI. All other systems are other negative and/or noncontributory. PHYSICAL EXAM: General Impression: Alert and oriented x3, not in acute distress HEENT: Normocephalic atraumatic, extra-ocular movements intact, pupils equal and reactive to light bilaterally, mucous membranes moist. Cardiovascular: Heart regular rate and rhythm Chest: Able to complete full sentences, no retractions, no tachypnea Abdomen: abdomen soft, non-tender, non-distended, no organomegaly Musculoskeletal: Pulses present and equal in all extremities, no peripheral edema Motor: no focal deficits noted Neurological: CN II-XII grossly intact, no focal motor or sensory deficits noted, ambulatory without complications Skin: Intact with no visualized rashes Psych: Normal affect and mood ED course: 74-year-old male presents to the emergency department after fall. Patient clearly describes a mechanical fall. States that he sustained secondary to his brand-new shoes. He does not take any blood thinners. He has no place at this time. Upon arrival are within acceptable limits. Physical examination is benign. Patient wants to be discharged. Patient gait was tested. He feels well and not showing any signs of ataxia or difficulty with balance. Patient's EKG is benign. Does not have history of heart failure. His echo cardiac from May of this year showing normal systolic function. EKG interpretation: Ventricular rate 79, sinus rhythm,. Interval to 2, QRS 120, QTC 477. No [place] prolongation, no QTC prolongation, no ST or T-wave changes noted. EKG compared to 06/03/2020 showing no changes. Overall, this EKG is unremarkable - Related Data Home Medications Medication Instructions Recorded Confirmed Donepezil [Aricept] 10 mg PO DAILY 11/19/15 06/12/20 Gabapentin [Neurontin] 300 mg PO TID 11/19/15 06/12/20 Simvastatin [Zocor] 40 mg PO HS 08/05/17 06/12/20 Glucagon Emergency Kit 1 mg IM ONCE PRN 02/08/20 06/12/20 Insulin Aspart [Insulin Aspart 7 unit SQ AC-TID 02/08/20 06/12/20 Flexpen] Memantine [Namenda] 5 mg PO BID 02/08/20 06/12/20 Tamsulosin HCl [Flomax] 0.4 mg PO DAILY 02/08/20 06/12/20 Insulin Glargine [Lantus] 28 unit SQ DAILY 06/03/20 06/12/20 Omeprazole 20 mg PO DAILY 06/03/20 06/12/20 Propranolol [Inderal] 20 mg PO BID 06/03/20 06/12/20 traZODone HCL [Desyrel] 50 mg PO HS 06/03/20 06/12/20 Previous Rx's Medication Instructions Recorded Zinc Sulfate [Orazinc] 220 mg PO DAILY #20 cap 02/11/20 ALPRAZolam [Xanax] 0.25 mg PO TID PRN tab 02/21/20 Acetaminophen Tab [Tylenol] 650 mg PO Q6HR PRN tab 02/21/20 Cholecalciferol [Vitamin D3 (25 1,000 unit PO DAILY tab 02/21/20 Mcg = 1000 Iu)] Aspirin 81 mg PO DAILY #30 chew 06/08/20 Folic Acid 1 mg PO DAILY #30 tab 06/08/20 lisinopriL [Zestril] 10 mg PO DAILY #30 tab 06/08/20 Allergies Allergy/AdvReac Type Severity Reaction Status Date / Time No Known Allergies Allergy Verified 06/12/20 16:14 Review of Systems ROS Statement: Those systems with pertinent positive or pertinent negative responses have been documented in the HPI. ROS Other: All systems not noted in ROS Statement are negative. Past Medical History Past Medical History: CVA/TIA, Dementia, Diabetes Mellitus, GERD/Reflux, Hyperlipidemia, Hypertension Additional Past Medical History / Comment(s): Agent [employer] exposure in [place], IDDM type II, DKA with metabolic encephalopathy, neuropathy bilateral feet, osteoporosis, sinus problems, arthritis bilateral hands/feet. History of Any Multi-Drug Resistant Organisms: None Reported Past Surgical History: Appendectomy Additional Past Surgical History / Comment(s): Pt thinks he may have had an appendectomy, colonoscopy-normal Past Anesthesia/Blood Transfusion Reactions: No Reported Reaction Past Psychological History: No Psychological Hx Reported Smoking Status: Former smoker Past Alcohol Use History: Occasional Past Drug Use History: None Reported - Past Family History Father Family Medical History: No Reported History Additional Family Medical History / Comment(s): Father was healthy and lived into his 80s. Mother Family Medical History: Cancer Additional Family Medical History / Comment(s): Mother had some form of cancer (family do not know kind) which she of in her 50s General Exam Limitations: no limitations Course Vital Signs 06/12/20 15:53 Temperature 98.2 F Pulse Rate 79 Respiratory 18 Rate Blood Pressure 144/72 O2 Sat by Pulse 96 Oximetry Disposition Clinical Impression: Fall Disposition: HOME SELF-CARE Condition: Good Instructions (If sedation given, give patient instructions): Fall Prevention for Older Adults (ED) Is patient prescribed a controlled substance at d/c from ED?: No Referrals: [facility] [Primary Care Provider] - 1-2 days Time of Disposition: 16:12
[2020-06-12 16:20] VITALS: BP 156/81; PULSE 75
== END 2020-06-12 16:20 | disposition home or self-care (01) ==
LOC: EC 15:35
DX: Z04.89 Encounter for examination and observation for other specified reasons (principal); E11.9 Type 2 diabetes mellitus without complications; K21.9 Gastro-esophageal reflux disease without esophagitis; E78.5 Hyperlipidemia, unspecified; M81.0 Age-related osteoporosis without current pathological fracture; I10 Essential (primary) hypertension; M19.042 Primary osteoarthritis, left hand; M19.041 Primary osteoarthritis, right hand; F03.90 Unspecified dementia, unspecified severity, without behavioral disturbance, psychotic disturbance, mood disturbance, and anxiety; Z90.49 Acquired absence of other specified parts of digestive tract; Z87.891 Personal history of nicotine dependence; Z79.4 Long term (current) use of insulin; Z86.73 Personal history of transient ischemic attack (TIA), and cerebral infarction without residual deficits
CPT/HCPCS: 93005; 99284

== ENCOUNTER 2020-07-04 09:24 | Observation (INO) | payer MEDICARE ==
[2020-07-04] MEDS ORDERED: SODIUM CHLORIDE 0.9% 1,000 ML IV STA (09:27)
--- NOTE | 2020-07-04 09:30 | ED ---
General Adult HPI - General Stated complaint: hyperglycemia Time Seen by Provider: 07/04/20 09:26 Source: patient Mode of arrival: EMS Limitations: no limitations - History of Present Illness Initial comments: Dictation was produced using [employer] dictation software. please excuse any grammatical, word or spelling errors. This patient was cared for during a federal and state declared state of emergency secondary to Covid 19 Chief Complaint: 74-year-old male with past medical history of dementia, insulin-dependent diabetes, hypertension and stroke presents to the emergency department for altered mental status and hyperglycemia. History of Present Illness: 74-year-old male has history of dementia. He is currently resident of the [facility]. He has his sugars being evaluated often. He was found to have sugar readings on glucometer that read high. Just prior to arrival patient was given some of his insulin injections. EMS was called and they rechecked her sugar it still continued to read high. Patient is not a reliable historian however he is alert and oriented 3 out of 4. This appears to be patient's baseline according to EMS. Patient denies any pain complaints. The ROS documented in this emergency department record has been reviewed and confirmed by me. Those systems with pertinent positive or negative responses have been documented in the HPI. All other systems are other negative and/or noncontributory. PHYSICAL EXAM: General Impression: Alert and oriented x3, not in acute distress HEENT: Normocephalic atraumatic, extra-ocular movements intact, pupils equal and reactive to light bilaterally, mucous membranes moist. Cardiovascular: Heart regular rate and rhythm Chest: Able to complete full sentences, no retractions, no tachypnea Abdomen: abdomen soft, non-tender, non-distended, no organomegaly Musculoskeletal: Pulses present and equal in all extremities, no peripheral edema Motor: no focal deficits noted Neurological: CN II-XII grossly intact, no focal motor or sensory deficits noted Skin: Intact with no visualized rashes Psych: Normal affect and mood ED course: 74-year-old male presents to the emergency department for altered mental status and hyperglycemia. Patient has history of dementia. He is well-appearing at bedside. Neurologically according to EMS there was no report of any changes to his mental status. Patient denies any headache. Laboratory evaluation obtained. CBC is within acceptable limits. Venous blood gas shows pH of 7.25, pCO2 of 26 and a bicarb of 11. Metabolic panel shows sodium 131. Potassium of 5.1. Bicarb of 8, elevated renal markers, glucose of 647. Lactic acidosis 3.3. Patient started on insulin protocol for DKA. Patient will be admitted to the intensive care unit with consultation to hardwood floor installation helper. Case discussed with Dr. magalys tejada and Dr. Hull. EKG interpretation: Ventricular rate 100, normal sinus rhythm,. Interval 180, QRS 106, QTC 482. No AL prolongation, no QTC prolongation, no ST or T-wave changes noted. EKG compared to 06/12/2020 showing no changes. Overall, this EKG is unremarkable - Related Data Home Medications Medication Instructions Recorded Confirmed Donepezil [Aricept] 10 mg PO DAILY 11/19/15 07/04/20 Gabapentin [Neurontin] 300 mg PO BID 11/19/15 07/04/20 Simvastatin [Zocor] 40 mg PO HS 08/05/17 07/04/20 Glucagon Emergency Kit 1 mg IM ONCE PRN 02/08/20 07/04/20 Insulin Aspart [Insulin Aspart 5 unit SQ AC-TID 02/08/20 07/04/20 Flexpen] Memantine [Namenda] 5 mg PO BID 02/08/20 07/04/20 Tamsulosin HCl [Flomax] 0.4 mg PO HS 02/08/20 07/04/20 Insulin Glargine [Lantus] 40 unit SQ DAILY 06/03/20 07/04/20 Omeprazole 20 mg PO DAILY 06/03/20 07/04/20 traZODone HCL [Desyrel] 50 mg PO HS 06/03/20 07/04/20 Insulin Aspart [Insulin Aspart See Protocol SQ AC-TID PRN 07/04/20 07/04/20 Flexpen] Lisinopril-Hctz 10-12.5 mg 1 tab PO DAILY 07/04/20 07/04/20 [Zestoretic 10-12.5] Previous Rx's Medication Instructions Recorded Aspirin 81 mg PO DAILY #30 chew 06/08/20 Folic Acid 1 mg PO DAILY #30 tab 06/08/20 Allergies Allergy/AdvReac Type Severity Reaction Status Date / Time No Known Allergies Allergy Verified 07/04/20 10:12 Review of Systems ROS Statement: Those systems with pertinent positive or pertinent negative responses have been documented in the HPI. ROS Other: All systems not noted in ROS Statement are negative. Past Medical History Past Medical History: CVA/TIA, Dementia, Diabetes Mellitus, GERD/Reflux, Hyperlipidemia, Hypertension Additional Past Medical History / Comment(s): Agent [place] exposure in [place], IDDM type II, DKA with metabolic encephalopathy, neuropathy bilateral feet, osteoporosis, sinus problems, arthritis bilateral hands/feet. History of Any Multi-Drug Resistant Organisms: None Reported Past Surgical History: Appendectomy Additional Past Surgical History / Comment(s): Pt thinks he may have had an appendectomy, colonoscopy-normal Past Anesthesia/Blood Transfusion Reactions: No Reported Reaction Past Psychological History: No Psychological Hx Reported Smoking Status: Former smoker Past Alcohol Use History: Occasional Past Drug Use History: None Reported - Past Family History Father Family Medical History: No Reported History Additional Family Medical History / Comment(s): Father was healthy and lived into his 80s. Mother Family Medical History: Cancer Additional Family Medical History / Comment(s): Mother had some form of cancer (family do not know kind) which she of in her 50s General Exam Limitations: no limitations Course Vital Signs 07/04/20 07/04/20 09:26 12:07 Temperature 98.2 F Pulse Rate 98 87 Respiratory 20 20 Rate Blood Pressure 151/62 124/58 O2 Sat by Pulse 97 100 Oximetry Medical Decision Making - Lab Data Result diagrams: 07/04/20 09:31 07/04/20 09:31 Lab Results 07/04/20 07/04/20 07/04/20 Range/Units 09:31 09:31 09:31 WBC 11.4 H (3.8-10.6) k/uL RBC 3.87 L (4.30-5.90) m/uL Hgb 11.9 L (13.0-17.5) gm/dL Hct 38.3 L (39.0-53.0) % MCV 99.1 D (80.0-100.0) fL MCH 30.6 (25.0-35.0) pg MCHC 30.9 L (31.0-37.0) g/dL RDW 13.6 (11.5-15.5) % Plt Count 236 (150-450) k/uL MPV 8.3 Neutrophils % 94 % Lymphocytes % 4 % Monocytes % 2 % Eosinophils % 0 % Basophils % 0 % Neutrophils # 10.6 H (1.3-7.7) k/uL Lymphocytes # 0.5 L (1.0-4.8) k/uL Monocytes # 0.2 (0-1.0) k/uL Eosinophils # 0.0 (0-0.7) k/uL Basophils # 0.0 (0-0.2) k/uL Hypochromasia Slight VBG pH (7.31-7.41) VBG pCO2 (37-51) mmHg VBG HCO3 (24-28) mmol/L Sodium 131 L (137-145) mmol/L Potassium 5.1 (3.5-5.1) mmol/L Chloride 98 (98-107) mmol/L Carbon Dioxide 8 L* (22-30) mmol/L Anion Gap 25 mmol/L BUN 52 H (9-20) mg/dL Creatinine 2.12 H (0.66-1.25) mg/dL Est GFR (CKD-EPI)AfAm 35 (>60 ml/min/1.73 sqM) Est GFR (CKD-EPI)NonAf 30 (>60 ml/min/1.73 sqM) Glucose 647 H* (74-99) mg/dL POC Glucose (mg/dL) (75-99) mg/dL POC Glu Congressional Assistant ID Lactic Ac Sepsis Rflx Plasma Lactic Acid Clifford 3.3 H* (0.7-2.0) mmol/L Calcium 9.1 (8.4-10.2) mg/dL Phosphorus 4.1 (2.5-4.5) mg/dL Magnesium 2.4 H (1.6-2.3) mg/dL Total Bilirubin 0.9 (0.2-1.3) mg/dL AST 101 H (17-59) U/L ALT 64 H (4-49) U/L Alkaline Phosphatase 131 H (38-126) U/L Total Protein 5.9 L (6.3-8.2) g/dL Albumin 3.7 (3.5-5.0) g/dL 07/04/20 07/04/20 07/04/20 Range/Units 09:31 09:36 10:03 WBC (3.8-10.6) k/uL RBC (4.30-5.90) m/uL Hgb (13.0-17.5) gm/dL Hct (39.0-53.0) % MCV (80.0-100.0) fL MCH (25.0-35.0) pg MCHC (31.0-37.0) g/dL RDW (11.5-15.5) % Plt Count (150-450) k/uL MPV Neutrophils % % Lymphocytes % % Monocytes % % Eosinophils % % Basophils % % Neutrophils # (1.3-7.7) k/uL Lymphocytes # (1.0-4.8) k/uL Monocytes # (0-1.0) k/uL Eosinophils # (0-0.7) k/uL Basophils # (0-0.2) k/uL Hypochromasia VBG pH 7.25 L (7.31-7.41) VBG pCO2 26 L (37-51) mmHg VBG HCO3 11 L (24-28) mmol/L Sodium (137-145) mmol/L Potassium (3.5-5.1) mmol/L Chloride (98-107) mmol/L Carbon Dioxide (22-30) mmol/L Anion Gap mmol/L BUN (9-20) mg/dL Creatinine (0.66-1.25) mg/dL Est GFR (CKD-EPI)AfAm (>60 ml/min/1.73 sqM) Est GFR (CKD-EPI)NonAf (>60 ml/min/1.73 sqM) Glucose (74-99) mg/dL POC Glucose (mg/dL) >600 H (75-99) mg/dL POC Glu Congressional Assistant ID Darcy Givens Lactic Ac Sepsis Rflx Y Plasma Lactic Acid Clifford (0.7-2.0) mmol/L Calcium (8.4-10.2) mg/dL Phosphorus (2.5-4.5) mg/dL Magnesium (1.6-2.3) mg/dL Total Bilirubin (0.2-1.3) mg/dL AST (17-59) U/L ALT (4-49) U/L Alkaline Phosphatase (38-126) U/L Total Protein (6.3-8.2) g/dL Albumin (3.5-5.0) g/dL 07/04/20 Range/Units 12:05 WBC (3.8-10.6) k/uL RBC (4.30-5.90) m/uL Hgb (13.0-17.5) gm/dL Hct (39.0-53.0) % MCV (80.0-100.0) fL MCH (25.0-35.0) pg MCHC (31.0-37.0) g/dL RDW (11.5-15.5) % Plt Count (150-450) k/uL MPV Neutrophils % % Lymphocytes % % Monocytes % % Eosinophils % % Basophils % % Neutrophils # (1.3-7.7) k/uL Lymphocytes # (1.0-4.8) k/uL Monocytes # (0-1.0) k/uL Eosinophils # (0-0.7) k/uL Basophils # (0-0.2) k/uL Hypochromasia VBG pH (7.31-7.41) VBG pCO2 (37-51) mmHg VBG HCO3 (24-28) mmol/L Sodium (137-145) mmol/L Potassium (3.5-5.1) mmol/L Chloride (98-107) mmol/L Carbon Dioxide (22-30) mmol/L Anion Gap mmol/L BUN (9-20) mg/dL Creatinine (0.66-1.25) mg/dL Est GFR (CKD-EPI)AfAm (>60 ml/min/1.73 sqM) Est GFR (CKD-EPI)NonAf (>60 ml/min/1.73 sqM) Glucose (74-99) mg/dL POC Glucose (mg/dL) 362 H (75-99) mg/dL POC Glu Congressional Assistant ID Fernie Chopra Lactic Ac Sepsis Rflx Plasma Lactic Acid Clifford (0.7-2.0) mmol/L Calcium (8.4-10.2) mg/dL Phosphorus (2.5-4.5) mg/dL Magnesium (1.6-2.3) mg/dL Total Bilirubin (0.2-1.3) mg/dL AST (17-59) U/L ALT (4-49) U/L Alkaline Phosphatase (38-126) U/L Total Protein (6.3-8.2) g/dL Albumin (3.5-5.0) g/dL Critical Care Time Critical Care Time: Yes Total Critical Care Time: 33 Disposition Clinical Impression: DKA (diabetic ketoacidoses) Disposition: ADMITTED IP TO THIS [facility] Condition: Critical Referrals: [facility],Clinic [Primary Care Provider] - 1-2 days Decision Time: 12:12
[2020-07-04 09:42] LABS: Glucose,Whole Blood >600 mg/dL (75-99)
[2020-07-04 09:48] LABS: Basophils % (A) 0 %; Eosinophils % (A) 0 %; HCT 38.3 % (39.0-53.0); HGB 11.9 gm/dL (13.0-17.5); Hypochromasia Slight; Lymphocytes # (A) 0.5 k/uL (1.0-4.8); Lymphocytes % (A) 4 %; MCH 30.6 pg (25.0-35.0); MCHC 30.9 g/dL (31.0-37.0); Mean Platelet Volume 8.3; Monocytes # (A) 0.2 k/uL (0-1.0); Monocytes % (A) 2 %; Neutrophils # (A) 10.6 k/uL (1.3-7.7); Neutrophils % (A) 94 %; Platelet Count 236 k/uL (150-450); RBC 3.87 m/uL (4.30-5.90); RDW 13.6 % (11.5-15.5); VBG PH 7.25 (7.31-7.41); WBC 11.4 k/uL (3.8-10.6)
[2020-07-04 10:06] LABS: Albumin 3.7 g/dL (3.5-5.0); Calcium 9.1 mg/dL (8.4-10.2); Magnesium 2.4 mg/dL (1.6-2.3); Phosphorus 4.1 mg/dL (2.5-4.5); Potassium 5.1 mmol/L (3.5-5.1); Total Bilirubin 0.9 mg/dL (0.2-1.3); Total Protein 5.9 g/dL (6.3-8.2)
[2020-07-04 10:13] LABS: MCV 99.1 fL (80.0-100.0)
[2020-07-04] MEDS ORDERED: INSULIN REGULAR BOLUS (FROM DRIP BAG) IV ONE (10:32)
[2020-07-04] MEDS ORDERED: Magnesium Replacement Protocol 1 EACH MISC MISCELLANE PRN (10:32)
[2020-07-04] MEDS ORDERED: Potassium Replacement Protocol 1 EACH MISC MISCELLANE PRN (10:32)
[2020-07-04] MEDS ORDERED: INSULIN REGULAR 100 UNIT in SODIUM CHLORIDE 0.9% 100 ML IV SCH (10:45)
[2020-07-04] MEDS: SODIUM CHLORIDE 0.9% 1,000 ML IV SCH ×3 (10:58→17:28)
[2020-07-04 12:07] LABS: Glucose,Whole Blood 362 mg/dL (75-99)
[2020-07-04] MEDS ORDERED: NALOXONE 0.4 MG/ML 1 ML VIAL IV PRN (12:10)
--- NOTE | 2020-07-04 12:18 | XR ---
EXAMINATION TYPE: XR chest 1V portable DATE OF EXAM: 07/04/2020 COMPARISON: 06/03/2020 HISTORY: Altered mental status TECHNIQUE: Single frontal view of the chest is obtained. FINDINGS: Overlying leads. Heart size is mildly enlarged. Interstitial perihilar and bibasilar airsp sheila opacities may represent edema versus atypical infection. No pleural effusion or pneumothorax. IMPRESSION: 1. Mild interstitial perihilar and bibasilar prominence suggestive of edema or atypical infection. No pleural effusion or pneumothorax. 2. Mild cardiomegaly.
[2020-07-04 12:22] LABS: Phosphorus 3.2 mg/dL (2.5-4.5); Potassium 4.4 mmol/L (3.5-5.1)
[2020-07-04] MEDS ORDERED: D5-0.45% NACL WITH KCL 20MEQ/L 1,000 ML IV SCH (13:00)
[2020-07-04] MEDS ORDERED: SODIUM CHLORIDE 0.9% 1,000 ML IV SCH (13:00)
[2020-07-04 13:03] LABS: Glucose,Whole Blood 215 mg/dL (75-99)
[2020-07-04 14:10] LABS: Glucose,Whole Blood 145 mg/dL (75-99)
[2020-07-04] MEDS ORDERED: GABAPENTIN 100 MG CAP PO PRN (14:52)
[2020-07-04 14:59] LABS: Glucose,Whole Blood 130 mg/dL (75-99)
--- NOTE | 2020-07-04 14:59 | P.HPIM ---
History of Present Illness 74-year-old the female was sent in from a [place] as of elevated blood sugars when asked the patient was not clear about why he came to the hospital. Patient is found to be hyperglycemic with an anion gap and patient is being admitted for diverticular acidosis patient does have history of dementia doesn't provide any good history although patient is oriented 3 doesn't exactly remember the date but knows who the president is. She denied any fever chills patient denied any nausea vomiting. Patient evidently had altered mental status on arrival to ER. Review of Systems REVIEW OF SYSTEMS: CONSTITUTIONAL: No fever, no malaise, no fatigue. HEENT: No recent visual problems or hearing problems. Denied any sore throat. CARDIOVASCULAR: No chest pain, orthopnea, PND, no palpitations, no syncope. PULMONARY: No shortness of breath, no cough, no hemoptysis. GASTROINTESTINAL: No diarrhea, no nausea, no vomiting, no abdominal pain. NEUROLOGICAL: No headaches, no weakness, no numbness. HEMATOLOGICAL: Denies any bleeding or petechiae. GENITOURINARY: Denies any burning micturition, frequency, or urgency. MUSCULOSKELETAL/RHEUMATOLOGICAL: Denies any joint pain, swelling, or any muscle pain. ENDOCRINE: Denies any polyuria or polydipsia. The rest of the 14-point review of systems is negative. Past Medical History Past Medical History: CVA/TIA, Dementia, Diabetes Mellitus, GERD/Reflux, Hyperlipidemia, Hypertension Additional Past Medical History / Comment(s): Agent [place] exposure in [place], IDDM type II, DKA with metabolic encephalopathy, neuropathy bilateral feet, osteoporosis, sinus problems, arthritis bilateral hands/feet. History of Any Multi-Drug Resistant Organisms: None Reported Past Surgical History: Appendectomy Additional Past Surgical History / Comment(s): Pt thinks he may have had an appendectomy, colonoscopy-normal Past Anesthesia/Blood Transfusion Reactions: No Reported Reaction Past Psychological History: No Psychological Hx Reported Smoking Status: Former smoker Past Alcohol Use History: Occasional Past Drug Use History: None Reported - Past Family History Father Family Medical History: No Reported History Additional Family Medical History / Comment(s): Father was healthy and lived into his 80s. Mother Family Medical History: Cancer Additional Family Medical History / Comment(s): Mother had some form of cancer (family do not know kind) which she of in her 50s Medications and Allergies Home Medications Medication Instructions Recorded Confirmed Type Donepezil [Aricept] 10 mg PO DAILY 11/19/15 07/04/20 History Gabapentin [Neurontin] 300 mg PO BID 11/19/15 07/04/20 History Simvastatin [Zocor] 40 mg PO HS 08/05/17 07/04/20 History Glucagon Emergency Kit 1 mg IM ONCE PRN 02/08/20 07/04/20 History Memantine [Namenda] 5 mg PO BID 02/08/20 07/04/20 History Tamsulosin HCl [Flomax] 0.4 mg PO HS 02/08/20 07/04/20 History Insulin Glargine [Lantus] 40 unit SQ DAILY 06/03/20 07/04/20 History Omeprazole 20 mg PO DAILY 06/03/20 07/04/20 History traZODone HCL [Desyrel] 50 mg PO HS 06/03/20 07/04/20 History Aspirin 81 mg PO DAILY #30 chew 06/08/20 07/04/20 Rx Folic Acid 1 mg PO DAILY #30 tab 06/08/20 07/04/20 Rx Allergies Allergy/AdvReac Type Severity Reaction Status Date / Time No Known Allergies Allergy Verified 07/04/20 10:12 Physical Exam Vitals: Vital Signs Temp Pulse Resp BP Pulse Ox 07/04/20 14:12 85 20 128/60 97 07/04/20 12:07 87 20 124/58 100 07/04/20 09:26 98.2 F 98 20 151/62 97 Intake and Output 07/03/20 07/04/20 07/04/20 22:59 06:59 14:59 Intake Total 24.532 Balance 24.532 Intake: Intake, IV Titration 24.532 Amount Insulin Regular 100 unit 24.532 In Sodium Chloride 0.9% 100 ml @ 0.1 UNITS/KG/HR 7.788 mls/hr IV .[id number] [facility] Rx#:[id number] Other: Weight 77.111 kg PHYSICAL EXAMINATION: GENERAL: The patient is alert and oriented x3, not in any acute distress. Well developed, well nourished. he is still bit confused HEENT: Pupils are round and equally reacting to light. EOMI. No scleral icterus. No conjunctival pallor. Normocephalic, atraumatic. No pharyngeal erythema. No thyromegaly. CARDIOVASCULAR: S1 and S2 present. No murmurs, rubs, or gallops. PULMONARY: Chest is clear to auscultation, no wheezing or crackles. ABDOMEN: Soft, nontender, nondistended, normoactive bowel sounds. No palpable organomegaly. MUSCULOSKELETAL: No joint swelling or deformity. EXTREMITIES: No cyanosis, clubbing, or pedal edema. NEUROLOGICAL: Gross neurological examination did not reveal any focal deficits. SKIN: No rashes. Results CBC & Chem 7: 07/04/20 09:07/04/20 12:01 Labs: Abnormal Lab Results - Last 24 Hours (Table) 07/04/20 07/04/20 07/04/20 Range/Units :31 09: 09:31 WBC 11.4 H (3.8-10.6) k/uL RBC 3.87 L (4.30-5.90) m/uL Hgb 11.9 L (13.0-17.5) gm/dL Hct 38.3 L (39.0-53.0) % MCHC 30.9 L (31.0-37.0) g/dL Neutrophils # 10.6 H (1.3-7.7) k/uL Lymphocytes # 0.5 L (1.0-4.8) k/uL VBG pH (7.31-7.41) VBG pCO2 (37-51) mmHg VBG HCO3 (24-28) mmol/L Sodium 131 L (137-145) mmol/L Carbon Dioxide 8 L* (22-30) mmol/L BUN 52 H (9-20) mg/dL Creatinine 2.12 H (0.66-1.25) mg/dL Glucose 647 H* (74-99) mg/dL POC Glucose (mg/dL) (75-99) mg/dL Plasma Lactic Acid Clifford 3.3 H* (0.7-2.0) mmol/L Magnesium 2.4 H (1.6-2.3) mg/dL AST 101 H (17-59) U/L ALT 64 H (4-49) U/L Alkaline Phosphatase 131 H (38-126) U/L Total Protein 5.9 L (6.3-8.2) g/dL 05/07/04/20 07/04/20 Range/Units 09:31 09:36 12:01 WBC (3.8-10.6) k/uL RBC (4.30-5.90) m/uL Hgb (13.0-17.5) gm/dL Hct (39.0-53.0) % MCHC (31.0-37.0) g/dL Neutrophils # (1.3-7.7) k/uL Lymphocytes # (1.0-4.8) k/uL VBG pH 7.25 L (7.31-7.41) VBG pCO2 26 L (37-51) mmHg VBG HCO3 11 L (24-28) mmol/L Sodium 136 L (137-145) mmol/L Carbon Dioxide 16 L (22-30) mmol/L BUN 47 H (9-20) mg/dL Creatinine 1.86 H (0.66-1.25) mg/dL Glucose 303 H (74-99) mg/dL POC Glucose (mg/dL) >600 H (75-99) mg/dL Plasma Lactic Acid Clifford (0.7-2.0) mmol/L Magnesium (1.6-2.3) mg/dL AST (17-59) U/L ALT (4-49) U/L Alkaline Phosphatase (38-126) U/L Total Protein (6.3-8.2) g/dL 07/04/20 07/04/20 07/04/20 Range/Units 12:05 13:02 13:03 WBC (3.8-10.6) k/uL RBC (4.30-5.90) m/uL Hgb (13.0-17.5) gm/dL Hct (39.0-53.0) % MCHC (31.0-37.0) g/dL Neutrophils # (1.3-7.7) k/uL Lymphocytes # (1.0-4.8) k/uL VBG pH (7.31-7.41) VBG pCO2 (37-51) mmHg VBG HCO3 (24-28) mmol/L Sodium (137-145) mmol/L Carbon Dioxide (22-30) mmol/L BUN (9-20) mg/dL Creatinine (0.66-1.25) mg/dL Glucose (74-99) mg/dL POC Glucose (mg/dL) 362 H 215 H (75-99) mg/dL Plasma Lactic Acid Clifford 4.7 H* (0.7-2.0) mmol/L Magnesium (1.6-2.3) mg/dL AST (17-59) U/L ALT (4-49) U/L Alkaline Phosphatase (38-126) U/L Total Protein (6.3-8.2) g/dL 07/04/20 Range/Units 14:07 WBC (3.8-10.6) k/uL RBC (4.30-5.90) m/uL Hgb (13.0-17.5) gm/dL Hct (39.0-53.0) % MCHC (31.0-37.0) g/dL Neutrophils # (1.3-7.7) k/uL Lymphocytes # (1.0-4.8) k/uL VBG pH (7.31-7.41) VBG pCO2 (37-51) mmHg VBG HCO3 (24-28) mmol/L Sodium (137-145) mmol/L Carbon Dioxide (22-30) mmol/L BUN (9-20) mg/dL Creatinine (0.66-1.25) mg/dL Glucose (74-99) mg/dL POC Glucose (mg/dL) 145 H (75-99) mg/dL Plasma Lactic Acid Clifford (0.7-2.0) mmol/L Magnesium (1.6-2.3) mg/dL AST (17-59) U/L ALT (4-49) U/L Alkaline Phosphatase (38-126) U/L Total Protein (6.3-8.2) g/dL Assessment and Plan Plan: -Diabetic ketoacidosis: Etiology is not clear patient doesn't have any clear evidence of infection. Patient does have lactic is doses. Patient will be started on DKA protocol continue with IV insulin was anion gap resolved patient will be transitioned to subcutaneous insulin. We'll correct developed lites. -Acute renal failure baseline creatinine is around the 0.9 creatinine went up to about 2 secondary to intravascular depletion from excessive diuresis and prerenal azotemia from diabetic ketoacidosis -lactic acidosis secondary to intravascular patient patient will be continued on IV fluids. -Elevated liver enzymes secondary to DKA, expected to improve. -Leukocytosis reactive without any evidence of infection -Anion gap metabolic is doses seconded lactic acidosis and DKA -Metabolic encephalopathy and confusion secondary to metabolic encephalopathy -History of dementia, do not know the etiology of dementia. -Dementia -Gastroesophageal reflux disease -Hyperlipidemia -Hypertension -Severe TIA in the past -Due to prophylaxis with the subcutaneous heparin GI prophylaxis with Pepcid
--- NOTE | 2020-07-04 15:16 | P.CNPUL ---
History of Present Illness Consult date: 07/04/20 Requesting physician: Sandro Dubon Chief complaint: Diabetic ketoacidosis, hyperglycemia History of present illness: 74-year-old white male patient with past medical history of diabetes mellitus type 2, insulin-dependent, hypertension, hyperlipidemia, previous history of CVA, history of dementia, former smoker. Patient had COVID-19 pneumonia in February 2020. He resides at the [facility]. He follows with the [facility], on 07/04/2020 he was brought in to the hospital per EMS for evaluation of hyperglycemia. Apparently his sugars or being checked often and his blood sugar readings on the glucometer were reading "HIGH" despite the patient receiving his insulin injections. Patient himself is poor historian, most of the history was obtained from the chart. Patient denies being recently ill, no fever or chills. He is awake and alert, pleasant, cooperative, he is oriented 2. His serum blood glucose level was over 600 on arrival, his CO2 was only 8, BUN was 52, creatinine was 2.12. Plasma lactic acid was 3.3, venous blood gas showed pH of 7.25, pCO2 of 26, and bicarbonate of 11. EKG was unremarkable. Vital signs have been stable, he is on room air, pulse ox is 97 200%, he is afebrile, hemodynamically stable, he is in sinus mechanism with a controlled rate. Chest x-ray shows mild interstitial perihilar and bibasilar prominence suggestive of edema or atypical infection, and mild cardiomegaly. COVID-19 PCR was negative. he was started on insulin infusion per DKA protocol. He received a liter of 0.9 normal saline and fluid bolus, he is currently receiving insulin infusion at 3.3 units per hour, and he is on D5 half-normal saline with 20 of potassium at 150 ML per hour. Review of Systems All systems: negative Constitutional: Denies chills, Denies fever Eyes: denies blurred vision, denies pain Ears, nose, mouth and throat: Denies headache, Denies sore throat Cardiovascular: Denies chest pain, Denies shortness of breath Respiratory: Reports dyspnea, Denies cough Gastrointestinal: Denies abdominal pain, Denies diarrhea, Denies nausea, Denies vomiting Musculoskeletal: Denies myalgias Integumentary: Denies pruritus, Denies rash Neurological: Denies numbness, Denies weakness Psychiatric: Denies anxiety, Denies depression Endocrine: Denies fatigue, Denies weight change Past Medical History Past Medical History: CVA/TIA, Dementia, Diabetes Mellitus, GERD/Reflux, Hyperlipidemia, Hypertension Additional Past Medical History / Comment(s): Agent [place] exposure in [place], IDDM type II, DKA with metabolic encephalopathy, neuropathy bilateral feet, osteoporosis, sinus problems, arthritis bilateral hands/feet. History of Any Multi-Drug Resistant Organisms: None Reported Past Surgical History: Appendectomy Additional Past Surgical History / Comment(s): Pt thinks he may have had an appendectomy, colonoscopy-normal Past Anesthesia/Blood Transfusion Reactions: No Reported Reaction Past Psychological History: No Psychological Hx Reported Smoking Status: Former smoker Past Alcohol Use History: Occasional Past Drug Use History: None Reported - Past Family History Father Family Medical History: No Reported History Additional Family Medical History / Comment(s): Father was healthy and lived into his 80s. Mother Family Medical History: Cancer Additional Family Medical History / Comment(s): Mother had some form of cancer (family do not know kind) which she of in her 50s Medications and Allergies Home Medications Medication Instructions Recorded Confirmed Type Donepezil [Aricept] 10 mg PO DAILY 11/19/15 07/04/20 History Gabapentin [Neurontin] 300 mg PO BID 11/19/15 07/04/20 History Simvastatin [Zocor] 40 mg PO HS 08/05/17 07/04/20 History Glucagon Emergency Kit 1 mg IM ONCE PRN 02/08/20 07/04/20 History Memantine [Namenda] 5 mg PO BID 02/08/20 07/04/20 History Tamsulosin HCl [Flomax] 0.4 mg PO HS 02/08/20 07/04/20 History Insulin Glargine [Lantus] 40 unit SQ DAILY 06/03/20 07/04/20 History Omeprazole 20 mg PO DAILY 06/03/20 07/04/20 History traZODone HCL [Desyrel] 50 mg PO HS 06/03/20 07/04/20 History Aspirin 81 mg PO DAILY #30 chew 06/08/20 07/04/20 Rx Folic Acid 1 mg PO DAILY #30 tab 06/08/20 07/04/20 Rx Allergies Allergy/AdvReac Type Severity Reaction Status Date / Time No Known Allergies Allergy Verified 07/04/20 10:12 Physical Exam Vitals: Vital Signs Temp Pulse Resp BP Pulse Ox 07/04/20 14:12 85 20 128/60 97 07/04/20 12:07 87 20 124/58 100 07/04/20 09:26 98.2 F 98 20 151/62 97 Intake and Output 07/03/20 07/04/20 07/04/20 22:59 06:59 14:59 Intake Total 24.532 Balance 24.532 Intake: Intake, IV Titration 24.532 Amount Insulin Regular 100 unit 24.532 In Sodium Chloride 0.9% 100 ml @ 0.1 UNITS/KG/HR 7.788 mls/hr IV .[id number] [facility] Rx#:[id number] Other: Weight 77.111 kg GENERAL EXAM: Alert, pleasant, 74-year-old white male, on room air, with pulse ox of 97-100%. Patient is oriented to self and place, however patient is a poor historian, does have underlying history of dementia comfortable in no apparent distress. HEAD: Normocephalic/atraumatic. EYES: Normal reaction of pupils, equal size. Conjunctiva pink, sclera white. NOSE: Clear with pink turbinates. THROAT: No erythema or exudates. NECK: No masses, no JVD, no thyroid enlargement, no adenopathy. CHEST: No chest wall deformity. Symmetrical expansion. LUNGS: Equal air entry with no crackles, wheeze, rhonchi or dullness. CVS: Regular rate and rhythm, normal S1 and S2, no gallops, no murmurs, no rubs ABDOMEN: Soft, nontender. No hepatosplenomegaly, normal bowel sounds, no guarding or rigidity. EXTREMITIES: No clubbing, no edema, no cyanosis, 2+ pulses and upper and lower extremities. MUSCULOSKELETAL: Muscle strength and tone normal. SPINE: No scoliosis or deformity SKIN: No rashes CENTRAL NERVOUS SYSTEM: Alert and oriented -3. No focal deficits, tone is normal in all 4 extremities. PSYCHIATRIC: Alert and oriented -3. Appropriate affect. Intact judgment and insight. Results - Laboratory Findings CBC and BMP: 07/04/20 09:31 07/04/20 12:01 Abnormal lab findings: Abnormal Labs 07/04/20 07/04/20 07/04/20 09:31 09:31 09:31 WBC 11.4 H RBC 3.87 L Hgb 11.9 L Hct 38.3 L MCHC 30.9 L Neutrophils # 10.6 H Lymphocytes # 0.5 L VBG pH VBG pCO2 VBG HCO3 Sodium 131 L Carbon Dioxide 8 L* BUN 52 H Creatinine 2.12 H Glucose 647 H* POC Glucose (mg/dL) Plasma Lactic Acid Clifford 3.3 H* Magnesium 2.4 H AST 101 H ALT 64 H Alkaline Phosphatase 131 H Total Protein 5.9 L 07/04/20 07/04/20 07/04/20 09:31 09:36 12:01 WBC RBC Hgb Hct MCHC Neutrophils # Lymphocytes # VBG pH 7.25 L VBG pCO2 26 L VBG HCO3 11 L Sodium 136 L Carbon Dioxide 16 L BUN 47 H Creatinine 1.86 H Glucose 303 H POC Glucose (mg/dL) >600 H Plasma Lactic Acid Clifford Magnesium AST ALT Alkaline Phosphatase Total Protein 07/04/20 07/04/20 07/04/20 12:05 13:02 13:03 WBC RBC Hgb Hct MCHC Neutrophils # Lymphocytes # VBG pH VBG pCO2 VBG HCO3 Sodium Carbon Dioxide BUN Creatinine Glucose POC Glucose (mg/dL) 362 H 215 H Plasma Lactic Acid Clifford 4.7 H* Magnesium AST ALT Alkaline Phosphatase Total Protein 07/04/20 14:07 WBC RBC Hgb Hct MCHC Neutrophils # Lymphocytes # VBG pH VBG pCO2 VBG HCO3 Sodium Carbon Dioxide BUN Creatinine Glucose POC Glucose (mg/dL) 145 H Plasma Lactic Acid Clifford Magnesium AST ALT Alkaline Phosphatase Total Protein - Diagnostic Findings Chest x-ray: report reviewed, image reviewed Additional studies: EKG reviewed Assessment and Plan Plan: Assessment: #1. Acute diabetic ketoacidosis #2. Lactic acidosis, rule out possibility of sepsis. COVID-19 was negative, chest x-ray shows mild interstitial and bibasilar prominence #3. History of COVID-19 infection in February 2020 #4. History of diabetes mellitus type 2, insulin dependent #5. History of dementia #6. History of hypertension #7. Hyperlipidemia #8. Previous history of CVA/TIA #9. Former smoker Plan: Continue insulin per DKA protocol Blood cultures Urinalysis with culture, pro-calcitonin BMP every 4 hours Awaiting admission to the intensive care unit We'll continue to follow I performed a history & physical examination of the patient and discussed their management with my nurse practitioner, Ayanna Chawla. I reviewed the nurse practitioner's note and agree with the documented findings and plan of care. Lung sounds are positive for diminished breath sounds The findings and the impression was discussed with the patient. I attest to the documentation by the nurse practitioner. Time with Patient: Greater than 30
[2020-07-04 16:10] LABS: Appearance,Urine Clear (Clear); Bilirubin,Urine Negative (Negative); Blood,Urine Negative (Negative); Color,Urine Light Yellow; Glucose,Urine (UA) 4+ (Negative); Leukocyte Esterase,Urine Negative (Negative); Nitrite,Urine Negative (Negative); Protein,Urine Negative (Negative); Urobilinogen,Urine <2.0 mg/dL (<2.0)
[2020-07-04 16:12] LABS: Glucose,Whole Blood 118 mg/dL (75-99)
[2020-07-04 16:23] LABS: African American GFR (CKD) 59 (>60 ml/min/1.73 sqM); Anion Gap 8 mmol/L; Blood Urea Nitrogen 41 mg/dL (9-20); Carbon Dioxide 23 mmol/L (22-30); Chloride 104 mmol/L (98-107); Glucose 108 mg/dL (74-99); Non-African American GFR(CKD) 51 (>60 ml/min/1.73 sqM); Phosphorus 2.3 mg/dL (2.5-4.5); Sodium 135 mmol/L (137-145)
[2020-07-04 16:25] LABS: Potassium 4.2 mmol/L (3.5-5.1)
[2020-07-04 16:36] LABS: Ketones,Urine 2+ (Negative)
[2020-07-04 17:02] LABS: Glucose,Whole Blood 94 mg/dL (75-99)
[2020-07-04] MEDS ORDERED: INSULIN DETEMIR (LEVEMIR) 100 UNIT/ML SYR SQ STA (17:21)
[2020-07-04] MEDS: INSULIN ASPART (NovoLOG) 100 UNIT/ML VIAL SQ SCH ×4 (17:28→21:01)
[2020-07-04 20:53] LABS: Glucose,Whole Blood 55 mg/dL (75-99)
[2020-07-04] MEDS ORDERED: ATORVASTATIN 20 MG TAB PO SCH (21:00)
[2020-07-04] MEDS ORDERED: traZODone HCL 50 MG TAB PO SCH (21:00)
[2020-07-04] MEDS ORDERED: TAMSULOSIN 0.4 MG CAP.ER.24H PO SCH (21:00)
[2020-07-04 21:06] LABS: Glucose,Whole Blood 57 mg/dL (75-99)
[2020-07-04] MEDS: MEMANTINE 5 MG TAB PO SCH (21:08)
[2020-07-04 21:30] LABS: Glucose,Whole Blood 79 mg/dL (75-99)
[2020-07-05 02:24] LABS: Glucose,Whole Blood 41 mg/dL (75-99)
[2020-07-05 02:46] LABS: Glucose,Whole Blood 59 mg/dL (75-99)
[2020-07-05 02:59] LABS: Glucose,Whole Blood 63 mg/dL (75-99)
[2020-07-05 03:17] LABS: Glucose,Whole Blood 82 mg/dL (75-99)
[2020-07-05] MEDS: SODIUM CHLORIDE 0.9% 1,000 ML IV SCH ×2 (04:00→09:12)
[2020-07-05 04:03] LABS: Basophils % (A) 0 %; Eosinophils % (A) 1 %; HGB 11.5 gm/dL (13.0-17.5); Lymphocytes # (A) 0.7 k/uL (1.0-4.8); Lymphocytes % (A) 21 %; MCH 32.1 pg (25.0-35.0); MCHC 34.9 g/dL (31.0-37.0); Mean Platelet Volume 7.4; Monocytes # (A) 0.2 k/uL (0-1.0); Monocytes % (A) 6 %; Neutrophils # (A) 2.3 k/uL (1.3-7.7); Neutrophils % (A) 71 %; Platelet Count 172 k/uL (150-450); RBC 3.58 m/uL (4.30-5.90); RDW 12.9 % (11.5-15.5); WBC 3.2 k/uL (3.8-10.6)
[2020-07-05 04:14] LABS: Calcium 8.7 mg/dL (8.4-10.2); MCV 92.2 fL (80.0-100.0); Magnesium 2.1 mg/dL (1.6-2.3); Potassium 3.8 mmol/L (3.5-5.1)
[2020-07-05 04:18] LABS: Glucose,Whole Blood 71 mg/dL (75-99)
[2020-07-05 06:55] LABS: Glucose,Whole Blood 80 mg/dL (75-99)
[2020-07-05] MEDS ORDERED: INSULIN DETEMIR (LEVEMIR) 100 UNIT/ML SYR SQ SCH (07:00)
[2020-07-05] MEDS: INSULIN ASPART (NovoLOG) 100 UNIT/ML VIAL SQ SCH ×4 (07:05→12:05)
[2020-07-05] MEDS ORDERED: ASPIRIN 81 MG PO SCH (09:00)
[2020-07-05] MEDS ORDERED: FOLIC ACID 1 MG TAB PO SCH (09:00)
[2020-07-05] MEDS ORDERED: PANTOPRAZOLE 40 MG TABLET PO SCH (09:00)
[2020-07-05] MEDS ORDERED: DONEPEZIL 10 MG TAB PO SCH (09:00)
--- NOTE | 2020-07-05 09:01 | XR ---
EXAMINATION TYPE: XR chest 1V portable DATE OF EXAM: 07/05/2020 COMPARISON: Chest x-ray 07/04/2020 HISTORY: Dyspnea TECHNIQUE: Single frontal view of the chest is obtained. FINDINGS: There is no focal air space opacity, pleural effusion, or pneumothorax seen. The cardiac silhouette size is within normal limits. The osseous structures are stable, deformity the mid diaph yseal right clavicle is unchanged, arthropathy noted within the shoulders. Minimal interstitial promi nence present at the lung bases is stable. IMPRESSION: Findings are similar to prior exam. There may be some minimal basilar atelectasis or sca rring, findings may represent remote sequela of Covid pneumonia
[2020-07-05] MEDS: MEMANTINE 5 MG TAB PO SCH (09:15)
--- NOTE | 2020-07-05 09:38 | P.PN ---
Subjective Progress Note Date: 07/05/20 Principal diagnosis: Acute diabetic ketoacidosis 74-year-old white male patient with past medical history of diabetes mellitus type 2, insulin-dependent, hypertension, hyperlipidemia, previous history of CVA, history of dementia, former smoker. Patient had COVID-19 pneumonia in February 2020. He resides at the [facility]. He follows with the [facility], on 07/04/2020 he was brought in to the hospital per EMS for evaluation of hyperglycemia. Apparently his sugars or being checked often and his blood sugar readings on the glucometer were reading "HIGH" despite the patient receiving his insulin injections. Patient himself is poor historian, most of the history was obtained from the chart. Patient denies being recently ill, no fever or chills. He is awake and alert, pleasant, cooperative, he is oriented 2. His serum blood glucose level was over 600 on arrival, his CO2 was only 8, BUN was 52, creatinine was 2.12. Plasma lactic acid was 3.3, venous blood gas showed pH of 7.25, pCO2 of 26, and bicarbonate of 11. EKG was unremarkable. Vital signs have been stable, he is on room air, pulse ox is 97 200%, he is afebrile, hemodynamically stable, he is in sinus mechanism with a controlled rate. Chest x-ray shows mild interstitial perihilar and bibasilar prominence suggestive of edema or atypical infection, and mild cardiomegaly. COVID-19 PCR was negative. he was started on insulin infusion per DKA protocol. He received a liter of 0.9 normal saline and fluid bolus, he is currently receiving insulin infusion at 3.3 units per hour, and he is on D5 half-normal saline with 20 of potassium at 150 ML per hour. On 07/05/2020 patient seen in follow-up in the intensive care unit, she is resting in bed, in no acute distress, room air pulse ox is 100%, hemodynamically stable, his been afebrile through the night. Breathing is nonlabored, no cough, no phlegm production. This morning his insulin infusion has been transitioned to Levemir, and NovoLog sliding scale. Patient did have episode of hypoglycemia, the lowest blood sugar of 41 and this was at 223 this morning, patient was given apple juice per protocol, blood sugar was rechecked, and recheck blood sugar was 59, patient was given a few bites of crackers with peanut butter and recheck blood sugars came back at 82, D5W was started at 75 ML per hour. Patient is tolerating regular diet. urinalysis did not show clear evidence of infection, CXR mild interstitial perihilar and bibasilar prominence. Repeat CXR shows minimal basilar atelectasis or scarring, findings may represent remote sequela of Covid pneumonia. Procalcitonin was elevated t 6.33, suggesting presence of bacterial infection with no clear source of infection. Afebrile, no cough, no congestion, no urinary symptoms, no skin breakdown Objective - Vital Signs Vital signs: Vital Signs Temp 97.9 F 07/05/20 08:00 Pulse 60 07/05/20 08:00 Resp 6 L 07/05/20 08:00 BP 147/88 07/05/20 08:00 Pulse Ox 100 07/05/20 08:00 Intake & Output 07/04/20 07/05/20 07/05/20 18:59 06:59 18:59 Intake Total 523.382 8840 150 Output Total 700 550 Balance -394.689 950 150 Weight 77.111 kg Intake: IV 275 1500 150 D5-0.45% NaCl with KCl 150 150 20Meq/l 1,000 ml @ 150 mls/hr IV .[id number] [facility] Rx# :[id number] Sodium Chloride 0.9% 1, 125 1500 000 ml @ 125 mls/hr IV . Q8H [facility] Rx#:[id number] Intake, IV Titration 30.311 Amount Insulin Regular 100 unit 30.311 In Sodium Chloride 0.9% 100 ml @ 0.1 UNITS/KG/HR 7.788 mls/hr IV .[id number] [facility] Rx#:[id number] Output: Urine 700 550 Other: Voiding Method Urinal Urinal # Voids 1 - Exam GENERAL EXAM: Alert, pleasant, 74-year-old white male, on room air, with pulse ox of 97-100%. Patient is oriented to self and place, however patient is a poor historian, does have underlying history of dementia comfortable in no apparent distress. HEAD: Normocephalic/atraumatic. EYES: Normal reaction of pupils, equal size. Conjunctiva pink, sclera white. NOSE: Clear with pink turbinates. THROAT: No erythema or exudates. NECK: No masses, no JVD, no thyroid enlargement, no adenopathy. CHEST: No chest wall deformity. Symmetrical expansion. LUNGS: Equal air entry with no crackles, wheeze, rhonchi or dullness. CVS: Regular rate and rhythm, normal S1 and S2, no gallops, no murmurs, no rubs ABDOMEN: Soft, nontender. No hepatosplenomegaly, normal bowel sounds, no guarding or rigidity. EXTREMITIES: No clubbing, no edema, no cyanosis, 2+ pulses and upper and lower extremities. MUSCULOSKELETAL: Muscle strength and tone normal. SPINE: No scoliosis or deformity SKIN: No rashes CENTRAL NERVOUS SYSTEM: Alert and oriented -3. No focal deficits, tone is normal in all 4 extremities. PSYCHIATRIC: Alert and oriented -3. Appropriate affect. Intact judgment and insight. - Labs CBC & Chem 7: 07/05/20 03:25 07/05/20 03:25 Labs: Abnormal Lab Results - Last 24 Hours (Table) 07/04/20 07/04/20 07/04/20 Range/Units 09:31 09:31 09:31 WBC 11.4 H (3.8-10.6) k/uL RBC 3.87 L (4.30-5.90) m/uL Hgb 11.9 L (13.0-17.5) gm/dL Hct 38.3 L (39.0-53.0) % MCHC 30.9 L (31.0-37.0) g/dL Neutrophils # 10.6 H (1.3-7.7) k/uL Lymphocytes # 0.5 L (1.0-4.8) k/uL VBG pH (7.31-7.41) VBG pCO2 (37-51) mmHg VBG HCO3 (24-28) mmol/L Sodium 131 L (137-145) mmol/L Carbon Dioxide 8 L* (22-30) mmol/L BUN 52 H (9-20) mg/dL Creatinine 2.12 H (0.66-1.25) mg/dL Glucose 647 H* (74-99) mg/dL POC Glucose (mg/dL) (75-99) mg/dL Plasma Lactic Acid Clifford 3.3 H* (0.7-2.0) mmol/L Phosphorus (2.5-4.5) mg/dL Magnesium 2.4 H (1.6-2.3) mg/dL AST 101 H (17-59) U/L ALT 64 H (4-49) U/L Alkaline Phosphatase 131 H (38-126) U/L Total Protein 5.9 L (6.3-8.2) g/dL Procalcitonin (0.02-0.09) ng/mL Urine Glucose (UA) (Negative) Urine Ketones (Negative) 07/04/20 07/04/20 07/04/20 Range/Units 09:31 09:36 12:01 WBC (3.8-10.6) k/uL RBC (4.30-5.90) m/uL Hgb (13.0-17.5) gm/dL Hct (39.0-53.0) % MCHC (31.0-37.0) g/dL Neutrophils # (1.3-7.7) k/uL Lymphocytes # (1.0-4.8) k/uL VBG pH 7.25 L (7.31-7.41) VBG pCO2 26 L (37-51) mmHg VBG HCO3 11 L (24-28) mmol/L Sodium 136 L (137-145) mmol/L Carbon Dioxide 16 L (22-30) mmol/L BUN 47 H (9-20) mg/dL Creatinine 1.86 H (0.66-1.25) mg/dL Glucose 303 H (74-99) mg/dL POC Glucose (mg/dL) >600 H (75-99) mg/dL Plasma Lactic Acid Clifford (0.7-2.0) mmol/L Phosphorus (2.5-4.5) mg/dL Magnesium (1.6-2.3) mg/dL AST (17-59) U/L ALT (4-49) U/L Alkaline Phosphatase (38-126) U/L Total Protein (6.3-8.2) g/dL Procalcitonin (0.02-0.09) ng/mL Urine Glucose (UA) (Negative) Urine Ketones (Negative) 07/04/20 07/04/20 07/04/20 Range/Units 12:05 13:02 13:03 WBC (3.8-10.6) k/uL RBC (4.30-5.90) m/uL Hgb (13.0-17.5) gm/dL Hct (39.0-53.0) % MCHC (31.0-37.0) g/dL Neutrophils # (1.3-7.7) k/uL Lymphocytes # (1.0-4.8) k/uL VBG pH (7.31-7.41) VBG pCO2 (37-51) mmHg VBG HCO3 (24-28) mmol/L Sodium (137-145) mmol/L Carbon Dioxide (22-30) mmol/L BUN (9-20) mg/dL Creatinine (0.66-1.25) mg/dL Glucose (74-99) mg/dL POC Glucose (mg/dL) 362 H 215 H (75-99) mg/dL Plasma Lactic Acid Clifford 4.7 H* (0.7-2.0) mmol/L Phosphorus (2.5-4.5) mg/dL Magnesium (1.6-2.3) mg/dL AST (17-59) U/L ALT (4-49) U/L Alkaline Phosphatase (38-126) U/L Total Protein (6.3-8.2) g/dL Procalcitonin (0.02-0.09) ng/mL Urine Glucose (UA) (Negative) Urine Ketones (Negative) 07/04/20 07/04/20 07/04/20 Range/Units 14:07 14:58 15:56 WBC (3.8-10.6) k/uL RBC (4.30-5.90) m/uL Hgb (13.0-17.5) gm/dL Hct (39.0-53.0) % MCHC (31.0-37.0) g/dL Neutrophils # (1.3-7.7) k/uL Lymphocytes # (1.0-4.8) k/uL VBG pH (7.31-7.41) VBG pCO2 (37-51) mmHg VBG HCO3 (24-28) mmol/L Sodium 135 L (137-145) mmol/L Carbon Dioxide (22-30) mmol/L BUN 41 H (9-20) mg/dL Creatinine 1.37 H (0.66-1.25) mg/dL Glucose 108 H (74-99) mg/dL POC Glucose (mg/dL) 145 H 130 H (75-99) mg/dL Plasma Lactic Acid Clifford (0.7-2.0) mmol/L Phosphorus 2.3 L (2.5-4.5) mg/dL Magnesium (1.6-2.3) mg/dL AST (17-59) U/L ALT (4-49) U/L Alkaline Phosphatase (38-126) U/L Total Protein (6.3-8.2) g/dL Procalcitonin (0.02-0.09) ng/mL Urine Glucose (UA) (Negative) Urine Ketones (Negative) 07/04/20 07/04/20 07/04/20 Range/Units 15:56 16:00 16:10 WBC (3.8-10.6) k/uL RBC (4.30-5.90) m/uL Hgb (13.0-17.5) gm/dL Hct (39.0-53.0) % MCHC (31.0-37.0) g/dL Neutrophils # (1.3-7.7) k/uL Lymphocytes # (1.0-4.8) k/uL VBG pH (7.31-7.41) VBG pCO2 (37-51) mmHg VBG HCO3 (24-28) mmol/L Sodium (137-145) mmol/L Carbon Dioxide (22-30) mmol/L BUN (9-20) mg/dL Creatinine (0.66-1.25) mg/dL Glucose (74-99) mg/dL POC Glucose (mg/dL) 118 H (75-99) mg/dL Plasma Lactic Acid Clifford (0.7-2.0) mmol/L Phosphorus (2.5-4.5) mg/dL Magnesium (1.6-2.3) mg/dL AST (17-59) U/L ALT (4-49) U/L Alkaline Phosphatase (38-126) U/L Total Protein (6.3-8.2) g/dL Procalcitonin 6.33 H (0.02-0.09) ng/mL Urine Glucose (UA) 4+ H (Negative) Urine Ketones 2+ H (Negative) 07/04/20 07/04/20 07/05/20 Range/Units 20:41 21:04 02:23 WBC (3.8-10.6) k/uL RBC (4.30-5.90) m/uL Hgb (13.0-17.5) gm/dL Hct (39.0-53.0) % MCHC (31.0-37.0) g/dL Neutrophils # (1.3-7.7) k/uL Lymphocytes # (1.0-4.8) k/uL VBG pH (7.31-7.41) VBG pCO2 (37-51) mmHg VBG HCO3 (24-28) mmol/L Sodium (137-145) mmol/L Carbon Dioxide (22-30) mmol/L BUN (9-20) mg/dL Creatinine (0.66-1.25) mg/dL Glucose (74-99) mg/dL POC Glucose (mg/dL) 55 L 57 L 41 L (75-99) mg/dL Plasma Lactic Acid Clifford (0.7-2.0) mmol/L Phosphorus (2.5-4.5) mg/dL Magnesium (1.6-2.3) mg/dL AST (17-59) U/L ALT (4-49) U/L Alkaline Phosphatase (38-126) U/L Total Protein (6.3-8.2) g/dL Procalcitonin (0.02-0.09) ng/mL Urine Glucose (UA) (Negative) Urine Ketones (Negative) 07/05/20 07/05/20 07/05/20 Range/Units 02:44 02:57 03:25 WBC 3.2 L (3.8-10.6) k/uL RBC 3.58 L (4.30-5.90) m/uL Hgb 11.5 L (13.0-17.5) gm/dL Hct 33.0 L (39.0-53.0) % MCHC (31.0-37.0) g/dL Neutrophils # (1.3-7.7) k/uL Lymphocytes # 0.7 L (1.0-4.8) k/uL VBG pH (7.31-7.41) VBG pCO2 (37-51) mmHg VBG HCO3 (24-28) mmol/L Sodium (137-145) mmol/L Carbon Dioxide (22-30) mmol/L BUN (9-20) mg/dL Creatinine (0.66-1.25) mg/dL Glucose (74-99) mg/dL POC Glucose (mg/dL) 59 L 63 L (75-99) mg/dL Plasma Lactic Acid Clifford (0.7-2.0) mmol/L Phosphorus (2.5-4.5) mg/dL Magnesium (1.6-2.3) mg/dL AST (17-59) U/L ALT (4-49) U/L Alkaline Phosphatase (38-126) U/L Total Protein (6.3-8.2) g/dL Procalcitonin (0.02-0.09) ng/mL Urine Glucose (UA) (Negative) Urine Ketones (Negative) 07/05/20 07/05/20 Range/Units 03:25 04:16 WBC (3.8-10.6) k/uL RBC (4.30-5.90) m/uL Hgb (13.0-17.5) gm/dL Hct (39.0-53.0) % MCHC (31.0-37.0) g/dL Neutrophils # (1.3-7.7) k/uL Lymphocytes # (1.0-4.8) k/uL VBG pH (7.31-7.41) VBG pCO2 (37-51) mmHg VBG HCO3 (24-28) mmol/L Sodium 135 L (137-145) mmol/L Carbon Dioxide (22-30) mmol/L BUN 26 H (9-20) mg/dL Creatinine (0.66-1.25) mg/dL Glucose (74-99) mg/dL POC Glucose (mg/dL) 71 L (75-99) mg/dL Plasma Lactic Acid Clifford (0.7-2.0) mmol/L Phosphorus (2.5-4.5) mg/dL Magnesium (1.6-2.3) mg/dL AST (17-59) U/L ALT (4-49) U/L Alkaline Phosphatase (38-126) U/L Total Protein (6.3-8.2) g/dL Procalcitonin (0.02-0.09) ng/mL Urine Glucose (UA) (Negative) Urine Ketones (Negative) Assessment and Plan Plan: Assessment: #1. Acute diabetic ketoacidosis #2. Lactic acidosis, rule out possibility of sepsis. COVID-19 was negative, chest x-ray shows mild interstitial and bibasilar prominence #3. History of COVID-19 infection in February 2020 #4. History of diabetes mellitus type 2, insulin dependent #5. History of dementia #6. History of hypertension #7. Hyperlipidemia #8. Previous history of CVA/TIA #9. Former smoker #10. Elevated pro-calcitonin level, with no clear source of infection, blood cultures are pending Plan: Benign gap has closed Patient has been transitioned to basal insulin and NovoLog sliding scale Hemodynamically stable Tolerating oral diet No clear evidence of infection Blood cultures are pending, urinalysis without sign of infection, chest x-ray has been reviewed showing bibasilar atelectasis or scarring, and possible residu al sequela of Covid pneumonia No cough, no congestion, no fever or chills. Stable for transfer out of ICU to general medical floor. Follow-up pro-calcitonin, follow-up labs. GI and DVT prophylaxis I performed a history & physical examination of the patient and discussed their management with my nurse practitioner, Ayanna Chawla. I reviewed the nurse practitioner's note and agree with the documented findings and plan of care. Lung sounds are positive for diminished breath sounds The findings and the impression was discussed with the patient. I attest to the documentation by the nurse practitioner. Time with Patient: Less than 30
[2020-07-05] MEDS ORDERED: ENOXAPARIN 40 MG/0.4 ML SYRINGE SQ SCH (09:45)
[2020-07-05 11:16] LABS: Glucose,Whole Blood 96 mg/dL (75-99)
[2020-07-05 11:24] VITALS: BP 191/86; PULSE 78; RESP 20; TEMP 97.7
[2020-07-05 15:05] VITALS: BMI 25.1
[2020-07-05 15:38] LABS: Glucose,Whole Blood 148 mg/dL (75-99)
--- NOTE | 2020-07-05 17:17 | P.DS ---
Providers Date of admission: 07/04/20 12:10 Attending physician: Ioana Linares Consults: 07/04/20 12:10 Consult Physician Stat Consulting Provider: Rodolfo Hull Reason/Comments: icu patient Do you want consulting provider notified?: Already Contacted Primary care physician: [facility] Course: 74-year-old the female was sent in from a [facility] as of elevated blood sugars when asked the patient was not clear about why he came to the hospital. Patient is found to be hyperglycemic with an anion gap and patient is being admitted for diverticular acidosis patient does have history of dementia doesn't provide any good history although patient is oriented 3 doesn't exactly remember the date but knows who the president is. She denied any fever chills patient denied any nausea vomiting. Patient evidently had altered mental status on arrival to ER. 07/05/2020 Patient's DKA resolved patient is clinically doing well renal function improved patient will be discharged today. Patient is bit hypoglycemic on 42 units of Lantus and the pre-meal insulin patient will be switched back to his home regimen. PHYSICAL EXAMINATION: GENERAL: The patient is alert and oriented x3, not in any acute distress. Well developed, well nourished. he is still bit confused HEENT: Pupils are round and equally reacting to light. EOMI. No scleral icterus. No conjunctival pallor. Normocephalic, atraumatic. No pharyngeal erythema. No thyromegaly. CARDIOVASCULAR: S1 and S2 present. No murmurs, rubs, or gallops. PULMONARY: Chest is clear to auscultation, no wheezing or crackles. ABDOMEN: Soft, nontender, nondistended, normoactive bowel sounds. No palpable organomegaly. MUSCULOSKELETAL: No joint swelling or deformity. EXTREMITIES: No cyanosis, clubbing, or pedal edema. NEUROLOGICAL: Gross neurological examination did not reveal any focal deficits. SKIN: No rashes. Assessment and Plan Plan: -Diabetic ketoacidosis: Patient is probably not getting his doses appropriately at the the assisted living facility -Acute renal failure baseline creatinine is around the 0.9 renal failure improved with IV fluids -lactic acidosis secondary to intravascular patient improved with IV fluids. -Elevated liver enzymes secondary to DKA, expected to improve. -Leukocytosis reactive without any evidence of infection -Anion gap metabolic is doses seconded lactic acidosis and DKA -Metabolic encephalopathy and confusion secondary to metabolic encephalopathy -History of dementia, do not know the etiology of dementia. -Dementia -Gastroesophageal reflux disease -Hyperlipidemia -Hypertension -Severe TIA in the past Patient Condition at Discharge: Critical Plan - Discharge Summary Discharge Rx Participant: No New Discharge Prescriptions: Continue Gabapentin [Neurontin] 300 mg PO BID Donepezil [Aricept] 10 mg PO DAILY Glucagon Emergency Kit 1 mg IM ONCE PRN PRN Reason: Hypoglycemia Memantine [Namenda] 5 mg PO BID Tamsulosin HCl [Flomax] 0.4 mg PO HS traZODone HCL [Desyrel] 50 mg PO HS Aspirin 81 mg PO DAILY #30 chew Insulin Glargine [Lantus] 40 unit SQ DAILY Omeprazole 20 mg PO DAILY Folic Acid 1 mg PO DAILY #30 tab Changed Simvastatin [Zocor] 35 mg PO HS #0 Discontinued Insulin Aspart [Insulin Aspart Flexpen] 5 unit SQ AC-TID Lisinopril-Hctz 10-12.5 mg [Zestoretic 10-12.5] 1 tab PO DAILY Insulin Aspart [Insulin Aspart Flexpen] See Protocol SQ AC-TID PRN PRN Reason: Blood Sugar - High Discharge Medication List Donepezil [Aricept] 10 mg PO DAILY 11/19/15 [History] Gabapentin [Neurontin] 300 mg PO BID 11/19/15 [History] Glucagon Emergency Kit 1 mg IM ONCE PRN 02/08/20 [History] Memantine [Namenda] 5 mg PO BID 02/08/20 [History] Tamsulosin HCl [Flomax] 0.4 mg PO HS 02/08/20 [History] Insulin Glargine [Lantus] 40 unit SQ DAILY 06/03/20 [History] Omeprazole 20 mg PO DAILY 06/03/20 [History] traZODone HCL [Desyrel] 50 mg PO HS 06/03/20 [History] Aspirin 81 mg PO DAILY #30 chew 06/08/20 [Rx] Folic Acid 1 mg PO DAILY #30 tab 06/08/20 [Rx] Simvastatin [Zocor] 35 mg PO HS #0 07/05/20 [Rx] Follow up Appointment(s)/Ref[facility] - [facility]-2 Days [facility],Clinic [Primary Care Provider] - 3 Days Discharge Disposition: HOME SELF-CARE
== END 2020-07-05 17:20 | disposition home or self-care (01) ==
LOC: EC 09:24 → INTOOBSV 12:10 → 2SICU 12:10 → 5NMEDONC 07-05 10:05 → UNDODISIN 07-05 17:20
PROVIDERS: ADMIT Internal Medicine; ATTEND Internal Medicine
DX: E11.10 Type 2 diabetes mellitus with ketoacidosis without coma (principal); N17.9 Acute kidney failure, unspecified; D72.829 Elevated white blood cell count, unspecified; G93.41 Metabolic encephalopathy; F03.90 Unspecified dementia, unspecified severity, without behavioral disturbance, psychotic disturbance, mood disturbance, and anxiety; K21.9 Gastro-esophageal reflux disease without esophagitis; E78.5 Hyperlipidemia, unspecified; I10 Essential (primary) hypertension; Z86.73 Personal history of transient ischemic attack (TIA), and cerebral infarction without residual deficits; E11.65 Type 2 diabetes mellitus with hyperglycemia; E11.649 Type 2 diabetes mellitus with hypoglycemia without coma; M81.0 Age-related osteoporosis without current pathological fracture; M19.042 Primary osteoarthritis, left hand; M19.041 Primary osteoarthritis, right hand; M19.072 Primary osteoarthritis, left ankle and foot; M19.071 Primary osteoarthritis, right ankle and foot; Z20.822 Contact with and (suspected) exposure to COVID-19; Z87.891 Personal history of nicotine dependence; Z86.16 Personal history of COVID-19; Z87.01 Personal history of pneumonia (recurrent); Z79.899 Other long term (current) drug therapy; Z79.4 Long term (current) use of insulin; Z79.82 Long term (current) use of aspirin; Z77.098 Contact with and (suspected) exposure to other hazardous, chiefly nonmedicinal, chemicals; Z90.49 Acquired absence of other specified parts of digestive tract; Z80.9 Family history of malignant neoplasm, unspecified
CPT/HCPCS: 96372; 96366 ×3; 96361; 96365; 99291; 36415; 93005; 80051; 80053; 80048; 82565; 82803; 82009; 83605; 83735 ×2; 84100; 82947; 84520; 85025 ×2; 81003; 87040; 84145; 87635; 71045 ×2; G0378 ×3; J1650; 96374

== ENCOUNTER 2020-08-31 17:55 | Emergency (ER) | payer MEDICARE ==
[2020-08-31 18:07] VITALS: RESP 18
[2020-08-31 18:12] LABS: Glucose,Whole Blood 126 mg/dL (75-99)
[2020-08-31 19:18] LABS: Basophils # (A) 0.1 k/uL (0-0.2); Basophils % (A) 1 %; Eosinophils # (A) 0.1 k/uL (0-0.7); Eosinophils % (A) 1 %; HCT 37.4 % (39.0-53.0); HGB 13.2 gm/dL (13.0-17.5); Lymphocytes # (A) 0.8 k/uL (1.0-4.8); Lymphocytes % (A) 9 %; MCH 32.4 pg (25.0-35.0); MCHC 35.4 g/dL (31.0-37.0); MCV 91.4 fL (80.0-100.0); Mean Platelet Volume 8.3; Monocytes # (A) 0.4 k/uL (0-1.0); Monocytes % (A) 5 %; Neutrophils # (A) 7.8 k/uL (1.3-7.7); Neutrophils % (A) 84 %; Platelet Count 212 k/uL (150-450); RBC 4.09 m/uL (4.30-5.90); WBC 9.2 k/uL (3.8-10.6)
--- NOTE | 2020-08-31 19:24 | ED ---
General Adult HPI - General Chief complaint: Fall Stated complaint: Fall Time Seen by Provider: 08/31/20 18:48 Source: patient Mode of arrival: EMS Limitations: no limitations - History of Present Illness Initial comments: Dictation was produced using [employer] dictation software. please excuse any grammatical, word or spelling errors. Chief Complaint: 74-year-old male from local [place] [facility] presents after fall and hypoglycemia History of Present Illness: 74-year-old male with past medical history of stroke, dementia, diabetes and dyslipidemia and frequent falls presents to the emergency department after fall hyperglycemia. Patient current resident at one of the local nursing homes. He fell. Unclear if he lost consciousness or how long he was down for. EMS picked the patient up is found to have a blood glucose of 50. Patient was given dextrose and his glucose improved to 94. Patient feels at baseline at this time. He states he does not have all the details of his medications. EMS reports that patient's insulin regimen has been adjusted recently. No details further about what adjustments were made. The ROS documented in this emergency department record has been reviewed and confirmed by me. Those systems with pertinent positive or negative responses have been documented in the HPI. All other systems are other negative and/or noncontributory. PHYSICAL EXAM: General Impression: Alert and oriented x3, not in acute distress HEENT: Abrasion to the left forehead, extra-ocular movements intact, pupils equ al and reactive to light bilaterally, mucous membranes moist. Cardiovascular: Heart regular rate and rhythm Chest: Able to complete full sentences, no retractions, no tachypnea Abdomen: abdomen soft, non-tender, non-distended, no organomegaly Musculoskeletal: Pulses present and equal in all extremities, no peripheral edema Motor: no focal deficits noted Neurological: CN II-XII grossly intact, no focal motor or sensory deficits noted Skin: Intact with no visualized rashes Psych: Normal affect and mood ED course: 74-year-old male presents after fall and hypoglycemia. Vital signs upon arrival are within acceptable limits. EKG is baseline. Lipitor evaluation obtained. CBC unremarkable. Metabolic panel is negative. Initial blood glucose was 126 at 6:00. One hour later patient's blood glucose was 108. 30 minutes after that patient's blood glucose was 187. Chest x-ray and pelvis x-ray shows no acute processes. Computed tomography scan of the brain shows no acute rheumatic injuries. There is degenerative disc on the CT C-spine that shows moderate anterior thecal sac compression at C3-C4. Patient reevaluated at bedside. Patient denies any neck pain. He is moving his neck about freely. Patient ambulated and had no calm medications. Patient feels at baseline. Sugars are stable. Patient told to stop taking his insulin for the time being for concerns that patient may become hypoglycemic again. Follow-up with his primary care doctor or whoever is managing his blood sugars. Patient be discharge back to [place] [facility]. EKG interpretation: Ventricular rate any 2, sinus rhythm,. Interval 200, acute RS 126, QTC 504. No TN prolongation, no QTC prolongation, no ST or T-wave changes noted. EKG compared to 07/04/2020 showing no changes. Overall, this EKG is unremarkable - Related Data Home Medications Medication Instructions Recorded Confirmed Donepezil [Aricept] 10 mg PO DAILY 11/19/15 07/04/20 Gabapentin [Neurontin] 300 mg PO BID 11/19/15 07/04/20 Glucagon Emergency Kit 1 mg IM ONCE PRN 02/08/20 07/04/20 Memantine [Namenda] 5 mg PO BID 02/08/20 07/04/20 Tamsulosin HCl [Flomax] 0.4 mg PO HS 02/08/20 07/04/20 Insulin Glargine [Lantus] 40 unit SQ DAILY 06/03/20 07/04/20 Omeprazole 20 mg PO DAILY 06/03/20 07/04/20 traZODone HCL [Desyrel] 50 mg PO HS 06/03/20 07/04/20 Previous Rx's Medication Instructions Recorded Aspirin 81 mg PO DAILY #30 chew 06/08/20 Folic Acid 1 mg PO DAILY #30 tab 06/08/20 Simvastatin [Zocor] 35 mg PO HS #0 07/05/20 Allergies Allergy/AdvReac Type Severity Reaction Status Date / Time No Known Allergies Allergy Verified 07/04/20 10:12 Review of Systems ROS Statement: Those systems with pertinent positive or pertinent negative responses have been documented in the HPI. ROS Other: All systems not noted in ROS Statement are negative. Past Medical History Past Medical History: CVA/TIA, Dementia, Diabetes Mellitus, GERD/Reflux, Hyperlipidemia, Hypertension Additional Past Medical History / Comment(s): Agent Young exposure in [place], IDDM type II, DKA with metabolic encephalopathy, neuropathy bilateral feet, osteoporosis, sinus problems, arthritis bilateral hands/feet. History of Any Multi-Drug Resistant Organisms: None Reported Past Surgical History: Appendectomy Additional Past Surgical History / Comment(s): Pt thinks he may have had an appendectomy, colonoscopy-normal Past Anesthesia/Blood Transfusion Reactions: No Reported Reaction Past Psychological History: No Psychological Hx Reported Smoking Status: Former smoker - Past Family History Father Family Medical History: No Reported History Additional Family Medical History / Comment(s): Father was healthy and lived into his 80s. Mother Family Medical History: Cancer Additional Family Medical History / Comment(s): Mother had some form of cancer (family do not know kind) which she of in her 50s General Exam Limitations: no limitations Course Vital Signs 08/31/20 18:01 Temperature 98.7 F Pulse Rate 80 Respiratory 18 Rate Blood Pressure 119/94 O2 Sat by Pulse 98 Oximetry Medical Decision Making - Lab Data Result diagrams: 08/31/20 19:12 08/31/20 19:12 Lab Results 08/31/20 08/31/20 08/31/20 Range/Units 18:11 19:12 19:12 WBC 9.2 (3.8-10.6) k/uL RBC 4.09 L (4.30-5.90) m/uL Hgb 13.2 (13.0-17.5) gm/dL Hct 37.4 L (39.0-53.0) % MCV 91.4 (80.0-100.0) fL MCH 32.4 (25.0-35.0) pg MCHC 35.4 (31.0-37.0) g/dL RDW 13.0 (11.5-15.5) % Plt Count 212 (150-450) k/uL MPV 8.3 Neutrophils % 84 % Lymphocytes % 9 % Monocytes % 5 % Eosinophils % 1 % Basophils % 1 % Neutrophils # 7.8 H (1.3-7.7) k/uL Lymphocytes # 0.8 L (1.0-4.8) k/uL Monocytes # 0.4 (0-1.0) k/uL Eosinophils # 0.1 (0-0.7) k/uL Basophils # 0.1 (0-0.2) k/uL Sodium 136 L (137-145) mmol/L Potassium 3.9 (3.5-5.1) mmol/L Chloride 103 (98-107) mmol/L Carbon Dioxide 23 (22-30) mmol/L Anion Gap 10 mmol/L BUN 14 (9-20) mg/dL Creatinine 0.92 (0.66-1.25) mg/dL Est GFR (CKD-EPI)AfAm >90 (>60 ml/min/1.73 sqM) Est GFR (CKD-EPI)NonAf 82 (>60 ml/min/1.73 sqM) Glucose 108 H (74-99) mg/dL POC Glucose (mg/dL) 126 H (75-99) mg/dL POC Glu Top Flavor Attendant ID Cara Salazar Calcium 9.4 (8.4-10.2) mg/dL 08/31/20 08/31/20 Range/Units 19:41 20:37 WBC (3.8-10.6) k/uL RBC (4.30-5.90) m/uL Hgb (13.0-17.5) gm/dL Hct (39.0-53.0) % MCV (80.0-100.0) fL MCH (25.0-35.0) pg MCHC (31.0-37.0) g/dL RDW (11.5-15.5) % Plt Count (150-450) k/uL MPV Neutrophils % % Lymphocytes % % Monocytes % % Eosinophils % % Basophils % % Neutrophils # (1.3-7.7) k/uL Lymphocytes # (1.0-4.8) k/uL Monocytes # (0-1.0) k/uL Eosinophils # (0-0.7) k/uL Basophils # (0-0.2) k/uL Sodium (137-145) mmol/L Potassium (3.5-5.1) mmol/L Chloride (98-107) mmol/L Carbon Dioxide (22-30) mmol/L Anion Gap mmol/L BUN (9-20) mg/dL Creatinine (0.66-1.25) mg/dL Est GFR (CKD-EPI)AfAm (>60 ml/min/1.73 sqM) Est GFR (CKD-EPI)NonAf (>60 ml/min/1.73 sqM) Glucose (74-99) mg/dL POC Glucose (mg/dL) 187 H 177 H (75-99) mg/dL POC Glu Top Flavor Attendant ID Mike Chisholm Joanie Calcium (8.4-10.2) mg/dL Disposition Clinical Impression: Hypoglycemia, Fall Disposition: HOME SELF-CARE Condition: Good Instructions (If sedation given, give patient instructions): Fall Prevention for Older Adults (ED), What to Do if Your Blood Sugar is Low (ED) Additional Instructions: There is a incidental finding of disc bulge in your neck seen on computed tomography scan. It is important to follow up with your primary care doctor regarding this and diabetic control Is patient prescribed a controlled substance at d/c from ED?: No Referrals: [facility],Clinic [Primary Care Provider] - 1-2 days
[2020-08-31 19:27] LABS: African American GFR (CKD) >90 (>60 ml/min/1.73 sqM); Anion Gap 10 mmol/L; Blood Urea Nitrogen 14 mg/dL (9-20); Calcium 9.4 mg/dL (8.4-10.2); Carbon Dioxide 23 mmol/L (22-30); Chloride 103 mmol/L (98-107); Glucose 108 mg/dL (74-99); Non-African American GFR(CKD) 82 (>60 ml/min/1.73 sqM); Potassium 3.9 mmol/L (3.5-5.1); Sodium 136 mmol/L (137-145)
[2020-08-31 19:43] LABS: Glucose,Whole Blood 187 mg/dL (75-99)
--- NOTE | 2020-08-31 20:07 | CT ---
EXAMINATION TYPE: CT brain lissette man con DATE OF EXAM: 08/31/2020 COMPARISON: HISTORY: Fall. CT DLP: 1422.8 mGycm, Automated exposure control for dose reduction was used. CONTRAST: Patient injected with mL of . CT of the brain is performed utilizing 3 mm thick sections through the posterior fossa and 3 mm thick sections through the remaining calvarium. Study is performed within 24 hours of arrival to the hospital. No abnormal hyperdensity is present to suggest an acute intracranial hemorrhage. No mass lesion is evident. No acute infarcts are evident. Minimal periventricular white matter hypodensity is present, likely o n the basis of chronic white matter ischemic changes. Ventricles and sulci are prominent for the patient age. Paranasal sinuses and mastoid air cells within the [id number] are clear. IMPRESSIONS: 1. Atrophy with mild periventricular white matter ischemic changes CT cervical spine. COMPARISON: None CT of the cervical spine is performed in the axial plane at 2 mm thick sections. Reconstructed image s in the coronal, and sagittal plane are reviewed on the computer. No acute fractures are evident. Vertebral body heights are preserved. Central disc bulging is moderate anterior thecal sac compression at C3-4. Some vacuum disc phenomenon is present. Degenerative disc changes are present C4-5. No focal disc herniation or significant disc bulge is eddie dent. Foramen are patent. There may be a minimal grade 1 spondylolisthesis. Degenerative disc changes and loss of disc height are present at C5-6 and C6-7. Anterior vertebral radha dy spurring is present at these levels. Mild uncovertebral joint hypertrophy is present with mild jhonny ateral foraminal narrowing. IMPRESSIONS: 1. Multilevel degenerative disc changes. 2. Moderate-sized disc herniation C3-4 with moderate anterior thecal sac compression. As may have cor d contact without cord deformity.
--- NOTE | 2020-08-31 20:08 | XR ---
EXAMINATION TYPE: XR pelvis AP view DATE OF EXAM: 08/31/2020 COMPARISON: None HISTORY: Fall, pain TECHNIQUE: AP pelvis FINDINGS: No acute fractures are evident. Degenerative changes are within the lumbar spine. Sacroilia c joints and symphysis pubis appear intact. Femoral heads articulate with the acetabulum. IMPRESSION: 1. No acute osseous abnormality.
--- NOTE | 2020-08-31 20:09 | XR ---
EXAMINATION TYPE: XR chest 1V portable DATE OF EXAM: 08/31/2020 COMPARISON: 07/05/2020 INDICATION: Fall TECHNIQUE: Single frontal view of the chest is obtained. FINDINGS: The heart size is normal. The pulmonary vasculature is normal. The lungs are clear. IMPRESSION: 1. No acute pulmonary process.
[2020-08-31 20:38] LABS: Glucose,Whole Blood 177 mg/dL (75-99)
--- NOTE | 2020-08-31 21:10 | ED ---
Medical Decision Making - Lab Data Result diagrams: 08/31/20 19:12 08/31/20 19:12 Lab Results 08/31/20 08/31/20 08/31/20 Range/Units 18:11 19:12 19:12 WBC 9.2 (3.8-10.6) k/uL RBC 4.09 L (4.30-5.90) m/uL Hgb 13.2 (13.0-17.5) gm/dL Hct 37.4 L (39.0-53.0) % MCV 91.4 (80.0-100.0) fL MCH 32.4 (25.0-35.0) pg MCHC 35.4 (31.0-37.0) g/dL RDW 13.0 (11.5-15.5) % Plt Count 212 (150-450) k/uL MPV 8.3 Neutrophils % 84 % Lymphocytes % 9 % Monocytes % 5 % Eosinophils % 1 % Basophils % 1 % Neutrophils # 7.8 H (1.3-7.7) k/uL Lymphocytes # 0.8 L (1.0-4.8) k/uL Monocytes # 0.4 (0-1.0) k/uL Eosinophils # 0.1 (0-0.7) k/uL Basophils # 0.1 (0-0.2) k/uL Sodium 136 L (137-145) mmol/L Potassium 3.9 (3.5-5.1) mmol/L Chloride 103 (98-107) mmol/L Carbon Dioxide 23 (22-30) mmol/L Anion Gap 10 mmol/L BUN 14 (9-20) mg/dL Creatinine 0.92 (0.66-1.25) mg/dL Est GFR (CKD-EPI)AfAm >90 (>60 ml/min/1.73 sqM) Est GFR (CKD-EPI)NonAf 82 (>60 ml/min/1.73 sqM) Glucose 108 H (74-99) mg/dL POC Glucose (mg/dL) 126 H (75-99) mg/dL POC Glu Cloth Printer Helper ID Cara Salazar Calcium 9.4 (8.4-10.2) mg/dL 08/31/20 08/31/20 Range/Units 19:41 20:37 WBC (3.8-10.6) k/uL RBC (4.30-5.90) m/uL Hgb (13.0-17.5) gm/dL Hct (39.0-53.0) % MCV (80.0-100.0) fL MCH (25.0-35.0) pg MCHC (31.0-37.0) g/dL RDW (11.5-15.5) % Plt Count (150-450) k/uL MPV Neutrophils % % Lymphocytes % % Monocytes % % Eosinophils % % Basophils % % Neutrophils # (1.3-7.7) k/uL Lymphocytes # (1.0-4.8) k/uL Monocytes # (0-1.0) k/uL Eosinophils # (0-0.7) k/uL Basophils # (0-0.2) k/uL Sodium (137-145) mmol/L Potassium (3.5-5.1) mmol/L Chloride (98-107) mmol/L Carbon Dioxide (22-30) mmol/L Anion Gap mmol/L BUN (9-20) mg/dL Creatinine (0.66-1.25) mg/dL Est GFR (CKD-EPI)AfAm (>60 ml/min/1.73 sqM) Est GFR (CKD-EPI)NonAf (>60 ml/min/1.73 sqM) Glucose (74-99) mg/dL POC Glucose (mg/dL) 187 H 177 H (75-99) mg/dL POC Glu Cloth Printer Helper Mike Daugherty Joanie Calcium (8.4-10.2) mg/dL Disposition Clinical Impression: Hypoglycemia, Fall Disposition: HOME SELF-CARE Condition: Good Instructions (If sedation given, give patient instructions): Fall Prevention for Older Adults (ED), What to Do if Your Blood Sugar is Low (ED) Additional Instructions: Discontinue your insulin for the time being for concerns of, hypoglycemia again. There is a incidental finding of disc bulge in your neck seen on computed tomography scan. It is important to follow up with your primary care doctor regarding this and diabetic control Is patient prescribed a controlled substance at d/c from ED?: No Referrals: [facility],Clinic [Primary Care Provider] - 1-2 days
[2020-08-31 21:37] VITALS: BP 162/86; PULSE 66; TEMP 98
== END 2020-08-31 21:28 | disposition home or self-care (01) ==
LOC: EC 17:55
DX: E11.649 Type 2 diabetes mellitus with hypoglycemia without coma (principal); E11.65 Type 2 diabetes mellitus with hyperglycemia; E78.5 Hyperlipidemia, unspecified; F03.90 Unspecified dementia, unspecified severity, without behavioral disturbance, psychotic disturbance, mood disturbance, and anxiety; I10 Essential (primary) hypertension; K21.9 Gastro-esophageal reflux disease without esophagitis; M81.0 Age-related osteoporosis without current pathological fracture; Z79.4 Long term (current) use of insulin; Z79.82 Long term (current) use of aspirin; Z86.73 Personal history of transient ischemic attack (TIA), and cerebral infarction without residual deficits; Z87.891 Personal history of nicotine dependence
CPT/HCPCS: 36415; 70450; 71045; 72125; 72170; 80048; 85025; 93005; 99285

== ENCOUNTER 2020-10-13 10:28 | Emergency (ER) | payer MEDICARE ==
[2020-10-13 10:40] VITALS: RESP 16
[2020-10-13] MEDS: SODIUM CHLORIDE 0.9% 500 ML 500 ML IV ONE (11:19)
--- NOTE | 2020-10-13 11:21 | ED ---
General Adult HPI - General Chief complaint: Altered Mental Status Stated complaint: Altered mental status Time Seen by Provider: 10/13/20 10:51 Source: patient, EMS Mode of arrival: EMS Limitations: no limitations - History of Present Illness Initial comments: 75-year-old male developed medical history of CVA, dementia, diabetes, GERD, hyperlipidemia, hypertension, NSTEMI, coronavirus in May presents to the emergency room for a chief complaint of altered mental status. Patient lives at an assisted living facility called [facility]. Today patient was found on the floor. This is not normal for him. Patient is usually alert and oriented 3 however today is only oriented to person. Patient is denying any complaints at this time stating he feels well. He denies weakness. Denies headache.Patient has no other complaints at this time including shortness of breath, chest pain, abdominal pain, nausea or vomiting, headache, or visual c hanges. - Related Data Home Medications Medication Instructions Recorded Confirmed Donepezil [Aricept] 10 mg PO DAILY 11/19/15 07/04/20 Gabapentin [Neurontin] 300 mg PO BID 11/19/15 07/04/20 Glucagon Emergency Kit 1 mg IM ONCE PRN 02/08/20 07/04/20 Memantine [Namenda] 5 mg PO BID 02/08/20 07/04/20 Tamsulosin HCl [Flomax] 0.4 mg PO HS 02/08/20 07/04/20 Insulin Glargine [Lantus Vial] 40 unit SQ DAILY 06/03/20 07/04/20 Omeprazole 20 mg PO DAILY 06/03/20 07/04/20 traZODone HCL [Desyrel] 50 mg PO HS 06/03/20 07/04/20 Previous Rx's Medication Instructions Recorded Aspirin 81 mg PO DAILY #30 chew 06/08/20 Folic Acid 1 mg PO DAILY #30 tab 06/08/20 Simvastatin [Zocor] 35 mg PO HS #0 07/05/20 Allergies Allergy/AdvReac Type Severity Reaction Status Date / Time No Known Allergies Allergy Verified 10/13/20 10:40 Review of Systems ROS Statement: Those systems with pertinent positive or pertinent negative responses have been documented in the HPI. ROS Other: All systems not noted in ROS Statement are negative. Past Medical History Past Medical History: CVA/TIA, Dementia, Diabetes Mellitus, GERD/Reflux, Hyperlipidemia, Hypertension Additional Past Medical History / Comment(s): Agent [place] exposure in [place], IDDM type II, DKA with metabolic encephalopathy, neuropathy bilateral feet, osteoporosis, sinus problems, arthritis bilateral hands/feet. History of Any Multi-Drug Resistant Organisms: None Reported Past Surgical History: Appendectomy Additional Past Surgical History / Comment(s): Pt thinks he may have had an appendectomy, colonoscopy-normal Past Anesthesia/Blood Transfusion Reactions: No Reported Reaction Past Psychological History: No Psychological Hx Reported Smoking Status: Former smoker - Past Family History Father Family Medical History: No Reported History Additional Family Medical History / Comment(s): Father was healthy and lived into his 80s. Mother Family Medical History: Cancer Additional Family Medical History / Comment(s): Mother had some form of cancer (family do not know kind) which she of in her 50s General Exam Limitations: no limitations General appearance: alert, in no apparent distress Head exam: Present: atraumatic Eye exam: Present: normal appearance, PERRL, EOMI. Absent: scleral icterus ENT exam: Present: normal exam, mucous membranes moist Neck exam: Present: normal inspection, full ROM. Absent: tenderness Respiratory exam: Present: normal lung sounds bilaterally. Absent: respiratory distress, wheezes Cardiovascular Exam: Present: regular rate, normal rhythm, normal heart sounds GI/Abdominal exam: Present: soft, normal bowel sounds. Absent: distended, tenderness Neurological exam: Present: alert. Absent: oriented X3 (Oriented to person) Course Vital Signs 10/13/20 10/13/20 10:34 12:10 Temperature 97.6 F 97.6 F Pulse Rate 96 90 Respiratory 16 16 Rate Blood Pressure 145/70 168/97 O2 Sat by Pulse 96 97 Oximetry Medical Decision Making - Medical Decision Making Vitals are stable. Patient is well-appearing. Patient is alert and oriented to person. Confused as to where he is or what year it is. CBC is unremarkable. CMP reveals slight hyponatremia, patient was given fluids. Glucose of 249 noted which was also treated with fluids. Urinalysis does not show any evidence of infection. Patient does have 2+ ketones however and laying gap is normal. Suspect these are likely related to dehydration. CT brain and C-spine is negative. Chest x-ray does not show pneumonia. Reevaluated patient. He is ambulatory. I discussed this case twice with his son Elliot. States he is usually confused about where he is on this is his baselin as he has dementia. Apparently patient had a second covid vaccine yesterday. At this time given patient's evaluation was unremarkable and he is ambulatory he is controllable with discharge home. He will be going back to [facility]. If there are any issues they are encouraged to call the emergency room - Lab Data Result diagrams: 10/13/20 11:14 10/13/20 11:14 Lab Results 10/13/20 10/13/20 10/13/20 Range/Units 11:14 11:14 11:14 WBC 7.1 (3.8-10.6) k/uL RBC 4.13 L (4.30-5.90) m/uL Hgb 13.0 (13.0-17.5) gm/dL Hct 39.6 (39.0-53.0) % MCV 95.7 (80.0-100.0) fL MCH 31.5 (25.0-35.0) pg MCHC 32.9 (31.0-37.0) g/dL RDW 13.7 (11.5-15.5) % Plt Count 218 (150-450) k/uL MPV 8.5 Neutrophils % 88 % Lymphocytes % 4 % Monocytes % 6 % Eosinophils % 0 % Basophils % 1 % Neutrophils # 6.3 (1.3-7.7) k/uL Lymphocytes # 0.3 L (1.0-4.8) k/uL Monocytes # 0.4 (0-1.0) k/uL Eosinophils # 0.0 (0-0.7) k/uL Basophils # 0.0 (0-0.2) k/uL Hypochromasia Slight PT 10.7 (9.0-12.0) sec INR 1.0 (<1.2) APTT 24.0 (22.0-30.0) sec Sodium (137-145) mmol/L Potassium (3.5-5.1) mmol/L Chloride (98-107) mmol/L Carbon Dioxide (22-30) mmol/L Anion Gap mmol/L BUN (9-20) mg/dL Creatinine (0.66-1.25) mg/dL Est GFR (CKD-EPI)AfAm (>60 ml/min/1.73 sqM) Est GFR (CKD-EPI)NonAf (>60 ml/min/1.73 sqM) Glucose (74-99) mg/dL POC Glucose (mg/dL) (75-99) mg/dL POC Glu Credit Administrator ID Calcium (8.4-10.2) mg/dL Total Bilirubin (0.2-1.3) mg/dL AST (17-59) U/L ALT (4-49) U/L Alkaline Phosphatase (38-126) U/L Troponin I (0.000-0.034) ng/mL Total Protein (6.3-8.2) g/dL Albumin (3.5-5.0) g/dL Urine Color Light Yellow Urine Appearance Clear (Clear) Urine pH 7.0 (5.0-8.0) Ur Specific [place] 1.016 (1.001-1.035) Urine Protein Trace H (Negative) Urine Glucose (UA) 4+ H (Negative) Urine Ketones 2+ H (Negative) Urine Blood Negative (Negative) Urine Nitrite Negative (Negative) Urine Bilirubin Negative (Negative) Urine Urobilinogen <2.0 (<2.0) mg/dL Ur Leukocyte Esterase Negative (Negative) 10/13/20 10/13/20 10/13/20 Range/Units 11:14 11:14 12:29 WBC (3.8-10.6) k/uL RBC (4.30-5.90) m/uL Hgb (13.0-17.5) gm/dL Hct (39.0-53.0) % MCV (80.0-100.0) fL MCH (25.0-35.0) pg MCHC (31.0-37.0) g/dL RDW (11.5-15.5) % Plt Count (150-450) k/uL MPV Neutrophils % % Lymphocytes % % Monocytes % % Eosinophils % % Basophils % % Neutrophils # (1.3-7.7) k/uL Lymphocytes # (1.0-4.8) k/uL Monocytes # (0-1.0) k/uL Eosinophils # (0-0.7) k/uL Basophils # (0-0.2) k/uL Hypochromasia PT (9.0-12.0) sec INR (<1.2) APTT (22.0-30.0) sec Sodium 130 L (137-145) mmol/L Potassium 5.0 (3.5-5.1) mmol/L Chloride 99 (98-107) mmol/L Carbon Dioxide 22 (22-30) mmol/L Anion Gap 9 mmol/L BUN 18 (9-20) mg/dL Creatinine 1.24 (0.66-1.25) mg/dL Est GFR (CKD-EPI)AfAm 66 (>60 ml/min/1.73 sqM) Est GFR (CKD-EPI)NonAf 57 (>60 ml/min/1.73 sqM) Glucose 276 H (74-99) mg/dL POC Glucose (mg/dL) 249 H (75-99) mg/dL POC Glu Credit Administrator ID Cathy Cunningham Calcium 9.1 (8.4-10.2) mg/dL Total Bilirubin 0.7 (0.2-1.3) mg/dL AST 23 (17-59) U/L ALT 16 (4-49) U/L Alkaline Phosphatase 71 (38-126) U/L Troponin I 0.026 (0.000-0.034) ng/mL Total Protein 6.3 (6.3-8.2) g/dL Albumin 3.9 (3.5-5.0) g/dL Urine Color Urine Appearance (Clear) Urine pH (5.0-8.0) Ur Specific [place] (1.001-1.035) Urine Protein (Negative) Urine Glucose (UA) (Negative) Urine Ketones (Negative) Urine Blood (Negative) Urine Nitrite (Negative) Urine Bilirubin (Negative) Urine Urobilinogen (<2.0) mg/dL Ur Leukocyte Esterase (Negative) Disposition Clinical Impression: Fall, Dementia Disposition: HOME SELF-CARE Condition: Good Instructions (If sedation given, give patient instructions): Fall Prevention for Older Adults (ED), Altered Mental Status (ED) Additional Instructions: Follow-up with primary care. If patient has any worsening symptoms we encourage him to come back to the emergency room. Is patient prescribed a controlled substance at d/c from ED?: No Referrals: [facility],Clinic [Primary Care Provider] - 1-2 days Time of Disposition: 13:45
[2020-10-13 11:43] LABS: Basophils % (A) 1 %; Eosinophils % (A) 0 %; HCT 39.6 % (39.0-53.0); Hypochromasia Slight; Lymphocytes # (A) 0.3 k/uL (1.0-4.8); Lymphocytes % (A) 4 %; MCH 31.5 pg (25.0-35.0); MCHC 32.9 g/dL (31.0-37.0); MCV 95.7 fL (80.0-100.0); Mean Platelet Volume 8.5; Monocytes # (A) 0.4 k/uL (0-1.0); Monocytes % (A) 6 %; Neutrophils # (A) 6.3 k/uL (1.3-7.7); Neutrophils % (A) 88 %; Platelet Count 218 k/uL (150-450); RBC 4.13 m/uL (4.30-5.90); RDW 13.7 % (11.5-15.5); WBC 7.1 k/uL (3.8-10.6)
[2020-10-13 11:47] LABS: Prothrombin Time 10.7 sec (9.0-12.0)
[2020-10-13 11:50] LABS: Albumin 3.9 g/dL (3.5-5.0); Calcium 9.1 mg/dL (8.4-10.2); Total Bilirubin 0.7 mg/dL (0.2-1.3); Total Protein 6.3 g/dL (6.3-8.2)
--- NOTE | 2020-10-13 12:14 | XR ---
EXAMINATION TYPE: XR chest 2V DATE OF EXAM: 10/13/2020 COMPARISON: Chest x-ray 08/31/2020 HISTORY: Altered mental status TECHNIQUE: Frontal and lateral views of the chest are obtained. FINDINGS: There is no focal air space opacity, pleural effusion, or pneumothorax seen. The cardiac silhouette size is within normal limits. Lung volumes are low and the patient is rotated. Interstitiu m is prominent. The osseous structures are intact. IMPRESSION: Expiratory rotated exam. Interstitial lung disease.
[2020-10-13 12:18] LABS: Appearance,Urine Clear (Clear); Bilirubin,Urine Negative (Negative); Blood,Urine Negative (Negative); Color,Urine Light Yellow; Glucose,Urine (UA) 4+ (Negative); Leukocyte Esterase,Urine Negative (Negative); Nitrite,Urine Negative (Negative); Protein,Urine Trace (Negative); Specific Gravity,Urine 1.016 (1.001-1.035); Urobilinogen,Urine <2.0 mg/dL (<2.0)
[2020-10-13 12:30] LABS: Glucose,Whole Blood 249 mg/dL (75-99)
[2020-10-13 12:33] LABS: Ketones,Urine 2+ (Negative)
--- NOTE | 2020-10-13 12:35 | CT ---
EXAMINATION TYPE: CT brain cspine wo con DATE OF EXAM: 10/13/2020 COMPARISON: CT brain and cervical spine 08/31/2020 HISTORY: Altered mental status CT DLP: 1426 mGycm Automated exposure control for dose reduction was used. TECHNIQUE: CT scan of the head and cervical spine are performed without contrast. FINDINGS: There is no acute intracranial hemorrhage, mass effect, or midline shift identified. The ventricles and sulci are within normal limits in size. Stable appearance of the brain, there are ce rebral vascular calcifications, cortical atrophy, periventricular white matter low-attenuation The gl obes are intact and the visualized sinuses are remarkable for some inflammatory change in the left ma xillary sinus. Cervical spine is visualized in its entirety from C1 through upper thoracic levels and demonstrates s table alignment without evidence of acute fracture or dislocation, anterolisthesis grade 1 C4-5, retr olisthesis grade 1 C6-7 is unchanged, is multilevel loss of disc height, multilevel spondylosis. Pre vertebral soft tissue appears within normal limits. The C1-C2 articulation is stable, there is arthr opathy change. There is stable degenerative disc changes, multilevel foraminal encroachment, facet a rthropathy, there is a spinal curvature which may be positional. Disc herniation at C3-4 is again not ed posteriorly IMPRESSION: 1. There is no acute fracture or dislocation evident in the cervical spine. 2. No acute intracranial hemorrhage, mass effect, or midline shift is seen.
[2020-10-13 14:07] VITALS: BP 170/90; PULSE 98; TEMP 98
== END 2020-10-13 15:16 | disposition home or self-care (01) ==
LOC: EC 10:28
DX: F03.90 Unspecified dementia, unspecified severity, without behavioral disturbance, psychotic disturbance, mood disturbance, and anxiety (principal); I10 Essential (primary) hypertension; K21.9 Gastro-esophageal reflux disease without esophagitis; E11.9 Type 2 diabetes mellitus without complications; Z87.891 Personal history of nicotine dependence; Z86.73 Personal history of transient ischemic attack (TIA), and cerebral infarction without residual deficits; Z79.899 Other long term (current) drug therapy; Z79.4 Long term (current) use of insulin; Z86.16 Personal history of COVID-19
CPT/HCPCS: 36415; 70450; 71046; 72125; 80053; 81003; 84484; 85025; 85610; 85730; 93005; 96360; 99285

== ENCOUNTER 2021-02-24 21:10 | Observation (INO) | payer MEDICARE ==
[2021-02-24 21:32] LABS: Glucose,Whole Blood 183 mg/dL (75-99)
--- NOTE | 2021-02-24 22:00 | CT ---
EXAMINATION TYPE: CT brain wo con DATE OF EXAM: 02/24/2021 COMPARISON: 10/13/2020 HISTORY: Altered mental status. CT DLP: 1107.4 mGycm Automated exposure control for dose reduction was used. There is cerebral cortical atrophy. There is no mass effect or midline shift. There is no sign of int racranial hemorrhage. Calvarium is intact. Skull base is intact. There is normal aeration of the mast oid sinuses. IMPRESSION: Cerebral atrophy. No acute intracranial abnormality. No change compared to old exam
[2021-02-24 23:17] LABS: Basophils # (A) 0.1 k/uL (0-0.2); Basophils % (A) 1 %; Eosinophils # (A) 0.1 k/uL (0-0.7); Eosinophils % (A) 1 %; HCT 46.5 % (39.0-53.0); HGB 15.1 gm/dL (13.0-17.5); Lymphocytes % (A) 14 %; MCH 29.2 pg (25.0-35.0); MCHC 32.5 g/dL (31.0-37.0); MCV 89.7 fL (80.0-100.0); Mean Platelet Volume 7.7; Monocytes # (A) 0.9 k/uL (0-1.0); Monocytes % (A) 7 %; Neutrophils # (A) 10.4 k/uL (1.3-7.7); Neutrophils % (A) 76 %; Platelet Count 266 k/uL (150-450); RBC 5.18 m/uL (4.30-5.90); RDW 13.3 % (11.5-15.5); WBC 13.6 k/uL (3.8-10.6)
[2021-02-24 23:27] LABS: INR 0.9 (<1.2); Partial Thromboplastin Time 22.4 sec (22.0-30.0)
[2021-02-24 23:32] LABS: Appearance,Urine Clear (Clear); Bacteria,Urine Rare /hpf; Bilirubin,Urine Negative (Negative); Blood,Urine Trace (Negative); Color,Urine Yellow; Glucose,Urine (UA) 4+ (Negative); Hyaline Casts,Urine 16 /lpf (0-2); Ketones,Urine 1+ (Negative); Leukocyte Esterase,Urine Negative (Negative); Mucus,Urine Few /hpf; Nitrite,Urine Negative (Negative); Protein,Urine Trace (Negative); RBC,Urine 1 /hpf (0-5); Specific Gravity,Urine 1.031 (1.001-1.035); Squamous Epithelial Cell,Urine <1 /hpf (0-4); Urobilinogen,Urine <2.0 mg/dL (<2.0); WBC,Urine 5 /hpf (0-5)
[2021-02-24 23:35] LABS: Phencyclidine Screen,Urine Not Detected (NotDetected); Urn Cannabinoid Scrn Not Detected (NotDetected)
[2021-02-24 23:36] LABS: Amphetamine Screen,Urine Not Detected (NotDetected); Barbiturate Screen,Urine Not Detected (NotDetected); Benzodiazepines Screen,Urine Not Detected (NotDetected); Cocaine Screen,Urine Not Detected (NotDetected); Methadone Screen, Urine Not Detected (NotDetected); Opiate Screen,Urine Not Detected (NotDetected); Oxycodone Screen, Urine Not Detected (NotDetected); Tricyclic Antidepressant,Urine Not Detected (NotDetected)
[2021-02-24 23:47] LABS: Albumin 4.8 g/dL (3.5-5.0); Calcium 10.9 mg/dL (8.4-10.2); Potassium 4.4 mmol/L (3.5-5.1); Total Bilirubin 0.7 mg/dL (0.2-1.3); Total Protein 8.2 g/dL (6.3-8.2)
--- NOTE | 2021-02-25 00:04 | XR ---
EXAMINATION TYPE: XR chest 1V DATE OF EXAM: 02/24/2021 COMPARISON: 10/13/2020 HISTORY: Altered mental status TECHNIQUE: Single view FINDINGS: Heart and mediastinum are normal. Lungs are clear. Diaphragm is normal. Bony thorax is inta ct. IMPRESSION: Normal chest. There is improved inspiration compared to last exam.
--- NOTE | 2021-02-25 00:20 | ED ---
Altered Mental Status HPI - General Chief Complaint: Altered Mental Status Stated Complaint: confusion, possible stroke, back pain Time Seen by Provider: 02/25/21 00:16 Source: patient, RN notes reviewed, old records reviewed Mode of arrival: ambulatory Limitations: altered mental status - History of Present Illness Initial Comments: This is a 75-year-old male to the emergency department for evaluation. Patient presents with an altered mental status and current poor strain. Downward is presented bedside. Patient has not been acting appropriately. His been acting more altered per family as well as. Extended living staff. His been confusion for about a day now. Patient himself is been without complaint no recent medication changes. MD Complaint: altered mental status, confusion -: days(s) Severity: moderate Consistency of Symptoms: waxing and waning, getting worse Associated Symptoms: weakness Treatments Prior to Arrival: other pre-hospital medication (None) - Related Data Home Medications Medication Instructions Recorded Confirmed Donepezil [Aricept] 10 mg PO DAILY 11/19/15 07/04/20 Gabapentin [Neurontin] 300 mg PO BID 11/19/15 07/04/20 Glucagon Emergency Kit 1 mg IM ONCE PRN 02/08/20 07/04/20 Memantine [Namenda] 5 mg PO BID 02/08/20 07/04/20 Tamsulosin HCl [Flomax] 0.4 mg PO HS 02/08/20 07/04/20 Insulin Glargine [Lantus Vial] 40 unit SQ DAILY 06/03/20 07/04/20 Omeprazole 20 mg PO DAILY 06/03/20 07/04/20 traZODone HCL [Desyrel] 50 mg PO HS 06/03/20 07/04/20 Previous Rx's Medication Instructions Recorded Aspirin 81 mg PO DAILY #30 chew 06/08/20 Folic Acid 1 mg PO DAILY #30 tab 06/08/20 Simvastatin [Zocor] 35 mg PO HS #0 07/05/20 Allergies Allergy/AdvReac Type Severity Reaction Status Date / Time No Known Allergies Allergy Verified 02/24/21 21:31 Review of Systems ROS Statement: Those systems with pertinent positive or pertinent negative responses have been documented in the HPI. ROS Other: All systems not noted in ROS Statement are negative. Past Medical History Past Medical History: CVA/TIA, Dementia, Diabetes Mellitus, GERD/Reflux, Hyperlipidemia, Hypertension Additional Past Medical History / Comment(s): Agent [place] exposure in [place], IDDM type II, DKA with metabolic encephalopathy, neuropathy bilateral feet, osteoporosis, sinus problems, arthritis bilateral hands/feet. History of Any Multi-Drug Resistant Organisms: None Reported Past Surgical History: Appendectomy Additional Past Surgical History / Comment(s): Pt thinks he may have had an appendectomy, colonoscopy-normal Past Anesthesia/Blood Transfusion Reactions: No Reported Reaction Past Psychological History: No Psychological Hx Reported Smoking Status: Former smoker Past Alcohol Use History: None Reported Past Drug Use History: None Reported - Past Family History Father Family Medical History: No Reported History Additional Family Medical History / Comment(s): Father was healthy and lived into his 80s. Mother Family Medical History: Cancer Additional Family Medical History / Comment(s): Mother had some form of cancer (family do not know kind) which she of in her 50s General Exam Limitations: no limitations General appearance: alert, in no apparent distress Head exam: Present: atraumatic, normocephalic, normal inspection Eye exam: Present: normal appearance, PERRL, EOMI. Absent: scleral icterus, conjunctival injection, periorbital swelling ENT exam: Present: normal exam, mucous membranes moist Neck exam: Present: normal inspection. Absent: tenderness, meningismus, lymphadenopathy Respiratory exam: Present: normal lung sounds bilaterally. Absent: respiratory distress, wheezes, rales, rhonchi, stridor Cardiovascular Exam: Present: regular rate, normal rhythm, normal heart sounds. Absent: systolic murmur, diastolic murmur, rubs, gallop, clicks GI/Abdominal exam: Present: soft, normal bowel sounds. Absent: distended, tenderness, guarding, rebound, rigid Extremities exam: Present: normal inspection, full ROM, normal capillary refill. Absent: tenderness, pedal edema, joint swelling, calf tenderness Back exam: Present: normal inspection Neurological exam: Present: alert, oriented X3, CN II-XII intact Psychiatric exam: Present: normal affect, normal mood Skin exam: Present: warm, dry, intact, normal color. Absent: rash Course Vital Signs 02/24/21 21:26 Temperature 98.8 F Pulse Rate 102 H Respiratory 20 Rate Blood Pressure 154/83 O2 Sat by Pulse 97 Oximetry - Reevaluation(s) Reevaluation #1: 02/25/21 01:29 Medical record is reviewed Reevaluation #2: 02/25/21 01:29 She has no other change in symptoms currently Reevaluation #3: 02/25/21 01:30 Patient form results and questions answered - Consultations Consultation #1: Spoke with shi ABBOTT who agreed to admit the patient Medical Decision Making - Medical Decision Making 75 male to the emergency department for evaluation of altered mental status. Patient acting appropriately more confused per staff. Patient be admitted for altered mental status no significant finding on initial evaluation both exam and workup - Lab Data Result diagrams: 02/24/21 22:59 02/24/21 22:59 Lab Results 02/24/21 02/24/21 02/24/21 Range/Units 21:29 22:59 22:59 WBC 13.6 H (3.8-10.6) k/uL RBC 5.18 (4.30-5.90) m/uL Hgb 15.1 (13.0-17.5) gm/dL Hct 46.5 (39.0-53.0) % MCV 89.7 (80.0-100.0) fL MCH 29.2 (25.0-35.0) pg MCHC 32.5 (31.0-37.0) g/dL RDW 13.3 (11.5-15.5) % Plt Count 266 (150-450) k/uL MPV 7.7 Neutrophils % 76 % Lymphocytes % 14 % Monocytes % 7 % Eosinophils % 1 % Basophils % 1 % Neutrophils # 10.4 H (1.3-7.7) k/uL Lymphocytes # 2.0 (1.0-4.8) k/uL Monocytes # 0.9 (0-1.0) k/uL Eosinophils # 0.1 (0-0.7) k/uL Basophils # 0.1 (0-0.2) k/uL PT 10.0 (9.0-12.0) sec INR 0.9 (<1.2) APTT 22.4 (22.0-30.0) sec Sodium (137-145) mmol/L Potassium (3.5-5.1) mmol/L Chloride (98-107) mmol/L Carbon Dioxide (22-30) mmol/L Anion Gap mmol/L BUN (9-20) mg/dL Creatinine (0.66-1.25) mg/dL Est GFR (CKD-EPI)AfAm (>60 ml/min/1.73 sqM) Est GFR (CKD-EPI)NonAf (>60 ml/min/1.73 sqM) Glucose (74-99) mg/dL POC Glucose (mg/dL) 183 H (75-99) mg/dL POC Glu Herb Doctor ID Deep [place] Calcium (8.4-10.2) mg/dL Total Bilirubin (0.2-1.3) mg/dL AST (17-59) U/L ALT (4-49) U/L Alkaline Phosphatase (38-126) U/L Troponin I (0.000-0.034) ng/mL Total Protein (6.3-8.2) g/dL Albumin (3.5-5.0) g/dL Urine Color Urine Appearance (Clear) Urine pH (5.0-8.0) Ur Specific [place] (1.001-1.035) Urine Protein (Negative) Urine Glucose (UA) (Negative) Urine Ketones (Negative) Urine Blood (Negative) Urine Nitrite (Negative) Urine Bilirubin (Negative) Urine Urobilinogen (<2.0) mg/dL Ur Leukocyte Esterase (Negative) Urine RBC (0-5) /hpf Urine WBC (0-5) /hpf Ur Squamous Epith Cells (0-4) /hpf Urine Bacteria (None) /hpf Hyaline Casts (0-2) /lpf Urine Mucus (None) /hpf Urine Opiates Screen (NotDetected) Ur Oxycodone Screen (NotDetected) Urine Methadone Screen (NotDetected) Ur Propoxyphene Screen (NotDetected) Ur Barbiturates Screen (NotDetected) U Tricyclic Antidepress (NotDetected) Ur Phencyclidine Scrn (NotDetected) Ur Amphetamines Screen (NotDetected) U Methamphetamines Scrn (NotDetected) U Benzodiazepines Scrn (NotDetected) Urine Cocaine Screen (NotDetected) U Marijuana (THC) Screen (NotDetected) Coronavirus (PCR) (Not Detectd) 02/24/21 02/24/21 02/24/21 Range/Units 22:59 22:59 22:59 WBC (3.8-10.6) k/uL RBC (4.30-5.90) m/uL Hgb (13.0-17.5) gm/dL Hct (39.0-53.0) % MCV (80.0-100.0) fL MCH (25.0-35.0) pg MCHC (31.0-37.0) g/dL RDW (11.5-15.5) % Plt Count (150-450) k/uL MPV Neutrophils % % Lymphocytes % % Monocytes % % Eosinophils % % Basophils % % Neutrophils # (1.3-7.7) k/uL Lymphocytes # (1.0-4.8) k/uL Monocytes # (0-1.0) k/uL Eosinophils # (0-0.7) k/uL Basophils # (0-0.2) k/uL PT (9.0-12.0) sec INR (<1.2) APTT (22.0-30.0) sec Sodium 140 (137-145) mmol/L Potassium 4.4 (3.5-5.1) mmol/L Chloride 103 (98-107) mmol/L Carbon Dioxide 25 (22-30) mmol/L Anion Gap 12 mmol/L BUN 40 H (9-20) mg/dL Creatinine 1.52 H (0.66-1.25) mg/dL Est GFR (CKD-EPI)AfAm 52 (>60 ml/min/1.73 sqM) Est GFR (CKD-EPI)NonAf 45 (>60 ml/min/1.73 sqM) Glucose 92 (74-99) mg/dL POC Glucose (mg/dL) (75-99) mg/dL POC Glu Herb Doctor ID Calcium 10.9 H (8.4-10.2) mg/dL Total Bilirubin 0.7 (0.2-1.3) mg/dL AST 23 (17-59) U/L ALT 24 (4-49) U/L Alkaline Phosphatase 106 (38-126) U/L Troponin I <0.012 (0.000-0.034) ng/mL Total Protein 8.2 (6.3-8.2) g/dL Albumin 4.8 (3.5-5.0) g/dL Urine Color Yellow Urine Appearance Clear (Clear) Urine pH 5.0 (5.0-8.0) Ur Specific [place] 1.031 (1.001-1.035) Urine Protein Trace H (Negative) Urine Glucose (UA) 4+ H (Negative) Urine Ketones 1+ H (Negative) Urine Blood Trace H (Negative) Urine Nitrite Negative (Negative) Urine Bilirubin Negative (Negative) Urine Urobilinogen <2.0 (<2.0) mg/dL Ur Leukocyte Esterase Negative (Negative) Urine RBC 1 (0-5) /hpf Urine WBC 5 (0-5) /hpf Ur Squamous Epith Cells <1 (0-4) /hpf Urine Bacteria Rare H (None) /hpf Hyaline Casts 16 H (0-2) /lpf Urine Mucus Few H (None) /hpf Urine Opiates Screen Not Detected (NotDetected) Ur Oxycodone Screen Not Detected (NotDetected) Urine Methadone Screen Not Detected (NotDetected) Ur Propoxyphene Screen Not Detected (NotDetected) Ur Barbiturates Screen Not Detected (NotDetected) U Tricyclic Antidepress Not Detected (NotDetected) Ur Phencyclidine Scrn Not Detected (NotDetected) Ur Amphetamines Screen Not Detected (NotDetected) U Methamphetamines Scrn Not Detected (NotDetected) U Benzodiazepines Scrn Not Detected (NotDetected) Urine Cocaine Screen Not Detected (NotDetected) U Marijuana (THC) Screen Not Detected (NotDetected) Coronavirus (PCR) (Not Detectd) 02/25/21 Range/Units 00:19 WBC (3.8-10.6) k/uL RBC (4.30-5.90) m/uL Hgb (13.0-17.5) gm/dL Hct (39.0-53.0) % MCV (80.0-100.0) fL MCH (25.0-35.0) pg MCHC (31.0-37.0) g/dL RDW (11.5-15.5) % Plt Count (150-450) k/uL MPV Neutrophils % % Lymphocytes % % Monocytes % % Eosinophils % % Basophils % % Neutrophils # (1.3-7.7) k/uL Lymphocytes # (1.0-4.8) k/uL Monocytes # (0-1.0) k/uL Eosinophils # (0-0.7) k/uL Basophils # (0-0.2) k/uL PT (9.0-12.0) sec INR (<1.2) APTT (22.0-30.0) sec Sodium (137-145) mmol/L Potassium (3.5-5.1) mmol/L Chloride (98-107) mmol/L Carbon Dioxide (22-30) mmol/L Anion Gap mmol/L BUN (9-20) mg/dL Creatinine (0.66-1.25) mg/dL Est GFR (CKD-EPI)AfAm (>60 ml/min/1.73 sqM) Est GFR (CKD-EPI)NonAf (>60 ml/min/1.73 sqM) Glucose (74-99) mg/dL POC Glucose (mg/dL) (75-99) mg/dL POC Glu Herb Doctor ID Calcium (8.4-10.2) mg/dL Total Bilirubin (0.2-1.3) mg/dL AST (17-59) U/L ALT (4-49) U/L Alkaline Phosphatase (38-126) U/L Troponin I (0.000-0.034) ng/mL Total Protein (6.3-8.2) g/dL Albumin (3.5-5.0) g/dL Urine Color Urine Appearance (Clear) Urine pH (5.0-8.0) Ur Specific [place] (1.001-1.035) Urine Protein (Negative) Urine Glucose (UA) (Negative) Urine Ketones (Negative) Urine Blood (Negative) Urine Nitrite (Negative) Urine Bilirubin (Negative) Urine Urobilinogen (<2.0) mg/dL Ur Leukocyte Esterase (Negative) Urine RBC (0-5) /hpf Urine WBC (0-5) /hpf Ur Squamous Epith Cells (0-4) /hpf Urine Bacteria (None) /hpf Hyaline Casts (0-2) /lpf Urine Mucus (None) /hpf Urine Opiates Screen (NotDetected) Ur Oxycodone Screen (NotDetected) Urine Methadone Screen (NotDetected) Ur Propoxyphene Screen (NotDetected) Ur Barbiturates Screen (NotDetected) U Tricyclic Antidepress (NotDetected) Ur Phencyclidine Scrn (NotDetected) Ur Amphetamines Screen (NotDetected) U Methamphetamines Scrn (NotDetected) U Benzodiazepines Scrn (NotDetected) Urine Cocaine Screen (NotDetected) U Marijuana (THC) Screen (NotDetected) Coronavirus (PCR) Not Detected (Not Detectd) - Radiology Data Radiology results: report reviewed (CT brain and chest x-ray are negative for acute disease ), image reviewed Disposition Clinical Impression: Dehydration, Altered mental status, Weakness Disposition: ADMITTED IP TO THIS [facility] Condition: Fair Is patient prescribed a controlled substance at d/c from ED?: No Referrals: [facility],Clinic [Primary Care Provider] - 1-2 days
[2021-02-25] MEDS ORDERED: LORazepam 2 MG/ML INJ IV PRN (01:27)
[2021-02-25] MEDS ORDERED: MORPHINE SULFATE 4 MG/ML SYRINGE IV PRN (01:27)
[2021-02-25] MEDS ORDERED: IBUPROFEN 400 MG TAB PO PRN (01:27)
[2021-02-25] MEDS ORDERED: NALOXONE 0.4 MG/ML 1 ML VIAL IV PRN (01:27)
[2021-02-25] MEDS ORDERED: ACETAMINOPHEN TAB 325 MG TAB PO PRN (01:27)
[2021-02-25] MEDS ORDERED: ONDANSETRON 4 MG/2 ML VIAL IVP PRN (01:27)
[2021-02-25 02:32] LABS: Glucose,Whole Blood 85 mg/dL (75-99)
[2021-02-25 12:45] LABS: Glucose,Whole Blood 475 mg/dL (75-99)
--- NOTE | 2021-02-25 15:03 | HP ---
HISTORY AND PHYSICAL DATE OF SERVICE: 02/25/2021 CHIEF COMPLAINT: Change in mental status. HISTORY OF PRESENT ILLNESS: This 75-year-old gentleman with a past medical history of multiple medical problems, including CVA, TIA, dementia, diabetes mellitus, type 2, hypertension, hyperlipidemia, history of agent [place] exposure, being followed by Dr. Judith Estrada in the outpatient setting, was brought to [facility] with some change in mental status. The patient was altered per family and the patient was admitted for further evaluation. White count was slightly elevated at 13.6. Creatinine was 1.52. The baseline creatinine was fluctuating. Patient might have chronic kidney disease, stage 2 baseline. The COVID-19 was negative. UA shows some concentrated urine; otherwise 4+ glucose and trace ketones. Chest x-ray which was reviewed personally by me showed increased bronchovascular marking, no evidence of any obvious pneumonia. CT scan of the brain was reviewed which showed significant dementia. Patient is admitted for evaluation and treatment. PAST MEDICAL HISTORY: History of CVA, TIA, dementia, diabetes mellitus, type 2, hypertension, hyperlipidemia, history of [place] exposure. HOME MEDICATIONS: Omeprazole, Desyrel, Flomax, Namenda, Aricept, Zocor, insulin FlexPen, Glucophage, lisinopril/hydrochlorothiazide, aspirin. Doses are reviewed. ALLERGIES: NONE. FAMILY HISTORY: History of smoking in the father. SOCIAL HISTORY: The patient lives are [id number] REVIEW OF SYSTEMS: Review of systems could not be taken because of the patient's baseline mental status. PHYSICAL EXAMINATION: Patient is conscious, confused. Pulse 94, blood pressure 147/74, respiration 18, temperature 98.6, pulse ox 98% on room air. HEENT: Conjunctivae normal. Oral mucosa dry. NECK: No jugular venous distention. CARDIOVASCULAR: S1, S2 muffled. RESPIRATION: Breath sounds diminished at the bases. No rhonchi. No crackles. ABDOMEN: Soft. No mass palpable. LEGS: No edema. No swelling. NERVOUS SYSTEM: Higher functions as mentioned earlier. Moves all 4 limbs. No focal motor or sensory deficit. LYMPHATICS: No lymph node palpable in neck, axillae or groin. SKIN: No ulcer, rash, bleeding. JOINTS: No active deforming arthropathy. LAB STUDIES: Labs at this time show WBC 13.6, hemoglobin 15.1, sodium 140, potassium 4.2, creatinine 1.52. ASSESSMENT: 1. Acute renal failure with acute tubular necrosis and prerenal renal factors with dehydration, present on admission. 2. Change in mental status, acute on chronic metabolic encephalopathy. 3. Severe dementia, underlying. 4. Chronic kidney disease, stage 2 baseline possibly. 5. Diabetes mellitus, type 2, fluctuating, with hyperglycemia uncontrolled. 6. History of cerebrovascular accident, transient ischemic attack. 7. Gastroesophageal reflux disease. 8. Hypertension. 9. Hyperlipidemia. 10.History of [place] exposure. 11.History of diabetic ketoacidosis with metabolic encephalopathy. 12.History of bilateral peripheral neuropathy. 13.Degenerative joint disease. 14.History of appendectomy. 15.FULL CODE. RECOMMENDATIONS AND DISCUSSION: In this 75-year-old gentleman who presented with multiple complex medical issues, we will monitor the patient closely, continue the current medications, continue symptomatic treatment. The patient has acute on chronic mental status changes, possibly indicating metabolic encephalopathy secondary to renal failure, dehydration. The possibility of uncontrolled diabetes mellitus is also considered. Resume the home medications. pull worker and case packer to evaluate the home situation. Otherwise, prognosis is guarded because of multiple complex medical issues. Further recommendations to follow. MMODL / IJN: [id number] / JEREMIAS
[2021-02-25 17:02] LABS: Glucose,Whole Blood 477 mg/dL (75-99)
[2021-02-25] MEDS: INSULIN ASPART (NovoLOG) 100 UNIT/ML VIAL SQ SCH (17:59)
[2021-02-25 20:54] LABS: Glucose,Whole Blood 349 mg/dL (75-99)
[2021-02-25] MEDS: MEMANTINE 5 MG TAB PO SCH (20:57)
[2021-02-25] MEDS ORDERED: ATORVASTATIN 20 MG TAB PO SCH (21:00)
[2021-02-25] MEDS ORDERED: TAMSULOSIN 0.4 MG CAP.ER.24H PO SCH (21:00)
[2021-02-25] MEDS ORDERED: traZODone HCL 50 MG TAB PO SCH (21:00)
[2021-02-25] MEDS: SODIUM CHLORIDE 0.9% 1,000 ML IV SCH (21:02)
--- NOTE | 2021-02-25 22:18 | P.CNNES ---
History of Present Illness Consult date: 02/25/21 Requesting physician: Rachid Gonzáles Reason for Consult: Altered mental status History of Present Illness: Patient is a 75-year-old male came to the hospital early this morning at 1:27 AM for evaluation of altered mental status. Patient has significant dementia, not able to provide any history. As per electronic records, patient came to the hospital because he has not been acting appropriately. He has been acting more altered. This has been going on for a day. No focal symptoms reported. Vital signs arrival blood pressure 154/83, pulse rate 102, temperature 98.1. Computed tomography scan of the head showed cerebral atrophy. No acute intracranial abnormality. No change compared to old exam. Chest x-ray is normal. Patient's blood test shows WBC 13.6 hemoglobin 15.1, platelets 266. PT/PTT normal, electrolytes normal, BUN 40, creatinine 1.52. Hepatic panel is normal, calcium is mildly elevated 10.9/10.2. UA shows 4+ glucose, 1+ ketones. Urine drug screen negative. Nava virus PCR negative. Patient's last hemoglobin A1c 9.9 on 06/05/2020. Patient has been seen by myself previously on 06/06/2020. Patient has presented with altered mental status, likely due to delirium, probably due to metabolic encephalopathy. Patient had diabetic ketoacidosis, mild renal insufficiency, non-STEMI, electrolyte imbalance with acute Covid-19 infection at that time. Patient had reported at that time that he has history of dementia diagnosed 6-7 years ago for which he is on medications including Namenda and Aricept. Patient follows up with a neurologist locally in [place]. He was diagnosed with nava virus infection in January 2020, for which he was hospitalized for 10 days. He was discharged on 02/23/2020. Patient currently on donepezil 10 mg, Namenda 5 mg twice a day also on Zocor 40 mg, folic acid, a aspirin 81 mg, insulin, trazodone 50 mg at bedtime, Flomax, gabapentin 300 mg twice a day Patient's B12 was 784, folate 8.9. TSH was normal. RPR negative. States he has 2 children, son and a daughter. He states he lives by himself. Review of Systems As mentioned in HPI. Patient denies any other review of systems. All 14 point of results are reviewed. Patient has memory loss and dementia. Therefore unreliable. Past Medical History Past Medical History: CVA/TIA, Dementia, Diabetes Mellitus, GERD/Reflux, Hyperlipidemia, Hypertension Additional Past Medical History / Comment(s): [place] exposure in [place], IDDM type II, DKA with metabolic encephalopathy, neuropathy bilateral feet, osteoporosis, sinus problems, arthritis bilateral hands/feet. History of Any Multi-Drug Resistant Organisms: None Reported Past Surgical History: Appendectomy Additional Past Surgical History / Comment(s): Pt thinks he may have had an appendectomy, colonoscopy-normal Past Anesthesia/Blood Transfusion Reactions: No Reported Reaction Past Psychological History: No Psychological Hx Reported Smoking Status: Former smoker Past Alcohol Use History: None Reported Past Drug Use History: None Reported - Past Family History Father Family Medical History: No Reported History Additional Family Medical History / Comment(s): Father was healthy and lived into his 80s. Mother Family Medical History: Cancer Additional Family Medical History / Comment(s): Mother had some form of cancer (family do not know kind) which she of in her 50s Medications and Allergies Home Medications Medication Instructions Recorded Confirmed Type Donepezil [Aricept] 10 mg PO DAILY 11/19/15 02/25/21 History Glucagon Emergency Kit 1 mg IM ONCE PRN 02/08/20 02/25/21 History Memantine [Namenda] 5 mg PO BID 02/08/20 02/25/21 History Tamsulosin HCl [Flomax] 0.4 mg PO HS 02/08/20 02/25/21 History Omeprazole 20 mg PO DAILY 06/03/20 02/25/21 History traZODone HCL [Desyrel] 50 mg PO HS 06/03/20 02/25/21 History Aspirin EC [Ecotrin Low Dose] 81 mg PO DAILY 02/25/21 02/25/21 History Insulin Aspart [Insulin Aspart 7 unit SQ AC-TID 02/25/21 02/25/21 History Flexpen] Lisinopril-Hctz 10-12.5 mg 1 tab PO DAILY 02/25/21 02/25/21 History [Zestoretic 10-12.5] Simvastatin [Zocor] 40 mg PO HS 02/25/21 02/25/21 History Allergies Allergy/AdvReac Type Severity Reaction Status Date / Time No Known Allergies Allergy Verified 02/25/21 09:30 Physical Examination - Vital Signs Vital Signs: Vital Signs Temp Pulse Resp BP Pulse Ox 02/25/21 06:13 89 18 152/87 99 02/25/21 04:00 86 18 146/82 99 02/25/21 02:35 81 18 157/87 100 02/24/21 21:26 98.8 F 102 H 20 154/83 97 Intake and Output 02/24/21 02/25/21 02/25/21 22:59 06:59 14:59 Other: Weight 72.575 kg Patient is an elderly male, in no acute distress. Patient is alert awake, very pleasant. Patient knows his name, and his age. Patient states that he is in [facility]. He thinks he is currently in his rental apartment in [place]. He could not tell me name of the current president. When I give him choices, he states it is [place]. Speech and language functions are normal. Attention, concentration intact and fund of knowledge is very limited. Patient has mildly positive palmomental reflex bilaterally, and also has positive visuospatial apraxia On cranial examination, pupils are round and reacting to light, visual walter are full on confrontation, extraocular muscles are intact with no nystagmus. Face is symmetric, tongue protrudes to the midline. Palatal elevation and sensation normal, hearing and shoulder shrug normal, facial sensation normal. Shoulder shrug normal. On muscle strength testing, there is right-sided pronation but no drift. However the strength is normal in arms and legs distally and proximally. Deep tendon reflexes are 1+ to 2 all over and plantars downgoing. Sensory to touch is equal with no neglect. Cerebellar function showed no ataxia for [id number] testing. Tone and bulk of muscles normal. Gait deferred. Per nurse, he walked, was slightly unsteady. On general examination, there is no carotid bruit or murmur, S1-S2 audible. Abdomen is soft nontender. Chest is clear. Peripheral pulses are present. No edema. Results - Laboratory Findings CBC and BMP: 02/26/21 05:17 02/26/21 05:17 Abnormal Lab Findings: Abnormal Labs 02/24/21 02/24/21 02/24/21 21:29 22:59 22:59 WBC 13.6 H Neutrophils # 10.4 H BUN Creatinine POC Glucose (mg/dL) 183 H Calcium Urine Protein Trace H Urine Glucose (UA) 4+ H Urine Ketones 1+ H Urine Blood Trace H Urine Bacteria Rare H Hyaline Casts 16 H Urine Mucus Few H 02/24/21 22:59 WBC Neutrophils # BUN 40 H Creatinine 1.52 H POC Glucose (mg/dL) Calcium 10.9 H Urine Protein Urine Glucose (UA) Urine Ketones Urine Blood Urine Bacteria Hyaline Casts Urine Mucus Assessment and Plan Assessment: * Altered mental status, possibly due to progression of underlying dementia, versus mild delirium from some reasons mentioned below * Mild renal insufficiency, perhaps due to dehydration * Poorly controlled diabetes. * Hypercalcemia * Cerebrovascular disease, based upon CTA report from 07/05/2018. Patient has basilar artery stenosis. * Cognitive impairment Plan: * Suggest increasing dose of Namenda to 5 mg in the morning and 10 mg at night. If needed, may increase the dose gradually to 10 mg twice a day as outpatient. * Continue donepezil 10 mg daily. * Patient to undergo repeat CBC and CMP in the morning, follow-up on calcium and renal functions. * Treatment of diabetes as per IM. * Lipid panel from 06/04/2020 shows cholesterol 150, LDL 97, HDL 46 and triglyc erides 33. Patient on Zocor 40 mg at home, currently on Lipitor 20 mg. We will increase check lipid panel. May increase the dose to target LDL <70 * Continue aspirin 81 mg, Lipitor 20 mg. * We will try to obtain collateral history from patient's family as well. * Thank you for the consult.
[2021-02-26 06:06] LABS: Basophils % (A) 0 %; Eosinophils # (A) 0.1 k/uL (0-0.7); Eosinophils % (A) 2 %; HCT 41.7 % (39.0-53.0); HGB 13.6 gm/dL (13.0-17.5); Lymphocytes # (A) 1.2 k/uL (1.0-4.8); Lymphocytes % (A) 18 %; MCH 30.4 pg (25.0-35.0); MCHC 32.7 g/dL (31.0-37.0); MCV 93.1 fL (80.0-100.0); Mean Platelet Volume 7.6; Monocytes # (A) 0.4 k/uL (0-1.0); Monocytes % (A) 6 %; Neutrophils # (A) 5.1 k/uL (1.3-7.7); Neutrophils % (A) 73 %; Platelet Count 225 k/uL (150-450); RBC 4.48 m/uL (4.30-5.90); RDW 13.9 % (11.5-15.5)
[2021-02-26 06:33] LABS: Albumin 3.7 g/dL (3.5-5.0); Calcium 9.2 mg/dL (8.4-10.2); Magnesium 2.2 mg/dL (1.6-2.3); Phosphorus 3.7 mg/dL (2.5-4.5); Potassium 4.6 mmol/L (3.5-5.1); Total Bilirubin 1.2 mg/dL (0.2-1.3); Total Protein 6.6 g/dL (6.3-8.2)
[2021-02-26] MEDS ORDERED: PANTOPRAZOLE 40 MG TABLET PO SCH (07:30)
[2021-02-26 08:00] LABS: Glucose,Whole Blood 366 mg/dL (75-99)
[2021-02-26] MEDS: INSULIN ASPART (NovoLOG) 100 UNIT/ML VIAL SQ SCH ×3 (08:49→13:17)
[2021-02-26] MEDS: SODIUM CHLORIDE 0.9% 1,000 ML IV SCH (08:51)
[2021-02-26] MEDS: MEMANTINE 5 MG TAB PO SCH (08:51)
[2021-02-26 08:58] LABS: Chol/HDL Ratio 3.79 Ratio; LDL Cholesterol,Calculated 101.9 mg/dL (0.0-131.0)
[2021-02-26] MEDS ORDERED: ASPIRIN 81 MG PO SCH (09:00)
[2021-02-26] MEDS ORDERED: DONEPEZIL 10 MG TAB PO SCH (09:00)
[2021-02-26 09:16] VITALS: BP 128/78; PULSE 99; RESP 16; TEMP 98.7
[2021-02-26] MEDS ORDERED: INSULIN DETEMIR (LEVEMIR) 100 UNIT/ML SYR SQ SCH (10:30)
[2021-02-26 12:02] LABS: Glucose,Whole Blood 285 mg/dL (75-99)
--- NOTE | 2021-02-26 13:29 | P.CN ---
Psychiatric Consult - . Consult date: 02/26/21 Consult:: 02/26/21 13:29 IDENTIFYING DATA: This patient is a , retired, 75-year-old male with significant history of TIA/CVA, dementia, diabetes mellitus, agent [place] exposure, presented to the emergency department with altered mental status. HISTORY OF PRESENT ILLNESS: The patient presented to the hospital on 02/25/2021, for evaluation of altered mental status. The patient does have significant history of dementia and history is limited. Upon evaluation of the patient's blood work, it is noted that the patient has been displaying an elevated blood sugar with the last A1c being 9.9 on 06/05/2020. Upon evaluation by a psychiatric provider, the patient is not endorsing any significant issues regarding his mood. He denies any symptoms of depression or bipolar disorder. He denies any suicidal or homicidal ideation, intention, and/or plan. He reports no auditory or visual hallucinations. He denies any paranoia or other delusions. The patient does have significant history of memory issues which she does acknowledge. He is unable to identify where he is currently located and states that his son handles all his affairs regarding his health and current decision making. The patient is unable to identify who the president is or what year it is. He is agreeable when we oriented. The patient did have covid in january of 2020 and was discharged on 02/23/2020. He is currently on a regimen of Namenda and donepezil for management of dementia and also takes trazodone for sleep. As per discussion with staff, the patient has been calm and cooperative and displayed no significant behaviors warranting any medication intervention. PAST PSYCHIATRIC HISTORY: Patient has a history of CVA/TIA, agent [place] exposure, and major neurocognitive disorder. The patient is currently receiving trazodone at bedtime. Patient denies any previous psychiatric hospitalizations. Patient denies any psychiatric outpatient follow-up. Patient denies any history of suicide attempts in the past. PAST MEDICAL HISTORY: ALLERGIES: NO KNOWN DRUG ALLERGIES. CHEMICAL DEPENDENCY HISTORY: The patient is a former smoker, denies any current tobacco use, alcohol use, marijuana use, or illicit drug use. FAMILY PSYCHIATRIC/SUBSTANCE USE HISTORY: The patient denies any significant family history of substance abuse or family psychiatric history. SOCIAL HISTORY: Patient states that he went to [employer] but is unable to identify his home town. 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 He states that he has 2 adult children and his son manages his affairs. Family resident in a half-way facility. MENTAL STATUS EXAM: General Appearance: Patient appears to be stated age is alert, pleasant, and cooperative. Patient appears to have fair hygiene and grooming wearing hospital gown with fair eye contact. Behavior: Patient is calmly lying in bed without any agitated behavior. Speech: Patient's speech is fluent and nonpressured. Mood/Affect: Patient reports their mood is "alright", affect is congruent and euthymic. Suicidality/Homicidality: Patient denies having any suicidal or homicidal ideation intent or plan. Perceptions: Patient denies any visual hallucinations and denies any auditory hallucinations Though content/process: There is no evidence of any delusional thought content and thought process is linear and goal-directed. Memory and concentration: Memory is grossly poor. Patient is alert and oriented to self only. Judgment and insight: poor Vital Signs Temp 98.7 F 02/26/21 08:22 Pulse 99 02/26/21 08:22 Resp 16 02/26/21 08:22 BP 128/78 02/26/21 08:22 Pulse Ox 100 02/26/21 08:22 Intake & Output 02/25/21 02/26/21 02/26/21 18:59 06:59 18:59 Intake Total 720 240 Output Total 150 Balance 720 90 Weight 72.575 kg Intake: Oral 720 240 Output: Urine 150 Other: Voiding Method Urinal Urinal Diaper Diaper Diaper # Voids 1 Laboratory Results WBC 7.0 k/uL (3.8-10.6) 02/26/21 05:17 RBC 4.48 m/uL (4.30-5.90) 02/26/21 05:17 Hgb 13.6 gm/dL (13.0-17.5) 02/26/21 05:17 Hct 41.7 % (39.0-53.0) 02/26/21 05:17 MCV 93.1 fL (80.0-100.0) 02/26/21 05:17 MCH 30.4 pg (25.0-35.0) 02/26/21 05:17 MCHC 32.7 g/dL (31.0-37.0) 02/26/21 05:17 RDW 13.9 % (11.5-15.5) 02/26/21 05:17 Plt Count 225 k/uL (150-450) 02/26/21 05:17 MPV 7.6 02/26/21 05:17 Neutrophils % 73 % 02/26/21 05:17 Lymphocytes % 18 % 02/26/21 05:17 Monocytes % 6 % 02/26/21 05:17 Eosinophils % 2 % 02/26/21 05:17 Basophils % 0 % 02/26/21 05:17 Neutrophils # 5.1 k/uL (1.3-7.7) 02/26/21 05:17 Lymphocytes # 1.2 k/uL (1.0-4.8) 02/26/21 05:17 Monocytes # 0.4 k/uL (0-1.0) 02/26/21 05:17 Eosinophils # 0.1 k/uL (0-0.7) 02/26/21 05:17 Basophils # 0.0 k/uL (0-0.2) 02/26/21 05:17 PT 10.0 sec (9.0-12.0) 02/24/21 22:59 INR 0.9 (<1.2) 02/24/21 22:59 APTT 22.4 sec (22.0-30.0) 02/24/21 22:59 Sodium 134 mmol/L (137-145) L 02/26/21 05:17 Potassium 4.6 mmol/L (3.5-5.1) 02/26/21 05:17 Chloride 100 mmol/L (98-107) 02/26/21 05:17 Carbon Dioxide 25 mmol/L (22-30) 02/26/21 05:17 Anion Gap 9 mmol/L 02/26/21 05:17 BUN 26 mg/dL (9-20) H 02/26/21 05:17 Creatinine 1.03 mg/dL (0.66-1.25) 02/26/21 05:17 Est GFR (CKD-EPI)AfAm 83 (>60 ml/min/1.73 sqM) 02/26/21 05:17 Est GFR (CKD-EPI)NonAf 72 (>60 ml/min/1.73 sqM) 02/26/21 05:17 Glucose 344 mg/dL (74-99) H 02/26/21 05:17 POC Glucose (mg/dL) 285 mg/dL (75-99) H 02/26/21 12:00 POC Glu Game Design Instructor Leesa Can 02/26/21 12:00 Calcium 9.2 mg/dL (8.4-10.2) 02/26/21 05:17 Phosphorus 3.7 mg/dL (2.5-4.5) 02/26/21 05:17 Magnesium 2.2 mg/dL (1.6-2.3) 02/26/21 05:17 Total Bilirubin 1.2 mg/dL (0.2-1.3) 02/26/21 05:17 AST 22 U/L (17-59) 02/26/21 05:17 ALT 19 U/L (4-49) 02/26/21 05:17 Alkaline Phosphatase 103 U/L (38-126) 02/26/21 05:17 Troponin I <0.012 ng/mL (0.000-0.034) 02/24/21 22:59 Total Protein 6.6 g/dL (6.3-8.2) 02/26/21 05:17 Albumin 3.7 g/dL (3.5-5.0) 02/26/21 05:17 Triglycerides 168.00 mg/dL (0.00-149.00) H 02/26/21 05:17 Cholesterol 184.00 mg/dL (0.00-200.00) 02/26/21 05:17 LDL Cholesterol, Calc 101.9 mg/dL (0.0-131.0) 02/26/21 05:17 VLDL Cholesterol, Calc 33.60 mg/dL (5.00-40.00) 02/26/21 05:17 HDL Cholesterol 48.50 mg/dL (40.00-60.00) 02/26/21 05:17 Cholesterol/HDL Ratio 3.79 Ratio 02/26/21 05:17 Urine Color Yellow 02/24/21 22:59 Urine Appearance Clear (Clear) 02/24/21 22:59 Urine pH 5.0 (5.0-8.0) 02/24/21 22:59 Ur Specific [place] 1.031 (1.001-1.035) 02/24/21 22:59 Urine Protein Trace (Negative) H 02/24/21 22:59 Urine Glucose (UA) 4+ (Negative) H 02/24/21 22:59 Urine Ketones 1+ (Negative) H 02/24/21 22:59 Urine Blood Trace (Negative) H 02/24/21 22:59 Urine Nitrite Negative (Negative) 02/24/21 22:59 Urine Bilirubin Negative (Negative) 02/24/21 22:59 Urine Urobilinogen <2.0 mg/dL (<2.0) 02/24/21 22:59 Ur Leukocyte Esterase Negative (Negative) 02/24/21 22:59 Urine RBC 1 /hpf (0-5) 02/24/21 22:59 Urine WBC 5 /hpf (0-5) 02/24/21 22:59 Ur Squamous Epith Cells <1 /hpf (0-4) 02/24/21 22:59 Urine Bacteria Rare /hpf (None) H 02/24/21 22:59 Hyaline Casts 16 /lpf (0-2) H 02/24/21 22:59 Urine Mucus Few /hpf (None) H 02/24/21 22:59 Urine Opiates Screen Not Detected (NotDetected) 02/24/21 22:59 Ur Oxycodone Screen Not Detected (NotDetected) 02/24/21 22:59 Urine Methadone Screen Not Detected (NotDetected) 02/24/21 22:59 Ur Propoxyphene Screen Not Detected (NotDetected) 02/24/21 22:59 Ur Barbiturates Screen Not Detected (NotDetected) 02/24/21 22:59 U Tricyclic Antidepress Not Detected (NotDetected) 02/24/21 22:59 Ur Phencyclidine Scrn Not Detected (NotDetected) 02/24/21 22:59 Ur Amphetamines Screen Not Detected (NotDetected) 02/24/21 22:59 U Methamphetamines Scrn Not Detected (NotDetected) 02/24/21 22:59 U Benzodiazepines Scrn Not Detected (NotDetected) 02/24/21 22:59 Urine Cocaine Screen Not Detected (NotDetected) 02/24/21 22:59 U Marijuana (THC) Screen Not Detected (NotDetected) 02/24/21 22:59 Coronavirus (PCR) Not Detected (Not Detectd) 02/25/21 00:19 IMPRESSIONS: Altered mental status, likely secondary to progression of underlying major neurocognitive disorder, may also be exacerbated by hyperglycemia. Major neurocognitive disorder Hypercalcemia PLAN: -At this time patient DOES NOT meet criteria for inpatient psychiatric admission. -Delirium precautions recommended with patient including - avoiding use of narcotics and HOG WORKER sedatives, limit anticholinergic medications when possible, frequent re-orientation, minimize use of restraints, open window shades during the day and close them at night -Would recommend the following medication changes/additions: No medication recommendations were made at this time. Patient is cleared psychiatrically for discharge. -It is likely that his altered mental status is due to uncontrolled blood sugar. He displays no significant behaviors that would warrant an inpatient psychiatric admission or any medication intervention at this time. -Psychiatry will sign off at this point, please contact with any questions.
--- NOTE | 2021-02-26 13:56 | P.PN ---
Subjective Progress Note Date: 02/26/21 Patient was seen for a follow-up. Patient is laying comfortably in the bed. Patient was asleep. On waking up, patient appears pleasant. He offers no complaints. No headache. Per nurse patient's blood sugars are running between 360-400 range. Objective - Vital Signs Vital signs: Vital Signs Temp 98.7 F 02/26/21 08:22 Pulse 99 02/26/21 08:22 Resp 16 02/26/21 08:22 BP 128/78 02/26/21 08:22 Pulse Ox 100 02/26/21 08:22 Intake & Output 02/25/21 02/26/21 02/26/21 18:59 06:59 18:59 Intake Total 720 240 Output Total 150 Balance 720 90 Weight 72.575 kg Intake: Oral 720 240 Output: Urine 150 Other: Voiding Method Urinal Urinal Diaper Diaper # Voids 1 - Exam On examination patient is alert and awake. He could not tell what city he is in although he knows that he lives in [facility]. He thinks he is cur rently in a retired community. He states the month is January and the year is . Then he states it is 1923. Patient could not tell name of the current president. When I give him choices, patient identified [place]. Patient has positive visuospatial apraxia, positive palmomental reflex. Rest of the examination is nonfocal. - Labs CBC & Chem 7: 02/26/21 05:17 02/26/21 05:17 Labs: Abnormal Lab Results - Last 24 Hours (Table) 02/25/21 02/25/21 02/25/21 Range/Units 12:44 16:59 20:52 Sodium (137-145) mmol/L BUN (9-20) mg/dL Glucose (74-99) mg/dL POC Glucose (mg/dL) 475 H 477 H 349 H (75-99) mg/dL Triglycerides (0.00-149.00) mg/dL 02/26/21 02/26/21 02/26/21 Range/Units 05:17 05:17 07:58 Sodium 134 L (137-145) mmol/L BUN 26 H (9-20) mg/dL Glucose 344 H (74-99) mg/dL POC Glucose (mg/dL) 366 H (75-99) mg/dL Triglycerides 168.00 H (0.00-149.00) mg/dL Assessment and Plan Assessment: * Altered mental status, probably due to mild delirium from multiple reasons mentioned below. Progression of dementia also possibility. * Mild renal insufficiency, perhaps due to dehydration * Poorly controlled diabetes. * Hypercalcemia * Cerebrovascular disease, based upon CTA report from 07/05/2018. Patient has basilar artery stenosis. * Cognitive impairment Plan: * Patient probably has delirium due to uncontrolled diabetes and electrolyte imbalance, which now seems to have improved. * Repeat blood test shows normal CBC, normal calcium 9.2. Hepatic panel is normal. Sodium 134. * Treatment of uncontrolled diabetes as per IM. * Lipid panel showed cholesterol 184, LDL 101, HDL 48 and triglycerides 168. Patient on Zocor 40 mg at home, currently on Lipitor 20 mg. Continue same dose for now. * Continue aspirin 81 mg. * Suggest increasing dose of Namenda to 5 mg in the morning and 10 mg at night. If needed, may increase the dose gradually to 10 mg twice a day as outpatient. * Continue donepezil 10 mg daily. * Neurologically clear. Suggest follow-up with neurologist in 2-4 weeks after discharge to follow up on his cognitive impairment.
[2021-02-26] MEDS ORDERED: ATORVASTATIN 40 MG TAB PO SCH (21:00)
--- NOTE | 2021-02-27 09:39 | P.DS ---
Providers Date of admission: 02/25/21 01:27 Expected date of discharge: 02/26/21 Attending physician: Oseas Norris Consults: 02/25/21 01:27 Consult Physician Routine Consulting Provider: Sam Hull Consult Reason/Comments: ams Do you want consulting provider notified?: Yes 02/25/21 13:23 Consult Physician Routine Consulting Provider: Jae Logan Consult Reason/Comments: AMS Do you want consulting provider notified?: Yes Primary care physician: [facility] Hospital Course: Final diagnosis Acute renal failure with acute tubular necrosis and prerenal renal factors with dehydration, present on admission Change in mental status, acute on chronic metabolic encephalopathy Severe dementia, underlying Chronic kidney disease stage II baseline possibly diabetes mellitus type 2, fluctuating with hyperglycemia uncontrolled history of CVA, TIA Gastroesophageal reflux disease Hypertension Hyperlipidemia history of agent orange exposure history of diabetic ketoacidosis with metabolic encephalopathy History bilateral peripheral neuropathy Degenerative joint disease History of appendectomy Full code Discharge disposition Patient is being discharged in a stable condition with guarded prognosis to [facility] where he resides. Patient will follow-up with [facility] in the outpatient setting upon discharge. Patient is to follow up with neurology in the next 1-2 weeks. Total time taken is greater than 35 minutes. Hospital course This is a 75-year-old male who was recently admitted with change in mental status and was being closely monitored. Patient was evaluated by neurology along with psychiatry and mentation improved. Blood sugars elevated and increased 3 times a day insulins to 10 units with meals and also added low-dose long-acting Levemir twice daily and recommend close monitoring of Accu-Cheks before meals and at bedtime and as needed. Patient was also found to have mildly elevated creatinine and may have chronic kidney disease stage II baseline. CT of the brain was done showing significant dementia. Neurology recommending continuing current medications and close outpatient follow-up with neurology in the next 1-2 weeks. Patient states he is feeling fine and requesting to go home. Patient will be going to [facility] where he resides. Repeat labs recommended in the next 2-3 days and close outpatient follow-up with primary care provider. Currently no reports of chest pain, shortness of breath, or palpitations. Patient is afebrile. No reports of nausea or vomiting and patient is tolerating diet. Patient will be discharged to [facility] today. Guarded prognosis On exam vital signs are stable. Cardio S1, S2 are muffled. Respiratory system shows diminished breath sounds at the bases with no wheezing or rhonchi noted. Abdomen is soft and nontender. Nervous system shows no focal deficits. Please refer to medication reconciliation sheet for a list of medications. Patient Condition at Discharge: Fair Plan - Discharge Summary Discharge Rx Participant: No New Discharge Prescriptions: New Insulin Detemir (Levemir) [Levemir] 15 unit SQ BID 30 Days #5 ml Acetaminophen Tab [Tylenol] 650 mg PO Q6HR PRN tab PRN Reason: Mild Pain Or Fever > 100.5 Continue Donepezil [Aricept] 10 mg PO DAILY Glucagon Emergency Kit 1 mg IM ONCE PRN PRN Reason: Hypoglycemia Memantine [Namenda] 5 mg PO BID Tamsulosin HCl [Flomax] 0.4 mg PO HS traZODone HCL [Desyrel] 50 mg PO HS Aspirin EC [Ecotrin Low Dose] 81 mg PO DAILY Lisinopril-Hctz 10-12.5 mg [Zestoretic 10-12.5] 1 tab PO DAILY Omeprazole 20 mg PO DAILY Simvastatin [Zocor] 40 mg PO HS Changed Insulin Aspart [Insulin Aspart Flexpen] 10 unit SQ AC-TID 30 Days #4 each Discharge Medication List Donepezil [Aricept] 10 mg PO DAILY 11/19/15 [History] Glucagon Emergency Kit 1 mg IM ONCE PRN 02/08/20 [History] Memantine [Namenda] 5 mg PO BID 02/08/20 [History] Tamsulosin HCl [Flomax] 0.4 mg PO HS 02/08/20 [History] Omeprazole 20 mg PO DAILY 06/03/20 [History] traZODone HCL [Desyrel] 50 mg PO HS 06/03/20 [History] Aspirin EC [Ecotrin Low Dose] 81 mg PO DAILY 02/25/21 [History] Lisinopril-Hctz 10-12.5 mg [Zestoretic 10-12.5] 1 tab PO DAILY 02/25/21 [History] Simvastatin [Zocor] 40 mg PO HS 02/25/21 [History] Acetaminophen Tab [Tylenol] 650 mg PO Q6HR PRN tab 02/26/21 [Rx] Insulin Aspart [Insulin Aspart Flexpen] 10 unit SQ AC-TID 30 Days #4 each 02/26/21 [Rx] Insulin Detemir (Levemir) [Levemir] 15 unit SQ BID 30 Days #5 ml 02/26/21 [Rx] Follow up Appointment(s)/Referral(s): [facility],Clinic [Primary Care Provider] - 1-2 days (Message left with [facility]. They will contact you with appt. time. ) Ambulatory/Diagnostic Orders: Complete Blood Count w/diff [LAB.AMB] Time Frame: 3 Days, Location: None Selected Patient Instructions/Handouts: Insulin Aspart, Recombinant (By injection), Insulin Detemir (By injection), Altered Mental Status (GEN), Diabetic Hyperglycemia (DC), Type 2 Diabetes in the Older Adult (DC) Activity/Diet/Wound Care/Special Instructions: Patient is returning to [place] Activity as tolerated Continue to monitor Accu-Cheks before meals and at bedtime and keep a diary for primary care follow-up Hold insulin if blood sugar is 120 or less Continue with 10 units 3 times daily with meals and notice the change of long acting twice daily Continue consistent carb diet follow-up with PCP as advised Follow-up neurologist in the next 2-3 weeks Discharge Disposition: HOME WITH HOME HEALTH SERVICES
== END 2021-02-26 15:31 | disposition home health service (06) ==
LOC: EC 21:10 → 6NMEDSUR 02-25 01:27 → 3NCARDOBS 02-25 06:47
PROVIDERS: ADMIT Hospitalist; ATTEND Hospitalist
DX: G93.41 Metabolic encephalopathy (principal); N17.0 Acute kidney failure with tubular necrosis; E86.0 Dehydration; E11.65 Type 2 diabetes mellitus with hyperglycemia; D72.829 Elevated white blood cell count, unspecified; F03.90 Unspecified dementia, unspecified severity, without behavioral disturbance, psychotic disturbance, mood disturbance, and anxiety; I65.1 Occlusion and stenosis of basilar artery; E83.52 Hypercalcemia; I10 Essential (primary) hypertension; N28.9 Disorder of kidney and ureter, unspecified; K21.9 Gastro-esophageal reflux disease without esophagitis; E78.5 Hyperlipidemia, unspecified; E11.42 Type 2 diabetes mellitus with diabetic polyneuropathy; M81.0 Age-related osteoporosis without current pathological fracture; M19.041 Primary osteoarthritis, right hand; M19.042 Primary osteoarthritis, left hand; M19.072 Primary osteoarthritis, left ankle and foot; M19.071 Primary osteoarthritis, right ankle and foot; I25.2 Old myocardial infarction; Z20.822 Contact with and (suspected) exposure to COVID-19; Z79.4 Long term (current) use of insulin; Z79.82 Long term (current) use of aspirin; Z79.899 Other long term (current) drug therapy; Z77.098 Contact with and (suspected) exposure to other hazardous, chiefly nonmedicinal, chemicals; Z90.49 Acquired absence of other specified parts of digestive tract; Z86.16 Personal history of COVID-19; Z86.73 Personal history of transient ischemic attack (TIA), and cerebral infarction without residual deficits; Z87.891 Personal history of nicotine dependence; Z98.890 Other specified postprocedural states; Z80.9 Family history of malignant neoplasm, unspecified
CPT/HCPCS: 96374; 99285; 36415; 97162; 97530; 97166 ×2; 80061; 80053 ×2; 83735; 84100; 84484; 85025 ×2; 85610; 85730; 81001; 80306; 87635; 71045; 70450; G0378 ×3; J2270

== ENCOUNTER 2021-07-23 11:23 | Emergency (ER) | payer MEDICARE ==
[2021-07-23 11:39] VITALS: BP 163/85; PULSE 83; RESP 22; TEMP 97.5
[2021-07-23 11:48] LABS: Glucose,Whole Blood 313 mg/dL (75-99)
[2021-07-23] MEDS ORDERED: ONDANSETRON 4 MG/2 ML VIAL IVP STA (11:48)
[2021-07-23] MEDS ORDERED: HYDROmorphone 0.5 MG/0.5 ML SYRINGE IVP STA (11:48)
--- NOTE | 2021-07-23 12:40 | XR ---
EXAMINATION TYPE: AP view pelvis and 2 views right hip DATE OF EXAM: 07/23/2021 COMPARISON: 07/01/2021 HISTORY: 75-year-old male fall and pain FINDINGS: Prominent degenerative disc disease and endplate spondylosis lower thoracic spine. Vas deferens calci fications noted. There may be mild degenerative change of the SI joints. Prominent vascular calcifica tions throughout. There are postsurgical changes of bipolar right hip hemiarthroplasty. The femoral s tem component appears well-seated. No periprosthetic fracture seen. Alignment grossly anatomic. IMPRESSION: Uncomplicated appearance to the right hip bipolar hemiarthroplasty. Prominent degenerative change in the lower lumbar spine.
[2021-07-23 13:22] LABS: Glucose,Whole Blood 236 mg/dL (75-99)
--- NOTE | 2021-07-23 13:31 | ED ---
Fall HPI - General Chief Complaint: Fall Stated Complaint: Fall-R hip pain Time Seen by Provider: 07/23/21 11:34 Source: patient, EMS, RN notes reviewed Mode of arrival: EMS Limitations: no limitations - History of Present Illness Initial Comments: This a 75-year-old male presents emergency Department chief complaint of trip and fall. Patient states he turned around quickly lost his balance. Patient states that he fell onto his right hip. Patient had recent right hip surgery from prior fracture. Patient states that he has moderate discomfort. No head injury no loss conscious. Patient offers no other complaints. - Related Data Home Medications Medication Instructions Recorded Confirmed Donepezil [Aricept] 10 mg PO DAILY 11/19/15 07/23/21 Memantine [Namenda] 15 mg PO BID 02/08/20 07/23/21 Tamsulosin HCl [Flomax] 0.4 mg PO DAILY 02/08/20 07/23/21 Omeprazole 20 mg PO DAILY 06/03/20 07/23/21 Simvastatin [Zocor] 40 mg PO HS 02/25/21 07/23/21 Insulin Aspart [NovoLOG Flexpen] See Protocol SQ ACHS PRN 07/01/21 07/23/21 Insulin Glargine [Lantus Vial] 28 unit SQ DAILY 07/01/21 07/23/21 lisinopriL [Prinivil] 20 mg PO DAILY 07/01/21 07/23/21 Previous Rx's Medication Instructions Recorded Aspirin 81 mg PO BID 30 Days #60 tab 07/04/21 Melatonin 3 mg PO HS tablet 07/04/21 Allergies Allergy/AdvReac Type Severity Reaction Status Date / Time No Known Allergies Allergy Verified 07/23/21 12:47 Review of Systems ROS Statement: Those systems with pertinent positive or pertinent negative responses have been documented in the HPI. ROS Other: All systems not noted in ROS Statement are negative. Past Medical History Past Medical History: CVA/TIA, Dementia, Diabetes Mellitus, GERD/Reflux, Hyperlipidemia, Hypertension Additional Past Medical History / Comment(s): Agent [place] exposure in [place], IDDM type II, DKA with metabolic encephalopathy, neuropathy bilateral feet, osteoporosis, sinus problems, arthritis bilateral hands/feet. History of Any Multi-Drug Resistant Organisms: None Reported Past Surgical History: Appendectomy Additional Past Surgical History / Comment(s): Pt thinks he may have had an appendectomy, colonoscopy-normal Past Anesthesia/Blood Transfusion Reactions: No Reported Reaction Past Psychological History: No Psychological Hx Reported Smoking Status: Unknown if ever smoked Past Alcohol Use History: None Reported Past Drug Use History: None Reported - Past Family History Father Family Medical History: No Reported History Additional Family Medical History / Comment(s): Father was healthy and lived into his 80s. Mother Family Medical History: Cancer Additional Family Medical History / Comment(s): Mother had some form of cancer (family do not know kind) which she of in her 50s General Exam Limitations: no limitations General appearance: alert, in no apparent distress Neck exam: Present: normal inspection, full ROM. Absent: tenderness, meningismus, lymphadenopathy Respiratory exam: Present: normal lung sounds bilaterally. Absent: respiratory distress, wheezes, rales, rhonchi, stridor Cardiovascular Exam: Present: regular rate, normal rhythm, normal heart sounds. Absent: systolic murmur, diastolic murmur, rubs, gallop, clicks Extremities exam: Present: other (Right hip there is mild tenderness there is no shortening or rotation neurovascular intact) Back exam: Present: full ROM. Absent: tenderness Neurological exam: Present: alert, CN II-XII intact Course Vital Signs 07/23/21 11:28 Temperature 97.5 F L Pulse Rate 83 Respiratory 22 Rate Blood Pressure 163/85 O2 Sat by Pulse 100 Oximetry Medical Decision Making - Medical Decision Making X-rays negative for acute fracture. Patient 6H and within normal limits patient is able to ambulates with no increasing pain patient's basic feels like his normal basis. - Lab Data Lab Results 07/23/21 07/23/21 Range/Units 11:45 13:20 POC Glucose (mg/dL) 313 H 236 H (75-99) mg/dL POC Glu Director Apparel ID Sandra Zamora Stephanie Disposition Clinical Impression: Contusion of right hip, Fall from slip, trip, or stumble Disposition: HOME SELF-CARE Condition: Stable Instructions (If sedation given, give patient instructions): Hip Pain (ED) Additional Instructions: Please return to the Emergency Department if symptoms worsen or any other concerns. Is patient prescribed a controlled substance at d/c from ED?: No Referrals: Guero Todd MD [Primary Care Provider] - 1-2 days Time of Disposition: 13:31
== END 2021-07-23 14:33 | disposition home or self-care (01) ==
LOC: EC 11:23
DX: S70.01XA Contusion of right hip, initial encounter (principal); E11.40 Type 2 diabetes mellitus with diabetic neuropathy, unspecified; I10 Essential (primary) hypertension; K21.9 Gastro-esophageal reflux disease without esophagitis; E78.5 Hyperlipidemia, unspecified; F03.90 Unspecified dementia, unspecified severity, without behavioral disturbance, psychotic disturbance, mood disturbance, and anxiety; Z86.73 Personal history of transient ischemic attack (TIA), and cerebral infarction without residual deficits; Z79.4 Long term (current) use of insulin; Z79.82 Long term (current) use of aspirin; Z79.899 Other long term (current) drug therapy; W01.0XXA Fall on same level from slipping, tripping and stumbling without subsequent striking against object, initial encounter
CPT/HCPCS: 36415; 73502; 99284; 96374; 96375; J2405; J1170

== ENCOUNTER 2022-05-13 16:49 | Emergency (ER) | payer MEDICARE ==
[2022-05-13 16:58] VITALS: TEMP 97
[2022-05-13 16:59] LABS: Glucose,Whole Blood 83 mg/dL (70-110)
[2022-05-13 18:12] LABS: Glucose,Whole Blood 229 mg/dL (70-110)
--- NOTE | 2022-05-13 18:12 | ED ---
General Adult HPI - General Chief complaint: Recheck/Abnormal Lab/Rx Stated complaint: hypoglycemic Time Seen by Provider: 05/13/22 17:01 Source: EMS Mode of arrival: EMS Limitations: no limitations - History of Present Illness Initial comments: This patient is 76-year-old man sent from his place of residence to have evaluation for fall and hypoglycemia. The patient states he was in his usual state of health this morning. Patient apparently had eaten a lunch and was given accompanying insulin. The patient's one for a walk and then felt unsteady and had a ground-level fall. He was confused. He was checked and found to have blood sugar proximally 30. Patient was given dextrose and transported here by EMS. When I see the patient, he is feeling back to his baseline. He denies any injury as a result of fall. Patient denies head, neck, chest, or torso pain. No pain to the extremities. -: minutes(s) Severity scale (1-10): 0 Consistency: constant Improves with: none Worsens with: none Associated Symptoms: confusion (Resolved) Treatments Prior to Arrival: other (Dextrose) - Related Data Home Medications Medication Instructions Recorded Confirmed Donepezil [Aricept] 10 mg PO HS@199911/19/15 05/13/22 Memantine [Namenda] 5 mg PO BID@0802/08/20 05/13/22 Tamsulosin HCl [Flomax] 0.4 mg PO DAILY@0800 02/08/20 05/13/22 Omeprazole 20 mg PO DAILY@0800 06/03/20 05/13/22 Simvastatin [Zocor] 40 mg PO HS@209902/25/21 05/13/22 Insulin Aspart [NovoLOG Flexpen] See Protocol SQ AC-TID PRN 07/01/21 05/13/22 lisinopriL [Prinivil] 20 mg PO DAILY@0800 07/01/21 05/13/22 Aspirin 81 mg PO DAILY@79905/13/22 05/13/22 Insulin Aspart [NovoLOG Flexpen] 7 units SQ AC-TID 05/13/22 05/13/22 Insulin Glargine,Hum.rec.anlog 28 units SQ DAILY@0800 05/13/22 05/13/22 [Lantus Solostar Pen] Naproxen [Naprosyn] 250 mg PO BID PRN 05/13/22 05/13/22 traZODone HCL [Desyrel] 50 mg PO HS@2100 05/13/22 05/13/22 Allergies Allergy/AdvReac Type Severity Reaction Status Date / Time No Known Allergies Allergy Verified 05/13/22 19:21 Review of Systems ROS Statement: Those systems with pertinent positive or pertinent negative responses have been documented in the HPI. ROS Other: All systems not noted in ROS Statement are negative. Constitutional: Denies: fever, weakness Eyes: Denies: vision change Respiratory: Denies: cough, dyspnea Cardiovascular: Denies: chest pain, palpitations, syncope Gastrointestinal: Denies: abdominal pain, vomiting, diarrhea Genitourinary: Denies: dysuria Musculoskeletal: Denies: back pain Skin: Denies: rash Neurological: Reports: as per HPI, confusion. Denies: headache, weakness, numbness Past Medical History Past Medical History: CVA/TIA, Dementia, Diabetes Mellitus, GERD/Reflux, Hyperlipidemia, Hypertension Additional Past Medical History / Comment(s): Agent [place] exposure in [place], IDDM type II, DKA with metabolic encephalopathy, neuropathy bilateral feet, osteoporosis, sinus problems, arthritis bilateral hands/feet. History of Any Multi-Drug Resistant Organisms: None Reported Past Surgical History: Appendectomy Additional Past Surgical History / Comment(s): Pt thinks he may have had an appendectomy, colonoscopy-normal Past Anesthesia/Blood Transfusion Reactions: No Reported Reaction Past Psychological History: No Psychological Hx Reported Smoking Status: Unknown if ever smoked Past Alcohol Use History: None Reported Past Drug Use History: None Reported - Past Family History Father Family Medical History: No Reported History Additional Family Medical History / Comment(s): Father was healthy and lived into his 80s. Mother Family Medical History: Cancer Additional Family Medical History / Comment(s): Mother had some form of cancer (family do not know kind) which she of in her 50s General Exam Limitations: no limitations General appearance: alert, in no apparent distress Head exam: Present: atraumatic, normocephalic, normal inspection Eye exam: Present: normal appearance. Absent: scleral icterus, conjunctival injection Neck exam: Present: normal inspection, full ROM. Absent: tenderness Respiratory exam: Present: normal lung sounds bilaterally. Absent: respiratory distress, wheezes, rales, rhonchi, stridor Cardiovascular Exam: Present: regular rate, normal rhythm. Absent: systolic murmur, diastolic murmur, rubs, gallop GI/Abdominal exam: Present: soft. Absent: distended, tenderness, guarding, rebound, mass Extremities exam: Present: normal inspection, normal capillary refill. Absent: pedal edema, calf tenderness Back exam: Present: normal inspection. Absent: CVA tenderness (R), CVA tenderness (L), vertebral tenderness Neurological exam: Present: alert, oriented X3. Absent: motor sensory deficit Skin exam: Present: warm, dry, intact, normal color. Absent: rash Course Vital Signs 05/13/22 05/13/22 16:51 18:43 Temperature 97.0 F L Pulse Rate 65 69 Respiratory 16 18 Rate Blood Pressure 173/94 164/74 O2 Sat by Pulse 100 97 Oximetry Medical Decision Making - Medical Decision Making This patient 76-year-old man here after having developed hypoglycemia and then having ground-level fall. The patient has blood sugar checked and remained stable. He did have oral intake. Patient feeling at baseline and would like to go home. Was pt. sent in by a medical professional or institution (, PA, PHLEBOTOMY LAB ASSISTANT, urgent care, hospital, or halfway...) When possible be specific @ -yes, sent from his residence Did you speak to anyone other than the patient for history (EMS, parent, family, police, friend...)? What history was obtained from this source @ -[EMS personnel Did you review nursing and triage notes (agree or disagree)? Why? @ -[I reviewed and agree with nursing and triage notes] Were old charts reviewed (outside hosp., previous admission, EMS record, old EKG, old radiological studies, urgent care reports/EKG's, halfway records)? Report findings @ -[No old charts were reviewed] Differential Diagnosis (chest pain, altered mental status, abdominal pain women, abdominal pain men, vaginal bleeding, weakness, fever, dyspnea, syncope, headache, dizziness, GI bleed, back pain, seizure, CVA, palpatations, mental health, musculoskeletal)? @ -[Differential Altered Mental Status: Hypoglycemia, DKA, hypercapnia, ETOH, overdose, CO poisoning, trauma, myxedema coma, HTN encephalopathy, infection, encephalitis, psychosis, intercranial hemorrhage, hepatic encephalopathy, meningitis, CVA, this is not meant to be an all-inclusive list EKG interpreted by me (3pts min.). @ -[ X-rays interpreted by me (1pt min.). @ -[None done] CT interpreted by me (1pt min.). @ -[None done] U/S interpreted by me (1pt. min.). @ -[None done] What testing was considered but not performed or refused? (CT, X-rays, U/S, labs)? Why? @ -[None] What meds were considered but not given or refused? Why? @ -[None] Did you discuss the management of the patient with other professionals (professionals i.e. Dr., PA, PHLEBOTOMY LAB ASSISTANT, lab, RT, psych nurse, social worker aide, ecologist technician, teacher, booking police officer, field case manager)? Give summary @ -[No] Was smoking cessation discussed for >3mins.? @ -[No] Was critical care preformed (if so, how long)? @ -[No] Were there social determinants of health that impacted care today? How? (Homelessness, low income, unemployed, alcoholism, drug addiction, transportation, low edu. Level, literacy, decrease access to med. care, senior care, rehab)? @ -[No] Was there de-escalation of care discussed even if they declined (Discuss DNR or withdrawal of care, Hospice)? DNR status @ -[No] What co-morbidities impacted this encounter? (DM, HTN, Smoking, COPD, CAD, Cancer, CVA, ARF, Chemo, Hep., AIDS, mental health diagnosis, sleep apnea, morbid obesity)? @ -[Diabetes Was patient admitted / discharged? Hospital course, mention meds given and route, prescriptions, significant lab abnormalities, going to OR and other pertinent info. @ -[Discharged Undiagnosed new problem with uncertain prognosis? @ -[No] Drug Therapy requiring intensive monitoring for toxicity (Heparin, Nitro, Insulin, Cardizem)? @ -[No] Were any procedures done? @ -[No] Diagnosis/symptom? @ -[1. Acute hypoglycemia, resolved 2. Fall Acute, or Chronic, or Acute on Chronic? @ -[Acute Uncomplicated (without systemic symptoms) or Complicated (systemic symptoms)? @ -[Uncomplicated Side effects of treatment? @ -[No] Exacerbation, Progression, or Severe Exacerbation? @ -[No] Poses a threat to life or bodily function? How? (Chest pain, [place], SC, pneumonia, PE, COPD, DKA, ARF, appy, cholecystitis, CVA, Diverticulitis, Homicidal, Suicidal, threat to staff... and all critical care pts) @ -[No] - Lab Data Lab Results 05/13/22 05/13/22 Range/Units 16:57 18:11 POC Glucose (mg/dL) 83 229 H (70-110) mg/dL POC Glu Valve Maker Sandra Preciado Lauren Disposition Clinical Impression: Hypoglycemia, Fall Disposition: HOME SELF-CARE Condition: Good Instructions (If sedation given, give patient instructions): Hypoglycemia in a Person with Diabetes (ED) Is patient prescribed a controlled substance at d/c from ED?: No Referrals: Guero Todd MD [Primary Care Provider] - 1-2 days
[2022-05-13 18:45] VITALS: BP 164/74; PULSE 69; RESP 18
== END 2022-05-13 18:44 | disposition home or self-care (01) ==
LOC: EC 16:49
DX: E11.649 Type 2 diabetes mellitus with hypoglycemia without coma (principal); I10 Essential (primary) hypertension; K21.9 Gastro-esophageal reflux disease without esophagitis; E78.5 Hyperlipidemia, unspecified; Z86.73 Personal history of transient ischemic attack (TIA), and cerebral infarction without residual deficits; M81.0 Age-related osteoporosis without current pathological fracture; Z79.82 Long term (current) use of aspirin; Z79.4 Long term (current) use of insulin; Z79.899 Other long term (current) drug therapy; W18.30XA Fall on same level, unspecified, initial encounter
CPT/HCPCS: 36415; 99285

== ENCOUNTER 2023-01-31 15:03 | Observation (INO) | payer MEDICARE ==
[2023-01-31] MEDS ORDERED: SODIUM CHLORIDE 0.9% 500 ML 500 ML IV STA (15:08)
[2023-01-31] MEDS ORDERED: SODIUM CHLORIDE 0.9% 1,000 ML IV STA ×2 (15:08)
[2023-01-31 15:09] LABS: Glucose,Whole Blood 564 mg/dL (70-110)
--- NOTE | 2023-01-31 15:17 | ED ---
Recheck HPI - General Chief Complaint: Recheck/Abnormal Lab/Rx Stated Complaint: High blood sugar Time Seen by Provider: 01/31/23 15:08 Source: patient, EMS, RN notes reviewed, old records reviewed Mode of arrival: EMS Limitations: altered mental status - History of Present Illness Initial Comments: This is a 77-year-old male DF for evaluation. Patient's a poor story secondary to underlying dementia. Patient is sent in from extended care facility. Patient presents today for evaluation regarding severely elevated blood sugar. MD Complaint: abnormal lab (Elevated blood sugar) Returns Today for: Called Because of Abnormal Lab/Test Context: called for abnormal lab result Associated Symptoms: none Treatments Prior to Arrival: other - Related Data Home Medications Medication Instructions Recorded Confirmed Donepezil [Aricept] 10 mg PO HS@199911/19/15 05/13/22 Memantine [Namenda] 5 mg PO BID@0802/08/20 05/13/22 Tamsulosin HCl [Flomax] 0.4 mg PO DAILY@0800 02/08/20 05/13/22 Omeprazole 20 mg PO DAILY@0806/03/20 05/13/22 Simvastatin [Zocor] 40 mg PO HS@209902/25/21 05/13/22 Insulin Aspart [NovoLOG Flexpen] See Protocol SQ AC-TID PRN 07/01/21 05/13/22 lisinopriL [Prinivil] 20 mg PO DAILY@0800 07/01/21 05/13/22 Aspirin 81 mg PO DAILY@0800 05/13/22 05/13/22 Insulin Aspart [NovoLOG Flexpen] 7 units SQ AC-TID 05/13/22 05/13/22 Insulin Glargine,Hum.rec.anlog 28 units SQ DAILY@0800 05/13/22 05/13/22 [Lantus Solostar Pen] Naproxen [Naprosyn] 250 mg PO BID PRN 05/13/22 05/13/22 traZODone HCL [Desyrel] 50 mg PO HS@209905/13/22 05/13/22 Allergies Allergy/AdvReac Type Severity Reaction Status Date / Time No Known Allergies Allergy Verified 10/12/22 21:45 Review of Systems ROS Statement: Those systems with pertinent positive or pertinent negative responses have been documented in the HPI. ROS Other: All systems not noted in ROS Statement are negative. Past Medical History Past Medical History: CVA/TIA, Dementia, Diabetes Mellitus, GERD/Reflux, Hyperlipidemia, Hypertension Additional Past Medical History / Comment(s): Agent [place] exposure in [place], IDDM type II, DKA with metabolic encephalopathy, neuropathy bilateral feet, osteoporosis, sinus problems, arthritis bilateral hands/feet. History of Any Multi-Drug Resistant Organisms: None Reported Past Surgical History: Appendectomy Additional Past Surgical History / Comment(s): Pt thinks he may have had an appendectomy, colonoscopy-normal Past Anesthesia/Blood Transfusion Reactions: No Reported Reaction Past Psychological History: No Psychological Hx Reported Smoking Status: Unknown if ever smoked Past Alcohol Use History: None Reported Past Drug Use History: None Reported - Past Family History Father Family Medical History: No Reported History Additional Family Medical History / Comment(s): Father was healthy and lived in to his 80s. Mother Family Medical History: Cancer Additional Family Medical History / Comment(s): Mother had some form of cancer (family do not know kind) which she of in her 50s General Exam Limitations: altered mental status General appearance: alert, in no apparent distress Head exam: Present: atraumatic, normocephalic, normal inspection Eye exam: Present: normal appearance, PERRL, EOMI. Absent: scleral icterus, conjunctival injection, periorbital swelling ENT exam: Present: normal exam, mucous membranes moist Neck exam: Present: normal inspection. Absent: tenderness, meningismus, lymphadenopathy Respiratory exam: Present: normal lung sounds bilaterally. Absent: respiratory distress, wheezes, rales, rhonchi, stridor Cardiovascular Exam: Present: regular rate, normal rhythm, normal heart sounds. Absent: systolic murmur, diastolic murmur, rubs, gallop, clicks GI/Abdominal exam: Present: soft, normal bowel sounds. Absent: distended, tenderness, guarding, rebound, rigid Extremities exam: Present: normal inspection, full ROM, normal capillary refill. Absent: tenderness, pedal edema, joint swelling, calf tenderness Back exam: Present: normal inspection Neurological exam: Present: alert, oriented X3, CN II-XII intact Psychiatric exam: Present: normal affect, normal mood Skin exam: Present: warm, dry, intact, normal color. Absent: rash Course Vital Signs 01/31/23 01/31/23 15:06 15:30 Temperature 97.9 F Pulse Rate 64 61 Respiratory 32 H 24 Rate Blood Pressure 156/59 167/68 O2 Sat by Pulse 100 99 Oximetry - Reevaluation(s) Reevaluation #1: 01/31/23 15:55 Medical records reviewed Reevaluation #2: 01/31/23 15:55 patient symptoms appear to be improving, improving with hydration here in the ER Reevaluation #3: 01/31/23 15:55 Patient informed results and questions answered Reevaluation #4: 01/31/23 15:55 Was pt. sent in by a medical professional or institution (, PA, [facility], urgent care, hospital, or prison...) When possible be specific @ -no Did you speak to anyone other than the patient for history (EMS, parent, family, police, friend...)? What history was obtained from this source @ -no Did you review nursing and triage notes (agree or disagree)? Why? @ -agree Are old charts reviewed (outside hosp., previous admission, EMS record, old EKG, old radiological studies, urgent care reports/EKG's, prison records)? Report findings @ -yes Differential Diagnosis (chest pain, altered mental status, abdominal pain women, abdominal pain men, vaginal bleeding, weakness, fever, dyspnea, syncope, headache, dizziness, GI bleed, back pain, seizure, CVA, palpatations, mental health, musculoskeletal)? @ -prior EKG interpreted by me (3pts min.). @ -yes X-rays interpreted by me (1pt min.). @ -yes CT interpreted by me (1pt min.). @ -no U/S interpreted by me (1pt. min.). @ -no What testing was considered but not performed or refused? (CT, X-rays, U/S, labs)? Why? @ -none What meds were considered but not given or refused? Why? @ -none Did you discuss the management of the patient with other professionals (professionals i.e. , DEVIN, [facility], lab, RT, psych nurse, administrator social welfare, automotive specialty technician, teacher, bsa officer, case work aide)? Give summary @ -no Was smoking cessation discussed for >3mins.? @ -no Was critical care preformed (if so, how long)? @ -no Were there social determinants of health that impacted care today? How? (Home lessness, low income, unemployed, alcoholism, drug addiction, transportation, low edu. Level, literacy, decrease access to med. care, long-term, rehab)? @ -none Was there de-escalation of care discussed even if they declined (Discuss DNR or withdrawal of care, Hospice)? DNR status @ -no What co-morbidities impacted this encounter? (DM, HTN, Smoking, COPD, CAD, Cancer, CVA, ARF, Chemo, Hep., AIDS, mental health diagnosis, sleep apnea, morbid obesity)? @ -none Was patient admitted / discharged? Hospital course, mention meds given and route, prescriptions, significant lab abnormalities, going to OR and other pertinent info. @ - Undiagnosed new problem with uncertain prognosis? @ -no Drug Therapy requiring intensive monitoring for toxicity (Heparin, Nitro, Insulin, Cardizem)? @ -no Were any procedures done? @ -no Diagnosis/symptom? @ - Acute, or Chronic, or Acute on Chronic? @ -Acute Uncomplicated (without systemic symptoms) or Complicated (systemic symptoms)? @ -Complicated Side effects of treatment? @ -no Exacerbation, Progression, or Severe Exacerbation? @ -exacerbation Poses a threat to life or bodily function? How? (Chest pain, [place], [place], pneumonia, PE, COPD, DKA, ARF, appy, cholecystitis, CVA, Diverticulitis, Homicidal, Suicidal, threat to staff... and all critical care pts) @ -yes Medical Decision Making - Medical Decision Making 77 male to the emergency department for evaluation, patient significantly altered mental status shortness of breath and elevated blood sugar. Patient can be discharged home - Lab Data Result diagrams: 01/31/23 15:12 Lab Results 01/31/23 01/31/23 01/31/23 Range/Units 15:06 15:07 15:12 WBC 6.6 (3.8-10.6) k/uL RBC 3.91 L (4.30-5.90) m/uL Hgb 12.5 L (13.0-17.5) gm/dL Hct 36.9 L (39.0-53.0) % MCV 94.5 (80.0-100.0) fL MCH 31.9 (25.0-35.0) pg MCHC 33.7 (31.0-37.0) g/dL RDW 12.9 (11.5-15.5) % Plt Count 246 (150-450) k/uL MPV 8.0 Neutrophils % 73 % Lymphocytes % 18 % Monocytes % 5 % Eosinophils % 2 % Basophils % 1 % Neutrophils # 4.8 (1.3-7.7) k/uL Lymphocytes # 1.2 (1.0-4.8) k/uL Monocytes # 0.3 (0-1.0) k/uL Eosinophils # 0.2 (0-0.7) k/uL Basophils # 0.0 (0-0.2) k/uL PT (10.0-12.5) sec INR (<1.2) APTT (22.0-30.0) sec VBG pH 7.44 H (7.31-7.41) VBG pCO2 33 L (37-51) mmHg VBG HCO3 22 L (24-28) mmol/L POC Glucose (mg/dL) 564 H (70-110) mg/dL POC Glu Food Service Worker ID Catalino Carter Plasma Lactic Acid Clifford (0.7-2.0) mmol/L Troponin I (0.000-0.034) ng/mL 01/31/23 01/31/23 01/31/23 Range/Units 15:12 15:12 15:12 WBC (3.8-10.6) k/uL RBC (4.30-5.90) m/uL Hgb (13.0-17.5) gm/dL Hct (39.0-53.0) % MCV (80.0-100.0) fL MCH (25.0-35.0) pg MCHC (31.0-37.0) g/dL RDW (11.5-15.5) % Plt Count (150-450) k/uL MPV Neutrophils % % Lymphocytes % % Monocytes % % Eosinophils % % Basophils % % Neutrophils # (1.3-7.7) k/uL Lymphocytes # (1.0-4.8) k/uL Monocytes # (0-1.0) k/uL Eosinophils # (0-0.7) k/uL Basophils # (0-0.2) k/uL PT 10.7 (10.0-12.5) sec INR 1.0 (<1.2) APTT 26.0 (22.0-30.0) sec VBG pH (7.31-7.41) VBG pCO2 (37-51) mmHg VBG HCO3 (24-28) mmol/L POC Glucose (mg/dL) (70-110) mg/dL POC Glu Food Service Worker ID Plasma Lactic Acid Clifford 1.9 (0.7-2.0) mmol/L Troponin I <0.012 (0.000-0.034) ng/mL - Radiology Data Radiology results: report reviewed (Chest x-rays negative for acute disease), image reviewed Disposition Clinical Impression: Dehydration, Weakness, Altered mental state, Hyperglycemia Disposition[facility] Condition: Fair Is patient prescribed a controlled substance at d/c from ED?: No Referrals: Guero Todd MD [Primary Care Provider] - 1-2 days Time of Disposition: 16:00
[2023-01-31 15:24] LABS: Basophils % (A) 1 %; Eosinophils # (A) 0.2 k/uL (0-0.7); Eosinophils % (A) 2 %; HCT 36.9 % (39.0-53.0); HGB 12.5 gm/dL (13.0-17.5); Lymphocytes # (A) 1.2 k/uL (1.0-4.8); Lymphocytes % (A) 18 %; MCH 31.9 pg (25.0-35.0); MCHC 33.7 g/dL (31.0-37.0); MCV 94.5 fL (80.0-100.0); Monocytes # (A) 0.3 k/uL (0-1.0); Monocytes % (A) 5 %; Neutrophils # (A) 4.8 k/uL (1.3-7.7); Neutrophils % (A) 73 %; Platelet Count 246 k/uL (150-450); RBC 3.91 m/uL (4.30-5.90); RDW 12.9 % (11.5-15.5); WBC 6.6 k/uL (3.8-10.6)
[2023-01-31 15:25] LABS: VBG PH 7.44 (7.31-7.41)
[2023-01-31 15:35] LABS: ALT 22 U/L (4-49); AST 23 U/L (17-59); African American GFR (CKD) 78 (>60 ml/min/1.73 sqM); Albumin 3.6 g/dL (3.5-5.0); Alkaline Phosphatase 126 U/L (38-126); Anion Gap 12 mmol/L; Blood Urea Nitrogen 22 mg/dL (9-20); Calcium 8.8 mg/dL (8.4-10.2); Carbon Dioxide 18 mmol/L (22-30); Chloride 96 mmol/L (98-107); Magnesium 1.9 mg/dL (1.6-2.3); Non-African American GFR(CKD) 68 (>60 ml/min/1.73 sqM); Phosphorus 2.3 mg/dL (2.5-4.5); Potassium 4.6 mmol/L (3.5-5.1); Sodium 126 mmol/L (137-145); Total Bilirubin 0.4 mg/dL (0.2-1.3)
[2023-01-31 15:37] LABS: Prothrombin Time 10.7 sec (10.0-12.5)
[2023-01-31 15:44] LABS: NT-Pro-B-Type Natriuretic Pept 108 pg/mL
[2023-01-31] MEDS ORDERED: MORPHINE SULFATE 4 MG/ML SYRINGE IV PRN (15:52)
[2023-01-31] MEDS ORDERED: INSULIN REGULAR 100 UNIT/ML VIAL (IV) IV ONE (15:52)
[2023-01-31] MEDS ORDERED: NALOXONE 0.4 MG/ML 1 ML VIAL IV PRN (15:52)
[2023-01-31] MEDS ORDERED: ONDANSETRON 4 MG/2 ML VIAL IVP PRN (15:52)
[2023-01-31 15:56] LABS: Glucose 559 mg/dL (74-99)
[2023-01-31 16:10] LABS: Glucose,Whole Blood 534 mg/dL (70-110)
--- NOTE | 2023-01-31 16:10 | XR ---
EXAMINATION TYPE: XR chest 1V portable DATE OF EXAM: 01/31/2023 COMPARISON: 10/12/2022 HISTORY: Cough TECHNIQUE: Single frontal view of the chest is obtained. FINDINGS: There is no focal air space opacity, pleural effusion, or pneumothorax seen. The cardiac silhouette size is within normal limits. The osseous structures are intact. IMPRESSION: No acute process.
[2023-01-31 17:13] LABS: Glucose,Whole Blood 343 mg/dL (70-110)
[2023-01-31 17:25] LABS: Appearance,Urine Clear (Clear); Bilirubin,Urine Negative (Negative); Blood,Urine Negative (Negative); Color,Urine Colorless; Glucose,Urine (UA) 4+ (Negative); Ketones,Urine Negative (Negative); Leukocyte Esterase,Urine Negative (Negative); Nitrite,Urine Negative (Negative); PH, Urine 7.5 (5.0-8.0); Protein,Urine Negative (Negative); Urobilinogen,Urine <2.0 mg/dL (<2.0)
[2023-01-31 20:11] LABS: Glucose,Whole Blood 298 mg/dL (70-110)
[2023-01-31] MEDS ORDERED: NAPROXEN 250 MG TAB PO PRN (20:40)
[2023-01-31] MEDS ORDERED: DEXTROSE 50% SYRINGE 50 ML IVP PRN ×2 (20:48)
[2023-01-31] MEDS: MEMANTINE 5 MG TAB PO SCH (21:10)
[2023-01-31] MEDS: traZODone HCL 50 MG TAB PO SCH (21:10)
[2023-01-31] MEDS: DONEPEZIL 10 MG TAB PO SCH (21:10)
[2023-01-31] MEDS: INSULIN ASPART (NovoLOG) 100 UNIT/ML VIAL SQ SCH (21:10)
[2023-01-31] MEDS: lisinopriL 20 MG TAB PO SCH (21:10)
[2023-02-01 07:32] LABS: Glucose,Whole Blood 496 mg/dL (70-110)
[2023-02-01] MEDS: INSULIN ASPART (NovoLOG) 100 UNIT/ML VIAL SQ SCH ×4 (08:01→20:37)
[2023-02-01] MEDS: MEMANTINE 5 MG TAB PO SCH ×2 (08:02→20:30)
[2023-02-01] MEDS: lisinopriL 20 MG TAB PO SCH (08:02)
[2023-02-01] MEDS: ASPIRIN 81 MG PO SCH (08:02)
[2023-02-01] MEDS: PANTOPRAZOLE 40 MG TABLET PO SCH (08:02)
[2023-02-01] MEDS: TAMSULOSIN 0.4 MG CAP.ER.24H PO SCH (08:02)
[2023-02-01] MEDS: INSULIN DETEMIR (LEVEMIR) 100 UNIT/ML SYR SQ SCH (08:02)
[2023-02-01] MEDS ORDERED: INSULIN ASPART (NovoLOG) 100 UNIT/ML VIAL SQ ONE (08:15)
[2023-02-01] MEDS ORDERED: PANTOPRAZOLE 40 MG/10 ML VIAL IV SCH (09:00)
[2023-02-01] MEDS: IPRATROPIUM-ALBUTEROL 3 ML NEB INHALATION SCH ×3 (11:31→22:00)
[2023-02-01 11:44] LABS: Basophils # (A) 0.06 X 10*3/uL (0.00-0.10); Basophils % (A) 0.8 %; Eosinophils # (A) 0.11 X 10*3/uL (0.04-0.35); Eosinophils % (A) 1.4 %; HGB 12.7 g/dL (13.0-17.0); Lymphocytes # (A) 1.18 X 10*3/uL (0.90-5.00); Lymphocytes % (A) 14.9 %; MCH 31.2 pg (27.0-32.0); MCHC 34.3 g/dL (32.0-37.0); MCV 90.9 FL (80.0-97.0); Monocytes # (A) 0.62 X 10*3/uL (0.20-1.00); Monocytes % (A) 7.8 %; NRBC Per 100 WBC 0 X 10*3/uL (0.00-0.01); Neutrophils # (A) 5.92 X 10*3/uL (1.80-7.70); Neutrophils % (A) 74.8 %; Platelet Count 273 X 10*3/uL (140-440); RBC 4.07 X 10*6/uL (4.40-5.60); RDW 12.8 % (11.5-14.5); WBC 7.91 X 10*3/uL (4.50-10.00)
[2023-02-01 12:14] LABS: Glucose,Whole Blood 359 mg/dL (70-110)
--- NOTE | 2023-02-01 12:52 | CT ---
EXAMINATION TYPE: CT chest wo con CT DLP: 271.70 mGycm, Automated exposure control for dose reduction was used. DATE OF EXAM: 02/01/2023 12:34 PM COMPARISON: Radiograph 01/31/2023. CLINICAL INDICATION:Male, 77 years old with history of effusion/pah; TECHNIQUE: Multiple axial images were obtained through the chest. Sagittal and coronal reformats were created for review. Contrast used: mL of (None if empty) Oral contrast used: (None if empty) FINDINGS: LUNGS/ PLEURA: The lung parenchyma appears unremarkable. AIRWAY: Patent and unremarkable. HEART: Size within normal limits. Severe coronary artery atherosclerosis. MEDIASTINUM: No gross evidence of adenopathy. VASCULATURE: No aortic aneurysm. MUSCULOSKELETAL: No acute osseous abnormalities SOFT TISSUES/LYMPH NODES: Unremarkable. LOWER NECK: No significant findings. UPPER ABDOMEN: Calcified granulomas in the spleen. IMPRESSION: Findings similar to portable chest radiograph 01/31/2023. No evidence for pleural effusion. No acute process.
[2023-02-01 13:15] LABS: ALT 18 U/L (10-49); AST 11 U/L (14-35); Alkaline Phosphatase 91 U/L (41-126); BUN/Creat Ratio 17.67 Ratio (12.00-20.00); Blood Urea Nitrogen 21.2 mg/dL (9.0-27.0); Calcium 9.2 mg/dL (8.7-10.3); Carbon Dioxide 20.9 mmol/L (21.6-31.8); Chloride 97 mmol/L (96-109); Globulin 2.1 g/dL (1.6-3.3); Glucose 507 mg/dL (70-110); Potassium 5.1 mmol/L (3.5-5.5); Sodium 129 mmol/L (135-145); Total Bilirubin 0.6 mg/dL (0.3-1.2); Total Protein 6.1 g/dL (6.2-8.2)
[2023-02-01] MEDS: SODIUM CHLORIDE 0.9% 1,000 ML IV SCH (14:02)
[2023-02-01 17:09] LABS: Glucose,Whole Blood 272 mg/dL (70-110)
[2023-02-01] MEDS: DONEPEZIL 10 MG TAB PO SCH (20:30)
[2023-02-01] MEDS: traZODone HCL 50 MG TAB PO SCH (20:30)
[2023-02-01] MEDS: ATORVASTATIN 20 MG TAB PO SCH (20:30)
[2023-02-01 20:31] LABS: Glucose,Whole Blood 157 mg/dL (70-110)
[2023-02-02] MEDS: IPRATROPIUM-ALBUTEROL 3 ML NEB INHALATION SCH ×6 (01:14→20:15)
[2023-02-02] MEDS: SODIUM CHLORIDE 0.9% 1,000 ML IV SCH ×2 (01:16→17:53)
[2023-02-02 07:20] LABS: Glucose,Whole Blood 79 mg/dL (70-110)
[2023-02-02] MEDS: INSULIN ASPART (NovoLOG) 100 UNIT/ML VIAL SQ SCH ×4 (07:48→20:07)
[2023-02-02] MEDS: INSULIN DETEMIR (LEVEMIR) 100 UNIT/ML SYR SQ SCH ×2 (09:21→09:59)
[2023-02-02] MEDS: MEMANTINE 5 MG TAB PO SCH ×2 (09:22→20:10)
[2023-02-02] MEDS: lisinopriL 20 MG TAB PO SCH (09:22)
[2023-02-02] MEDS: ASPIRIN 81 MG PO SCH (09:22)
[2023-02-02] MEDS: TAMSULOSIN 0.4 MG CAP.ER.24H PO SCH (09:22)
[2023-02-02] MEDS: PANTOPRAZOLE 40 MG TABLET PO SCH (09:22)
[2023-02-02 11:58] LABS: Glucose,Whole Blood 374 mg/dL (70-110)
--- NOTE | 2023-02-02 13:09 | CA ---
Transthoracic Echo Report Name: Alfa Ortiz Age: 77 Gender: M : 1945 Exam Date: 02/02/2023 10:52 Exam Location: [facility] Ht (in): 70 Wt (lb): 160 Ordering Physician: Guero Todd MD Attending/Referring Phys: Scientist Engineer Don Ortiz Procedure CPT: Indications: dyspnea Cardiac Hx: Technical Quality: Fair Contrast 1: Total Dose (mL): Contrast 2: Total Dose (mL): MEASUREMENTS (Male / Female) Normal Values 2D ECHO LV Diastolic Diameter PLAX 4.3 cm 4.2 - 5.9 / 3.9 - 5.3 cm LV Systolic Diameter PLAX 2.4 cm IVS Diastolic Thickness 1.0 cm 0.6 - 1.0 / 0.6 - 0.9 cm LVPW Diastolic Thickness 1.0 cm 0.6 - 1.0 / 0.6 - 0.9 cm LV Relative Wall Thickness 0.5 RV Internal Dim ED PLAX 2.1 cm LVOT Diameter 2.1 cm Aortic Root Diameter 2.9 cm LA Systolic Diameter LX 3.2 cm 3.0 - 4.0 / 2.7 - 3.8 cm LV Diastolic Volume MOD BP 46.3 cm??? 67 - 155 / 56 - 104 cm??? LV Systolic Volume MOD BP 15.7 cm??? - 58 / 19 - 49 cm??? LV Ejection Fraction MOD BP 66.1 % >= 55 % LV Cardiac Index MOD BP 1325.0 cm???/min???m??? LV Diastolic Volume MOD 4C 61.0 cm??? LV Systolic Volume MOD 4C 22.5 cm??? LV Ejection Fraction MOD 4C 63.1 % LV Cardiac Index MOD 4C 1663.7 cm???/min???m??? LV Diastolic Length 4C 7.4 cm LV Systolic Length 4C 6.3 cm LV Diastolic Volume MOD 2C 33.7 cm??? LV Systolic Volume MOD 2C 11.0 cm??? LV Ejection Fraction MOD 2C 67.4 % LV Cardiac Index MOD 2C 982.1 cm???/min???m??? LV Diastolic Length 2C 7.1 cm LV Systolic Length 2C 6.1 cm LA Volume 33.6 cm??? - 58 / 22 - 52 cm??? LA Volume Index 17.7 cm???/m??? 16 - 28 cm???/m??? Ascending Aorta Diameter 2.8 cm DOPPLER AV Peak Velocity 133.6 cm/s AV Peak Gradient 7.1 mmHg LVOT Peak Velocity 90.8 cm/s LVOT Peak Gradient 3.3 mmHg LVOT Velocity Time Integral 23.1 cm LVOT Stroke Volume 76.7 cm??? LVOT Stroke Volume Index 40.4 ml/m??? LVOT Cardiac Index 3321.4 cm???/min???m??? AV Area Cont Eq pk 2.3 cm??? MV Peak Velocity 103.2 cm/s MV Peak Gradient 4.3 mmHg MV Mean Velocity 52.1 cm/s MV Mean Gradient 1.3 mmHg MV Velocity Time Integral 36.0 cm MR Peak Velocity 629.1 cm/s MR Peak Gradient 158.3 mmHg Mitral E Point Velocity 75.6 cm/s Mitral A Point Velocity 74.0 cm/s Mitral E to A Ratio 1.0 MV Deceleration Time 279.2 ms MV E' Velocity 8.0 cm/s Mitral E to MV E' Ratio 9.5 TR Peak Velocity 243.4 cm/s TR Peak Gradient 23.7 mmHg Right Ventricular Systolic Press 28.7 mmHg PV Peak Velocity 111.1 cm/s PV Peak Gradient 4.9 mmHg FINDINGS Left Ventricle Normal LV size and wall thickness.normal left ventricular wall motion. Left ventricular ejection fraction is estimated at 55-60 %. Right Ventricle Normal right ventricular size. RVSP= 29mmHg. Right Atrium Normal right atrial size. Left Atrium Normal left atrial size. LA volume index= 18ml/m2 Mitral Valve Mitral valve thickened. Mild MR.mitral annular calcification. Aortic Valve Trileaflet aortic valve. Mild AV calcification. No aortic valve stenosis or regurgitation. Tricuspid Valve Structurally normal tricuspid valve. Mild TR. Pulmonic Valve Pulmonic valve not well visualized. Trace PI. Pericardium Normal pericardium. Aorta Normal size aortic root and proximal ascending aorta. CONCLUSIONS 1. Normal left ventricle size and systolic function 2. Mild mitral and tricuspid regurgitation with no evidence of pulmonary hypertension Previewed by: Dr. Anam Estrada MD (Electronically Signed) Final Date: 02 February 2023 13:08
[2023-02-02 17:10] LABS: Glucose,Whole Blood 304 mg/dL (70-110)
[2023-02-02] MEDS: DONEPEZIL 10 MG TAB PO SCH (20:10)
[2023-02-02] MEDS: traZODone HCL 50 MG TAB PO SCH (20:10)
[2023-02-02] MEDS: ATORVASTATIN 20 MG TAB PO SCH (20:10)
[2023-02-02 20:11] LABS: Glucose,Whole Blood 139 mg/dL (70-110)
[2023-02-03] MEDS: IPRATROPIUM-ALBUTEROL 3 ML NEB INHALATION SCH ×5 (00:31→15:40)
--- NOTE | 2023-02-03 00:59 | HP ---
HISTORY AND PHYSICAL HISTORY OF PRESENT ILLNESS: This 77-year-old white male came in with generalized weakness, altered mental status, dehydration, came in to the ER. His hyperglycemia was treated with insulin, now sugars are lower today. Labs reviewed. PAST MEDICAL HISTORY: Reviewed. MEDICATIONS: 1. Aricept 10 mg daily. 2. Namenda 5 b.i.d. 3. Flomax 0.4 daily. 4. Omeprazole 20 daily. 5. Zocor 40 daily. 6. Prinivil 20 a day. 7. Aspirin 81 daily. 8. NovoLog 70/30 20 units b.i.d. 9. Desyrel 50 at night. ALLERGIES: Negative. PAST MEDICAL HISTORY: CVA, TIA, dementia, diabetes mellitus, GERD, dyslipidemia, metabolic encephalopathy, Agent [place] exposure in [place], neuropathy bilateral feet, osteoporosis, and arthritis. PAST SURGICAL HISTORY: Appendectomy. FAMILY HISTORY: Father lived in his 80s. Mother had cancer, unclear what kind. PHYSICAL EXAMINATION: GENERAL: He is sitting up, giving appropriate answers, alert, oriented x3. CARDIOVASCULAR: S1, S2. LUNGS: Transmitted upper sounds. GI: Soft, nontender. HEMATOLOGY: Negative for Homans. PSYCHIATRIC: Fair mood and affect. VITAL SIGNS: Heart rate 24 to 28, blood pressure 150s to 160s over 50s to 60s, temperature 97.9, and respiratory rate 12 to 14. NEUROLOGIC: Alert and orient x3. OPHTHALMOLOGIC: Pupils equal, round, reactive. ENT: External ear canals within normal limits. LABS: Reviewed. Hemoglobin is 12.5. Lactic acid 1.9. Negative troponin. ASSESSMENT: Uncontrolled diabetes mellitus, metabolic encephalopathy, dehydration. Prognosis guarded. Rehydrate. Accu-Chek protocol. Follow up in next 24 to 48 hours. Possible discharge. MMODL / IJN: [id number] /
[2023-02-03] MEDS: SODIUM CHLORIDE 0.9% 1,000 ML IV SCH (01:28)
--- NOTE | 2023-02-03 04:29 | PN ---
PROGRESS NOTE SUBJECTIVE: This is a 77-year-old white male. He is on Flomax, Protonix, Zofran, Namenda, Zestril, Levemir, Aricept, NovoLog, Lipitor, DuoNeb. The patient is improving. OBJECTIVE: CARDIOVASCULAR: S1, S2. LUNGS: Transmitted upper sounds. GI: Soft. Sugars are now much better since admission down to 79 to mid 100s, varies up to 300 during the day. Continue current insulin, now increased rehydration, PT OT. Continue nebulized treatments for COPD and pulmonary hypertension. PROGNOSIS: Guarded. Please see further orders. Possible discharge home in next 24 to 48 hours. MMODL / IJN: [id number] /
[2023-02-03 07:14] LABS: Glucose,Whole Blood 185 mg/dL (70-110)
[2023-02-03] MEDS: INSULIN ASPART (NovoLOG) 100 UNIT/ML VIAL SQ SCH ×2 (07:56→12:41)
[2023-02-03] MEDS: lisinopriL 20 MG TAB PO SCH (07:56)
[2023-02-03] MEDS: ASPIRIN 81 MG PO SCH (07:56)
[2023-02-03] MEDS: INSULIN DETEMIR (LEVEMIR) 100 UNIT/ML SYR SQ SCH (07:56)
[2023-02-03] MEDS: TAMSULOSIN 0.4 MG CAP.ER.24H PO SCH (07:56)
[2023-02-03] MEDS: PANTOPRAZOLE 40 MG TABLET PO SCH (07:56)
[2023-02-03] MEDS: MEMANTINE 5 MG TAB PO SCH (07:57)
[2023-02-03 12:24] LABS: Glucose,Whole Blood 206 mg/dL (70-110)
[2023-02-03 14:28] VITALS: BP 148/67; RESP 17; TEMP 97.3
[2023-02-03 16:09] VITALS: PULSE 68
== END 2023-02-03 16:24 | disposition home or self-care (01) ==
LOC: EC 15:03 → INTOOBSV 15:54 → 5NMEDONC 15:54 → UNDODISIN 02-01 11:30 → 5NMEDONC 02-01 12:05
PROVIDERS: ADMIT Family Medicine; ATTEND Family Medicine
DX: E11.65 Type 2 diabetes mellitus with hyperglycemia (principal); G93.41 Metabolic encephalopathy; E86.0 Dehydration; F03.90 Unspecified dementia, unspecified severity, without behavioral disturbance, psychotic disturbance, mood disturbance, and anxiety; I10 Essential (primary) hypertension; E78.5 Hyperlipidemia, unspecified; K21.9 Gastro-esophageal reflux disease without esophagitis; E11.40 Type 2 diabetes mellitus with diabetic neuropathy, unspecified; R53.1 Weakness; Z86.73 Personal history of transient ischemic attack (TIA), and cerebral infarction without residual deficits; Z79.4 Long term (current) use of insulin; Z79.82 Long term (current) use of aspirin; Z79.899 Other long term (current) drug therapy
CPT/HCPCS: 96361; 96372 ×5; 96360; 99285; 36415; 94640 ×6; 93005; 93306; 83880; 80053 ×2; 82803; 82009; 83605; 83735 ×2; 84100 ×2; 84484; 85025 ×2; 85610; 85730; 81003; 83036; 71045; 71250; G0378 ×5

== ENCOUNTER 2023-02-23 22:00 | Inpatient (IN) | payer OTHER, MEDICARE ==
--- NOTE | 2023-02-23 22:29 | ED ---
General Adult HPI - General Chief complaint: Syncope Stated complaint: Syncope Time Seen by Provider: 02/23/23 22:03 Source: patient, EMS, RN notes reviewed Mode of arrival: EMS Limitations: altered mental status - History of Present Illness Initial comments: Patient is a pleasant 77-year-old male presenting to the emergency department for possible syncopal episode. Patient does not recall the episode well. Patient does remember watching the football game. Patient does not remember falling but does remember waking up on the floor. Patient believes he may have passed out. He should previously deny this to staff. Patient denies any injury. Patient states he feels fine at this time and has no complaints. - Related Data Home Medications Medication Instructions Recorded Confirmed Donepezil [Aricept] 10 mg PO HS@199911/19/15 02/23/23 Memantine [Namenda] 5 mg PO BID@09,199902/08/20 02/23/23 Tamsulosin HCl [Flomax] 0.4 mg PO DAILY@0902/08/20 02/23/23 Omeprazole 20 mg PO DAILY@0906/03/20 02/23/23 Simvastatin [Zocor] 40 mg PO HS@199902/25/21 02/23/23 Insulin Aspart [NovoLOG Flexpen] See Protocol SQ TID@0900,1300,1800 07/01/21 02/23/23 lisinopriL [Prinivil] 20 mg PO DAILY@0900 07/01/21 02/23/23 Aspirin 81 mg PO DAILY@0900 05/13/22 02/23/23 traZODone HCL [Desyrel] 50 mg PO HS@199905/13/22 02/23/23 Naproxen [EC-Naprosyn] 500 mg PO BID PRN 01/31/23 02/23/23 Insulin Glargine,Hum.rec.anlog 28 units SQ DAILY@89902/23/23 02/23/23 [Lantus Solostar Pen] Allergies Allergy/AdvReac Type Severity Reaction Status Date / Time No Known Allergies Allergy Verified 02/23/23 22:26 Review of Systems ROS Statement: Those systems with pertinent positive or pertinent negative responses have been documented in the HPI. ROS Other: All systems not noted in ROS Statement are negative. Constitutional: Denies: fever Eyes: Denies: eye pain ENT: Denies: ear pain Respiratory: Denies: dyspnea Cardiovascular: Denies: chest pain Musculoskeletal: Denies: back pain Neurological: Reports: weakness (Chronic right leg weakness, unchanged). Denies: headache Past Medical History Past Medical History: CVA/TIA, Dementia, Diabetes Mellitus, GERD/Reflux, Hyperlipidemia, Hypertension Additional Past Medical History / Comment(s): Agent [place] exposure in [place], IDDM type II, DKA with metabolic encephalopathy, neuropathy bilateral feet, osteoporosis, sinus problems, arthritis bilateral hands/feet. History of Any Multi-Drug Resistant Organisms: None Reported Past Surgical History: Appendectomy Additional Past Surgical History / Comment(s): Pt thinks he may have had an appendectomy, colonoscopy-normal Past Anesthesia/Blood Transfusion Reactions: No Reported Reaction Past Psychological History: No Psychological Hx Reported Smoking Status: Unknown if ever smoked Past Alcohol Use History: None Reported Past Drug Use History: None Reported - Past Family History Father Family Medical History: No Reported History Additional Family Medical History / Comment(s): Father was healthy and lived into his 80s. Mother Family Medical History: Cancer Additional Family Medical History / Comment(s): Mother had some form of cancer (family do not know kind) which she of in her 50s General Exam Limitations: no limitations General appearance: alert, in no apparent distress Head exam: Present: atraumatic, normocephalic Eye exam: Present: normal appearance, PERRL, EOMI ENT exam: Present: normal oropharynx Neck exam: Present: normal inspection. Absent: tenderness Respiratory exam: Present: normal lung sounds bilaterally Cardiovascular Exam: Present: regular rate, normal rhythm Expanded Peripheral pulses: 2+: Radial (R), Radial (L), Posterior Tibialis (R), Posterior Tibialis (L) GI/Abdominal exam: Present: soft. Absent: tenderness Extremities exam: Present: normal inspection. Absent: pedal edema, calf te nderness Neurological exam: Present: alert, CN II-XII intact Expanded Neurological exam: Present: protecting the airway Patient oriented to: Present: person, place. Absent: time Motor strength exam: RUE: 5, LUE: 5, RLE: 3 (Patient states chronic), LLE: 5 Eye Response: (4) open spontaneously Motor Response: (6) obeys commands Verbal Response: (4) confused conversation Psychiatric exam: Present: normal affect, normal mood Skin exam: Present: normal color Course Vital Signs 02/23/23 02/23/23 22:02 22:29 Temperature 97.6 F Pulse Rate 58 L 61 Respiratory 16 16 Rate Blood Pressure 179/100 161/73 O2 Sat by Pulse 98 97 Oximetry EKG Findings - EKG Results: EKG: interpreted by ERMD (Left axis. Right bundle branch block. Inferior Q w aves. No acute ST change.), sinus rhythm Medical Decision Making - Medical Decision Making Was pt. sent in by a medical professional or institution (, PA, ACCELERATOR OPERATOR, urgent care, hospital, or prison...) When possible be specific @ -Patient was sent in by nursing facility Did you speak to anyone other than the patient for history (EMS, parent, family, police, friend...)? What history was obtained from this source @ -No Did you review nursing and triage notes (agree or disagree)? Why? @ -I reviewed and agree with nursing and triage notes Were old charts reviewed (outside hosp., previous admission, EMS record, old EKG, old radiological studies, urgent care reports/EKG's, prison records)? Report findings @ -Previous chest x-ray reviewed. Differential Diagnosis (chest pain, altered mental status, abdominal pain women, abdominal pain men, vaginal bleeding, weakness, fever, dyspnea, syncope, headache, dizziness, GI bleed, back pain, seizure, CVA, palpatations, mental health, musculoskeletal)? @ -Differential Syncope: Valvular disease, hypertrophic cardiomyopathy, pulmonary embolism, tamponade, tachycardia, bradycardia, [place], hypovolemia, hemorrhage, dissection, anemia, intracranial hemorrhage, seizure, hypoglycemia, carbon monoxide poisoning, this is not meant to be an all-inclusive list. EKG interpreted by me (3pts min.). @ -As above X-rays interpreted by me (1pt min.). @ -Chest x-ray shows no acute process CT interpreted by me (1pt min.). @ -CT cervical spine shows degenerative changes. No acute fracture U/S interpreted by me (1pt. min.). @ -None done What testing was considered but not performed or refused? (CT, X-rays, U/S, labs)? Why? @ -CT brain ordered. Visible films this time with no obvious large hemorrhage What meds were considered but not given or refused? Why? @ -None Did you discuss the management of the patient with other professionals (professionals i.e. , PA, ACCELERATOR OPERATOR, lab, RT, psych nurse, social science analyst, roaster helper, teacher, immigration officer, employment evaluator/case manager)? Give summary @ -Case was discussed with Dr. Todd who will admit his patient Was smoking cessation discussed for >3mins.? @ -No Was critical care preformed (if so, how long)? @ -No Were there social determinants of health that impacted care today? How? (Homelessness, low income, unemployed, alcoholism, drug addiction, transportation, low edu. Level, literacy, decrease access to med. care, prison, rehab)? @ -No Was there de-escalation of care discussed even if they declined (Discuss DNR or withdrawal of care, Hospice)? DNR status @ -No What co-morbidities impacted this encounter? (DM, HTN, Smoking, COPD, CAD, Cancer, CVA, ARF, Chemo, Hep., AIDS, mental health diagnosis, sleep apnea, morbid obesity)? @ -None Was patient admitted / discharged? Hospital course, mention meds given and route, prescriptions, significant lab abnormalities, going to OR and other pertinent info. @ -Patient reevaluated and updated. Patient will be admitted. Admission orders written. Undiagnosed new problem with uncertain prognosis? @ -No Drug Therapy requiring intensive monitoring for toxicity (Heparin, Nitro, Insulin, Cardizem)? @ -No Were any procedures done? @ -No Diagnosis/symptom? @ -Syncope Acute, or Chronic, or Acute on Chronic? @ -Acute Uncomplicated (without systemic symptoms) or Complicated (systemic symptoms)? @ -default Side effects of treatment? @ -No Exacerbation, Progression, or Severe Exacerbation? @ -No Poses a threat to life or bodily function? How? (Chest pain, [place], [place], pneumonia, PE, COPD, DKA, ARF, appy, cholecystitis, CVA, Diverticulitis, Homicidal, Suicidal, threat to staff... and all critical care pts) @ -No - Lab Data Result diagrams: 02/23/23 22:28 02/23/23 22:28 Lab Results 02/23/23 02/23/23 02/23/23 Range/Units 22:28 22:28 22:28 WBC 8.1 (3.8-10.6) k/uL RBC 3.97 L (4.30-5.90) m/uL Hgb 12.6 L (13.0-17.5) gm/dL Hct 36.4 L (39.0-53.0) % MCV 91.6 (80.0-100.0) fL MCH 31.8 (25.0-35.0) pg MCHC 34.7 (31.0-37.0) g/dL RDW 12.8 (11.5-15.5) % Plt Count 247 (150-450) k/uL MPV 7.9 Neutrophils % 69 % Lymphocytes % 21 % Monocytes % 7 % Eosinophils % 1 % Basophils % 0 % Neutrophils # 5.6 (1.3-7.7) k/uL Lymphocytes # 1.7 (1.0-4.8) k/uL Monocytes # 0.5 (0-1.0) k/uL Eosinophils # 0.1 (0-0.7) k/uL Basophils # 0.0 (0-0.2) k/uL PT 10.3 (10.0-12.5) sec INR 0.9 (<1.2) APTT 23.3 (22.0-30.0) sec Sodium 132 L (137-145) mmol/L Potassium 3.9 (3.5-5.1) mmol/L Chloride 99 (98-107) mmol/L Carbon Dioxide 21 L (22-30) mmol/L Anion Gap 12 mmol/L BUN 16 (9-20) mg/dL Creatinine 0.99 (0.66-1.25) mg/dL Est GFR (CKD-EPI)AfAm 85 (>60 ml/min/1.73 sqM) Est GFR (CKD-EPI)NonAf 74 (>60 ml/min/1.73 sqM) Glucose 34 L* (74-99) mg/dL POC Glucose (mg/dL) (70-110) mg/dL POC Glu Procedures Rn ID Calcium 9.4 (8.4-10.2) mg/dL Magnesium 2.0 (1.6-2.3) mg/dL Total Bilirubin 0.6 (0.2-1.3) mg/dL AST 20 (17-59) U/L ALT 14 (4-49) U/L Alkaline Phosphatase 77 (38-126) U/L Troponin I (0.000-0.034) ng/mL Total Protein 6.8 (6.3-8.2) g/dL Albumin 4.1 (3.5-5.0) g/dL 02/23/23 02/23/23 02/23/23 Range/Units 22:28 22:50 23:27 WBC (3.8-10.6) k/uL RBC (4.30-5.90) m/uL Hgb (13.0-17.5) gm/dL Hct (39.0-53.0) % MCV (80.0-100.0) fL MCH (25.0-35.0) pg MCHC (31.0-37.0) g/dL RDW (11.5-15.5) % Plt Count (150-450) k/uL MPV Neutrophils % % Lymphocytes % % Monocytes % % Eosinophils % % Basophils % % Neutrophils # (1.3-7.7) k/uL Lymphocytes # (1.0-4.8) k/uL Monocytes # (0-1.0) k/uL Eosinophils # (0-0.7) k/uL Basophils # (0-0.2) k/uL PT (10.0-12.5) sec INR (<1.2) APTT (22.0-30.0) sec Sodium (137-145) mmol/L Potassium (3.5-5.1) mmol/L Chloride (98-107) mmol/L Carbon Dioxide (22-30) mmol/L Anion Gap mmol/L BUN (9-20) mg/dL Creatinine (0.66-1.25) mg/dL Est GFR (CKD-EPI)AfAm (>60 ml/min/1.73 sqM) Est GFR (CKD-EPI)NonAf (>60 ml/min/1.73 sqM) Glucose (74-99) mg/dL POC Glucose (mg/dL) 51 L 172 H (70-110) mg/dL POC Glu Procedures Rn ID Lr, Sarah Lr, Sarah Calcium (8.4-10.2) mg/dL Magnesium (1.6-2.3) mg/dL Total Bilirubin (0.2-1.3) mg/dL AST (17-59) U/L ALT (4-49) U/L Alkaline Phosphatase (38-126) U/L Troponin I <0.012 (0.000-0.034) ng/mL Total Protein (6.3-8.2) g/dL Albumin (3.5-5.0) g/dL Disposition Clinical Impression: Syncope Disposition: ADMITTED IP TO THIS HOSP Is patient prescribed a controlled substance at d/c from ED?: No Referrals: Guero Todd MD [Primary Care Provider] - 1-2 days Time of Disposition: 00:44
[2023-02-23 22:37] LABS: Basophils % (A) 0 %; Eosinophils # (A) 0.1 k/uL (0-0.7); Eosinophils % (A) 1 %; HCT 36.4 % (39.0-53.0); HGB 12.6 gm/dL (13.0-17.5); Lymphocytes # (A) 1.7 k/uL (1.0-4.8); Lymphocytes % (A) 21 %; MCH 31.8 pg (25.0-35.0); MCHC 34.7 g/dL (31.0-37.0); MCV 91.6 fL (80.0-100.0); Mean Platelet Volume 7.9; Monocytes # (A) 0.5 k/uL (0-1.0); Monocytes % (A) 7 %; Neutrophils # (A) 5.6 k/uL (1.3-7.7); Neutrophils % (A) 69 %; Platelet Count 247 k/uL (150-450); RBC 3.97 m/uL (4.30-5.90); RDW 12.8 % (11.5-15.5); WBC 8.1 k/uL (3.8-10.6)
[2023-02-23 22:46] LABS: ALT 14 U/L (4-49); AST 20 U/L (17-59); African American GFR (CKD) 85 (>60 ml/min/1.73 sqM); Albumin 4.1 g/dL (3.5-5.0); Alkaline Phosphatase 77 U/L (38-126); Anion Gap 12 mmol/L; Blood Urea Nitrogen 16 mg/dL (9-20); Calcium 9.4 mg/dL (8.4-10.2); Carbon Dioxide 21 mmol/L (22-30); Chloride 99 mmol/L (98-107); Non-African American GFR(CKD) 74 (>60 ml/min/1.73 sqM); Potassium 3.9 mmol/L (3.5-5.1); Sodium 132 mmol/L (137-145); Total Bilirubin 0.6 mg/dL (0.2-1.3); Total Protein 6.8 g/dL (6.3-8.2)
[2023-02-23 22:49] LABS: Glucose 34 mg/dL (74-99)
[2023-02-23] MEDS ORDERED: DEXTROSE 50% SYRINGE 50 ML IVP STA (22:49)
[2023-02-23 22:52] LABS: Glucose,Whole Blood 51 mg/dL (70-110)
[2023-02-23 23:27] LABS: Glucose,Whole Blood 172 mg/dL (70-110)
--- NOTE | 2023-02-23 23:55 | CT ---
EXAM: CT Cervical Spine Without Intravenous Contrast CLINICAL HISTORY: ITS.REASON CT Reason: syncope TECHNIQUE: Axial computed tomography images of the cervical spine without intravenous contrast. CTDI is 12.10 mGy and DLP is 426.5 mGy-cm. This CT exam was performed using one or more of the following dose reduction techniques: automated exposure control, adjustment of the mA and/or kV according to patient size, and/or use of iterative reconstruction technique. COMPARISON: None available FINDINGS: Vertebrae: No acute fracture. Degenerative disc disease most pronounced at C4-5, C5-6, and C6-7. There is trace anterolisthesis at C4- 5 and retrolisthesis at C6-7. Multilevel scattered canal and foraminal stenosis. Soft tissues: Advanced atherosclerotic calcification within the carotid arteries.. IMPRESSION: 1. No acute fracture. 2. Degenerative disc disease most pronounced from C4-5 through C6-7.
--- NOTE | 2023-02-24 00:01 | XR ---
EXAM: XR Chest, 2 Views CLINICAL HISTORY: ITS.REASON XR Reason: syncope TECHNIQUE: Frontal and lateral views of the chest. COMPARISON: No relevant prior studies available. FINDINGS: Lungs: No consolidation. No overt edema. Pleural space: No pleural effusion. No pneumothorax. Heart: Unremarkable. No cardiomegaly. Bones/joints: Unremarkable. No fracture or malalignment. IMPRESSION: No acute cardiopulmonary abnormality.
[2023-02-24 00:19] LABS: INR 0.9 (<1.2); Partial Thromboplastin Time 23.3 sec (22.0-30.0); Prothrombin Time 10.3 sec (10.0-12.5)
[2023-02-24] MEDS ORDERED: NALOXONE 0.4 MG/ML 1 ML VIAL IV PRN (00:44)
[2023-02-24 01:12] LABS: Glucose,Whole Blood 299 mg/dL (70-110)
--- NOTE | 2023-02-24 01:15 | CT ---
EXAM: CT Head Without Intravenous Contrast CLINICAL HISTORY: ITS.REASON CT Reason: syncope TECHNIQUE: Axial computed tomography images of the head/brain without intravenous contrast. CTDI is 49.2 mGy and DLP is 1167.4 mGy-cm. This CT exam was performed using one or more of the following dose reduction techniques: automated exposure control, adjustment of the mA and/or kV according to patient size, and/or use of iterative reconstruction technique. COMPARISON: Head CT 07/01/2021 FINDINGS: Brain: No intracranial hemorrhage. No mass-effect or cerebral edema. 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 Ventricles: Unremarkable. Bones/joints: Unremarkable. No fracture. Soft tissues: Unremarkable. Sinuses: No acute sinusitis. Mastoid air cells: Unremarkable as visualized. IMPRESSION: 1. No acute abnormality. 2. 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
--- NOTE | 2023-02-24 11:03 | P.CRDCN ---
History of Present Illness Consult date: 02/24/23 Consult reason: sycope History of present illness: History of present illness: This is a 77-year-old male with past medical history of hyperlipidemia, hyper- tension, dementia, benign prostatic hypertrophy, diabetes mellitus type 2, agent [place] exposure, remote history of tobacco use. We have been asked to evaluate the patient for syncopal episode. Patient is unable to provide any information. He does have a construction safety consultant at the bedside. Initial blood pressure was 179/100. EKG sinus rhythm with right bundle branch block Chest x-ray: No acute abnormality. CT of the brain no acute abnormality. 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 CT cervical spine no acute fracture. Degenerative disc disease. WBC 8.1, hemoglobin 12.6, platelet count 247. INR 0.9. Sodium 132, potassium 3.9, BUN 16 creatinine 0.99. Glucose 34. Troponin negative 3. Magnesium 2.0. Liver function tests are normal. Home cardiac medications: Aspirin 81 mg daily, lisinopril 20 mg daily, simvastatin 40 mg at bedtime. Review Of Systems: At the time of my exam: CONSTITUTIONAL: Denies fever or chills. CARDIOVASCULAR: Denies chest pain, Denies shortness of breath, no orthopnea, PND or palpitations. RESPIRATORY: Denies cough. GASTROINTESTINAL: Denies abdominal pain, diarrhea, constipation, nausea or vomiting. MUSCULOSKELETAL: Denies myalgias. NEUROLOGIC: Denies numbness, tingling or weakness. ENDOCRINE: Denies fatigue, weight change, polydipsia or polyurina. GENITOURINARY: Denies burning, hematuria or urgency with micturation. HEMATOLOGIC: Denies history of anemia or bleeding. Physical examination: Gen: This is a 77-year-old male appears to be in no acute distress. VS: reviewed HEENT: Head is atraumatic, normocephalic. Pupils equal, round. Sclerae is anicteric. NECK: Supple. No JVD. LUNGS: Clear to auscultation. No wheezes or rhonchi. No intercostal retractions. HEART: Regular rate and rhythm. ABDOMEN: Soft No tenderness. EXTREMITIES: No pedal edema. No calf tenderness. NEUROLOGICAL: Patient is awake, alert. Assessment: Syncopal episode was likely secondary to hypoglycemia hypertension Hyperlipidemia Dementia Plan: Resume patient's home cardiac medications Obtain 2-D echocardiogram and Doppler study to assess cardiac structure and function Further recommendations to follow based upon clinical course Thank you kindly for this consultation. Nurse practitioner note has been reviewed, I agree with documented findings and plan of care. Patient was seen and examined. Past Medical History Past Medical History: CVA/TIA, Dementia, Diabetes Mellitus, GERD/Reflux, Hyperlipidemia, Hypertension Additional Past Medical History / Comment(s): Agent [place] exposure in [place], IDDM type II, DKA with metabolic encephalopathy, neuropathy bilateral feet, osteoporosis, sinus problems, arthritis bilateral hands/feet. History of Any Multi-Drug Resistant Organisms: None Reported Past Surgical History: Appendectomy Additional Past Surgical History / Comment(s): Pt thinks he may have had an a ppendectomy, colonoscopy-normal Past Anesthesia/Blood Transfusion Reactions: No Reported Reaction Past Psychological History: No Psychological Hx Reported Smoking Status: Unknown if ever smoked Past Alcohol Use History: None Reported Past Drug Use History: None Reported - Past Family History Father Family Medical History: No Reported History Additional Family Medical History / Comment(s): Father was healthy and lived into his 80s. Mother Family Medical History: Cancer Additional Family Medical History / Comment(s): Mother had some form of cancer (family do not know kind) which she of in her 50s Medications and Allergies Home Medications Medication Instructions Recorded Confirmed Type Donepezil [Aricept] 10 mg PO HS@199911/19/15 02/23/23 History Memantine [Namenda] 5 mg PO BID@0900,199902/08/20 02/23/23 History Tamsulosin HCl [Flomax] 0.4 mg PO DAILY@89902/08/20 02/23/23 History Omeprazole 20 mg PO DAILY@89906/03/20 02/23/23 History Simvastatin [Zocor] 40 mg PO HS@199902/25/21 02/23/23 History Insulin Aspart [NovoLOG Flexpen] See Protocol SQ TID@0900,1300,1800 07/01/21 02/23/23 History lisinopriL [Prinivil] 20 mg PO DAILY@0900 07/01/21 02/23/23 History Aspirin 81 mg PO DAILY@0900 05/13/22 02/23/23 History traZODone HCL [Desyrel] 50 mg PO HS@199905/13/22 02/23/23 History Naproxen [EC-Naprosyn] 500 mg PO BID PRN 01/31/23 02/23/23 History Insulin Glargine,Hum.rec.anlog 28 units SQ DAILY@0900 02/23/23 02/23/23 History [Lantus Solostar Pen] Allergies Allergy/AdvReac Type Severity Reaction Status Date / Time No Known Allergies Allergy Verified 02/23/23 22:26 Physical Exam Vitals: Vital Signs Temp Pulse Resp BP Pulse Ox 02/24/23 06:00 85 18 176/74 97 02/24/23 01:16 97.9 F 71 16 143/63 97 02/23/23 22:29 61 16 161/73 97 02/23/23 22:02 97.6 F 58 L 16 179/100 98 Intake and Output 02/23/23 02/24/23 02/24/23 22:59 06:59 14:59 Other: Weight 77.111 kg Results 02/23/23 22:28 02/23/23 22:28 Cardiac Enzymes 02/23/23 02/23/23 02/24/23 Range/Units 22:28 22:28 03:59 AST 20 (17-59) U/L Troponin I <0.012 <0.012 (0.000-0.034) ng/mL Coagulation 02/23/23 Range/Units 22:28 PT 10.3 (10.0-12.5) sec APTT 23.3 (22.0-30.0) sec CBC 02/23/23 Range/Units 22:28 WBC 8.1 (3.8-10.6) k/uL RBC 3.97 L (4.30-5.90) m/uL Hgb 12.6 L (13.0-17.5) gm/dL Hct 36.4 L (39.0-53.0) % Plt Count 247 (150-450) k/uL Comprehensive Metabolic Panel 02/23/23 Range/Units 22:28 Sodium 132 L (137-145) mmol/L Potassium 3.9 (3.5-5.1) mmol/L Chloride 99 (98-107) mmol/L Carbon Dioxide 21 L (22-30) mmol/L BUN 16 (9-20) mg/dL Creatinine 0.99 (0.66-1.25) mg/dL Glucose 34 L* (74-99) mg/dL Calcium 9.4 (8.4-10.2) mg/dL AST 20 (17-59) U/L ALT 14 (4-49) U/L Alkaline Phosphatase 77 (38-126) U/L Total Protein 6.8 (6.3-8.2) g/dL Albumin 4.1 (3.5-5.0) g/dL Current Medications Generic Name Dose Route Start Last Admin Trade Name Freq PRN Reason Stop Dose Admin Naloxone HCl 0.2 mg 02/24/23 00:44 Naloxone 0.4 Mg/Ml 1 Ml Vial IV Q2M PRN Opioid Reversal Intake and Output 02/23/23 02/24/23 02/24/23 22:59 06:59 14:59 Other: Weight 77.111 kg 02/23/23 22:28 02/23/23 22:28
[2023-02-24 16:45] LABS: Glucose,Whole Blood 411 mg/dL (70-110)
[2023-02-24] MEDS ORDERED: INSULIN REGULAR 100 UNIT/ML VIAL (IM/SQ) SQ ONE (17:06)
[2023-02-24] MEDS: amLODIPine 5 MG TAB PO SCH (18:15)
[2023-02-24] MEDS: ATORVASTATIN 20 MG TAB PO SCH (19:30)
[2023-02-24] MEDS: DONEPEZIL 10 MG TAB PO SCH (19:31)
[2023-02-24] MEDS: MEMANTINE 5 MG TAB PO SCH (19:31)
[2023-02-24] MEDS: traZODone HCL 50 MG TAB PO SCH (19:31)
[2023-02-24] MEDS: IPRATROPIUM-ALBUTEROL 3 ML NEB INHALATION SCH (20:39)
--- NOTE | 2023-02-25 00:52 | HP ---
HISTORY AND PHYSICAL HISTORY OF PRESENT ILLNESS: A 77-year-old white male, possible syncopal episode. Does not remember watching a football game. Does remember waking up on the floor, may have passed out. He has no injuries. No complaints. HOME MEDICINES: Reviewed include, 1. Flomax 0.4 mg daily. 2. Omeprazole 20 daily. 3. Zocor 40 mg daily. 4. Prinivil 20 mg daily. 5. Aspirin 81 mg daily. 6. Desyrel 50 daily. 7. Naprosyn 500 b.i.d. 8. Aricept 10 mg daily. 9. Lantus 28 units daily. ALLERGIES: Negative. REVIEW OF SYSTEMS: A 14-point review of systems otherwise negative. PAST MEDICAL HISTORY: CVA, TIA, dementia, diabetes mellitus, GERD, dyslipidemia, hypertension, neuropathy in bilateral feet, and osteoporosis, [place] exposure in [place], insulin-dependent diabetes mellitus, metabolic encephalopathy. PAST SURGICAL HISTORY: Appendectomy. FAMILY HISTORY: Father mother with cancer. PHYSICAL EXAMINATION: VITAL SIGNS: Blood pressure is 160s to 170s over 70s to 90s, temp 97.8, pulse 91 to 98, O2 of 97% to 98% on room air. HEART: Regular rate and rhythm. LUNGS: Scattered rhonchi and wheeze. HEMATOLOGY: Negative Homans. PSYCH: Fair mood and affect. NEUROLOGIC: Alert and oriented x3. OPHTHALMOLOGIC: Pupils equal, round, reactive. ASSESSMENT: Hypertension, accelerated, oxygen dependent diabetes mellitus, right bundle branch block, chronic obstructive pulmonary disease, breathing treatments were started 3 times a day, orthostatic changes set. for blood pressure. Prognosis guarded. MMODL / IJN: [id number] /
[2023-02-25 06:47] LABS: Glucose,Whole Blood 370 mg/dL (70-110)
[2023-02-25] MEDS: IPRATROPIUM-ALBUTEROL 3 ML NEB INHALATION SCH ×3 (08:21→19:41)
[2023-02-25] MEDS: TAMSULOSIN 0.4 MG CAP.ER.24H PO SCH (09:02)
[2023-02-25] MEDS: ASPIRIN 81 MG PO SCH (09:03)
[2023-02-25] MEDS: lisinopriL 20 MG TAB PO SCH (09:03)
[2023-02-25] MEDS: PANTOPRAZOLE 40 MG TABLET PO SCH (09:03)
[2023-02-25] MEDS: amLODIPine 5 MG TAB PO SCH (09:03)
[2023-02-25] MEDS: MEMANTINE 5 MG TAB PO SCH ×2 (10:03→21:13)
[2023-02-25 10:47] LABS: Basophils # (A) 0.06 X 10*3/uL (0.00-0.10); Basophils % (A) 0.5 %; Eosinophils # (A) 0.03 X 10*3/uL (0.04-0.35); Eosinophils % (A) 0.3 %; HCT 35.4 % (39.6-50.0); HGB 12.5 g/dL (13.0-17.0); Lymphocytes # (A) 1.64 X 10*3/uL (0.90-5.00); Lymphocytes % (A) 14.7 %; MCH 31.3 pg (27.0-32.0); MCHC 35.3 g/dL (32.0-37.0); MCV 88.7 FL (80.0-97.0); Mean Platelet Volume 10.8 FL (9.5-12.2); Monocytes # (A) 1.12 X 10*3/uL (0.20-1.00); NRBC Per 100 WBC 0 X 10*3/uL (0.00-0.01); Neutrophils % (A) 74.2 %; Platelet Count 265 X 10*3/uL (140-440); RBC 3.99 X 10*6/uL (4.40-5.60); RDW 13.2 % (11.5-14.5); WBC 11.18 X 10*3/uL (4.50-10.00)
[2023-02-25 10:58] LABS: BUN/Creat Ratio 18.27 Ratio (12.00-20.00); Blood Urea Nitrogen 20.1 mg/dL (9.0-27.0); Chloride 98 mmol/L (96-109); Glucose 409 mg/dL (70-110); Potassium 4.3 mmol/L (3.5-5.5); Sodium 131 mmol/L (135-145)
[2023-02-25 10:59] LABS: ALT 13 U/L (10-49); AST 16 U/L (14-35); Albumin/Globulin Ratio 1.74 Ratio (1.60-3.17); Alkaline Phosphatase 85 U/L (41-126); Calcium 9.2 mg/dL (8.7-10.3); Carbon Dioxide 17.4 mmol/L (21.6-31.8); Globulin 2.3 g/dL (1.6-3.3); Total Bilirubin 1.1 mg/dL (0.3-1.2); Total Protein 6.3 g/dL (6.2-8.2)
--- NOTE | 2023-02-25 12:35 | P.PN ---
Subjective Progress Note Date: 02/25/23 Consult reason: sycope History of present illness: History of present illness: This is a 77-year-old male with past medical history of hyperlipidemia, hyper- tension, dementia, benign prostatic hypertrophy, diabetes mellitus type 2, agent orange exposure, remote history of tobacco use. We have been asked to evaluate the patient for syncopal episode. Patient is unable to provide any information. He does have a consumer safety officer at the bedside. Initial blood pressure was 179/100. EKG sinus rhythm with right bundle branch block Chest x-ray: No acute abnormality. CT of the brain no acute abnormality. 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 CT cervical spine no acute fracture. Degenerative disc disease. WBC 8.1, hemoglobin 12.6, platelet count 247. INR 0.9. Sodium 132, potassium 3.9, BUN 16 creatinine 0.99. Glucose 34. Troponin negative 3. Magnesium 2.0. Liver function tests are normal. Home cardiac medications: Aspirin 81 mg daily, lisinopril 20 mg daily, simvastatin 40 mg at bedtime. 02/25 Patient is seen today on the observation unit. Patient has a consumer safety officer at the bedside. Heart rate has been in the 90s, blood pressure 174/69, pulse ox 96% on room air. Repeat blood work reveals hemoglobin 12.5, potassium 4.3, creatinine 1.1. Blood sugar is 409. Echocardiogram performed on 02/01/2023 revealed normal left ventricle size and systolic function. Mild mitral and tricuspid regurgitation. No pulmonary hypertension. Physical examination: Gen: This is a 77-year-old male appears to be in no acute distress. VS: reviewed HEENT: Head is atraumatic, normocephalic. Pupils equal, round. Sclerae is anicteric. LUNGS: Clear to auscultation. No wheezes or rhonchi. No intercostal retractions. HEART: Regular rate and rhythm. EXTREMITIES: No pedal edema. No calf tenderness. Assessment: Syncopal episode was likely secondary to hypoglycemia hypertension Hyperlipidemia Dementia Diabetes mellitus type 2 uncontrolled Plan: Continue patient's home cardiac medications No need to repeat echocardiogram as this was done in January No further cardiac workup at this time. Patient will have follow-up in the office for possible event monitor. Nurse practitioner note has been reviewed, I agree with documented findings and plan of care. Patient was seen and examined. Objective - Vital Signs Vital signs: Vital Signs Temp 98.0 F 02/25/23 07:00 Pulse 92 02/25/23 08:21 Resp 16 02/25/23 07:00 BP 174/69 02/25/23 07:00 Pulse Ox 96 02/25/23 07:00 FiO2 Intake & Output 02/24/23 02/25/23 02/25/23 18:59 06:59 18:59 Intake Total 118 Balance 118 Intake: Oral 118 Other: # Bowel Movements 1 - Labs CBC & Chem 7: 02/25/23 07:30 02/25/23 07:30 Labs: Abnormal Lab Results - Last 24 Hours (Table) 02/24/23 02/25/23 02/25/23 Range/Units 16:43 06:45 07:30 WBC 11.18 H (4.50-10.00) X 10*3/uL RBC 3.99 L (4.40-5.60) X 10*6/uL Hgb 12.5 L (13.0-17.0) g/dL Hct 35.4 L (39.6-50.0) % Neutrophils # 8.30 H (1.80-7.70) X 10*3/uL Monocytes # 1.12 H (0.20-1.00) X 10*3/uL Eosinophils # 0.03 L (0.04-0.35) X 10*3/uL Sodium (135-145) mmol/L Carbon Dioxide (21.6-31.8) mmol/L Anion Gap (4.00-12.00) mmol/L Glucose (70-110) mg/dL POC Glucose (mg/dL) 411 H 370 H (70-110) mg/dL 02/25/23 Range/Units 07:30 WBC (4.50-10.00) X 10*3/uL RBC (4.40-5.60) X 10*6/uL Hgb (13.0-17.0) g/dL Hct (39.6-50.0) % Neutrophils # (1.80-7.70) X 10*3/uL Monocytes # (0.20-1.00) X 10*3/uL Eosinophils # (0.04-0.35) X 10*3/uL Sodium 131 L (135-145) mmol/L Carbon Dioxide 17.4 L (21.6-31.8) mmol/L Anion Gap 15.60 H (4.00-12.00) mmol/L Glucose 409 H (70-110) mg/dL POC Glucose (mg/dL) (70-110) mg/dL
[2023-02-25 12:37] LABS: Glucose,Whole Blood 557 mg/dL (70-110)
[2023-02-25] MEDS ORDERED: DEXTROSE 50% SYRINGE 50 ML IVP PRN ×2 (15:10)
[2023-02-25] MEDS: INSULIN DETEMIR (LEVEMIR) 100 UNIT/ML SYR SQ SCH (15:44)
[2023-02-25 17:00] LABS: Appearance,Urine Clear (Clear); Bilirubin,Urine Negative (Negative); Blood,Urine Negative (Negative); Color,Urine Colorless; Glucose,Urine (UA) 4+ (Negative); Leukocyte Esterase,Urine Negative (Negative); Nitrite,Urine Negative (Negative); Protein,Urine Negative (Negative); Specific Gravity,Urine 1.029 (1.001-1.035); Urobilinogen,Urine <2.0 mg/dL (<2.0)
[2023-02-25 17:09] LABS: Ketones,Urine 2+ (Negative)
[2023-02-25 17:24] LABS: Glucose,Whole Blood >600 mg/dL (70-110)
[2023-02-25 17:26] LABS: Glucose,Whole Blood >600 mg/dL (70-110)
[2023-02-25] MEDS ORDERED: INSULIN REGULAR 100 UNIT/ML VIAL (IM/SQ) SQ ONE (17:30)
[2023-02-25] MEDS: SODIUM CHLORIDE 0.9% 1,000 ML IV SCH (18:09)
[2023-02-25] MEDS: INSULIN ASPART (NovoLOG) 100 UNIT/ML VIAL SQ SCH ×3 (18:28→21:12)
[2023-02-25 20:14] LABS: Glucose,Whole Blood 573 mg/dL (70-110)
[2023-02-25 20:38] LABS: Glucose,Whole Blood 576 mg/dL (70-110)
[2023-02-25] MEDS: traZODone HCL 50 MG TAB PO SCH (21:13)
[2023-02-25] MEDS: DONEPEZIL 10 MG TAB PO SCH (21:13)
[2023-02-25] MEDS: ATORVASTATIN 20 MG TAB PO SCH (21:13)
[2023-02-25] MEDS ORDERED: INSULIN ASPART (NovoLOG) 100 UNIT/ML VIAL SQ ONE (21:47)
[2023-02-25 21:49] LABS: Glucose,Whole Blood 571 mg/dL (70-110)
--- NOTE | 2023-02-25 22:20 | PN ---
PROGRESS NOTE SUBJECTIVE: This is a 77-year-old white male, remains on DuoNeb for breathing treatments. Pulse is 104 to 96, blood pressure is 148/66, O2 97 on room air. Hemoglobin 12.5, we are going to orthostatic hypotension. Cardiology saw him and cleared him. Sugars have been 400s to 300s has been without his insulin, he started his insulin and will monitor him for the next 24 to 48 hours to make sure his sugars are better, which they should be. Rule him out for possible UTI. He is on a.c. and h.s. sugar control. Echo has been ordered for hypertension acceleration. PROGNOSIS: Guarded. PT OT orthostatic checks. MMODL / IJN: [id number] /
[2023-02-26 00:10] LABS: Glucose,Whole Blood 371 mg/dL (70-110)
[2023-02-26] MEDS: INSULIN ASPART (NovoLOG) 100 UNIT/ML VIAL SQ SCH ×8 (00:43→21:46)
[2023-02-26 02:49] LABS: Glucose,Whole Blood 223 mg/dL (70-110)
[2023-02-26 05:17] LABS: Glucose,Whole Blood 176 mg/dL (70-110)
[2023-02-26] MEDS: SODIUM CHLORIDE 0.9% 1,000 ML IV SCH (06:05)
[2023-02-26] MEDS: PANTOPRAZOLE 40 MG TABLET PO SCH (06:06)
[2023-02-26] MEDS ORDERED: INSULIN DETEMIR (LEVEMIR) 100 UNIT/ML SYR SQ SCH (07:00)
--- NOTE | 2023-02-26 07:46 | HP ---
HISTORY AND PHYSICAL HISTORY OF PRESENT ILLNESS: A 77-year-old white male, was found on the floor after a syncopal DICTATION ENDS HERE MMODL / IJN: [id number] /
[2023-02-26] MEDS: IPRATROPIUM-ALBUTEROL 3 ML NEB INHALATION SCH ×3 (08:22→22:46)
[2023-02-26] MEDS: MEMANTINE 5 MG TAB PO SCH ×2 (09:11→20:47)
[2023-02-26] MEDS: lisinopriL 20 MG TAB PO SCH (09:12)
[2023-02-26] MEDS: ASPIRIN 81 MG PO SCH (09:12)
[2023-02-26] MEDS: amLODIPine 5 MG TAB PO SCH (09:12)
[2023-02-26] MEDS: TAMSULOSIN 0.4 MG CAP.ER.24H PO SCH (09:12)
[2023-02-26] MEDS: INSULIN DETEMIR (LEVEMIR) 100 UNIT/ML SYR SQ SCH (09:13)
[2023-02-26 12:31] LABS: Glucose,Whole Blood 180 mg/dL (70-110)
[2023-02-26 14:51] VITALS: BMI 25.1
--- NOTE | 2023-02-26 16:59 | XR ---
EXAMINATION TYPE: XR femur 2 views RT, XR tibia fibula 2 views RT DATE OF EXAM: 02/26/2023 COMPARISON: NONE HISTORY: 77-year-old male recent fall with complaints of right leg and hip pain FINDINGS: Right femur: Right hip hemiarthroplasty noted. There is an oblique fracture of the proximal femoral shaft. This is a periprosthetic fracture adjacent to the femoral stem tip. 1.3 cm of medial displacement. Vascular calcifications suggesting underlying diabetes and/or chronic kidney disease. Tibia/fibula: Possible underlying knee joint effusion. Limited assessment on views of the leg. There is tricompartm ental degenerative change, suspect severe in the medial compartment with subchondral sclerosis and so me subchondral bony remodeling. Meniscal chondrocalcinosis is noted. Ankle articulation grossly intac t. IMPRESSION: 1. Right femur: Acute periprosthetic fracture involving the proximal femoral shaft near the stem pros thesis tip. 1.3 cm of medial displacement. 2. Right tibia/fibula: Possible underlying knee joint effusion. Limited assessment on views centered at the leg. There is tricompartmental degenerative change of the knee, suspect severe at the medial c ompartment. No acute fracture clearly identified. If concern for underlying acute knee pathology, ded icated radiograph or MRI can be performed.
[2023-02-26 17:15] LABS: Glucose,Whole Blood 148 mg/dL (70-110)
[2023-02-26] MEDS: HYDROcodone/APAP 5-325MG 1 EACH TAB PO PRN (18:43)
[2023-02-26] MEDS: traZODone HCL 50 MG TAB PO SCH (20:46)
[2023-02-26] MEDS: ATORVASTATIN 20 MG TAB PO SCH (20:46)
[2023-02-26] MEDS: DONEPEZIL 10 MG TAB PO SCH (20:47)
[2023-02-26 21:18] LABS: Glucose,Whole Blood 93 mg/dL (70-110)
[2023-02-27 06:56] LABS: Glucose,Whole Blood 102 mg/dL (70-110)
[2023-02-27] MEDS: INSULIN ASPART (NovoLOG) 100 UNIT/ML VIAL SQ SCH ×6 (07:22→21:52)
[2023-02-27] MEDS: INSULIN DETEMIR (LEVEMIR) 100 UNIT/ML SYR SQ SCH (07:34)
[2023-02-27] MEDS: IPRATROPIUM-ALBUTEROL 3 ML NEB INHALATION SCH ×3 (08:49→18:14)
[2023-02-27] MEDS: MEMANTINE 5 MG TAB PO SCH ×2 (08:55→21:44)
[2023-02-27] MEDS: amLODIPine 5 MG TAB PO SCH (08:55)
[2023-02-27] MEDS: ASPIRIN 81 MG PO SCH (08:55)
[2023-02-27] MEDS: lisinopriL 20 MG TAB PO SCH (08:55)
[2023-02-27] MEDS: TAMSULOSIN 0.4 MG CAP.ER.24H PO SCH (08:55)
[2023-02-27] MEDS: METOPROLOL TARTRATE 25 MG TAB PO SCH ×2 (08:55→21:55)
[2023-02-27] MEDS: PANTOPRAZOLE 40 MG TABLET PO SCH (09:01)
[2023-02-27] MEDS: HYDROcodone/APAP 5-325MG 1 EACH TAB PO PRN ×3 (09:02→21:44)
--- NOTE | 2023-02-27 09:26 | P.CNOR ---
History of Present Illness - [facility] Consult date: 02/27/23 Consult reason: fracture (Right femur periprosthetic fracture) History of present illness: This is a 77-year-old male admitted through the emergency department on 02/23/2023 after a syncopal episode at his assisted living home. He was found on the floor by staff and brought to the emergency department. The patient does have history of some dementia and is a poor historian. He apparently fell again in the emergency department, landing on his buttock. The patient apparently did not start complaining of right leg pain until yesterday. X-rays were taken which revealed a displaced oblique periprosthetic femur fracture. We're consulted for orthopedic evaluation. The patient does have history of a hemiar throplasty of the right hip in June 2021 after a femoral neck fracture. Past Medical History Past Medical History: CVA/TIA, Dementia, Diabetes Mellitus, GERD/Reflux, Hyperlipidemia, Hypertension Additional Past Medical History / Comment(s): Agent [place] exposure in [place], IDDM type II, DKA with metabolic encephalopathy, neuropathy bilateral feet, osteoporosis, sinus problems, arthritis bilateral hands/feet. History of Any Multi-Drug Resistant Organisms: None Reported Past Surgical History: Appendectomy Additional Past Surgical History / Comment(s): Pt thinks he may have had an appendectomy, colonoscopy-normal Past Anesthesia/Blood Transfusion Reactions: No Reported Reaction Past Psychological History: No Psychological Hx Reported Additional Psychological History / Comment(s): Pt resides at [facility]. He has caregivers from an agency coming in 6 times a day. He has dementia. He is a [place] . Smoking Status: Unknown if ever smoked Past Alcohol Use History: None Reported Additional Past Alcohol Use History / Comment(s): Pt started smoking in 1964 and quit in 1974. Past Drug Use History: None Reported - Past Family History Father Family Medical History: No Reported History Additional Family Medical History / Comment(s): Father was healthy and lived into his 80s. Mother Family Medical History: Cancer Additional Family Medical History / Comment(s): Mother had some form of cancer (family do not know kind) which she of in her 50s Medications and Allergies Home Medications Medication Instructions Recorded Confirmed Type Donepezil [Aricept] 10 mg PO HS@199911/19/15 02/23/23 History Memantine [Namenda] 5 mg PO BID@899,199902/08/20 02/23/23 History Tamsulosin HCl [Flomax] 0.4 mg PO DAILY@89902/08/20 02/23/23 History Omeprazole 20 mg PO DAILY@89906/03/20 02/23/23 History Simvastatin [Zocor] 40 mg PO HS@199902/25/21 02/23/23 History Insulin Aspart [NovoLOG Flexpen] See Protocol SQ TID@0900,1300,1800 07/01/21 02/23/23 History lisinopriL [Prinivil] 20 mg PO DAILY@89907/01/21 02/23/23 History Aspirin 81 mg PO DAILY@89905/13/22 02/23/23 History traZODone HCL [Desyrel] 50 mg PO HS@199905/13/22 02/23/23 History Naproxen [EC-Naprosyn] 500 mg PO BID PRN 01/31/23 02/23/23 History Insulin Glargine,Hum.rec.anlog 28 units SQ DAILY@89902/23/23 02/23/23 History [Lantus Solostar Pen] Allergies Allergy/AdvReac Type Severity Reaction Status Date / Time No Known Allergies Allergy Verified 02/23/23 22:26 Physical Examination This is a 77-year-old male evaluated at bedside. He is in no acute distress. He is alert and oriented to person. He does have some confusion and is a poor historian. Exam of the head neck reveal no obvious deformity. He has full cervical spine motion without difficulty or pain. He is nontender over the cervical spine and paraspinal musculature. Exam of the upper extremities reveals full range of motion of the shoulders, el bows, wrists and fingers without difficulty. No deformities or swelling noted. No erythema or ecchymosis to the upper extremities. Exam of the lower extremities reveals slight rotational deformity of the right leg. Minimal shortening noted. There is a well-healed anterior hip incision. He does have full foot and ankle motion bilaterally. Neurovascular status to the lower extremities is intact. Results X-rays reveal a long oblique displaced periprosthetic proximal femur fracture of the right hip - Labs Labs: Abnormal Lab Results - Last 24 Hours (Table) 01/11/24 01/11/24 Range/Units 12:29 17:14 POC Glucose (mg/dL) 180 H 148 H (70-110) mg/dL H & H 02/23/23 02/25/23 Range/Units 22:28 07:30 Hgb 12.6 L 12.5 L (13.0-17.5) gm/dL Hct 36.4 L 35.4 L (39.0-53.0) % Coagulation 02/23/23 Range/Units 22:28 INR 0.9 (<1.2) Result Diagrams: 02/25/23 07:30 02/25/23 07:30 Assessment and Plan (1) Periprosthetic fracture of proximal end of femur Current Visit: Yes Status: Acute Code(s): M97.8XXA - PERIPROSTH FRACTURE AROUND OTHER INTERNAL PROSTH JOINT, INIT; Z96.649 - PRESENCE OF UNSPECIFIED ARTIFICIAL HIP JOINT SNOMED Code(s): 91785597993343180 (2) Syncope Current Visit: Yes Status: Acute Code(s): R55 - SYNCOPE AND COLLAPSE SNOMED Code(s): 948654564 (3) Altered mental status Current Visit: No Status: Acute Code(s): R41.82 - ALTERED MENTAL STATUS, UNSPECIFIED SNOMED Code(s): 621122240 (4) Dementia Current Visit: No Status: Acute Code(s): F03.90 - UNSP DEMENTIA, UNSP SEVERITY, WITHOUT BEH/PSYCH/MOOD/ANX SNOMED Code(s): 11107845 (5) Fall Current Visit: No Status: Acute Code(s): W19.XXXA - UNSPECIFIED FALL, INITIAL ENCOUNTER SNOMED Code(s): 1483519 Plan: The clinical and x-ray findings are discussed with the patient and nursing staff. I've also discussed the case with the patient's son over the phone. It is recommended he undergo fracture fixation with plate and cable system. He is scheduled for open reduction internal fixation of the right proximal femur today pending medical clearance. The procedures discussed in detail including the possible risks and outcomes of the surgery. He will be nonweightbearing to the right lower extremity postoperatively. After discussion and consideration the patient and his family elects to proceed with surgery.
--- NOTE | 2023-02-27 11:20 | P.PN ---
Subjective Progress Note Date: 02/27/23 Consult reason: sycope History of present illness: History of present illness: This is a 77-year-old male with past medical history of hyperlipidemia, hyper- tension, dementia, benign prostatic hypertrophy, diabetes mellitus type 2, agent orange exposure, remote history of tobacco use. We have been asked to evaluate the patient for syncopal episode. Patient is unable to provide any information. He does have a aviation safety equipment technician at the bedside. Initial blood pressure was 179/100. EKG sinus rhythm with right bundle branch block Chest x-ray: No acute abnormality. CT of the brain no acute abnormality. 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 CT cervical spine no acute fracture. Degenerative disc disease. WBC 8.1, hemoglobin 12.6, platelet count 247. INR 0.9. Sodium 132, potassium 3.9, BUN 16 creatinine 0.99. Glucose 34. Troponin negative 3. Magnesium 2.0. Liver function tests are normal. Home cardiac medications: Aspirin 81 mg daily, lisinopril 20 mg daily, simvastatin 40 mg at bedtime. 02/25 Patient is seen today on the observation unit. Patient has a aviation safety equipment technician at the bedside. Heart rate has been in the 90s, blood pressure 174/69, pulse ox 96% on room air. Repeat blood work reveals hemoglobin 12.5, potassium 4.3, creatinine 1.1. Blood sugar is 409. Echocardiogram performed on 02/01/2023 revealed normal left ventricle size and systolic function. Mild mitral and tricuspid regurgitation. No pulmonary hypertension. 02/27 Have been asked to reevaluate the patient regarding new A. fib, 20 beat run of ventricular tachycardia and surgical clearance. Yesterday, patient had x-rays done on his femur tib-fib found to have acute periprosthetic fracture involving the proximal femoral shaft and consult was admitted for orthopedics as well. EKG from yesterday reveals sinus rhythm, left axis deviation, incomplete right bundle branch block. Heart rate was at 108. Repeat EKG this morning reveals sinus rhythm with right bundle branch block, PACs. Telemetry reviewed and patient had a 20 beat run of ventricular tachycardia at 11:53 PM on 02/26. patient was started on metoprolol 25 mg twice daily by attending. Patient r emains quite confused with aviation safety equipment technician at the bedside. Physical examination: Gen: This is a 77-year-old male appears to be in no acute distress. VS: reviewed HEENT: Head is atraumatic, normocephalic. Pupils equal, round. Sclerae is anicteric. LUNGS: Clear to auscultation. No wheezes or rhonchi. No intercostal retractions. HEART: Regular rate and rhythm. EXTREMITIES: No pedal edema. No calf tenderness. Assessment: Syncopal episode was likely secondary to hypoglycemia Femur fracture Nonsustained ventricular tachycardia Hypertension Hyperlipidemia Dementia Diabetes mellitus type 2 uncontrolled Plan: Continue patient's home cardiac medications including the addition of metoprolol 25 mg twice daily Obtain TSH, potassium, magnesium, troponin 1 Obtain 2-D echocardiogram limited Patient cleared for surgical intervention with known increased risk for cardiovascular and anesthesia complications during the perioperative period due to cardiac arrhythmia. continue telemetry monitoring Nurse practitioner note has been reviewed, I agree with documented findings and plan of care. Patient was seen and examined. Objective - Vital Signs Vital signs: Vital Signs Temp 97.6 F 02/27/23 07:00 Pulse 70 02/27/23 07:00 Resp 16 02/27/23 07:00 BP 139/61 02/27/23 07:00 Pulse Ox 100 02/27/23 07:00 FiO2 21 02/25/23 12:21 Intake & Output 02/26/23 02/27/23 02/27/23 18:59 06:59 18:59 Intake Total 590 100 Output Total 400 Balance 190 100 Weight 77.111 kg Intake: Oral 590 100 Output: Urine 400 Other: Voiding Method External Catheter External Catheter # Voids 0 - Labs CBC & Chem 7: 02/25/23 07:30 02/25/23 07:30 Labs: Abnormal Lab Results - Last 24 Hours (Table) 02/26/23 02/26/23 Range/Units 12:29 17:14 POC Glucose (mg/dL) 180 H 148 H (70-110) mg/dL
[2023-02-27 11:48] LABS: African American GFR (CKD) >90 (>60 ml/min/1.73 sqM); Anion Gap 7 mmol/L; Blood Urea Nitrogen 26 mg/dL (9-20); Calcium 8.2 mg/dL (8.4-10.2); Carbon Dioxide 23 mmol/L (22-30); Chloride 105 mmol/L (98-107); Glucose 196 mg/dL (74-99); Magnesium 2.1 mg/dL (1.6-2.3); Non-African American GFR(CKD) 88 (>60 ml/min/1.73 sqM); Potassium 4.5 mmol/L (3.5-5.1); Sodium 135 mmol/L (137-145)
[2023-02-27 11:49] LABS: Glucose,Whole Blood 237 mg/dL (70-110)
[2023-02-27] MEDS: SODIUM CHLORIDE 0.9% 1,000 ML IV SCH ×3 (12:23→23:22)
[2023-02-27] MEDS ORDERED: ONDANSETRON 4 MG/2 ML VIAL IVP ONE (15:44)
[2023-02-27] MEDS ORDERED: DEXAMETHASONE SOD PHOSPHATE 4 MG/ML 1 ML VIAL IV ONE (15:44)
--- NOTE | 2023-02-27 15:44 | P.PN ---
Subjective Progress Note Date: 02/27/23 Hospital Course: 77-year-old male with history of hypertension, dyslipidemia, insulin-dependent diabetes, dementia, GERD, BPH presented after a syncopal episode. CT head and cervical spine did not show any acute fracture. EKG showed right bundle branch block, sinus with first-degree AV block. Several x-rays shows right femoral acute periprosthetic fracture, possible right knee joint effusion. Orthopedic surgery consulted, recommending fracture fixation. Cardiology consulted for c ardiac clearance. Echocardiogram pending. Subjective: Seen and examined at bedside. No acute events overnight. Pertinent positives and negatives as discussed above, a complete review of systems was performed and all other systems are negative. Vitals Signs Reviewed. General: nontoxic, no distress, appears at stated age Derm: warm, dry Head: atraumatic, normocephalic, symmetric Eyes: EOMI, no lid lag, anicteric sclera Mouth: no lip lesion, mucus membranes moist Cardiovascular: S1S2 reg, no murmur Lungs: CTA bilateral, no rhonchi, no rales , no accessory muscle use Abdominal: soft, nontender to palpation, no guarding, no appreciable organomegaly Ext: unable to move right lower extremity due to pain Neuro: CN II-XI grossly intact, no focal neuro deficits Psych: Alert, orientedx1, appropriate affect Data Reviewed Today: Pertinent Labs: Sodium 135, potassium 4.5, creatinine 0.78, magnesium 2.1, blood sugars range between 93-237 Imaging: EKG independently interpreted from this morning, shows right bundle branch block, sinus rhythm with first-degree AV block, frequent PACs, T-wave inversions in the anteroseptal leads. Assessment and Plan: Active: Syncope and fall Orthostatic hypotension Acute right periprosthetic hip fracture Right knee effusion? -Continue IV fluids, normal saline 75 mL an hour -Orthopedic surgery note reviewed, possible intervention today -Cardiology note reviewed, pending echocardiogram -norco 5 PRN, monitor for sedation Perioperative evaluation -Per NSQIP risk calculator, patient has about 10.9% risk of serious complication, 2.2% risk for cardiac complication, 1.8% risk of , 68.1% risk of discharge from rehab facility. -continue tele -Patient is otherwise medically optimized -Cardiology also following for further cardiac risk assessment. Type 2 diabetes -Levemir 28 units -Hold scheduled aspart, continue sliding scale insulin, monitor for hypoglycemia Hypertension -continue amlodipine 5 mg, lisinopril 20 mg (restart after surgery) Dyslipidemia -continue atorvastatin 20 GERD -continue Protonix 40 BPH -continue Flomax 0.4 Dementia -continue Aricept 10, Namenda 5 twice a day DVT ppx: SCDs Code status: DNR Anticipated discharge place: pending clinical course Anticipated discharge time: pending clinical course Objective - Vital Signs Vital signs: Vital Signs Temp 97.6 F 02/27/23 07:00 Pulse 90 02/27/23 12:45 Resp 16 02/27/23 08:55 BP 139/61 02/27/23 07:00 Pulse Ox 98 02/27/23 08:49 FiO2 21 02/25/23 12:21 Intake & Output 02/26/23 02/27/23 02/27/23 18:59 06:59 18:59 Intake Total 590 100 Output Total 400 Balance 190 100 Weight 77.111 kg Intake: Oral 590 100 Output: Urine 400 Other: Voiding Method External Catheter External Catheter External Catheter # Voids 0 - Labs CBC & Chem 7: 02/25/23 07:30 02/27/23 10:44 Labs: Abnormal Lab Results - Last 24 Hours (Table) 02/26/23 02/27/23 02/27/23 Range/Units 17:14 10:44 11:44 Sodium 135 L (137-145) mmol/L BUN 26 H (9-20) mg/dL Glucose 196 H (74-99) mg/dL POC Glucose (mg/dL) 148 H 237 H (70-110) mg/dL Calcium 8.2 L (8.4-10.2) mg/dL
--- NOTE | 2023-02-27 17:03 | CA ---
Transthoracic Echo Report Name: Alfa Ortiz Age: 77 Gender: M : 1945 Exam Date: 02/27/2023 09:28 Exam Location: [place] [facility] Ht (in): 69 Wt (lb): 170 Ordering Physician: Guero Todd MD Attending/Referring Phys: First Assistant Marcie Snider RDCS Procedure CPT: Indications: 20 beat run of vtach Cardiac Hx: Technical Quality: Contrast 1: Total Dose (mL): Contrast 2: Total Dose (mL): MEASUREMENTS (Male / Female) Normal Values 2D ECHO LV Diastolic Diameter PLAX 4.3 cm 4.2 - 5.9 / 3.9 - 5.3 cm LV Systolic Diameter PLAX 3.2 cm IVS Diastolic Thickness 1.0 cm 0.6 - 1.0 / 0.6 - 0.9 cm LVPW Diastolic Thickness 1.2 cm 0.6 - 1.0 / 0.6 - 0.9 cm LV Relative Wall Thickness 0.5 FINDINGS Left Ventricle Normal left ventricular systolic function with no obvious regional wall motion abnormalities. Left ventricular ejection fraction is estimated at 55 %. Right Ventricle Right Atrium Left Atrium Mitral Valve Aortic Valve Tricuspid Valve Pulmonic Valve Pericardium No pericardial effusion. Aorta CONCLUSIONS LV function is normal Previewed by: Dr. Kings Vazquez MD (Electronically Signed) Final Date: 27 February 2023 17:02
[2023-02-27 17:38] LABS: Glucose,Whole Blood 165 mg/dL (70-110)
[2023-02-27] MEDS: LACTATED RINGERS 1,000 ML IV SCH (20:08)
[2023-02-27] MEDS: DONEPEZIL 10 MG TAB PO SCH (21:44)
[2023-02-27] MEDS: ATORVASTATIN 20 MG TAB PO SCH (21:44)
[2023-02-27] MEDS: traZODone HCL 50 MG TAB PO SCH (21:44)
[2023-02-27 21:47] LABS: Glucose,Whole Blood 284 mg/dL (70-110)
[2023-02-27] MEDS: SULFAMETHOX-TMP 800-160MG 1 EACH TAB PO SCH (23:21)
[2023-02-28 02:32] LABS: Glucose,Whole Blood 257 mg/dL (70-110)
[2023-02-28 06:18] LABS: Glucose,Whole Blood 433 mg/dL (70-110)
[2023-02-28] MEDS ORDERED: HYDROmorphone 0.5 MG/0.5 ML SYRINGE IVP PRN ×4 (07:00→16:57)
[2023-02-28] MEDS ORDERED: INSULIN DETEMIR (LEVEMIR) 100 UNIT/ML SYR SQ SCH (07:00)
[2023-02-28] MEDS: INSULIN ASPART (NovoLOG) 100 UNIT/ML VIAL SQ SCH ×4 (07:33→21:13)
[2023-02-28] MEDS: PANTOPRAZOLE 40 MG TABLET PO SCH (07:34)
[2023-02-28] MEDS: INSULIN DETEMIR (LEVEMIR) 100 UNIT/ML SYR SQ SCH (07:34)
[2023-02-28] MEDS: IPRATROPIUM-ALBUTEROL 3 ML NEB INHALATION SCH ×3 (07:40→22:03)
[2023-02-28] MEDS: amLODIPine 5 MG TAB PO SCH (08:15)
[2023-02-28] MEDS: TAMSULOSIN 0.4 MG CAP.ER.24H PO SCH (08:15)
[2023-02-28] MEDS: METOPROLOL TARTRATE 25 MG TAB PO SCH ×2 (08:15→20:53)
[2023-02-28] MEDS: ASPIRIN 81 MG PO SCH (08:15)
[2023-02-28] MEDS: SULFAMETHOX-TMP 800-160MG 1 EACH TAB PO SCH ×2 (08:15→20:53)
[2023-02-28] MEDS: MEMANTINE 5 MG TAB PO SCH ×2 (08:15→20:54)
[2023-02-28 11:23] LABS: Glucose,Whole Blood 285 mg/dL (70-110)
--- NOTE | 2023-02-28 12:03 | P.PN ---
Subjective Progress Note Date: 02/28/23 Hospital Course: 77-year-old male with history of hypertension, dyslipidemia, insulin-dependent diabetes, dementia, GERD, BPH presented after a syncopal episode. CT head and cervical spine did not show any acute fracture. EKG showed right bundle branch block, sinus with first-degree AV block. Several x-rays shows right femoral acute periprosthetic fracture, possible right knee joint effusion. Orthopedic surgery consulted, recommending fracture fixation. Cardiology consulted for cardiac clearance. Echocardiogram showed normal LV systolic function. Subjective: Seen and examined at bedside. No acute events overnight. Pertinent positives and negatives as discussed above, a complete review of systems was performed and all other systems are negative. Vitals Signs Reviewed. General: nontoxic, no distress, appears at stated age Derm: warm, dry Head: atraumatic, normocephalic, symmetric Eyes: EOMI, no lid lag, anicteric sclera Mouth: no lip lesion, mucus membranes moist Cardiovascular: S1S2 reg, no murmur Lungs: CTA bilateral, no rhonchi, no rales , no accessory muscle use Abdominal: soft, nontender to palpation, no guarding, no appreciable organomegaly Ext: unable to move right lower extremity due to pain Neuro: CN II-XI grossly intact, no focal neuro deficits Psych: Alert, orientedx1, appropriate affect Data Reviewed Today: Pertinent Labs: Blood sugars range between 257-433 Imaging: No new imaging Assessment and Plan: Active: Syncope and fall Orthostatic hypotension Acute right periprosthetic hip fracture Right knee effusion? -Continue IV fluids, normal saline 75 mL an hour -Orthopedic surgery planning for intervention today -Cardiology following, patient is optimized for surgery -norco 5 PRN, monitor for sedation Perioperative evaluation -Per NSQIP risk calculator, patient has about 10.9% risk of serious complication, 2.2% risk for cardiac complication, 1.8% risk of , 68.1% risk of discharge from rehab facility. -continue tele -Patient is otherwise medically optimized -Cardiology also following for further cardiac risk assessment. Type 2 diabetes -Levemir 28 units -Only 14 units given today as patient is nothing by mouth, also got 10 units of aspart -Hold scheduled aspart, continue sliding scale insulin, monitor for hypoglycemia Hypertension -continue amlodipine 5 mg, lisinopril 20 mg (restart after surgery) Dyslipidemia -continue atorvastatin 20 GERD -continue Protonix 40 BPH -continue Flomax 0.4 Dementia -continue Aricept 10, Namenda 5 twice a day DVT ppx: SCDs Code status: DNR Anticipated discharge place: pending clinical course Anticipated discharge time: pending clinical course Objective - Vital Signs Vital signs: Vital Signs Temp 97.4 F L 02/28/23 07:36 Pulse 76 02/28/23 08:01 Resp 18 02/28/23 07:36 BP 148/68 02/28/23 07:36 Pulse Ox 98 02/28/23 07:41 FiO2 21 02/25/23 12:21 Intake & Output 02/27/23 02/28/23 02/28/23 18:59 06:59 18:59 Intake Total 700 Output Total 1000 1500 Balance -1000 -800 Intake: Intake, IV Titration 700 Amount Sodium Chloride 0.9% 1, 700 000 ml @ 75 mls/hr IV . [id number] [facility] Rx#:[id number] Output: Urine 1000 1500 Other: Voiding Method External Catheter External Catheter # Voids 0 - Labs CBC & Chem 7: 02/25/23 07:30 02/27/23 10:44 Labs: Abnormal Lab Results - Last 24 Hours (Table) 02/27/23 02/27/23 02/28/23 Range/Units 17:32 21:32 02:29 POC Glucose (mg/dL) 165 H 284 H 257 H (70-110) mg/dL 02/28/23 02/28/23 Range/Units 06:17 11:21 POC Glucose (mg/dL) 433 H 285 H (70-110) mg/dL Microbiology - Last 24 Hours (Table) 02/24/23 22:41 Urine Culture - Final Urine,Voided Staphylococcus warneri
--- NOTE | 2023-02-28 12:13 | P.PN ---
Subjective HISTORY OF PRESENT ILLNESS: This is a 77-year-old male with past medical history of hyperlipidemia, hyper- tension, dementia, benign prostatic hypertrophy, diabetes mellitus type 2, agent orange exposure, remote history of tobacco use. We have been asked to evaluate the patient for syncopal episode. Patient is unable to provide any information. He does have a environmental health safety manager at the bedside. Initial blood pressure was 1 79/100. EKG sinus rhythm with right bundle branch block Chest x-ray: No acute abnormality. CT of the brain no acute abnormality. 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 CT cervical spine no acute fracture. Degenerative disc disease. WBC 8.1, hemoglobin 12.6, platelet count 247. INR 0.9. Sodium 132, potassium 3.9, BUN 16 creatinine 0.99. Glucose 34. Troponin negative 3. Magnesium 2.0. Liver function tests are normal. Home cardiac medications: Aspirin 81 mg daily, lisinopril 20 mg daily, simvastatin 40 mg at bedtime. 02/25 Patient is seen today on the observation unit. Patient has a environmental health safety manager at the bedside. Heart rate has been in the 90s, blood pressure 174/69, pulse ox 96% on room air. Repeat blood work reveals hemoglobin 12.5, potassium 4.3, creatinine 1.1. Blood sugar is 409. Echocardiogram performed on 02/01/2023 revealed normal left ventricle size and systolic function. Mild mitral and tricuspid regurgitation. No pulmonary hypertension. 02/27 Have been asked to reevaluate the patient regarding new A. fib, 20 beat run of ventricular tachycardia and surgical clearance. Yesterday, patient had x-rays done on his femur tib-fib found to have acute periprosthetic fracture involving the proximal femoral shaft and consult was admitted for orthopedics as well. EKG from yesterday reveals sinus rhythm, left axis deviation, incomplete right bundle branch block. Heart rate was at 108. Repeat EKG this morning reveals sinus rhythm with right bundle branch block, PACs. Telemetry reviewed and patient had a 20 beat run of ventricular tachycardia at 11:53 PM on 02/26. patient was started on metoprolol 25 mg twice daily by attending. Patient remains quite confused with environmental health safety manager at the bedside. 02/28/2023 Patient examined this morning at the bedside. Patient remains pleasantly confused. full time babysitter present. Patient currently denies chest pain or pressure. He denies shortness of breath. Echocardiogram completed revealing ejection fraction 55%. PHYSICAL EXAM: VITAL SIGNS: Reviewed. GENERAL: Well-developed in no acute distress. NECK: Supple. No JVD or thyromegaly LUNGS: Respirations even and unlabored. Lungs essentially clear to auscultation bilaterally. HEART: Regular rate and rhythm. S1 and S2 heard. EXTREMITIES: Normal range of motion. No clubbing or cyanosis. Peripheral pulses intact. No lower extremity edema ASSESSMENT: Syncopal episode, likely secondary to hypoglycemia Femur fracture Nonsustained ventricular tachycardia Hypertension Hyperlipidemia Dementia Diabetes mellitus type 2 uncontrolled PLAN: Continue current cardiac medications Continue telemetry monitoring Patient is at increased risk to undergo surgery from a cardiac standpoint. However there are no absolute contraindications We will follow on an as-needed basis. Please call with questions or concerns. Nurse practitioner note has been reviewed by physician. Signing provider agrees with the documented findings, assessment, and plan of care. Objective - Vital Signs Vital signs: Vital Signs Temp 97.4 F L 02/28/23 07:36 Pulse 76 02/28/23 08:01 Resp 18 02/28/23 07:36 BP 148/68 02/28/23 07:36 Pulse Ox 98 02/28/23 07:41 FiO2 21 02/25/23 12:21 Intake & Output 02/27/23 02/28/23 02/28/23 18:59 06:59 18:59 Intake Total 700 Output Total 1000 1500 Balance -1000 -800 Intake: Intake, IV Titration 700 Amount Sodium Chloride 0.9% 1, 700 000 ml @ 75 mls/hr IV . [id number] [facility] Rx#:[id number] Output: Urine 1000 1500 Other: Voiding Method External Catheter External Catheter # Voids 0 - Labs CBC & Chem 7: 02/25/23 07:30 02/27/23 10:44 Labs: Abnormal Lab Results - Last 24 Hours (Table) 02/27/23 02/27/23 02/28/23 Range/Units 17:32 21:32 02:29 POC Glucose (mg/dL) 165 H 284 H 257 H (70-110) mg/dL 02/28/23 02/28/23 Range/Units 06:17 11:21 POC Glucose (mg/dL) 433 H 285 H (70-110) mg/dL Microbiology - Last 24 Hours (Table) 02/24/23 22:41 Urine Culture - Final Urine,Voided Staphylococcus warneri
[2023-02-28] MEDS ORDERED: TRANEXAMIC 1,000 MG/100ML-NACL PREMIX BAG ONE (14:19)
[2023-02-28] MEDS ORDERED: ePHEDrine 50 MG/ML 1 ML VIAL ONE (14:19)
[2023-02-28] MEDS ORDERED: ROCURONIUM 10 MG/ML (5 ML VIAL) IV ONE (14:19)
[2023-02-28] MEDS ORDERED: NEOSTIGMINE 1 MG/ML 10 ML VIAL ONE (14:19)
[2023-02-28] MEDS ORDERED: ONDANSETRON 4 MG/2 ML VIAL ONE (14:19)
[2023-02-28] MEDS ORDERED: PROPOFOL 10 MG/ML 20 ML VIAL IV ONE (14:19)
[2023-02-28] MEDS ORDERED: ceFAZolin 1,000 MG VIAL ONE (14:19)
[2023-02-28] MEDS ORDERED: DEXAMETHASONE SOD PHOSPHATE 4 MG/ML 1 ML VIAL ONE (14:19)
[2023-02-28] MEDS ORDERED: SODIUM CHLORIDE 0.9% 100 ML BAG ONE (14:19)
[2023-02-28] MEDS ORDERED: HYDROmorphone (PF) 1 MG/ML ONE (14:19)
[2023-02-28] MEDS ORDERED: PHENYLEPHRINE-0.9% NACL SYG 1,000 MCG/10 ML SYRINGE ONE (14:19)
[2023-02-28] MEDS ORDERED: GLYCOPYRROLATE 0.2 MG/ML 2 ML VIAL ONE (14:19)
[2023-02-28] MEDS ORDERED: LIDOCAINE 1% INJ 10MG/ML (20 ML MDV) ONE (14:19)
[2023-02-28] MEDS ORDERED: fentaNYL (PF) 50 MCG/ML 2 ML AMP ONE (14:19)
[2023-02-28] MEDS ORDERED: SUCCINYLCHOLINE CHLORIDE 200 MG/10 ML VIAL IV ONE (14:19)
[2023-02-28] MEDS ORDERED: SODIUM CHLORIDE 0.9% 50 ML with ceFAZolin 2,000 MG IV ONE ×2 (14:24)
[2023-02-28] MEDS ORDERED: SODIUM CHLORIDE 0.9% 1,000 ML IV ONE (14:24)
[2023-02-28] MEDS ORDERED: TRANEXAMIC 1,000 MG/100ML-NACL 1,000 MG in SALINE 1 100ML.BAG IVPB ONE ×2 (15:06→15:07)
[2023-02-28] MEDS ORDERED: LACTATED RINGERS 1,000 ML IV ONE (16:48)
[2023-02-28] MEDS ORDERED: MAGNESIUM HYDROXIDE 2,400 MG/30 ML CUP PO PRN (16:57)
[2023-02-28] MEDS ORDERED: NALOXONE 0.4 MG/ML 1 ML VIAL IV PRN (16:57)
[2023-02-28] MEDS ORDERED: ONDANSETRON 4 MG/2 ML VIAL IVP PRN (16:57)
--- NOTE | 2023-02-28 17:28 | P.OP ---
Date of Procedure: 02/28/23 Preoperative Diagnosis: 1. Right [place] C prosthetic femur fracture 2. Dementia 3. Osteopenia with prior fragility fracture Postoperative Diagnosis: Same Procedure(s) Performed: Open reduction internal fixation of right periprosthetic femur fracture Anesthesia: EMILY Surgeon: Marshall Burden Force Dispatcher #1: Vilma Santizo Estimated Blood Loss (ml): 200 IV fluids (ml): 800 Urine output (ml): 400 Pathology: none sent Condition: stable Disposition: PACU Indications for Procedure: Patient is a very pleasant 77-year-old male with multiple medical problems including advanced dementia who previously had a displaced right femoral neck fracture several years ago. He underwent a hemiarthroplasty at that time. The patient had a fall earlier this week resulting in a displaced periprosthetic femur fracture. The implant looked stable. I discussed with the son open reduction internal fixation of the stem was in fact stable versus a revision if the stem was found to be unstable. We discussed the potential risks and complications of surgery at length including its not limited to risks from anesthesia, superficial or deep infection, nonunion, malunion, hardware failure, implant loosening, hip dislocation, need for further surgery, DVT, PE, other medical complications and possibly . The patient's son understands his elevated risk of having a complication due to his advanced age and dementia. Operative Findings: The femoral implant appeared to be stable with no signs of obvious loosening Description of Procedure: The patient was identified in preoperative holding and the correct right leg was marked with my initials. The patient was then brought back to the operating room. He was positioned on his gurney where general anesthetic in the preoperative antibiotics, and tranexamic acid were given. The patient was then transferred onto the OR table. He was positioned the lateral decubitus position with the effected right hip up. The left down leg was padded. An axillary roll was placed. The patient was secured to the OR table with a peg board. A bone foam ramp was placed under the right leg to facilitate imaging. Nonsterile drapes were placed to occlude and isolate the right leg. A presurgical scrub was performed with a chlorhexidine scrub brush. The right leg was then prepped and draped in the standard sterile fashion. Surgery timeout was performed identifying the correct patient, operative extremity, and procedure. I began by marking out a straight lateral incision to the entire distal femur starting at the tip of the greater trochanter and extending at the lateral aspect of the knee. Skin incision was made with a scalpel and dissection was carried down carefully through the subcutaneous tissue with electrocautery. The IT band and fascia was identified and split longitudinally in line with the skin incision. I then elevated the vastus lateralis off of the lateral intermuscular septum down to the level of the femur. Perforating vessels were controlled with bipolar sealant. A portion of the gluteal sling was taken down to facilitate mobilization of the proximal femur. The fracture was easily identified and early consolidating callus and hematoma was carefully debrided. I was able to manually palpate the stem of the hemiarthroplasty and cement in the proximal fragment which appeared to be stable with no evidence of gross movement. A provisional reduction was then performed using longitudinal traction and rotation and a Sofiya clamp was applied across the fracture. I then placed 2 tables proximal and distal to the clamp. The clamp was removed and the cables were used to lucas in the reduction as they were tightened. Fluoroscopy was brought in and the fracture appeared to be anatomically reduced. The stem appeared stable. I then contoured an 18 hole lateral distal femoral locking plate with the most proximal aspect of the plate just distal to the trochanteric flare distal end of the plate over the distal femur. Nonlocking screws were placed distal to the fracture bringing the plate nicely down to bone. An additional 2 cables were applied proximal to the fracture bringing the plate down to bone. Locking screws were then placed distally. 2 unicortical locking screws were placed proximally. Final fluoroscopic images were taken showing reduction of the fracture and adequate position of the hardware. The wound was thoroughly irrigated with Irricept sterile saline using pulsatile lavage. The wound was then closed in layers using a running double-armed barbed suture for the IT band and fascia, monofilament Quill suture for the deep subcutaneous layer, 2-0 monofilament Quill suture for the superficial subcu and manny for the skin. A sterile dressing was applied. The drapes were taken down and an Ron wrap followed by a knee immobilizer was placed. The patient was then awoken from his anesthetic, transferred from the OR table to a gurney, and brought to recovery having tolerated the procedure well. Vilma Santizo PA-C was required as a skilled marketing administrative assistant for patient positioning, exposure, retraction, reduction of fracture, placement of hardware, closure of wound, and application of dressing. Plan: Patient is to remain strictly nonweightbearing on his right leg. Knee immobilizer for 2 weeks to allow soft tissue healing and limit motion of the hi p. 2 doses of postoperative antibiotics. I will defer to internal medicine for DVT prophylaxis. We will continue to follow while the patient is an inpatient.
[2023-02-28 17:33] LABS: Glucose,Whole Blood 154 mg/dL (70-110)
[2023-02-28] MEDS: SODIUM CHLORIDE 0.9% 1,000 ML IV SCH ×2 (19:02→23:54)
[2023-02-28] MEDS: LACTATED RINGERS 1,000 ML IV SCH ×3 (19:03→21:13)
--- NOTE | 2023-02-28 19:24 | XR ---
Fluoroscopy INDICATION: Hip replacement FINDINGS: Fluoroscopy time: 1 minute and 19 seconds. Total dose area product (DAP) in uGy*m?, mGy*cm? (or similar): 3.1042 Images obtained: 14. IMPRESSION: 1. Documentation of fluoroscopy.
--- NOTE | 2023-02-28 19:25 | FL ---
Fluoroscopy INDICATION: Pain FINDINGS: Fluoroscopy time: 1 minute 19 seconds. Total dose area product (DAP) in uGy*m?, mGy*cm? (or similar): 3.1042 Images obtained: 0. IMPRESSION: 1. Documentation of fluoroscopy.
[2023-02-28] MEDS: DONEPEZIL 10 MG TAB PO SCH (20:53)
[2023-02-28] MEDS: ATORVASTATIN 20 MG TAB PO SCH (20:53)
[2023-02-28] MEDS: HYDROcodone/APAP 5-325MG 1 EACH TAB PO PRN (20:54)
[2023-02-28] MEDS: traZODone HCL 50 MG TAB PO SCH (20:54)
[2023-02-28] MEDS: SENNOSIDES-DOCUSATE SODIUM 1 EACH TAB PO SCH (20:54)
[2023-02-28 21:01] LABS: Glucose,Whole Blood 228 mg/dL (70-110)
[2023-03-01] MEDS: LACTATED RINGERS 1,000 ML IV SCH ×3 (03:52→15:44)
[2023-03-01 05:54] LABS: Glucose,Whole Blood 374 mg/dL (70-110)
[2023-03-01] MEDS: PANTOPRAZOLE 40 MG TABLET PO SCH (06:30)
[2023-03-01] MEDS: INSULIN DETEMIR (LEVEMIR) 100 UNIT/ML SYR SQ SCH (06:31)
[2023-03-01 07:16] LABS: Basophils % (A) 0 %; Eosinophils % (A) 0 %; HCT 30.3 % (39.0-53.0); HGB 10.4 gm/dL (13.0-17.5); Lymphocytes # (A) 0.8 k/uL (1.0-4.8); Lymphocytes % (A) 6 %; MCHC 34.5 g/dL (31.0-37.0); MCV 92.9 fL (80.0-100.0); Mean Platelet Volume 8.5; Monocytes # (A) 0.6 k/uL (0-1.0); Monocytes % (A) 5 %; Neutrophils # (A) 11.1 k/uL (1.3-7.7); Neutrophils % (A) 88 %; Platelet Count 233 k/uL (150-450); RBC 3.26 m/uL (4.30-5.90); RDW 12.6 % (11.5-15.5); WBC 12.7 k/uL (3.8-10.6)
[2023-03-01] MEDS: INSULIN ASPART (NovoLOG) 100 UNIT/ML VIAL SQ SCH ×4 (07:24→20:52)
[2023-03-01 08:01] LABS: African American GFR (CKD) >90 (>60 ml/min/1.73 sqM); Anion Gap 15 mmol/L; Blood Urea Nitrogen 21 mg/dL (9-20); Calcium 8.7 mg/dL (8.4-10.2); Carbon Dioxide 18 mmol/L (22-30); Chloride 98 mmol/L (98-107); Glucose 351 mg/dL (74-99); Non-African American GFR(CKD) 86 (>60 ml/min/1.73 sqM); Potassium 5.2 mmol/L (3.5-5.1); Sodium 131 mmol/L (137-145)
[2023-03-01 08:08] LABS: Prothrombin Time 10.6 sec (10.0-12.5)
[2023-03-01] MEDS ORDERED: INSULIN DETEMIR (LEVEMIR) 100 UNIT/ML SYR SQ STA (08:29)
[2023-03-01] MEDS: ASPIRIN 81 MG PO SCH ×2 (08:33→08:34)
[2023-03-01] MEDS: MEMANTINE 5 MG TAB PO SCH ×2 (08:34→20:51)
[2023-03-01] MEDS: FAMOTIDINE 20 MG TAB PO SCH (08:34)
[2023-03-01] MEDS: amLODIPine 5 MG TAB PO SCH (08:34)
[2023-03-01] MEDS: METOPROLOL TARTRATE 25 MG TAB PO SCH ×2 (08:34→20:51)
[2023-03-01] MEDS: SULFAMETHOX-TMP 800-160MG 1 EACH TAB PO SCH ×2 (08:34→20:50)
[2023-03-01] MEDS: TAMSULOSIN 0.4 MG CAP.ER.24H PO SCH (08:35)
[2023-03-01] MEDS: IPRATROPIUM-ALBUTEROL 3 ML NEB INHALATION SCH ×3 (09:24→18:13)
--- NOTE | 2023-03-01 09:44 | P.PN ---
Subjective Progress Note Date: 03/01/23 Principal diagnosis: Periprosthetic right femur fracture. Status post open reduction internal fixation right periprosthetic femur fracture with cable plate. This is a 77-year-old male who is postop day #1 status post open reduction showed fixation right femur periprosthetic fracture with long cable plate. He is alert and is oriented to person. He has some confusion today but is able to have a conversation and follow directions. The patient has no new complaints or concerns today. He reports no nausea, vomiting or diarrhea. He's had no fever or chills. His vital signs and labs are stable. He states his pain is fairly well controlled. Objective - Vital Signs Vital signs: Vital Signs Temp 97.9 F 03/01/23 06:58 Pulse 74 03/01/23 09:36 Resp 18 03/01/23 06:58 BP 166/68 03/01/23 06:58 Pulse Ox 97 03/01/23 09:26 FiO2 21 02/25/23 12:21 Intake & Output 02/28/23 03/01/23 03/01/23 18:59 06:59 18:59 Intake Total 1300 200 Output Total 1620 600 Balance -320 -400 Weight 77.111 kg Intake: IV 1300 Intake, IV Titration 200 Amount Lactated Ringers 1,000 ml 200 @ 100 mls/hr IV .Q10H [facility] Rx#:[id number] Output: Urine 1420 600 Estimated Blood Loss 200 Other: Voiding Method Indwelling Catheter - Exam This is a pleasant 77-year-old male in no acute distress. He is alert with some mild confusion today. Exam of the right lower extremity reveals the knee immobilizer and postoperative dressing in place. He has full foot and ankle motion without difficulty or pain. Neurovascular status to the lower extremity is intact. - Labs CBC & Chem 7: 03/01/23 06:46 03/01/23 06:46 Labs: Abnormal Lab Results - Last 24 Hours (Table) 02/28/23 02/28/23 02/28/23 Range/Units 11:21 17:31 21:00 WBC (3.8-10.6) k/uL RBC (4.30-5.90) m/uL Hgb (13.0-17.5) gm/dL Hct (39.0-53.0) % Neutrophils # (1.3-7.7) k/uL Lymphocytes # (1.0-4.8) k/uL Sodium (137-145) mmol/L Potassium (3.5-5.1) mmol/L Carbon Dioxide (22-30) mmol/L BUN (9-20) mg/dL Glucose (74-99) mg/dL POC Glucose (mg/dL) 285 H 154 H 228 H (70-110) mg/dL 03/01/23 03/01/23 03/01/23 Range/Units 05:52 06:46 06:46 WBC 12.7 H (3.8-10.6) k/uL RBC 3.26 L (4.30-5.90) m/uL Hgb 10.4 L (13.0-17.5) gm/dL Hct 30.3 L (39.0-53.0) % Neutrophils # 11.1 H (1.3-7.7) k/uL Lymphocytes # 0.8 L (1.0-4.8) k/uL Sodium 131 L (137-145) mmol/L Potassium 5.2 H (3.5-5.1) mmol/L Carbon Dioxide 18 L (22-30) mmol/L BUN 21 H (9-20) mg/dL Glucose 351 H (74-99) mg/dL POC Glucose (mg/dL) 374 H (70-110) mg/dL Assessment and Plan (1) Periprosthetic fracture of proximal end of femur Current Visit: Yes Status: Acute Code(s): M97.8XXA - PERIPROSTH FRACTURE AROUND OTHER INTERNAL PROSTH JOINT, INIT; Z96.649 - PRESENCE OF UNSPECIFIED ARTIFICIAL HIP JOINT SNOMED Code(s): 69537001999421387 (2) Syncope Current Visit: Yes Status: Acute Code(s): R55 - SYNCOPE AND COLLAPSE SNOMED Code(s): 566350431 (3) Altered mental status Current Visit: No Status: Acute Code(s): R41.82 - ALTERED MENTAL STATUS, UNSPECIFIED SNOMED Code(s): 196532937 (4) Dementia Current Visit: No Status: Acute Code(s): F03.90 - UNSP DEMENTIA, UNSP SEVERITY, WITHOUT BEH/PSYCH/MOOD/ANX SNOMED Code(s): 31730792 (5) Fall Current Visit: No Status: Acute Code(s): W19.XXXA - UNSPECIFIED FALL, INITIAL ENCOUNTER SNOMED Code(s): 8726989 Plan: The clinical findings are discussed with the patient and nursing staff. Continue current care and may begin physical therapy. He is nonweightbearing to the right lower extremity with walker. He will likely require inpatient rehab postoperatively.
[2023-03-01] MEDS: lisinopriL 20 MG TAB PO SCH (09:53)
[2023-03-01 11:22] LABS: Glucose,Whole Blood 276 mg/dL (70-110)
--- NOTE | 2023-03-01 11:31 | P.PN ---
Subjective Progress Note Date: 03/01/23 Hospital Course: 77-year-old male with history of hypertension, dyslipidemia, insulin-dependent diabetes, dementia, GERD, BPH presented after a syncopal episode. CT head and cervical spine did not show any acute fracture. EKG showed right bundle branch block, sinus with first-degree AV block. Several x-rays shows right femoral acute periprosthetic fracture, possible right knee joint effusion. Orthopedic surgery consulted, status post repair. Cardiology consulted for cardiac clearance. Echocardiogram showed normal LV systolic function. Subjective: Seen and examined at bedside. No acute events overnight. Pertinent positives and negatives as discussed above, a complete review of systems was performed and all other systems are negative. Vitals Signs Reviewed. General: nontoxic, no distress, appears at stated age Derm: warm, dry Head: atraumatic, normocephalic, symmetric Eyes: EOMI, no lid lag, anicteric sclera Mouth: no lip lesion, mucus membranes moist Cardiovascular: S1S2 reg, no murmur Lungs: CTA bilateral, no rhonchi, no rales , no accessory muscle use Abdominal: soft, nontender to palpation, no guarding, no appreciable organomegaly Ext: unable to move right lower extremity due to pain Neuro: CN II-XI grossly intact, no focal neuro deficits Psych: Alert, orientedx1, appropriate affect Data Reviewed Today: Pertinent Labs: WBC 12.7, hemoglobin 10.4, sodium 131, potassium 5.2, creatinine 0.81, blood sugars range between 154-374 Imaging: No new imaging Assessment and Plan: Active: Syncope and fall Orthostatic hypotension Acute right periprosthetic hip fracture, status post repair Leukocytosis, anticipated surgery Anemia, anticipated SURGERY -Continue IV fluids, lactated ringer 100 mL per hour -Orthopedic surgery note reviewed, patient will likely need rehab -Cardiology following -Pain control with norco PRN, IV Dilaudid as needed, monitor for sedation -DVT prophylaxis with Sorenson 10 mg daily -Repeat CBC and BMP tomorrow Type 2 diabetes -Levemir increased to 40 units -Continue sliding scale insulin, monitor for hypoglycemia Hypertension -continue amlodipine 5 mg, lisinopril 20 mg Dyslipidemia -continue atorvastatin 20 GERD -continue Protonix 40 BPH -continue Flomax 0.4 Dementia -continue Aricept 10, Namenda 5 twice a day DVT ppx: Xarelto Code status: DNR Anticipated discharge place: pending clinical course Anticipated discharge time: pending clinical course Objective - Vital Signs Vital signs: Vital Signs Temp 97.9 F 03/01/23 06:58 Pulse 74 03/01/23 09:36 Resp 18 03/01/23 06:58 BP 166/68 03/01/23 06:58 Pulse Ox 97 03/01/23 09:26 FiO2 21 02/25/23 12:21 Intake & Output 02/28/23 03/01/23 03/01/23 18:59 06:59 18:59 Intake Total 1300 200 Output Total 1620 600 Balance -320 -400 Weight 77.111 kg Intake: IV 1300 Intake, IV Titration 200 Amount Lactated Ringers 1,000 ml 200 @ 100 mls/hr IV .Q10H [facility] Rx#:[id number] Output: Urine 1420 600 Estimated Blood Loss 200 Other: Voiding Method Indwelling Catheter Indwelling Catheter - Labs CBC & Chem 7: 03/01/23 06:46 03/01/23 06:46 Labs: Abnormal Lab Results - Last 24 Hours (Table) 02/28/23 02/28/23 03/01/23 Range/Units 17:31 21:00 05:52 WBC (3.8-10.6) k/uL RBC (4.30-5.90) m/uL Hgb (13.0-17.5) gm/dL Hct (39.0-53.0) % Neutrophils # (1.3-7.7) k/uL Lymphocytes # (1.0-4.8) k/uL Sodium (137-145) mmol/L Potassium (3.5-5.1) mmol/L Carbon Dioxide (22-30) mmol/L BUN (9-20) mg/dL Glucose (74-99) mg/dL POC Glucose (mg/dL) 154 H 228 H 374 H (70-110) mg/dL 03/01/23 03/01/23 03/01/23 Range/Units 06:46 06:46 11:21 WBC 12.7 H (3.8-10.6) k/uL RBC 3.26 L (4.30-5.90) m/uL Hgb 10.4 L (13.0-17.5) gm/dL Hct 30.3 L (39.0-53.0) % Neutrophils # 11.1 H (1.3-7.7) k/uL Lymphocytes # 0.8 L (1.0-4.8) k/uL Sodium 131 L (137-145) mmol/L Potassium 5.2 H (3.5-5.1) mmol/L Carbon Dioxide 18 L (22-30) mmol/L BUN 21 H (9-20) mg/dL Glucose 351 H (74-99) mg/dL POC Glucose (mg/dL) 276 H (70-110) mg/dL
[2023-03-01] MEDS: RIVAROXABAN 10 MG TAB PO SCH (15:43)
[2023-03-01 16:43] LABS: Glucose,Whole Blood 145 mg/dL (70-110)
[2023-03-01 20:04] LABS: Glucose,Whole Blood 148 mg/dL (70-110)
[2023-03-01] MEDS: ATORVASTATIN 20 MG TAB PO SCH (20:50)
[2023-03-01] MEDS: SENNOSIDES-DOCUSATE SODIUM 1 EACH TAB PO SCH (20:50)
[2023-03-01] MEDS: HYDROcodone/APAP 5-325MG 1 EACH TAB PO PRN (20:51)
[2023-03-01] MEDS: traZODone HCL 50 MG TAB PO SCH (20:51)
[2023-03-01] MEDS: DONEPEZIL 10 MG TAB PO SCH (20:51)
[2023-03-01] MEDS ORDERED: TEMAZEPAM 15 MG CAP PO PRN (22:00)
[2023-03-02] MEDS: LACTATED RINGERS 1,000 ML IV SCH ×4 (03:53→23:20)
[2023-03-02] MEDS: PANTOPRAZOLE 40 MG TABLET PO SCH (05:47)
[2023-03-02 05:54] LABS: Glucose,Whole Blood 134 mg/dL (70-110)
[2023-03-02 06:09] LABS: Basophils % (A) 0 %; Eosinophils % (A) 0 %; HGB 9.7 gm/dL (13.0-17.5); Lymphocytes # (A) 1.1 k/uL (1.0-4.8); Lymphocytes % (A) 10 %; MCH 32.3 pg (25.0-35.0); MCHC 34.7 g/dL (31.0-37.0); Mean Platelet Volume 8.2; Monocytes # (A) 0.7 k/uL (0-1.0); Monocytes % (A) 6 %; Neutrophils # (A) 9.6 k/uL (1.3-7.7); Neutrophils % (A) 83 %; Platelet Count 234 k/uL (150-450); RBC 3.01 m/uL (4.30-5.90); RDW 12.5 % (11.5-15.5); WBC 11.5 k/uL (3.8-10.6)
[2023-03-02] MEDS: INSULIN ASPART (NovoLOG) 100 UNIT/ML VIAL SQ SCH ×4 (06:13→20:52)
[2023-03-02 06:34] LABS: African American GFR (CKD) >90 (>60 ml/min/1.73 sqM); Anion Gap 3 mmol/L; Blood Urea Nitrogen 19 mg/dL (9-20); Calcium 8.2 mg/dL (8.4-10.2); Carbon Dioxide 26 mmol/L (22-30); Chloride 102 mmol/L (98-107); Glucose 122 mg/dL (74-99); Non-African American GFR(CKD) 83 (>60 ml/min/1.73 sqM); Potassium 4.1 mmol/L (3.5-5.1); Sodium 131 mmol/L (137-145)
[2023-03-02] MEDS: INSULIN DETEMIR (LEVEMIR) 100 UNIT/ML SYR SQ SCH (06:43)
[2023-03-02] MEDS: HYDROcodone/APAP 5-325MG 1 EACH TAB PO PRN (06:59)
--- NOTE | 2023-03-02 07:46 | P.PN ---
Subjective Progress Note Date: 03/02/23 No acute events. The patient does not provide much history is morning as he is demented and this is baseline. Objective - Vital Signs Vital signs: Vital Signs Temp 98.3 F 03/02/23 02:03 Pulse 60 03/02/23 02:03 Resp 16 03/02/23 02:03 BP 161/71 03/02/23 02:03 Pulse Ox 96 03/02/23 02:03 FiO2 21 02/25/23 12:21 Intake & Output 03/01/23 03/02/23 03/02/23 18:59 06:59 18:59 Intake Total 240 Output Total 800 900 Balance -800 -660 Intake: Oral 240 Output: Urine 800 900 Uretheral (Lechuga) 250 Other: Voiding Method Indwelling Catheter Indwelling Catheter - Exam Patient is sleeping in bed. He is minimally cooperative. There is a knee immobilizer and Ron wrap over his leg. His toes are swollen. The toes are warm and well perfused and he has brisk capillary refill. Sensation is intact to light touch in the toes. He is able to move his toes up and down. - Labs CBC & Chem 7: 03/02/23 05:32 03/02/23 05:32 Labs: Abnormal Lab Results - Last 24 Hours (Table) 03/01/23 03/01/23 03/01/23 Range/Units 06:46 11:21 16:41 WBC (3.8-10.6) k/uL RBC (4.30-5.90) m/uL Hgb (13.0-17.5) gm/dL Hct (39.0-53.0) % Neutrophils # (1.3-7.7) k/uL Sodium 131 L (137-145) mmol/L Potassium 5.2 H (3.5-5.1) mmol/L Carbon Dioxide 18 L (22-30) mmol/L BUN 21 H (9-20) mg/dL Glucose 351 H (74-99) mg/dL POC Glucose (mg/dL) 276 H 145 H (70-110) mg/dL Calcium (8.4-10.2) mg/dL 03/01/23 03/02/23 03/02/23 Range/Units 19:51 05:32 05:32 WBC 11.5 H (3.8-10.6) k/uL RBC 3.01 L (4.30-5.90) m/uL Hgb 9.7 L (13.0-17.5) gm/dL Hct 28.0 L (39.0-53.0) % Neutrophils # 9.6 H (1.3-7.7) k/uL Sodium 131 L (137-145) mmol/L Potassium (3.5-5.1) mmol/L Carbon Dioxide (22-30) mmol/L BUN (9-20) mg/dL Glucose 122 H (74-99) mg/dL POC Glucose (mg/dL) 148 H (70-110) mg/dL Calcium 8.2 L (8.4-10.2) mg/dL 03/02/23 Range/Units 05:53 WBC (3.8-10.6) k/uL RBC (4.30-5.90) m/uL Hgb (13.0-17.5) gm/dL Hct (39.0-53.0) % Neutrophils # (1.3-7.7) k/uL Sodium (137-145) mmol/L Potassium (3.5-5.1) mmol/L Carbon Dioxide (22-30) mmol/L BUN (9-20) mg/dL Glucose (74-99) mg/dL POC Glucose (mg/dL) 134 H (70-110) mg/dL Calcium (8.4-10.2) mg/dL Assessment and Plan Assessment: Postoperative day #2 status post open reduction and internal fixation of [place] C periprosthetic femur fracture Dementia Multiple medical problems Plan: 1. Strict nonweightbearing right lower extremity, use of a knee immobilizer for 2 weeks 2. Leave surgical dressing and Ron wrap in place 3. DVT prophylaxis with Xarelto 10 mg daily x 4 weeks 4. Dispo: I will sign off at this time. The patient should follow-up in the office in 2 weeks for x-rays and a wound check.
[2023-03-02] MEDS: IPRATROPIUM-ALBUTEROL 3 ML NEB INHALATION SCH ×3 (09:23→22:04)
[2023-03-02] MEDS: SULFAMETHOX-TMP 800-160MG 1 EACH TAB PO SCH ×2 (09:25→22:22)
[2023-03-02] MEDS: TAMSULOSIN 0.4 MG CAP.ER.24H PO SCH (09:26)
[2023-03-02] MEDS: FAMOTIDINE 20 MG TAB PO SCH (09:26)
[2023-03-02] MEDS: ASPIRIN 81 MG PO SCH (09:26)
[2023-03-02] MEDS: MEMANTINE 5 MG TAB PO SCH ×2 (09:27→20:08)
[2023-03-02] MEDS: METOPROLOL TARTRATE 25 MG TAB PO SCH ×2 (09:27→20:08)
[2023-03-02] MEDS: amLODIPine 5 MG TAB PO SCH (09:27)
[2023-03-02] MEDS: RIVAROXABAN 10 MG TAB PO SCH (09:27)
[2023-03-02] MEDS: lisinopriL 20 MG TAB PO SCH (09:28)
[2023-03-02 11:03] LABS: INR 1.1 sec (0.93-1.11); Prothrombin Time 11.8 sec (9.9-11.9)
[2023-03-02 11:56] LABS: Glucose,Whole Blood 338 mg/dL (70-110)
[2023-03-02] MEDS ORDERED: MAGNESIUM CITRATE 296 ML BOTTLE PO ONE (12:27)
--- NOTE | 2023-03-02 12:38 | P.PN ---
Subjective Progress Note Date: 03/02/23 Hospital Course: 77-year-old male with history of hypertension, dyslipidemia, insulin-dependent diabetes, dementia, GERD, BPH presented after a syncopal episode. CT head and cervical spine did not show any acute fracture. EKG showed right bundle branch block, sinus with first-degree AV block. Several x-rays shows right femoral acute periprosthetic fracture, possible right knee joint effusion. Orthopedic surgery consulted, status post repair. Cardiology consulted as well. Echoc ardiogram showed normal LV systolic function. Patient now has hypoactive delirium. Likely discharge to nursing facility. Subjective: Seen and examined at bedside. No acute events overnight. However, patient is slightly more confused than baseline. No bowel movements for 5 days. Pertinent positives and negatives as discussed above, a complete review of systems was performed and all other systems are negative. Vitals Signs Reviewed. General: nontoxic, no distress, appears at stated age Derm: warm, dry Head: atraumatic, normocephalic, symmetric Eyes: EOMI, no lid lag, anicteric sclera Mouth: no lip lesion, mucus membranes moist Cardiovascular: S1S2 reg, no murmur Lungs: CTA bilateral, no rhonchi, no rales , no accessory muscle use Abdominal: soft, nontender to palpation, no guarding, no appreciable organomegaly Ext: unable to move right lower extremity due to pain Neuro: CN II-XI grossly intact, no focal neuro deficits Psych: Alert, orientedx1, appropriate affect Data Reviewed Today: Pertinent Labs: WBC 11.5, hemoglobin 9.7, sodium 131, potassium 4.1, creatinine 0.89, blood glucose ranged between 122-338 Imaging: No new imaging Assessment and Plan: Patient needs close monitoring. Prognosis guarded. Active: Hypoactive delirium Constipation -Delirium likely in the setting of recent surgery as well as hospitalization -Concern of ongoing pain as well -Started on scheduled Tylenol 1000 3 times a day -Avoid narcotics if possible -Patient on senna scheduled at night -1 time dose of magnesium citrate -Has a Lechuga catheter in place, which will be moved once delirium improves. Syncope and fall Orthostatic hypotension Acute right periprosthetic hip fracture, status post repair Leukocytosis, anticipated outcome of surgery Anemia, anticipated outcome of surgery -Continue IV fluids, lactated ringer 100 mL per hour -Orthopedic surgery note reviewed, patient has signed off, strict nonweightbearing on the right lower extremity 2 weeks, follow up outpatient -Cardiology following -Pain control with norco PRN, IV Dilaudid as needed, monitor for sedation -DVT prophylaxis with xarelto 10 mg daily -Repeat CBC and BMP tomorrow Type 2 diabetes -Levemir 40 units continue -Continue sliding scale insulin, monitor for hypoglycemia Hypertension -continue amlodipine 5 mg, lisinopril 20 mg Dyslipidemia -continue atorvastatin 20 GERD -continue Protonix 40 BPH -continue Flomax 0.4 Dementia -continue Aricept 10, Namenda 5 twice a day DVT ppx: Xarelto Code status: DNR Anticipated discharge place: Subacute rehab Anticipated discharge time: Pending bed availability Objective - Vital Signs Vital signs: Vital Signs Temp 98.1 F 03/02/23 07:54 Pulse 80 03/02/23 09:31 Resp 18 03/02/23 07:54 BP 155/64 03/02/23 07:54 Pulse Ox 97 03/02/23 09:23 FiO2 21 02/25/23 12:21 Intake & Output 03/01/23 03/02/23 03/02/23 18:59 06:59 18:59 Intake Total 240 Output Total 800 900 Balance -800 -660 Intake: Oral 240 Output: Urine 800 900 Uretheral (Lechuga) 250 Other: Voiding Method Indwelling Catheter Indwelling Catheter - Labs CBC & Chem 7: 03/02/23 05:32 03/02/23 05:32 Labs: Abnormal Lab Results - Last 24 Hours (Table) 03/01/23 03/01/23 03/02/23 Range/Units 16:41 19:51 05:32 WBC 11.5 H (3.8-10.6) k/uL RBC 3.01 L (4.30-5.90) m/uL Hgb 9.7 L (13.0-17.5) gm/dL Hct 28.0 L (39.0-53.0) % Neutrophils # 9.6 H (1.3-7.7) k/uL Sodium (137-145) mmol/L Glucose (74-99) mg/dL POC Glucose (mg/dL) 145 H 148 H (70-110) mg/dL Calcium (8.4-10.2) mg/dL 01/15/24 01/15/24 01/15/24 Range/Units 05:32 05:53 11:55 WBC (3.8-10.6) k/uL RBC (4.30-5.90) m/uL Hgb (13.0-17.5) gm/dL Hct (39.0-53.0) % Neutrophils # (1.3-7.7) k/uL Sodium 131 L (137-145) mmol/L Glucose 122 H (74-99) mg/dL POC Glucose (mg/dL) 134 H 338 H (70-110) mg/dL Calcium 8.2 L (8.4-10.2) mg/dL
[2023-03-02] MEDS: ACETAMINOPHEN TAB 500 MG TAB PO SCH ×2 (15:00→22:22)
[2023-03-02 16:58] LABS: Glucose,Whole Blood 136 mg/dL (70-110)
[2023-03-02] MEDS: traZODone HCL 50 MG TAB PO SCH (20:08)
[2023-03-02] MEDS: DONEPEZIL 10 MG TAB PO SCH (20:08)
[2023-03-02] MEDS: SENNOSIDES-DOCUSATE SODIUM 1 EACH TAB PO SCH (20:08)
[2023-03-02] MEDS: ATORVASTATIN 20 MG TAB PO SCH (20:08)
[2023-03-02 20:15] LABS: Glucose,Whole Blood 76 mg/dL (70-110)
[2023-03-02 20:48] LABS: Glucose,Whole Blood 100 mg/dL (70-110)
[2023-03-03] MEDS: LACTATED RINGERS 1,000 ML IV SCH ×3 (06:07→19:00)
[2023-03-03] MEDS: PANTOPRAZOLE 40 MG TABLET PO SCH (06:49)
[2023-03-03] MEDS: INSULIN DETEMIR (LEVEMIR) 100 UNIT/ML SYR SQ SCH (06:49)
[2023-03-03] MEDS: IPRATROPIUM-ALBUTEROL 3 ML NEB INHALATION SCH ×3 (07:49→21:43)
[2023-03-03 09:08] LABS: Glucose,Whole Blood 121 mg/dL (70-110)
[2023-03-03] MEDS: INSULIN ASPART (NovoLOG) 100 UNIT/ML VIAL SQ SCH ×4 (09:10→20:36)
[2023-03-03] MEDS: ACETAMINOPHEN TAB 500 MG TAB PO SCH ×3 (09:21→21:57)
[2023-03-03] MEDS: TAMSULOSIN 0.4 MG CAP.ER.24H PO SCH (09:21)
[2023-03-03] MEDS: ASPIRIN 81 MG PO SCH (09:21)
[2023-03-03] MEDS: METOPROLOL TARTRATE 25 MG TAB PO SCH ×2 (09:21→20:05)
[2023-03-03] MEDS: amLODIPine 5 MG TAB PO SCH (09:21)
[2023-03-03] MEDS: FAMOTIDINE 20 MG TAB PO SCH (09:21)
[2023-03-03] MEDS: SULFAMETHOX-TMP 800-160MG 1 EACH TAB PO SCH ×2 (09:21→20:05)
[2023-03-03] MEDS: lisinopriL 20 MG TAB PO SCH (09:21)
[2023-03-03 10:43] LABS: Basophils # (A) 0.02 X 10*3/uL (0.00-0.10); Basophils % (A) 0.2 %; Eosinophils # (A) 0.16 X 10*3/uL (0.04-0.35); Eosinophils % (A) 1.6 %; HCT 25.9 % (39.6-50.0); HGB 8.8 g/dL (13.0-17.0); Lymphocytes # (A) 1.33 X 10*3/uL (0.90-5.00); Lymphocytes % (A) 13.1 %; MCH 31.1 pg (27.0-32.0); MCV 91.5 FL (80.0-97.0); Mean Platelet Volume 11.3 FL (9.5-12.2); Monocytes % (A) 9.9 %; NRBC Per 100 WBC 0 X 10*3/uL (0.00-0.01); Neutrophils # (A) 7.57 X 10*3/uL (1.80-7.70); Neutrophils % (A) 74.6 %; Platelet Count 255 X 10*3/uL (140-440); RBC 2.83 X 10*6/uL (4.40-5.60); RDW 12.7 % (11.5-14.5); WBC 10.14 X 10*3/uL (4.50-10.00)
[2023-03-03] MEDS: MEMANTINE 5 MG TAB PO SCH ×2 (10:46→20:05)
[2023-03-03] MEDS: RIVAROXABAN 10 MG TAB PO SCH (10:46)
[2023-03-03 11:36] LABS: INR 1.05 sec (0.93-1.11); Prothrombin Time 11.3 sec (9.9-11.9)
[2023-03-03 12:05] LABS: Glucose,Whole Blood 135 mg/dL (70-110)
--- NOTE | 2023-03-03 14:08 | P.PN ---
Subjective Progress Note Date: 03/03/23 Hospital Course: 77-year-old male with history of hypertension, dyslipidemia, insulin-dependent diabetes, dementia, GERD, BPH presented after a syncopal episode. CT head and cervical spine did not show any acute fracture. EKG showed right bundle branch block, sinus with first-degree AV block. Several x-rays shows right femoral acute periprosthetic fracture, possible right knee joint effusion. Orthopedic surgery consulted, status post repair. Cardiology consulted as well. Echoc ardiogram showed normal LV systolic function. Patient now has hypoactive delirium, improving. Pending discharge to nursing facility. Subjective: Seen and examined at bedside. No acute events overnight. Had bowel movements. Still has a Lechuga catheter in place. Pertinent positives and negatives as discussed above, a complete review of systems was performed and all other systems are negative. Vitals Signs Reviewed. General: nontoxic, no distress, appears at stated age Derm: warm, dry Head: atraumatic, normocephalic, symmetric Eyes: EOMI, no lid lag, anicteric sclera Mouth: no lip lesion, mucus membranes moist Cardiovascular: S1S2 reg, no murmur Lungs: CTA bilateral, no rhonchi, no rales , no accessory muscle use Abdominal: soft, nontender to palpation, no guarding, no appreciable organomegaly Ext: unable to move right lower extremity due to pain Neuro: CN II-XI grossly intact, no focal neuro deficits Psych: Alert, orientedx2, appropriate affect Data Reviewed Today: Pertinent Labs: WBC 10.14, hemoglobin 8.8, blood sugars range between 100-136 Imaging: No new imaging Assessment and Plan: Patient needs close monitoring. Prognosis guarded. Active: Hypoactive delirium, resolved Constipation, resolved -Patient at baseline mental status -on scheduled Tylenol 1000 3 times a day -Avoid narcotics if possible -Patient on senna scheduled at night -Lechuga catheter to be taken after Syncope and fall Orthostatic hypotension Acute right periprosthetic hip fracture, status post repair Leukocytosis, anticipated outcome of surgery Anemia, anticipated outcome of surgery -Continue IV fluids, lactated ringer 100 mL per hour -Orthopedic surgery signed off, strict nonweightbearing on the right lower extremity 2 weeks, follow up outpatient -Cardiology following -Pain control with norco PRN, IV Dilaudid as needed, monitor for sedation -DVT prophylaxis with xarelto 10 mg daily -Repeat CBC and BMP tomorrow Type 2 diabetes -Levemir 40 units continue -Continue sliding scale insulin, monitor for hypoglycemia Hypertension -continue amlodipine 5 mg, lisinopril 20 mg Dyslipidemia -continue atorvastatin 20 GERD -continue Protonix 40 BPH -continue Flomax 0.4 Dementia -continue Aricept 10, Namenda 5 twice a day DVT ppx: Xarelto Code status: DNR Anticipated discharge place: Subacute rehab Anticipated discharge time: Pending bed availability Objective - Vital Signs Vital signs: Vital Signs Temp 98.0 F 03/03/23 07:08 Pulse 72 03/03/23 11:30 Resp 16 03/03/23 07:08 BP 115/55 03/03/23 07:08 Pulse Ox 95 03/03/23 07:08 FiO2 21 02/25/23 12:21 Intake & Output 03/02/23 03/03/23 03/03/23 18:59 06:59 18:59 Output Total 875 Balance -875 Output: Urine 875 Other: Voiding Method Indwelling Catheter Indwelling Catheter Indwelling Catheter # Bowel Movements 1 1 - Labs CBC & Chem 7: 03/03/23 06:33 03/02/23 05:32 Labs: Abnormal Lab Results - Last 24 Hours (Table) 03/02/23 03/03/23 03/03/23 Range/Units 16:56 06:33 09:06 WBC 10.14 H (4.50-10.00) X 10*3/uL RBC 2.83 L (4.40-5.60) X 10*6/uL Hgb 8.8 L (13.0-17.0) g/dL Hct 25.9 L (39.6-50.0) % Immature Gran # 0.06 H (0.00-0.04) X 10*3/uL POC Glucose (mg/dL) 136 H 121 H (70-110) mg/dL 03/03/23 Range/Units 12:04 WBC (4.50-10.00) X 10*3/uL RBC (4.40-5.60) X 10*6/uL Hgb (13.0-17.0) g/dL Hct (39.6-50.0) % Immature Gran # (0.00-0.04) X 10*3/uL POC Glucose (mg/dL) 135 H (70-110) mg/dL
[2023-03-03 16:31] LABS: Glucose,Whole Blood 114 mg/dL (70-110)
[2023-03-03] MEDS: SENNOSIDES-DOCUSATE SODIUM 1 EACH TAB PO SCH (20:05)
[2023-03-03] MEDS: ATORVASTATIN 20 MG TAB PO SCH (20:05)
[2023-03-03] MEDS: DONEPEZIL 10 MG TAB PO SCH (20:05)
[2023-03-03] MEDS: traZODone HCL 50 MG TAB PO SCH (20:05)
[2023-03-03 20:36] LABS: Glucose,Whole Blood 50 mg/dL (70-110)
[2023-03-03 20:52] LABS: Glucose,Whole Blood 59 mg/dL (70-110)
[2023-03-03 21:08] LABS: Glucose,Whole Blood 75 mg/dL (70-110)
[2023-03-04 01:29] LABS: Glucose,Whole Blood 43 mg/dL (70-110)
[2023-03-04] MEDS: LACTATED RINGERS 1,000 ML IV SCH ×3 (01:37→16:34)
[2023-03-04 02:04] LABS: Glucose,Whole Blood 67 mg/dL (70-110)
[2023-03-04 02:44] LABS: Glucose,Whole Blood 150 mg/dL (70-110)
[2023-03-04 06:12] LABS: Glucose,Whole Blood 250 mg/dL (70-110)
[2023-03-04] MEDS: PANTOPRAZOLE 40 MG TABLET PO SCH (06:29)
[2023-03-04] MEDS: INSULIN ASPART (NovoLOG) 100 UNIT/ML VIAL SQ SCH ×4 (06:32→22:44)
[2023-03-04] MEDS: MEMANTINE 5 MG TAB PO SCH ×2 (08:15→20:57)
[2023-03-04] MEDS: ACETAMINOPHEN TAB 500 MG TAB PO SCH ×3 (08:15→22:46)
[2023-03-04] MEDS: TAMSULOSIN 0.4 MG CAP.ER.24H PO SCH (08:15)
[2023-03-04] MEDS: ASPIRIN 81 MG PO SCH (08:15)
[2023-03-04] MEDS: SULFAMETHOX-TMP 800-160MG 1 EACH TAB PO SCH ×2 (08:15→20:58)
[2023-03-04] MEDS: amLODIPine 5 MG TAB PO SCH (08:15)
[2023-03-04] MEDS: FAMOTIDINE 20 MG TAB PO SCH (08:15)
[2023-03-04] MEDS: RIVAROXABAN 10 MG TAB PO SCH (08:16)
[2023-03-04] MEDS: INSULIN DETEMIR (LEVEMIR) 100 UNIT/ML SYR SQ SCH (08:16)
[2023-03-04] MEDS: lisinopriL 20 MG TAB PO SCH (08:16)
[2023-03-04] MEDS: METOPROLOL TARTRATE 25 MG TAB PO SCH ×2 (08:16→20:58)
[2023-03-04 08:58] LABS: Basophils # (A) 0.02 X 10*3/uL (0.00-0.10); Basophils % (A) 0.3 %; Eosinophils # (A) 0.27 X 10*3/uL (0.04-0.35); Eosinophils % (A) 3.6 %; HCT 24.5 % (39.6-50.0); HGB 8.3 g/dL (13.0-17.0); Lymphocytes # (A) 1.17 X 10*3/uL (0.90-5.00); Lymphocytes % (A) 15.7 %; MCH 31.3 pg (27.0-32.0); MCHC 33.9 g/dL (32.0-37.0); MCV 92.5 FL (80.0-97.0); Mean Platelet Volume 11.2 FL (9.5-12.2); Monocytes # (A) 0.67 X 10*3/uL (0.20-1.00); NRBC Per 100 WBC 0 X 10*3/uL (0.00-0.01); Platelet Count 273 X 10*3/uL (140-440); RBC 2.65 X 10*6/uL (4.40-5.60); RDW 12.9 % (11.5-14.5); WBC 7.46 X 10*3/uL (4.50-10.00)
[2023-03-04] MEDS: IPRATROPIUM-ALBUTEROL 3 ML NEB INHALATION SCH ×3 (09:22→22:27)
[2023-03-04 11:26] LABS: Glucose,Whole Blood 285 mg/dL (70-110)
--- NOTE | 2023-03-04 14:12 | P.PN ---
Subjective Progress Note Date: 03/04/23 Hospital Course: 77-year-old male with history of hypertension, dyslipidemia, insulin-dependent diabetes, dementia, GERD, BPH presented after a syncopal episode. CT head and cervical spine did not show any acute fracture. EKG showed right bundle branch block, sinus with first-degree AV block. Several x-rays shows right femoral acute periprosthetic fracture, possible right knee joint effusion. Orthopedic surgery consulted, status post repair. Cardiology consulted as well. Echocardiogram showed normal LV systolic function. Patient now has hypoactive delirium, improving. Pending discharge to nursing facility. On 03/04/23, patient had an unwitnessed fall. Complaining of pain in the right hip area. Hip x-rays and CT head pending. Subjective: Seen and examined at bedside. No acute events overnight. Had a fall during the daytime on 03/04/23, was unwitnessed Pertinent positives and negatives as discussed above, a complete review of systems was performed and all other systems are negative. Vitals Signs Reviewed. General: nontoxic, no distress, appears at stated age Derm: warm, dry Head: atraumatic, normocephalic, symmetric Eyes: EOMI, no lid lag, anicteric sclera Mouth: no lip lesion, mucus membranes moist Cardiovascular: S1S2 reg, no murmur Lungs: CTA bilateral, no rhonchi, no rales , no accessory muscle use Abdominal: soft, nontender to palpation, no guarding, no appreciable organomegaly Ext: unable to move right lower extremity due to pain Neuro: CN II-XI grossly intact, no focal neuro deficits Psych: Alert, orientedx2, appropriate affect Data Reviewed Today: Pertinent Labs: WBC 7.46, hemoglobin 8.3, blood sugars range between 67-250 Imaging: No new imaging Assessment and Plan: Patient needs close monitoring. Prognosis guarded. Active: Unwitnessed fall -Hip xrays and head CT pending -Orthostatic vitals Hypoactive delirium, resolved Constipation, resolved -Patient at baseline mental status -on scheduled Tylenol 1000 3 times a day -Avoid narcotics if possible -Patient on senna scheduled at night -Lechuga catheter discontinued Syncope and fall prior to admission Orthostatic hypotension prior to admission Acute right periprosthetic hip fracture, status post repair Leukocytosis, anticipated outcome of surgery Anemia, anticipated outcome of surgery, no active bleeding -Continue IV fluids, lactated ringer 100 mL per hour -Orthopedic surgery signed off, strict nonweightbearing on the right lower extremity 2 weeks, follow up outpatient -Cardiology evaluated patient prior to surgery -Pain control with norco PRN, IV Dilaudid as needed, monitor for sedation -DVT prophylaxis with xarelto 10 mg daily -Repeat CBC Type 2 diabetes -Levemir decreased to 20 units due to episodes of hypoglycemia -Continue sliding scale insulin, monitor for hypoglycemia Hypertension -continue amlodipine 5 mg, lisinopril 20 mg Dyslipidemia -continue atorvastatin 20 GERD -continue Protonix 40 BPH -continue Flomax 0.4 Dementia -continue Aricept 10, Namenda 5 twice a day DVT ppx: Xarelto Code status: DNR Anticipated discharge place: Subacute rehab Anticipated discharge time: Pending bed availability Objective - Vital Signs Vital signs: Vital Signs Temp 98.6 F 03/04/23 12:14 Pulse 73 03/04/23 12:14 Resp 14 03/04/23 12:14 BP 96/52 03/04/23 12:14 Pulse Ox 97 03/04/23 12:14 FiO2 21 02/25/23 12:21 Intake & Output 03/03/23 03/04/23 03/04/23 18:59 06:59 18:59 Output Total 475 Balance -475 Weight 77.111 kg Output: Urine 475 Other: Voiding Method Indwelling Catheter Urinal Urinal Diaper Diaper # Voids 2 - Labs CBC & Chem 7: 03/04/23 05:46 03/02/23 05:32 Labs: Abnormal Lab Results - Last 24 Hours (Table) 03/03/23 03/03/23 03/03/23 Range/Units 16:30 20:35 20:50 RBC (4.40-5.60) X 10*6/uL Hgb (13.0-17.0) g/dL Hct (39.6-50.0) % POC Glucose (mg/dL) 114 H 50 L 59 L (70-110) mg/dL 03/04/23 03/04/23 03/04/23 Range/Units 01:19 02:02 02:41 RBC (4.40-5.60) X 10*6/uL Hgb (13.0-17.0) g/dL Hct (39.6-50.0) % POC Glucose (mg/dL) 43 L 67 L 150 H (70-110) mg/dL 03/04/23 03/04/23 03/04/23 Range/Units 05:46 06:11 11:24 RBC 2.65 L (4.40-5.60) X 10*6/uL Hgb 8.3 L (13.0-17.0) g/dL Hct 24.5 L (39.6-50.0) % POC Glucose (mg/dL) 250 H 285 H (70-110) mg/dL
--- NOTE | 2023-03-04 14:56 | CT ---
EXAMINATION TYPE: CT brain wo con CT DLP: 1167.4 mGycm, Automated exposure control for dose reduction was used. DATE OF EXAM: 03/04/2023 2:41 PM COMPARISON: 03/06/2023 CLINICAL INDICATION:Male, 77 years old with history of fall, unwitnessed, Fall. TECHNIQUE: Brain: Axial CT images of the brain were obtained with coronal and sagittal reformats created and rev iewed. Contrast used: None. Oral contrast used: None. FINDINGS: Brain: Extra-axial spaces: No abnormal extra-axial fluid collections. Ventricular system: Dilatation in proportion to cerebral atrophy. Cerebral parenchyma: Cerebral atrophy. No acute intraparenchymal hemorrhage or mass effect. The lainez -white junction is well differentiated. Scattered hypoattenuating areas are seen within the white mat ter. Cerebellum: Unremarkable. Mass effect: No evidence of midline shift. Intracranial vasculature: Atherosclerotic calcifications of the intracranial vessels. Soft tissues: Posterior scalp edema. Calvarium/osseous structures: No depressed skull fracture. Paranasal sinuses and mastoid air cells: Mild scattered paranasal sinus disease. Visualized orbits: Orbital contents are intact. IMPRESSION: 1. No acute intracranial process. 2. Nonspecific white matter changes, likely secondary to chronic small vessel ischemic disease. 3. Posterior scalp edema.
--- NOTE | 2023-03-04 15:08 | XR ---
EXAMINATION TYPE: XR femur RT DATE OF EXAM: 03/04/2023 COMPARISON: 02/26/2023 HISTORY: 77-year-old male pain, fall, recent hip surgery TECHNIQUE: 2 views FINDINGS: Right hip hemiarthroplasty redemonstrated. Heterotopic ossification along the superior aspe ct of the right hip. Vascular calcifications. Interval placement of multiple cerclage wires around th e femoral stem component with reduction of the oblique periprosthetic fracture of the femoral shaft. Additional lateral plate and screw fixation is also present. Severe degenerative change medial compar tment of the right knee. Scattered soft tissue air related to recent operation. Lateral skin manny. IMPRESSION: Reduction of the patient's periprosthetic fracture along the proximal femoral shaft at the femoral st em component of the hemiarthroplasty. Cerclage wires are used as well as a long fixation plate with s crews. Moderate to severe medial compartmental OA at the knee.
[2023-03-04 16:50] LABS: Glucose,Whole Blood 178 mg/dL (70-110)
[2023-03-04 16:53] LABS: Glucose,Whole Blood 165 mg/dL (70-110)
[2023-03-04] MEDS: traZODone HCL 50 MG TAB PO SCH (20:57)
[2023-03-04] MEDS: DONEPEZIL 10 MG TAB PO SCH (20:57)
[2023-03-04] MEDS: ATORVASTATIN 20 MG TAB PO SCH (20:57)
[2023-03-04] MEDS: SENNOSIDES-DOCUSATE SODIUM 1 EACH TAB PO SCH (20:58)
[2023-03-04 21:26] VITALS: RESP 18
[2023-03-04 22:03] LABS: Glucose,Whole Blood 104 mg/dL (70-110)
[2023-03-05] MEDS: LACTATED RINGERS 1,000 ML IV SCH ×3 (03:51→15:44)
[2023-03-05 06:06] LABS: Glucose,Whole Blood 153 mg/dL (70-110)
[2023-03-05] MEDS: PANTOPRAZOLE 40 MG TABLET PO SCH (06:32)
[2023-03-05] MEDS: INSULIN ASPART (NovoLOG) 100 UNIT/ML VIAL SQ SCH ×2 (06:32→12:07)
[2023-03-05] MEDS ORDERED: INSULIN DETEMIR (LEVEMIR) 100 UNIT/ML SYR SQ SCH (07:00)
[2023-03-05] MEDS: METOPROLOL TARTRATE 25 MG TAB PO SCH (09:09)
[2023-03-05] MEDS: amLODIPine 5 MG TAB PO SCH (09:09)
[2023-03-05] MEDS: ACETAMINOPHEN TAB 500 MG TAB PO SCH ×2 (09:09→15:34)
[2023-03-05] MEDS: TAMSULOSIN 0.4 MG CAP.ER.24H PO SCH (09:10)
[2023-03-05] MEDS: lisinopriL 20 MG TAB PO SCH (09:10)
[2023-03-05] MEDS: ASPIRIN 81 MG PO SCH (09:10)
[2023-03-05] MEDS: RIVAROXABAN 10 MG TAB PO SCH (09:10)
[2023-03-05] MEDS: SULFAMETHOX-TMP 800-160MG 1 EACH TAB PO SCH (09:10)
[2023-03-05] MEDS: MEMANTINE 5 MG TAB PO SCH (09:10)
[2023-03-05] MEDS: FAMOTIDINE 20 MG TAB PO SCH (09:10)
[2023-03-05] MEDS: IPRATROPIUM-ALBUTEROL 3 ML NEB INHALATION SCH ×2 (10:08→12:40)
[2023-03-05 11:13] LABS: Basophils # (A) 0.02 X 10*3/uL (0.00-0.10); Basophils % (A) 0.2 %; Eosinophils # (A) 0.15 X 10*3/uL (0.04-0.35); Eosinophils % (A) 1.9 %; HCT 24.9 % (39.6-50.0); HGB 8.5 g/dL (13.0-17.0); Lymphocytes # (A) 0.96 X 10*3/uL (0.90-5.00); Lymphocytes % (A) 11.9 %; MCH 31.3 pg (27.0-32.0); MCHC 34.1 g/dL (32.0-37.0); MCV 91.5 FL (80.0-97.0); Mean Platelet Volume 10.8 FL (9.5-12.2); Monocytes # (A) 0.78 X 10*3/uL (0.20-1.00); Monocytes % (A) 9.7 %; NRBC Per 100 WBC 0 X 10*3/uL (0.00-0.01); Neutrophils # (A) 6.12 X 10*3/uL (1.80-7.70); Neutrophils % (A) 75.9 %; Platelet Count 354 X 10*3/uL (140-440); RBC 2.72 X 10*6/uL (4.40-5.60); RDW 12.9 % (11.5-14.5); WBC 8.06 X 10*3/uL (4.50-10.00)
[2023-03-05 11:24] LABS: Glucose,Whole Blood 181 mg/dL (70-110)
[2023-03-05 11:55] LABS: BUN/Creat Ratio 12.82 Ratio (12.00-20.00); Blood Urea Nitrogen 14.1 mg/dL (9.0-27.0); Calcium 8.5 mg/dL (8.7-10.3); Carbon Dioxide 23.6 mmol/L (21.6-31.8); Chloride 99 mmol/L (96-109); Glucose 194 mg/dL (70-110); Magnesium 2.2 mg/dL (1.5-2.4); Potassium 5.1 mmol/L (3.5-5.5); Sodium 132 mmol/L (135-145)
[2023-03-05 14:15] VITALS: BP 119/52; PULSE 85; TEMP 98.4
--- NOTE | 2023-03-05 15:44 | P.DS ---
Providers Date of admission: 02/24/23 00:45 Expected date of discharge: 03/05/23 Attending physician: Jude Arshad MD Consults: 02/24/23 00:44 Consult Physician Routine Consulting Provider: Ventura Chou Consult Reason/Comments: syncope Do you want consulting provider notified?: Yes 02/26/23 19:01 Consult Physician Urgent Consulting Provider: Jake Cook Consult Reason/Comments: femur fracture Do you want consulting provider notified?: Yes Primary care physician: [facility] Hospital Course: Unwitnessed fall Hypoactive delirium, resolved Constipation, resolved Syncope and fall prior to admission Orthostatic hypotension prior to admission Acute right periprosthetic hip fracture, status post repair Leukocytosis, anticipated outcome of surgery Anemia, anticipated outcome of surgery, no active bleeding Type 2 diabetes Hypertension Dyslipidemia GERD BPH Dementia Hospital Course: 77-year-old male with history of hypertension, dyslipidemia, insulin-dependent diabetes, dementia, GERD, BPH presented after a syncopal episode. CT head and cervical spine did not show any acute fracture. EKG showed right bundle branch block, sinus with first-degree AV block. Several x-rays shows right femoral acute periprosthetic fracture, possible right knee joint effusion. Orthopedic surgery consulted, status post repair. Cardiology consulted as well. Echoca rdiogram showed normal LV systolic function. Patient now has hypoactive delirium, improving. Pending discharge to nursing facility. On 03/04/23, patient had an unwitnessed fall. Complaining of pain in the right hip area. Hip x-rays and CT head negative for fracture or bleed. Pt was authorized by insurance to go to rehab and was discharged to [facility]. He will f/u with PCP. I spent 36 minutes coordinating this discharge, 03/05 Gen: in no apparent distress, resting comfortably in bed Eyes: PERRL, no scleral injection or icterus HENT: normocephalic, atraumatic, good hearing acuity, moist mucous membranes Neck: no tracheal deviation, full range of motion Resp: good air exchange, breathing comfortably with no accessory muscle use, no tactile fremitus CVS: good distal perfusion x 4, no pitting edema GI: soft, NTTP, ND, no hepatosplenomegaly : no suprapubic tenderness, no CVAT, brennan catheter not present MSK: no clubbing, no cyanosis, no noted contractures of extremities Skin: no noted rashes, petechiae; temperature of skin is appropriate Neuro: moving all extremities without signs of weakness, CN II-XII intact Psych: cooperative, euthymic mood, insight and judgment intact Patient Condition at Discharge: Good Plan - Discharge Summary Discharge Rx Participant: No New Discharge Prescriptions: New HYDROcodone/APAP 5-325MG [[place] 5-325] 1 - 2 tab PO Q6HR PRN #28 tab PRN Reason: Pain Ipratropium-Albuterol Nebulize [Duoneb 0.5 mg-3 mg/3 ml Soln] 3 ml INHALATION RT-TID each Metoprolol Tartrate [Lopressor] 25 mg PO BID tab Omeprazole 40 mg PO DAILY #30 tab Sennosides-Docusate Sodium [Senokot-S] 1 tab PO BID #60 tablet Rivaroxaban [Xarelto] 10 mg PO DAILY #30 tab amLODIPine [Norvasc] 5 mg PO DAILY tab Acetaminophen Tab [Tylenol] 1,000 mg PO TID tab Continue Donepezil [Aricept] 10 mg PO HS@1999 Memantine [Namenda] 5 mg PO BID@00,1999 Tamsulosin HCl [Flomax] 0.4 mg PO DAILY@0900 Insulin Aspart [NovoLOG Flexpen] See Protocol SQ TID@0900,1300,1800 Omeprazole 20 mg PO DAILY@0900 Simvastatin [Zocor] 40 mg PO HS@1999 lisinopriL [Prinivil] 20 mg PO DAILY@0900 Aspirin 81 mg PO DAILY@0900 traZODone HCL [Desyrel] 50 mg PO HS@1999 Changed Insulin Glargine,Hum.rec.anlog [Lantus Solostar Pen] 20 units SQ DAILY@0900 #0 Discontinued Naproxen [EC-Naprosyn] 500 mg PO BID PRN PRN Reason: Pain Discharge Medication List Donepezil [Aricept] 10 mg PO HS@199911/19/15 [History] Memantine [Namenda] 5 mg PO BID@0900,199902/08/20 [History] Tamsulosin HCl [Flomax] 0.4 mg PO DAILY@0900 02/08/20 [History] Omeprazole 20 mg PO DAILY@0900 06/03/20 [History] Simvastatin [Zocor] 40 mg PO HS@199902/25/21 [History] Insulin Aspart [NovoLOG Flexpen] See Protocol SQ TID@0900,1300,1800 07/01/21 [History] lisinopriL [Prinivil] 20 mg PO DAILY@0900 07/01/21 [History] Aspirin 81 mg PO DAILY@0900 05/13/22 [History] traZODone HCL [Desyrel] 50 mg PO HS@199905/13/22 [History] HYDROcodone/APAP 5-325MG [[place] 5-325] 1 - 2 tab PO Q6HR PRN #28 tab 03/01/23 [Rx] Omeprazole 40 mg PO DAILY #30 tab 03/01/23 [Rx] Rivaroxaban [Xarelto] 10 mg PO DAILY #30 tab 03/01/23 [Rx] Sennosides-Docusate Sodium [Senokot-S] 1 tab PO BID #60 tablet 03/01/23 [Rx] Acetaminophen Tab [Tylenol] 1,000 mg PO TID tab 03/05/23 [Rx] Insulin Glargine,Hum.rec.anlog [Lantus Solostar Pen] 20 units SQ DAILY@0900 #0 03/05/23 [Rx] Ipratropium-Albuterol Nebulize [Duoneb 0.5 mg-3 mg/3 ml Soln] 3 ml INHALATION RT-TID each 03/05/23 [Rx] Metoprolol Tartrate [Lopressor] 25 mg PO BID tab 03/05/23 [Rx] amLODIPine [Norvasc] 5 mg PO DAILY tab 03/05/23 [Rx] Follow up Appointment(s)/Referral(s): Guero Todd MD [STAFF PHYSICIAN] - 1-2 days (ECF please call for follow-up appointment.) Kings Vazquez MD [STAFF PHYSICIAN] - 03/13/23 10:30 am Marshall Burden MD [Medical Doctor] - 03/12/23 1:00 pm Activity/Diet/Wound Care/Special Instructions: Non-weightbearing right lower extremity Maintain knee immobilizer. May remove daily to check skin. Discharge Disposition: TRANSFER TO SNF/ECF
--- NOTE | 2023-03-05 16:04 | CDI ---
Documentation Clarification Form Date: 03/05/2023 03:42:54 PM From: Jessica Kirkland RN, CCDS Phone: [phone] Admit Date: 02/24/2023 12:45:00 AM Patient Name: Alfa Ortiz Visit Number: [id number] Discharge Date: ATTENTION: The Clinical Documentation Specialists (CDI) and [facility] Coding Staff appreciate your assistance in clarifying documentation. Please respond to the clarification below the line at the bottom and electronically sign. The CDI & [facility] Coding staff will review the response and follow-up if needed. Please note: Queries are made part of the Legal Health Record. If you have any questions, please contact the author of this message via ITS. Dr. Jude Arshad Unspecified anemia is documented in the ongoing progress notes starting on 03/01/23. Additional specificity regarding the of anemia is requested. History/Risk Factors: CVA/TIA, Dementia, Diabetes Mellitus, GERD/Reflux, Hyperlipidemia, Hypertension Clinical indicators: 77-year-old male presenting to the emergency after fall found Periprosthetic fracture of proximal end of femur. He had open reduction internal fixation of the right proximal femur on 02/28/23. Estimated blood loss 200 02/23 HGB 12.6, HCT 36.4 03/01 HGB 10.4, HCT 30.3 03/02 HGB 9.7, HCT 28.0 03/03 HGB 8.8, HCT 25.9 Treatment: Monitor CBC Daily Please further clarify the type of anemia: [ x ] Acute blood loss anemia, anticipated outcome of surgery [ ] Unable to determine [ ] Other, please specify (Template Last Revised: March 2020) MTDD
== END 2023-03-05 16:42 | DRG 481 ==
LOC: EC 22:00 → OBSVTOIN 02-24 00:45 → 6NMEDSUR 02-24 00:45 → 4SSUR 02-27 20:04
PROVIDERS: ADMIT Student in an Organized Health Care Education/Training Program; ATTEND Student in an Organized Health Care Education/Training Program
PROC: 0QS804Z Reposition Right Femoral Shaft with Internal Fixation Device, Open Approach (ICD-10-PCS; principal; 2023-02-28 13:40)
DX: S72.331A Displaced oblique fracture of shaft of right femur, initial encounter for closed fracture (principal); D62 Acute posthemorrhagic anemia; F05 Delirium due to known physiological condition; I47.20 Ventricular tachycardia, unspecified; M97.01XA Periprosthetic fracture around internal prosthetic right hip joint, initial encounter; E11.649 Type 2 diabetes mellitus with hypoglycemia without coma; F03.90 Unspecified dementia, unspecified severity, without behavioral disturbance, psychotic disturbance, mood disturbance, and anxiety; E11.42 Type 2 diabetes mellitus with diabetic polyneuropathy; J44.9 Chronic obstructive pulmonary disease, unspecified; I48.91 Unspecified atrial fibrillation; Z79.4 Long term (current) use of insulin; E11.65 Type 2 diabetes mellitus with hyperglycemia; I10 Essential (primary) hypertension; I08.1 Rheumatic disorders of both mitral and tricuspid valves; Z66 Do not resuscitate; K21.9 Gastro-esophageal reflux disease without esophagitis; M19.041 Primary osteoarthritis, right hand; T38.3X6A Underdosing of insulin and oral hypoglycemic [antidiabetic] drugs, initial encounter; M19.042 Primary osteoarthritis, left hand; I45.10 Unspecified right bundle-branch block; E78.5 Hyperlipidemia, unspecified; N40.0 Benign prostatic hyperplasia without lower urinary tract symptoms; M50.30 Other cervical disc degeneration, unspecified cervical region; K59.00 Constipation, unspecified; I95.1 Orthostatic hypotension; D72.829 Elevated white blood cell count, unspecified; I44.0 Atrioventricular block, first degree; M25.461 Effusion, right knee; W19.XXXA Unspecified fall, initial encounter; Z77.098 Contact with and (suspected) exposure to other hazardous, chiefly nonmedicinal, chemicals; Y92.009 Unspecified place in unspecified non-institutional (private) residence as the place of occurrence of the external cause; Z86.73 Personal history of transient ischemic attack (TIA), and cerebral infarction without residual deficits; M80.051 Age-related osteoporosis with current pathological fracture, right femur; Z79.82 Long term (current) use of aspirin; Z79.899 Other long term (current) drug therapy; Z87.891 Personal history of nicotine dependence
CPT/HCPCS: 36415; 70450; 71046; 72125; 73501; 80048; 80053; 81003; 83735; 84443; 84484; 85025; 85610; 85730; 87077; 87086; 87186; 93005; 93308; 94640; 94760; 96374; 99285